=== PATIENT | female | born 1980 | race Caucasian/White ===

== ENCOUNTER → 2016-05-23 | Emergency (ER) | payer BC ==
[~2016-05-23] VITALS: Ht 172.7 cm; Wt 111.1 kg
[2016-05-23 18:20] VITALS: BP 129/65
--- OUTSIDE RECORDS SUMMARY | 2016-06-23 22:56 | XMS REPORT | Continuity of Care Document ---
Author Author [facility] Organization [facility] Address [address] [place] [address] Phone Care Team Providers Care Wind Commissioning Technician Name Role Phone Eric Montes MD PP Nikki Kendrick Unavailable Won Ricci CP Susu Cruz Unavailable Unavailable Eric Montes MD Unavailable Sandy Benitez Unavailable Unavailable Unavailable Problems Name Dates Details Amenorrhea (626.0, N91.2) Status: Active Anxiety (300.00, F41.1) Status: Active Anxiety (300.00, F41.1) Status: Active Bipolar affective (296.80, F31.9) Status: Active Breast lump on right side at 12 o'clock position (611.72, N63) Status: Active Constipation (Renamed from CN (constipation)) (564.00, K59.00) Status: Active Contraception (Renamed from control) (V25.9, Z30.9) Status: Active Deliveries (Parity) Comments: 1 Status: Active Dermatitis (692.9, L30.9) Status: Active Dysesthesia affecting both sides of body (782.0, R20.8) Status: Active Headache (Renamed from Cephalalgia) (784.0, R51) Status: Active Health education/counseling (V65.40, Z71.9) Status: Active Lumbar back pain (724.2) Status: Active Mass of right foot (782.2, R22.41) Status: Active Pre-op evaluation (V72.84) Status: Active Rash (782.1, R21) Status: Active Sore throat (462, J02.9) Status: Active Stillbirth Onset:1999 Status: Active UTI (lower urinary tract infection) (599.0, N39.0) Status: Active Medications Name Dates Details BENZTROPINE MESYLATE, 1MG (Oral Tablet) 1/2 (one half) Tablet Tablet two times daily for 0 days Quantity: 30 {Tablet} Ordered:03-May-2014 Eric Montes MD* Start 03-May-2014 Active METHOCARBAMOL, 750MG (Oral Tablet) 1 (one) Tablet every six hours, as needed for 0 days * Quantity: 100 {Tablet} Refills: 0 Ordered:20-Sep-2014 Sandy Benitez * Start 20-Sep-2014 Active Comments: Medication taken as needed. METHOCARBAMOL, 750MG (Oral Tablet) - Historical Medication 1 every eight hours (750 MG) Active NORCO, 10-325MG (Oral Tablet) - Historical Medication 1 4 to 6 hrs as needed (10-325 MG) Active Comments: Medication taken as needed. SEROQUEL, 100MG (Oral Tablet) 1 (one) Tablet Tablet daily for 30 days * Quantity: 30 {Tablet} Refills: 6 Ordered: Eric Montes MD* Start Active Comments: approved by Dr. Eric Montes TRAMADOL HCL, 50MG (Oral Tablet) - Historical Medication 1or 2 every 4 to 6 hrs. as needed (50 MG) Active Comments: Medication taken as needed. TRAZODONE HCL, 100MG (Oral Tablet) 1 (one) Tablet Tablet at bedtime for 0 days * Quantity: 30 {Tablet} Refills: 6 Ordered: Eric Montes MD* Start 03-May-2014 Active ABILIFY, 10MG (Oral Tablet) 1 (one) Tablet daily for 0 days * Quantity: 90 {Tablet} Refills: 4 Ordered: Susu Cruz * Start 19-Apr-2014 End Inactive Comments: new order 04-19-14 AMBIEN, 10MG (Oral Tablet) - Historical Medication 1 at bedtime (10 MG) Inactive BACTRIM DS, 800-160MG (Oral Tablet) 1 (one) Tablet two times daily for 0 days * Quantity: 20 {Tablet} Refills: 0 Ordered:28-Oct-2013 Sandy Benitez * Start 08-Oct-2013 End 28-Oct-2013 Inactive BENZTROPINE MESYLATE, 1MG (Oral Tablet) - Historical Medication 1/2 tab two times daily (1 MG) Inactive CELEXA, 20MG (Oral Tablet) 1/2 (one half) Tablet 1/2 tab daily x6d, then 1 daily for 0 days * Quantity: 30 {Tablet} Refills: 12 Ordered: Sandy Benitez * Start End Inactive CELEXA, 40MG (Oral Tablet) 1 Tablet daily for 0 days * Quantity: 30 {Tablet} Refills: 3 Ordered: Susu Cruz * Start 08-Dec-2013 End Inactive CLOMID, 50MG (Oral Tablet) - Historical Medication 2 daily (50 MG) * End 01-Apr-2011 Inactive GABAPENTIN, 300MG (Oral Capsule) - Historical Medication 1-2 three times daily (300 MG) Inactive GABAPENTIN, 300MG (Oral Capsule) - Historical Medication 1 q 6hrs (300 MG) Inactive KEFLEX, 500MG (Oral Capsule) 1 (one) Capsule three times daily for 0 days * Quantity: 30 {Capsule} Refills: 0 Ordered:08-Jun-2014 Sandy Benitez * Start 25-Apr-2014 End 08-Jun-2014 Inactive LORAZEPAM, 1MG (Oral Tablet) 1 Tablet every 6 hrs as needed for 0 days * Quantity: 30 {Tablet} Refills: 1 Ordered:12-Apr-2013 Sandy Benitez * Start 31-Jan-2012 End 12-Apr-2013 Inactive Comments: Medication taken as needed. LYRICA, 100MG (Oral Capsule) - Historical Medication 1 two times daily (100 MG) Inactive MEDROL (TREY), 4MG (Oral Tablet) 1 (one) Tablet as directed for 6 days * Quantity: 21 {Tablet} Refills: 0 Ordered:05-Nov-2013 Nikki Devries* Start 05-Nov-2013 End 11-Nov-2013 Inactive Comments: approved by Eric Montes M.D. NORCO, 7.5-325MG (Oral Tablet) - Historical Medication 1 to 2 every 4 to 6 hrs (7.5-325 MG) Inactive NORTREL (28), 1-35MG-MCG (Oral Tablet) 1 Tablet daily for 90 days * Quantity: 3 {Tablet} Refills: 3 Ordered:25-Feb-2011 Sandy Benitez * Start 25-Feb-2011 End 01-Apr-2011 Inactive PERCOCET, 10-325MG (Oral Tablet) - Historical Medication 1 or 2 every six hours, as needed (10-325 MG) Inactive Comments: Medication taken as needed. PHENTERMINE HCL, 30MG (Oral Capsule) 1 Capsule daily for 0 days * Quantity: 30 {Capsule} Refills: 0 Ordered:05-Dec-2010 Sandy Benitez * Start 18-Dec-2009 End 05-Dec-2010 Inactive QUETIAPINE FUMARATE, 100MG (Oral Tablet) - Historical Medication 1 daily (100 MG) Inactive SPIRONOLACTONE, 25MG (Oral Tablet) - Historical Medication 1 daily (25 MG) Inactive TOPAMAX, 25MG (Oral Tablet) 1 Tablet two times daily for 30 days * Quantity: 60 {Tablet} Refills: 12 Ordered:05-Dec-2010 Eric Montes MD* Start 29-Oct-2010 End 05-Dec-2010 Inactive TRAMADOL HCL, 50MG (Oral Tablet) 1 Tablet every six hours, as needed for 10 days * Quantity: 30 {Tablet} Refills: 3 Ordered:03-Jan-2011 Sandy Benitez * Start 03-Jan-2011 End 01-Apr-2011 Inactive Comments: Medication taken as needed. TRAZODONE HCL, 100MG (Oral Tablet) - Historical Medication 1 at bedtime (100 MG) Inactive TOPAMAX, 25MG (Oral Tablet) - Historical Medication two times daily (25 MG) * End 18-Dec-2009 Discontinued Allergies and Adverse Reactions Name Dates Details Morphine Derivatives (Allergy) Status: Active Penicillins (Allergy) Status: Active Toradol *ANALGESICS - ANTI-INFLAMMATORY* (Allergy) Status: Active Past Medical History No Significant Medical History. Procedures Procedure Dates Details X-ray Exam of Lower Spine, 2 Views ([id number]) Completed:17-May-2014 Comments : outside order from Dr. Ricci How to access health information online Completed:07-Feb-2014 X-ray Exam of Lower Spine, 2 Views ([id number]) Completed:11-Jan-2014 Comments : outside order from Dr. Ricci Referral to Dermatology Ordered:16-Nov-2013 DISCONTINUED - URINALYSIS, AUTOMATED W/ MICRO ([facility] [place] ([id number]) Completed:Jun-2011 X-RAY EXAM LUMBAR SPINE, MIN 4 VIEWS ([id number]) Ordered:05-Dec-2010 MRI OF LUMBAR SPINE W/ W/O CONTRAST ([id number]) Ordered:05-Dec-2010 US EXAM, BREAST(S) ([id number]) Ordered:05-Mar-2010 Follow up in 3 months Ordered:18-Dec-2009 Appendectomy Completed:1975 Bone cyst Completed:1998 Comments: Right. knee Carpal Tunnel Surgery - Right Completed: Coccygeal fistula Completed:2003 Family History Name Dates Details Mother Comments: history of hypertension Status: Active Social History Name Dates Details Marital status: . Status: Active Non Drinker/No Alcohol Use Status: Active Tobacco use: Former smoker. Comments: quit 6 years ago Status: Active Vital Signs Date Test Result Details 14:43 Temperature 98 f Comments: Method: Temporal Pulse 92 /min Comments: Pattern: Regular BP Systolic 124 mm[Hg] Comments: Patient Position: Sitting; Cuff Location: Left Arm; Cuff Size: Standard BP Diastolic 76 mm[Hg] Comments: Patient Position: Sitting; Cuff Location: Left Arm; Cuff Size: Standard Weight 237 lb Height 68 in Body Mass Index Calculated 36.04 kg/m2 Body Surface Area Calculated 2.2 m2 07-Feb-2014 14:23 Temperature 98 f Pulse 76 /min Comments: Pattern: Regular BP Systolic 128 mm[Hg] Comments: Patient Position: Sitting; Cuff Location: Left Arm; Cuff Size: Standard BP Diastolic 70 mm[Hg] Comments: Patient Position: Sitting; Cuff Location: Left Arm; Cuff Size: Standard Weight 235 lb Height 68 in Body Mass Index Calculated 35.73 kg/m2 Body Surface Area Calculated 2.19 m2 15-Nov-2013 16:43 Temperature 97.3 f Comments: Method: Temporal Pulse 80 /min Comments: Pattern: Regular BP Systolic 124 mm[Hg] Comments: Patient Position: Sitting; Cuff Location: Left Arm; Cuff Size: Standard BP Diastolic 78 mm[Hg] Comments: Patient Position: Sitting; Cuff Location: Left Arm; Cuff Size: Standard Weight 226 lb Height 68 in Body Mass Index Calculated 34.36 kg/m2 Body Surface Area Calculated 2.15 m2 05-Nov-2013 15:56 Temperature 98.5 f Comments: Method: Temporal Pulse 84 /min Comments: Pattern: Regular BP Systolic 110 mm[Hg] Comments: Patient Position: Sitting; Cuff Location: Left Arm; Cuff Size: Standard BP Diastolic 72 mm[Hg] Comments: Patient Position: Sitting; Cuff Location: Left Arm; Cuff Size: Standard Weight 226 lb Height 69 in Body Mass Index Calculated 33.37 kg/m2 Body Surface Area Calculated 2.18 m2 28-Oct-2013 14:33 Temperature 97.5 f Comments: Method: Temporal Pulse 72 /min Comments: Pattern: Regular BP Systolic 110 mm[Hg] Comments: Patient Position: Sitting; Cuff Location: Left Arm; Cuff Size: Standard BP Diastolic 64 mm[Hg] Comments: Patient Position: Sitting; Cuff Location: Left Arm; Cuff Size: Standard Weight 228 lb Height 68 in Body Mass Index Calculated 34.67 kg/m2 Body Surface Area Calculated 2.16 m2 12-Apr-2013 14:00 Temperature 99.1 f Comments: Method: Temporal Pulse 80 /min Comments: Pattern: Regular BP Systolic 128 mm[Hg] Comments: Patient Position: Sitting; Cuff Location: Left Arm; Cuff Size: Standard BP Diastolic 88 mm[Hg] Comments: Patient Position: Sitting; Cuff Location: Left Arm; Cuff Size: Standard Weight 235 lb Height 67.75 in Body Mass Index Calculated 36 kg/m2 Body Surface Area Calculated 2.18 m2 15:23 Temperature 99.1 f Pulse 74 /min Comments: Pattern: Regular BP Systolic 118 mm[Hg] Comments: Patient Position: Sitting; Cuff Location: Left Arm; Cuff Size: Standard BP Diastolic 70 mm[Hg] Comments: Patient Position: Sitting; Cuff Location: Left Arm; Cuff Size: Standard Weight 207.5 lb Height 67 in Body Mass Index Calculated 32.5 kg/m2 Body Surface Area Calculated 2.05 m2 17:25 Temperature 98.9 f Comments: Method: Temporal Pulse 80 /min Comments: Pattern: Regular BP Systolic 138 mm[Hg] Comments: Patient Position: Sitting; Cuff Location: Left Arm; Cuff Size: Standard BP Diastolic 70 mm[Hg] Comments: Patient Position: Sitting; Cuff Location: Left Arm; Cuff Size: Standard Weight 206 lb Height 67.5 in Body Mass Index Calculated 31.79 kg/m2 Body Surface Area Calculated 2.06 m2 01-Apr-2011 14:46 Temperature 98.3 f Comments: Method: Temporal Pulse 88 /min Comments: Pattern: Regular BP Systolic 122 mm[Hg] Comments: Patient Position: Sitting; Cuff Location: Left Arm; Cuff Size: Standard BP Diastolic 78 mm[Hg] Comments: Patient Position: Sitting; Cuff Location: Left Arm; Cuff Size: Standard Weight 213 lb Height 67 in Body Mass Index Calculated 33.36 kg/m2 Body Surface Area Calculated 2.08 m2 05-Dec-2010 14:53 Temperature 98.6 f Comments: Method: Temporal Pulse 80 /min Comments: Pattern: Regular BP Systolic 138 mm[Hg] Comments: Patient Position: Sitting; Cuff Location: Left Arm; Cuff Size: Standard BP Diastolic 94 mm[Hg] Comments: Patient Position: Sitting; Cuff Location: Left Arm; Cuff Size: Standard Weight 214 lb Height 67.5 in Body Mass Index Calculated 33.02 kg/m2 Body Surface Area Calculated 2.09 m2 05-Mar-2010 13:57 Temperature 98.7 f Comments: Method: Temporal Pulse 72 /min Comments: Pattern: Regular BP Systolic 138 mm[Hg] Comments: Patient Position: Sitting; Cuff Location: Left Arm; Cuff Size: Standard BP Diastolic 84 mm[Hg] Comments: Patient Position: Sitting; Cuff Location: Left Arm; Cuff Size: Standard Weight 206 lb 18-Dec-2009 10:37 Temperature 97.9 f Comments: Method: Temporal Pulse 88 /min Comments: Pattern: Regular BP Systolic 130 mm[Hg] Comments: Patient Position: Sitting; Cuff Location: Left Arm; Cuff Size: Standard BP Diastolic 80 mm[Hg] Comments: Patient Position: Sitting; Cuff Location: Left Arm; Cuff Size: Standard Weight 210 lb Height 67.5 in Body Mass Index Calculated 32.4 kg/m2 Body Surface Area Calculated 2.08 m2 Results Date Description Value Details 07-Feb-2014 15:07 PROLACTIN ([id number]) Comments: Items in this order include: Draw Charge[i], CBC, Comprehensive Metabolic Panel, TSH, FSH, LH, PROLACTINTesting performed at: [facility], [address] [place] [address], [id number], Curam Developer: Lonny Middleton D.O., MPH.brQuest PROLACTIN 11.5 ng/mL (Normal) Comments: Reference Range.br Females.br Non- 3.0-30.0.br 10.0-209.0.br Postmenopausal 2.0-20.0.br .br .br 15:07 LH ([id number]) Comments: Items in this order include: Draw Charge[i] , CBC, Comprehensive Metabolic Panel, TSH, FSH, LH, PROLACTINTesting performed at: [facility], [address] [place] [address], [id number], Curam Developer: Lonny Middleton D.O., MPH.[facility] LH 9.3 m[iU]/mL (Normal) Comments: Reference Range.brFollicular Phase 1.9-12.5.brMid-Cycle Peak 8.7-76.3.brLuteal Phase 0.5- 16.9.brPostmenopausal 10.0-54.7 15:07 FSH ([id number]) Comments: Items in this order include: Draw Charge[i] , CBC, Comprehensive Metabolic Panel, TSH, FSH, LH, PROLACTINTesting performed at: [facility], [address] [place] [address], [id number], Curam Developer: Lonny Middleton D.O., MPH.[facility]Quest FSH 4.4 m[iU]/mL (Normal) Comments: Reference Range.br .br Follicular Phase 2.5-10.2.br Mid-cycle Peak 3.1- 17.7.br Luteal Phase 1.5- 9.1.br Postmenopausal 23.0-116.3 .br 15:07 TSH (THYROID STIMULATING HORMONE) ([id number]) TSH 1.33 uIU/ml (Normal) Range: 0.34-5.60 15:07 CMP ([id number]) ALTI 96 U/L (Abnormal) Range: 12-78 AST 39 [iU]/L (Normal) Range: 10-42 ALP 111 U/L (Normal) Range: 50-136 a/g ratio 1.55 (Normal) Range: 1.00-2.10 globulin 3.1 g/dL (Normal) Range: 2.2-3.9 ALB 4.8 g/dL (Normal) Range: 3.4-5.0 TP 7.9 g/dL (Normal) Range: 6.0-8.3 T.DWAYNE 0.20 mg/dL (Normal) Range: 0.20-1.00 CA 9.6 mg/dL (Normal) Range: 8.4-10.2 GLU 74 mg/dL (Normal) Range: 70-110 eGFR 67.8 mL/min/1.73m2 (Normal) Range: >60.0 CREAT 1.0 mg/dL (Normal) Range: 0.6-1.3 OSMO 280 (Normal) Range: 275-295 BUN 11 mg/dL (Normal) Range: 7-18 AGAP 13.20 mmol/L (Normal) Range: 10.00-20.00 CL 101 mmol/L (Normal) Range: 98-107 CO2 31.2 mmol/L (Normal) Range: 21.0-32.0 K 4.4 mmol/L (Normal) Range: 3.5-5.0 NA 141 mmol/L (Normal) Range: 135-145 15:07 CBC-FEMALE- ORDER THIS ONE! ([id number]) manual diff Not Indicated (Normal) mpv 11.30 fL (Normal) Range: 0.00-99.90 PLT 248.0 10*3/uL (Normal) Range: 150.0-450.0 RDW 13.6 % (Normal) Range: 11.5-14.5 MCHC 32.3 g/dL (Normal) Range: 32.0-36.0 MCH 28.8 pg (Normal) Range: 27.0-31.0 MCV 89.2 fL (Normal) Range: 80.0-97.0 HCT 43.7 % (Normal) Range: 36.0-47.0 HGB 14.10 g/dL (Normal) Range: 11.00-17.00 RBC 4.90 M/uL (Normal) Range: 4.20-5.40 Baso% 0.300 % (Normal) Range: 0.000-1.000 eos% 3.40 % (Abnormal) Range: 0.00-3.00 mono% 6.90 % (Normal) Range: 0.00-7.00 LYM% 41.70 % (Abnormal) Range: 20.00-40.00 andrey% 47.70 % (Abnormal) Range: 55.00-75.00 Baso 0.030 10*3/uL (Normal) Range: 0.000-0.100 eos 0.360 10*3/uL (Normal) Range: 0.000-4.000 mono 0.73 10*3/uL (Abnormal) Range: 0.00-0.70 LYMPHS 4.42 10*3/uL (Abnormal) Range: 0.90-4.20 andrey 5.06 10*3/uL (Normal) Range: 2.50-7.80 wbc 10.60 10*3/uL (Abnormal) Range: 4.50-10.50 15:07 Routine Venipuncture ([id number]) Draw Drawn (Normal) 15-Nov-2013 17:32 SED RATE ERYTHROCYTE ([id number]) Comments: Items in this order include: Draw Charge[i], Basic Metabolic Panel, C-Reactive Protein, CBC, Sed Rate ESR 4 mm/h (Normal) Range: 0-20 17:32 CBC-FEMALE- ORDER THIS ONE! ([id number]) manual diff Not Indicated (Normal) mpv 10.60 fL (Normal) Range: 0.00-99.90 PLT 237.0 10*3/uL (Normal) Range: 150.0-450.0 RDW 14.2 % (Normal) Range: 11.5-14.5 MCHC 32.1 g/dL (Normal) Range: 32.0-36.0 MCH 28.8 pg (Normal) Range: 27.0-31.0 MCV 89.6 fL (Normal) Range: 80.0-97.0 HCT 43.0 % (Normal) Range: 36.0-47.0 HGB 13.80 g/dL (Normal) Range: 11.00-17.00 RBC 4.80 M/uL (Normal) Range: 4.20-5.40 Baso% 0.400 % (Normal) Range: 0.000-1.000 eos% 6.50 % (Abnormal) Range: 0.00-3.00 mono% 6.60 % (Normal) Range: 0.00-7.00 LYM% 32.60 % (Normal) Range: 20.00-40.00 andrey% 53.90 % (Abnormal) Range: 55.00-75.00 Baso 0.040 10*3/uL (Normal) Range: 0.000-0.100 eos 0.720 10*3/uL (Normal) Range: 0.000-4.000 mono 0.73 10*3/uL (Abnormal) Range: 0.00-0.70 LYMPHS 3.60 10*3/uL (Normal) Range: 0.90-4.20 andrey 5.95 10*3/uL (Normal) Range: 2.50-7.80 wbc 11.04 10*3/uL (Abnormal) Range: 4.50-10.50 17:32 C-REACTIVE PROTEIN ([id number]) CRP 1.82 mg/dL (Abnormal) Range: 0.00-0.30 17:32 BMP GLU 97 mg/dL (Normal) Range: 70-110 CA 9.3 mg/dL (Normal) Range: 8.4-10.2 eGFR 67.9 mL/min/1.73m2 (Normal) Range: >60.0 CREAT 1.0 mg/dL (Normal) Range: 0.6-1.3 OSMO 284 (Normal) Range: 275-295 BUN 12 mg/dL (Normal) Range: 7-18 AGAP 10.80 mmol/L (Normal) Range: 10.00-20.00 CO2 33.2 mmol/L (Abnormal) Range: 21.0-32.0 CL 102 mmol/L (Normal) Range: 98-107 K 4.0 mmol/L (Normal) Range: 3.5-5.0 NA 142 mmol/L (Normal) Range: 135-145 17:32 Routine Venipuncture ([id number]) Draw Drawn (Normal) 30-Sep-2013 14:25 URINALYSIS, AUTOMATED W/ MICRO ([facility] [place] ([id number]) Comments : Items in this order include: CBC, Basic Metabolic Panel, UrinalysisAntibiotics? NoSource? Clean Catch U BACT Trace(1-2/hpf) (Abnormal) Range: Negative U squamous 1+(2-5/hpf) (Abnormal) Range: Negative U RBC 0-2/hpf (Abnormal) Range: Negative U WBC 0-4/hpf (Abnormal) Range: Negative Sent for Culture No (Normal) U LEUKO Negative (Normal) Range: Negative U Nitrites Negative (Normal) Range: Negative U URO 0.2 E.U./dL (Normal) Range: 0.0 - 1.0 Urine Protein Negative (Normal) Range: Negative U PH 5.5 (Normal) Range: 5.0-8.0 U BLD Negative (Normal) Range: Negative U SG 1.025 (Normal) Range: 1.010 - 1.030 U BILI Negative (Normal) Range: Negative U KETONES Trace (Abnormal) Range: Negative U GLU Negative (Normal) Range: Negative U CLARITY Clear (Normal) Range: Clear U COLOR Yellow (Normal) Range: Yellow 14:25 BMP Comments: Items in this order include: CBC, Basic Metabolic Panel, Urinalysis GLU 115 mg/dL (Abnormal) Range: 70-110 CA 9.7 mg/dL (Normal) Range: 8.4-10.2 eGFR 68.0 mL/min/1.73m2 (Normal) Range: >60.0 CREAT 1.0 mg/dL (Normal) Range: 0.6-1.3 BUN 12 mg/dL (Normal) Range: 7-18 OSMO 279 (Normal) Range: 275-295 AGAP 13.90 mmol/L (Normal) Range: 10.00-20.00 CO2 29.7 mmol/L (Normal) Range: 21.0-32.0 CL 100 mmol/L (Normal) Range: 98-107 K 4.6 mmol/L (Normal) Range: 3.5-5.0 NA 139 mmol/L (Normal) Range: 135-145 14:25 CBC-FEMALE- ORDER THIS ONE! ([id number]) Comments: Results to [facility] Dr. Ricci .; Items in this order include : CBC, Basic Metabolic Panel, [id number].Results to [facility] Dr. Ricci Fax manual diff Not Indicated (Normal) mpv 11.10 fL (Normal) Range: 0.00-99.90 PLT 222.0 10*3/uL (Normal) Range: 150.0-450.0 RDW 13.9 % (Normal) Range: 11.5-14.5 MCHC 32.3 g/dL (Normal) Range: 32.0-36.0 MCH 28.2 pg (Normal) Range: 27.0-31.0 MCV 87.3 fL (Normal) Range: 80.0-97.0 HCT 44.6 % (Normal) Range: 36.0-47.0 HGB 14.40 g/dL (Normal) Range: 11.00-17.00 RBC 5.11 M/uL (Normal) Range: 4.20-5.40 Baso% 0.200 % (Normal) Range: 0.000-1.000 eos% 3.50 % (Abnormal) Range: 0.00-3.00 mono% 3.60 % (Normal) Range: 0.00-7.00 LYM% 37.40 % (Normal) Range: 20.00-40.00 andrey% 55.30 % (Normal) Range: 55.00-75.00 Baso 0.020 10*3/uL (Normal) Range: 0.000-0.100 eos 0.330 10*3/uL (Normal) Range: 0.000-4.000 mono 0.34 10*3/uL (Normal) Range: 0.00-0.70 LYMPHS 3.56 10*3/uL (Normal) Range: 0.90-4.20 andrey 5.26 10*3/uL (Normal) Range: 2.50-7.80 wbc 9.51 10*3/uL (Normal) Range: 4.50-10.50 15:04 URINALYSIS, AUTOMATED W/ MICRO ([facility] [place] ([id number]) Comments : All lab needs to be faxed to [facility] at [phone]. Pre-op Dr. Won Ricci.; Items in this order include: Draw Charge[i], CBC, Basic Metabolic Panel, [id number]. Pre-op Dr. Won Ricci.[facility] yeast Present - Rare (Abnormal) Range: Negative U BACT 1+(3-10/hpf) (Abnormal) Range: Negative U squamous 1+(2-5/hpf) (Abnormal) Range: Negative U RBC 0-2/hpf (Abnormal) Range: Negative U WBC 0-4/hpf (Abnormal) Range: Negative Sent for Culture No (Normal) U LEUKO Negative (Normal) Range: Negative U Nitrites Negative (Normal) Range: Negative U URO 0.2 E.U./dL (Normal) Range: 0.0 - 1.0 Urine Protein Negative (Normal) Range: Negative U PH 6.0 (Normal) Range: 5.0-8.0 U BLD Negative (Normal) Range: Negative U SG 1.020 (Normal) Range: 1.010 - 1.030 U KETONES Negative (Normal) Range: Negative U BILI Negative (Normal) Range: Negative U GLU Negative (Normal) Range: Negative U CLARITY Clear (Normal) Range: Clear U COLOR Yellow (Normal) Range: Yellow 15:04 BMP Comments: Items in this order include: Draw Charge[i], CBC, Basic Metabolic Panel, Urinalysis GLU 97 mg/dL (Normal) Range: 70-110 CA 9.5 mg/dL (Normal) Range: 8.4-10.2 eGFR 61.7 mL/min/1.73m2 (Normal) Range: >60.0 CREAT 1.1 mg/dL (Normal) Range: 0.6-1.3 OSMO 277 (Normal) Range: 275-295 BUN 15 mg/dL (Normal) Range: 7-18 AGAP 10.90 mmol/L (Normal) Range: 10.00-20.00 CO2 30.7 mmol/L (Normal) Range: 21.0-32.0 CL 101 mmol/L (Normal) Range: 98-107 K 4.6 mmol/L (Normal) Range: 3.5-5.0 NA 138 mmol/L (Normal) Range: 135-145 15:04 CBC-FEMALE- ORDER THIS ONE! ([id number]) Comments: Items in this order include: Draw Charge[i], CBC, Basic Metabolic Panel, Urinalysis manual diff Not Indicated (Normal) mpv 8.99 fL (Normal) Range: 0.00-99.90 PLT 254.0 10*3/uL (Normal) Range: 150.0-450.0 RDW 12.0 % (Normal) Range: 11.5-14.5 MCHC 32.1 g/dL (Normal) Range: 32.0-36.0 MCH 27.9 pg (Normal) Range: 27.0-31.0 MCV 87.0 fL (Normal) Range: 80.0-97.0 HCT 42.4 % (Normal) Range: 36.0-47.0 HGB 13.60 g/dL (Normal) Range: 11.00-17.00 RBC 4.88 M/uL (Normal) Range: 4.20-5.40 Baso% 1.020 % (Abnormal) Range: 0.000-1.000 eos% 2.55 % (Normal) Range: 0.00-3.00 mono% 5.67 % (Normal) Range: 0.00-7.00 LYM% 28.70 % (Normal) Range: 20.00-40.00 andrey% 62.00 % (Normal) Range: 55.00-75.00 Baso 0.096 10*3/uL (Normal) Range: 0.000-0.100 eos 0.240 10*3/uL (Normal) Range: 0.000-4.000 mono 0.53 10*3/uL (Normal) Range: 0.00-0.70 LYMPHS 2.70 10*3/uL (Normal) Range: 0.90-4.20 andrey 5.84 10*3/uL (Normal) Range: 2.50-7.80 wbc 9.41 10*3/uL (Normal) Range: 4.50-10.50 15:04 Routine Venipuncture ([id number]) Comments: Items in this order include : Draw Charge[i], CBC, Basic Metabolic Panel, Urinalysis Draw Drawn (Normal) 06-Mar-2011 11:27 [facility] Comments: Please fax all lab to Dr. Ricci at [phone] and [facility] at [phone]; Items in this order include: Draw Charge[i], CBC, Urinalysis, [facility] at [phone] fax all lab to Dr. Ricci at [phone] and Via GLU 83 mg/dL (Normal) Range: 70-110 CA 10.0 mg/dL (Normal) Range: 8.4-10.2 eGFR 69.1 mL/min/1.73m2 (Normal) Range: >60.0 CREAT 1.0 mg/dL (Normal) Range: 0.6-1.3 OSMO 279 (Normal) Range: 275-295 BUN 11 mg/dL (Normal) Range: 7-18 AGAP 11.50 mmol/L (Normal) Range: 10.00-20.00 CO2 31.3 mmol/L (Normal) Range: 21.0-32.0 CL 102 mmol/L (Normal) Range: 98-107 K 4.8 mmol/L (Normal) Range: 3.5-5.0 NA 140 mmol/L (Normal) Range: 135-145 11:27 URINALYSIS, AUTOMATED W/ MICRO ([facility] [place] [facility] [place] ([id number]) Comments: Items in this order include: Draw Charge[i], CBC, Urinalysis, Basic Metabolic Panel U BACT 1+(3-10/hpf) (Abnormal) Range: Negative U squamous 3+(25-50/hpf) (Abnormal) Range: Negative U RBC 0-2/hpf (Abnormal) Range: Negative U WBC 0-4/hpf (Abnormal) Range: Negative Sent for Culture No (Normal) U LEUKO Negative (Normal) Range: Negative U Nitrites Negative (Normal) Range: Negative U URO 0.2 E.U./dL (Normal) Range: 0.0 - 1.0 Urine Protein Negative (Normal) Range: Negative U PH 5.5 (Normal) Range: 5.0-8.0 U BLD Negative (Normal) Range: Negative U SG 1.025 (Normal) Range: 1.010 - 1.030 U KETONES Negative (Normal) Range: 0-5 U BILI Negative (Normal) Range: Negative U GLU Negative (Normal) Range: Negative U CLARITY Clear (Normal) Range: Clear U COLOR Yellow (Normal) Range: Yellow 11:27 CBC-FEMALE- ORDER THIS ONE! (23743) Comments: Items in this order include: Draw Charge[i], CBC, Urinalysis, Basic Metabolic Panel manual diff Not Indicated (Normal) mpv 10.50 fL (Normal) Range: 0.00-99.90 PLT 263.0 10*3/uL (Normal) Range: 150.0-450.0 RDW 11.5 % (Normal) Range: 11.5-14.5 MCHC 34.5 g/dL (Normal) Range: 32.0-36.0 MCH 29.3 pg (Normal) Range: 27.0-31.0 MCV 84.9 fL (Normal) Range: 80.0-97.0 HCT 40.2 % (Normal) Range: 36.0-47.0 HGB 13.90 g/dL (Normal) Range: 11.00-17.00 RBC 4.73 M/uL (Normal) Range: 4.20-5.40 Baso% 1.240 % (Abnormal) Range: 0.000-1.000 eos% 3.40 % (Abnormal) Range: 0.00-3.00 mono% 6.06 % (Normal) Range: 0.00-7.00 LYM% 30.10 % (Normal) Range: 20.00-40.00 andrey% 59.20 % (Normal) Range: 55.00-75.00 Baso 0.094 10*3/uL (Normal) Range: 0.000-0.100 eos 0.259 10*3/uL (Normal) Range: 0.000-4.000 mono 0.46 10*3/uL (Normal) Range: 0.00-0.70 LYMPHS 2.29 10*3/uL (Normal) Range: 0.90-4.20 andrey 4.50 10*3/uL (Normal) Range: 2.50-7.80 wbc 7.61 10*3/uL (Normal) Range: 4.50-10.50 11:27 Routine Venipuncture (84025) Comments: Items in this order include : Draw Charge[i], CBC, Urinalysis, Basic Metabolic Panel Draw Drawn (Normal) Advance Directives Encounters Medication Entry - Lumbar back pain (724.2) [facility] On 20-Sep-2014 12:31 to 12:34 Office Visit - Mass of right foot (782.2 | R22.41) Encounter Reason: Foot Problem - Symptoms include foot swelling and mass foot lesion (medial right foot). Symptoms are located in the right foot. Onset was sudden 1 week(s) ago. The symptoms occur constantly. The patient describes symptoms as mild and unchanged. Associated symptoms include pain with shoes ( "uncomforable"). The patient is not currently being treated for this problem. Note for "Foot problem": Relates that she noticed the area about a week ago. States that the more that she is up on her feet she feels the size in increased. Denies any pain at this time to area.[facility] On 14:43 to 17:01 Historical Summary [facility] On 11:48 to 11:52 Radiology Visit - Lumbar back pain (724.2) [facility] On 17-May-2014 16:35 to 16:37 Medication Entry [facility] On 03-May-2014 09:14 to 09:22 Medication Entry - Sore throat (462 | J02.9) [facility] On 25-Apr-2014 15:13 to 15:15 Office Visit - Health education/counseling (V65.40 | Z71.9), Bipolar affective (296.80 | F31.9), Amenorrhea (626.0 | N91.2) Encounter Reason: Anxiety - Symptoms include anxiety, excessive worry, fatigue, insomnia, nervousness, panic attacks, shaky hands and sleep disruption. Onset was month(s) ago. The patient describes this as worsening. Associated symptoms include shortness of breath, while associated symptoms do not include chest pain , dizziness, headaches or heart palpitations. Note for "Anxiety": Taking Seroquel for sx., sees Shama at [facility] also, [ADDITIONAL REASON] Amenorrhea, Primary - She is sexually active. For contraception she uses nothing. Symptoms include amenorrhea, while symptoms do not include pelvic pain , headache or visual disturbance. The patient describes this as unchanged. Associated symptoms include fatigue and hot flashes. Note for "Primry amenorrhea ": said she wants her hormones checked [facility] On 07-Feb-2014 14:16 to 15:30 Radiology Visit - Lumbar back pain (724.2) [facility] On 11-Jan-2014 16:20 to 16:23 Office Visit - Rash (782.1 | R21) Encounter Reason: Rash - The last clinic visit was 10 day(s) ago. Management changes made at the last visit include adding prednisone and kenalog/lubriderm. Symptoms include skin bumps, pruritus and skin redness, while symptoms do not include pain. The skin rash is located on the left truncal area and right truncal area. Onset was sudden 10 day(s) ago. Onset followed none (back surgery 3 weeks ago ). The symptoms occur constantly. The patient describes this as moderate in severity and unchanged. Associated symptoms do not include fever. Current treatment includes moisturizers. Note for "Rash": Relates that she finished the prednisone and was then started on kenalog/lubriderm cream and feels that she has not gotten any better. Relates that the rash is tingly at times but is not painful or itchy.[facility] 15-Nov-2013 to 16-Nov-2013 Office Visit - Dermatitis (692.9 | L30.9) Encounter Reason: Rash - Symptoms include skin bumps, pruritus and skin redness , while symptoms do not include pain. The skin rash is located on the left truncal area and right truncal area. Onset was sudden 4 day(s) ago. Onset followed none (back surgery 3 weeks ago ). The symptoms occur constantly. The patient describes this as moderate in severity and worsening. Associated symptoms do not include fever. Note for "Rash": Relates that she had back surgery 3 weeks ago and is wearing a brace and at first she states she just thought it was a heat rash but it has gotten worse since starting.[facility] On 05-Nov-2013 15:56 to 16:53 Office Visit - Lumbar back pain (724.2) Encounter Reason: Post-Operative - Patient is 2 weeks (diskectomy) postop procedure. Patient's symptoms are improved compared to preoperative. Post operative pain has been moderate. Pain medications include: Hydrocodone and Ultram. Patient has been compliant with post operative instructions. Patient has shown improvement in their activity level (has gradually improved since surgery.).[facility] On 28-Oct-2013 14:32 to 15:50 Historical Summary [facility] On 27-Oct-2013 10:06 to 10:10 Medication Entry - UTI (lower urinary tract infection) (599.0 | N39.0) [facility] On 08-Oct-2013 15:55 to 15:57 Lab entry only - Lumbar back pain (724.2) [facility] On 08:47 to 08:49 Medication Entry - Dysesthesia affecting both sides of body (782.0 | R20.8) [facility] On 21-May-2013 13:35 to 13:38 Office Visit - Dysesthesia affecting both sides of body (782.0 | R20.8), Anxiety (300.00 | F41.1) Encounter Reason: Foot Problem - Symptoms include foot pain (both heels), foot swelling and foot numbness, while symptoms do not include foot skin lesions. Onset was 2 month(s) ago. The patient describes symptoms as worsening. Symptoms are exacerbated by walking and standing. Current treatment includes opioid analgesics. Pertinent medical history does not include congenital foot deformity., [ADDITIONAL REASON] Numbness - The onset of the numbness has been gradual and has been occurring for 6 months. The course has been increasing. The numbness is described as moderate (both hands get numb and has swelling. Nighttime is the worst.). , [ADDITIONAL REASON] Anxiety - Symptoms include anxiety, insomnia and nervousness. The patient describes this as worsening. Associated symptoms include choking sensation and shortness of breath, while associated symptoms do not include chest pain, headaches or heart palpitations. Note for "Anxiety": Taking Seroquel for sx. [facility] On 12-Apr-2013 14:00 to 14:49 Office Visit - Lumbar back pain (724.2), Pre-op evaluation (V72.84) Encounter Reason: Pre-Op Visit - The procedure scheduled is a repeat micro- diskectomy on 09-03-11. The surgeon for the procedure will be Dr. Lawson. The chief complaint is lumbar back pain.. Recent symptoms do not include fever, chills, chest pain, cough, dyspnea, nausea, vomiting or diarrhea. Pertinent medical history does not include previous anesthesia reaction. Pertinent social history does not include tobacco use. After surgery the patient plans to recover at home with family.[facility] On 15:23 to 22:32 Medication Entry - Anxiety (300.00) [facility] On 14:52 to 14:55 Office Visit - Anxiety (300.00) Encounter Reason: Anxiety - Symptoms include anxiety, excessive worry, irritability, muscle tension and nervousness, while symptoms do not include insomnia. Onset was 1 week(s) ago. The patient describes this as worsening. Symptoms are exacerbated by stress (Needing to have back surgery again, family problems. 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 old.). Associated symptoms include muscle spasms. The patient is not currently being treated for this problem.[facility] On 17:25 to 21:06 Lab entry only - Lumbar back pain (724.2) [facility] On 09-Jul-2011 09:57 to 10:02 Office Visit - Lumbar back pain (724.2), Constipation (564.00) Encounter Reason: Post-Operative - Patient is 2 weeks postop procedure. Post operative complications include numbness, urinary retention (in AM.) and constipation. Patient's symptoms are improved compared to preoperative. Post operative pain has been mild. Pain medications include: Hydrocodone. Post operative treatment includes walking program (some.). Patient has been compliant with post operative instructions., [ADDITIONAL REASON] Numbness - The numbness has been occurring in a persistent pattern for 2 weeks (Since having surgery lt. leg and buttock have been numb. Sx previously were on the rt. Also having trouble urinating.). Note for "Numbness": this is gradually improving over the past 1 week , [ADDITIONAL REASON] Constipation - The onset of the constipation has been acute (Since surgery and some before.). The amount of stool per bowel movement is normal. The frequency of bowel movements has been 1 per day. The symptoms are relieved by laxatives (MOM and [employer]). The symptoms have been associated with abdominal distention, abdominal pain and hemorrhoids. [facility] On 01-Apr-2011 14:46 to 19:35 Medication Entry - Contraception (V25.9) [facility] On 25-Feb-2011 16:26 to 16:28 Lab entry only - Lumbar back pain (724.2) [facility] On 21-Feb-2011 15:35 to 15:44 Medication Entry - Lumbar back pain (724.2) [facility] On 03-Jan-2011 16:18 to 16:22 Medication Entry - Lumbar back pain (724.2) [facility] On 02-Jan-2011 17:57 to 18:06 Office Visit - Lumbar back pain (724.2) Encounter Reason: Back Pain Lumbar, Chronic - Symptoms include pain and decreased range of motion. Symptoms are located in the right low back and in the right sacroiliac region. Onset was 2 month(s) ago. Symptoms are exacerbated by standing and bending. Associated symptoms do not include leg numbness. Current treatment includes ice packs, heating pad (doesn't help.) and nonsteroidal anti-inflammatory drugs. 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 Had bone removed from hip and put in knee. ).[facility] On 05-Dec-2010 14:52 to 16:15 Office Visit - Breast lump on right side at 12 o'clock position (611.72) Encounter Reason: Breast Mass - Symptoms include breast mass(es) and breast tenderness, while symptoms do not include bloody nipple discharge, nonbloody nipple discharge, breast skin ulceration or breast erythema. The patient complains of mass(es) in the right upper inner quadrant. Onset was 2 month(s) ago. There is no known event that preceded symptom onset. Pertinent medical history includes fibrocystic disease of the breast. The last menstrual period began 01-17-2010.[facility] On 05-Mar-2010 13:56 to 23:43 Office Visit Encounter Reason: Obesity - The patient's appetite is normal. The patient's dietary intake is normal. The patient has gained 30 pounds (has bought treadmill and walks qod-30 min). The symptoms have been associated with fatigue , while the symptoms have not been associated with amenorrhea or cold intolerance.[facility] On 18-Dec-2009 10:37 to 11:12 Office Visit [facility] On 04-Dec-2009 13:30 to 13:44 Insurance * Christy Elder ; a guarantor * [facility] Medical Assistance [employer]g * [facility]
--- OUTSIDE RECORDS SUMMARY | 2016-06-23 22:57 | XMS REPORT | Continuity of Care Document ---
Author Author [facility] [place] Organization [facility] [place] Address [address] [place] [address] Phone Care Team Providers Care Veterans Service Officer Name Role Phone Eric Montes MD PP Eric Montes MD Unavailable Sandy Benitez Unavailable Unavailable Unavailable Problems Name Dates Details Amenorrhea (626.0, N91.2) Status: Active Anxiety (300.00, F41.9) Status: Active Anxiety (300.00, F41.9) Status: Active Bipolar affective (296.80, F31.9) Status: [...] Active Lumbar back pain (724.2) Status: Active Pre-op evaluation (V72.84) Status: Active Rash (782.1, R21) Status: Active Sore throat (462, J02.9) Status: Active Stillbirth Onset:1999 Status: Active UTI (lower urinary tract infection) (599.0, N39.0) Status: Active Medications Name Dates Details ABILIFY, 10MG (Oral Tablet) 1 (one) Tablet daily for 0 days Quantity: 90 {Tablet} Ordered:19-Apr-2014 Eric Montes MD* Start 19-Apr-2014 Active Comments: new order 04-19-14 BENZTROPINE MESYLATE, 1MG (Oral Tablet) 1/2 (one half) Tablet Tablet two times daily for 0 days * Quantity: 30 {Tablet} Refills: 6 Ordered:03-May-2014 Eric Montes MD* Start 03-May-2014 Active CELEXA, 40MG (Oral Tablet) 1 Tablet daily for 0 days * Quantity: 30 {Tablet} Refills: 3 Ordered:08-Dec-2013 Eric Montes MD* Start 08-Dec-2013 Active KEFLEX, 500MG (Oral Capsule) 1 (one) Capsule three times daily for 0 days * Quantity: 30 {Capsule} Refills: 0 Ordered:25-Apr-2014 Sandy Benitez * Start 25-Apr-2014 Active LYRICA, 100MG (Oral Capsule) - Historical Medication 1 two times daily (100 MG) Active METHOCARBAMOL, 750MG (Oral Tablet) - Historical Medication 1 every eight hours (750 MG) Active NORCO, 10-325MG (Oral Tablet) - Historical Medication 1 4 to 6 hrs as needed (10-325 MG) Active Comments: Medication taken as needed. SEROQUEL, 100MG (Oral Tablet) 1 (one) Tablet Tablet daily for 0 days * Quantity: 30 {Tablet} Refills: 6 Ordered:22-Dec-2013 Eric Montes MD* Start 22-Dec-2013 Active TRAMADOL HCL, 50MG (Oral Tablet) - Historical Medication 1or 2 every 4 to 6 hrs. as needed (50 MG) Active Comments: Medication taken as needed. TRAZODONE HCL, 100MG (Oral Tablet) 1 (one) Tablet at bedtime for 0 days * Quantity: 30 {Tablet} Refills: 6 Ordered:03-May-2014 Eric Montes MD* Start 03-May-2014 Active TRAZODONE HCL, 100MG (Oral Tablet) - Historical Medication 1 at bedtime (100 MG) Active AMBIEN, 10MG (Oral Tablet) - Historical Medication [...] Ordered: Sandy Benitez * Start End Inactive CLOMID, 50MG (Oral Tablet) - Historical Medication 2 daily (50 MG) * End 01-Apr-2011 Inactive GABAPENTIN, 300MG (Oral Capsule) - Historical Medication 1 q 6hrs (300 MG) Inactive GABAPENTIN, 300MG (Oral Capsule) - Historical Medication 1-2 three times daily (300 MG) Inactive LORAZEPAM, 1MG (Oral Tablet) 1 Tablet every 6 hrs as needed for 0 days * Quantity: 30 {Tablet} Refills: 1 Ordered:12-Apr-2013 Sandy Benitez * Start 31-Jan-2012 End 12-Apr-2013 Inactive Comments: Medication taken as needed. MEDROL (TREY), 4MG (Oral Tablet) 1 (one) Tablet as directed for 6 days * Quantity: 21 {Tablet} Refills: 0 Ordered:05-Nov-2013 Nikki Devries* Start 05-Nov-2013 End 11-Nov-2013 Inactive Comments: approved by Eric Montes M.D. NORCO, 7.5-325MG (Oral Tablet) - Historical Medication 1 to 2 every 4 to 6 hrs (7.5-325 MG) Inactive NORTREL 1/35 (28), 1-35MG-MCG (Oral Tablet) 1 Tablet daily [...] 01-Apr-2011 Inactive Comments: Medication taken as needed. TOPAMAX, 25MG (Oral Tablet) - Historical Medication two times daily (25 MG) * End 18-Dec-2009 Discontinued Allergies and Adverse Reactions Name Dates Details Morphine Derivatives (Allergy) Status: Active Penicillins (Allergy) Status: Active Toradol *ANALGESICS - ANTI-INFLAMMATORY* (Allergy) Status: Active Past Medical History No Significant Medical History. Procedures Procedure Dates Details How to access health information online Completed:07-Feb-2014 X-ray Exam of Lower Spine, 2 Views ([id number]) Completed:11-Jan-2014 Comments : outside order from Dr. Ricci Referral to Dermatology Ordered:16-Nov-2013 DISCONTINUED - URINALYSIS, AUTOMATED W/ MICRO ([facility]) ([id number]) Completed:Jun-2011 X-RAY EXAM LUMBAR SPINE, MIN 4 VIEWS ([id number]) Ordered:05-Dec-2010 MRI OF LUMBAR SPINE W/ W/O CONTRAST ([id number]) Ordered:05-Dec-2010 US EXAM, BREAST(S) ([id number]) Ordered:05-Mar-2010 Follow up in 3 months Ordered:18-Dec-2009 Appendectomy Completed:1975 Bone cyst Completed:1998 Comments: Right. knee Carpal Tunnel Surgery - Right Completed: Coccygeal fistula Completed:2003 Social History Name Dates Details Non Drinker/No Alcohol Use Status: Active Tobacco use: Former smoker. Comments: quit 6 years ago Status: Active Vital Signs Date Test Result Details 07-Feb-2014 14:23 Temperature 98 f Pulse 76 [...] Date Description Value Details 07-Feb-2014 15:07 PROLACTIN ([id number]) Comments: Items in this order include: Draw Charge[i], CBC, Comprehensive Metabolic Panel, TSH, FSH, LH, PROLACTINTesting performed at: [facility], [address] [place] [address], [id number], Marine Designer: Lonny Middleton D.O., MPH.[employer]Quest PROLACTIN 11.5 ng/mL (Normal) Comments: Reference Range.br Females.br Non- 3.0-30.0.br 10.0-209.0.br Postmenopausal 2.0-20.0.br .br .br 15:07 LH ([id number]) Comments: Items in this order include: Draw Charge[i] , CBC, Comprehensive Metabolic Panel, TSH, FSH, LH, PROLACTINTesting performed at: [facility], [address] [place], [address], Marine Designer: Lonny Middleton D.O., MPH.[facility] LH 9.3 m[iU]/mL (Normal) Comments: Reference Range.brFollicular Phase 1.9-12.5.brMid-Cycle Peak 8.7-76.3.brLuteal Phase 0.5- 16.9.brPostmenopausal 10.0-54.7 15:07 FSH ([id number]) Comments: Items in this order include: Draw Charge[i] , CBC, Comprehensive Metabolic Panel, TSH, FSH, LH, PROLACTINTesting performed at: [facility], [address] [place], [address], Marine Designer: Lonny Middleton D.O., MPH.[facility] FSH 4.4 m[iU]/mL (Normal) Comments: Reference Range.br .br Follicular Phase 2.5-10.2.br Mid-cycle Peak 3.1- 17.7.br Luteal Phase 1.5- 9.1.br Postmenopausal 23.0-116.3 .br 15:07 TSH (THYROID STIMULATING HORMONE) ([id number]) TSH 1.33 uIU/ml (Normal) Range: 0.34-5.60 15:07 CMP (68140) ALTI 96 U/L (Abnormal) Range: 12-78 AST [...] Range: 135-145 15:07 CBC-FEMALE- ORDER THIS ONE! ([id number]) manual diff Not Indicated (Normal) mpv 11.30 [...] 10*3/uL (Abnormal) Range: 4.50-10.50 15:07 Routine Venipuncture ([id number]) Draw Drawn (Normal) 15-Nov-2013 17:32 SED RATE ERYTHROCYTE ([id number]) Comments: Items in this order include: Draw Charge[i], Basic Metabolic Panel, C-Reactive Protein, CBC, Sed Rate ESR 4 mm/h (Normal) Range: 0-20 17:32 CBC-FEMALE- ORDER THIS ONE! ([id number]) manual diff Not Indicated (Normal) mpv 10.60 [...] 10*3/uL (Abnormal) Range: 4.50-10.50 17:32 C-REACTIVE PROTEIN ([id number]) CRP 1.82 mg/dL (Abnormal) Range: 0.00-0.30 17:32 [...] mmol/L (Normal) Range: 135-145 17:32 Routine Venipuncture (59310) Draw Drawn (Normal) 30-Sep-2013 14:25 URINALYSIS, AUTOMATED W/ MICRO ([facility]) ([id number]) Comments : Items in this order include: [...] Range: 135-145 14:25 CBC-FEMALE- ORDER THIS ONE! ([id number]) Comments: Results to [facility] Dr. Ricci .; Items in this order include : CBC, Basic Metabolic Panel, [id number].Results to [facility] Dr. Ricci Fax manual diff Not Indicated [...] Range: 4.50-10.50 15:04 URINALYSIS, AUTOMATED W/ MICRO ([facility]) ([id number]) Comments : All lab needs to be faxed to [facility] at [phone]. Pre-op Dr. Won Ricci.; Items in this order include: Draw Charge[i], CBC, Basic Metabolic Panel, [id number]. Pre-op Dr. Won Ricci.[facility] - Rare (Abnormal) Range: Negative [...] Range: 135-145 15:04 CBC-FEMALE- ORDER THIS ONE! ([id number]) Comments: Items in this order include: Draw [...] 10*3/uL (Normal) Range: 4.50-10.50 15:04 Routine Venipuncture ([id number]) Comments: Items in this order include : Draw Charge[i], CBC, Basic Metabolic Panel, Urinalysis Draw Drawn (Normal) 06-Mar-2011 11:27 BMP Comments: Please fax all lab to Dr. Ricci at and [facility] at [phone]; Items in this order include: Draw Charge[i], CBC, Urinalysis, Basic Metabolic PanelChristi [facility] at [phone] fax all lab to Dr. Ricci at [phone] and [facility] 83 mg/dL (Normal) Range: [...] Range: 135-145 11:27 URINALYSIS, AUTOMATED W/ MICRO ([facility]) ([id number]) Comments: Items in this order include: Draw [...] Range: Yellow 11:27 CBC-FEMALE- ORDER THIS ONE! ([id number]) Comments: Items in this order include: Draw [...] 10*3/uL (Normal) Range: 4.50-10.50 11:27 Routine Venipuncture (66245) Comments: Items in this order include : Draw Charge[i], CBC, Urinalysis, Basic Metabolic Panel Draw Drawn (Normal) Advance Directives Encounters Medication Entry [facility] [place] On 03-May-2014 09:14 to 09:22 Medication Entry - Sore throat (462 | J02.9) [facility] [place] On 25-Apr-2014 15:13 to 15:15 Office Visit [...] Taking Seroquel for sx., sees Shama at [facility] also, [ADDITIONAL REASON] Amenorrhea, Primary - She is sexually active. For contraception she uses nothing. Symptoms include amenorrhea, while symptoms do not include pelvic pain , headache or visual disturbance. The patient describes this as unchanged. Associated symptoms include fatigue and hot flashes. Note for "Primry amenorrhea ": said she wants her hormones checked [facility] On 07-Feb-2014 14:16 to 15:30 Radiology Visit - Lumbar back pain (724.2) [facility] [place] On 11-Jan-2014 16:20 to 16:23 Office Visit [...] at times but is not painful or itchy.[facility] [place] 15-Nov-2013 to 16-Nov-2013 Office Visit - Dermatitis [...] rash but it has gotten worse since starting.[facility] [place] On 05-Nov-2013 15:56 to 16:53 Office Visit - Lumbar back pain (724.2) Encounter Reason: Post-Operative - Patient is 2 weeks (diskectomy) postop procedure. Patient's symptoms are improved compared to preoperative. Post operative pain has been moderate. Pain medications include: Hydrocodone and Ultram. Patient has been compliant with post operative instructions. Patient has shown improvement in their activity level (has gradually improved since surgery.).[facility] [place] On 28-Oct-2013 14:32 to 15:50 Historical Summary [facility] [place] On 27-Oct-2013 10:06 to 10:10 Medication Entry - UTI (lower urinary tract infection) (599.0 | N39.0) [facility] [place] On 08-Oct-2013 15:55 to 15:57 Lab entry only - Lumbar back pain (724.2) [facility] [place] On 08:47 to 08:49 Medication Entry - Dysesthesia affecting both sides of body (782.0 | R20.8) [facility] [place] On 21-May-2013 13:35 to 13:38 Office Visit - Dysesthesia affecting both sides of body (782.0 | R20.8), Anxiety (300.00 | F41.9) Encounter Reason: Foot Problem - Symptoms include [...] Note for "Anxiety": Taking Seroquel for sx. [facility] On 12-Apr-2013 14:00 to 14:49 Office Visit [...] patient plans to recover at home with family.[facility] [place] On 15:23 to 22:32 Medication Entry - Anxiety (300.00) [facility] [place] On 14:52 to 14:55 Office Visit - [...] is not currently being treated for this problem.[facility] [place] On 17:25 to 21:06 Lab entry only - Lumbar back pain (724.2) [facility] [place] On 09-Jul-2011 09:57 to 10:02 Office Visit [...] symptoms are relieved by laxatives (MOM and [place] Oil). The symptoms have been associated with abdominal distention, abdominal pain and hemorrhoids. [facility] [place] On 01-Apr-2011 14:46 to 19:35 Medication Entry - Contraception (V25.9) [facility] [place] On 25-Feb-2011 16:26 to 16:28 Lab entry only - Lumbar back pain (724.2) [facility] [place] On 21-Feb-2011 15:35 to 15:44 Medication Entry - Lumbar back pain (724.2) [facility] [place] On 03-Jan-2011 16:18 to 16:22 Medication Entry - Lumbar back pain (724.2) [facility] [place] On 02-Jan-2011 17:57 to 18:06 Office Visit [...] removed from hip and put in knee. ).[facility] [place] On 05-Dec-2010 14:52 to 16:15 Office Visit [...] the breast. The last menstrual period began 01-17-2010.[facility] [place] On 05-Mar-2010 13:56 to 23:43 Office Visit Encounter Reason: Obesity - The patient's appetite is normal. The patient's dietary intake is normal. The patient has gained 30 pounds (has bought treadmill and walks qod-30 min). The symptoms have been associated with fatigue , while the symptoms have not been associated with amenorrhea or cold intolerance.[facility] [place] On 18-Dec-2009 10:37 to 11:12 Office Visit [facility] [place] On 04-Dec-2009 13:30 to 13:44 Insurance * Christy Elder ; a guarantor * [facility] Medical Assistance Prog * [facility]
--- OUTSIDE RECORDS SUMMARY | 2016-06-23 22:58 | XMS REPORT | Continuity of Care Document ---
Author Author [facility] Organization [facility] Address [address] [place] [address] Phone Care Team Providers Care Coding Compliance Auditor Name Role Phone Eric Montes MD PP Eric Montes MD Unavailable Won Ricci CP Unavailable Problems Name Dates Details Amenorrhea (626.0, N91.2) Status: Active Anxiety (300.00, F41.9) Status: Active Bipolar affective (296.80, F31.9) Status: Active Breast lump on right side at 12 o'clock position (611.72, N63) Status: Active Chronic lumbar pain (724.2, M54.5) Status: Active Constipation (Renamed from CN (constipation)) (564.00, K59.00) Status: Active Contraception (Renamed from control) (V25.9, Z30.9) Status: Active Deliveries (Parity) Comments: 1 Status: Active Depression (311, F32.9) Status: Active Dermatitis (692.9, L30.9) Status: Active Dysesthesia affecting both sides of body (782.0, R20.8) Status: Active Headache (Renamed from Cephalalgia) (784.0, R51) Status: Active Health education/counseling (V65.40, Z71.9) Status: Active Mass of right foot (782.2, R22.41) Status: Active Pre-op evaluation (V72.84, Z01.818) Status: Active Rash (782.1, R21) Status: Active Sore throat (462, J02.9) Status: Active Stillbirth Onset:1999 Status: Active UTI (lower urinary tract infection) (599.0, N39.0) Status: Active Medications Name Dates Details BENZTROPINE MESYLATE, 1MG (Oral Tablet) 1 Tablet at bedtime for 0 days Quantity: 30 {Tablet} Ordered:02-Dec-2014 Eric Montes MD* Start 02-Dec-2014 Active EFFEXOR XR, 37.5MG (Oral Capsule Extended Release 24 Hour) 1 (one) Capsule ER 24HR Capsule ER 24HR daily x7d, then 75 daily for 0 days * Quantity: 30 {Capsule} Refills: 12 Ordered:16-Nov-2014 Laura Huerta * Start 16-Nov-2014 Active LYRICA, 75MG (Oral Capsule) - Historical Medication one daily (75 MG) Active METHOCARBAMOL, 750MG (Oral Tablet) 1 (one) Tablet Tablet at bedtime for 0 days * Quantity: 100 {Tablet} Refills: 0 Ordered:20-Sep-2014 Sandy Benitez * Start 20-Sep-2014 Active NORCO, 10-325MG (Oral Tablet) - Historical [...] days * Quantity: 30 {Tablet} Refills: 6 Ordered:02-Dec-2014 Eric Montes MD* Start 02-Dec-2014 Active ABILIFY, 10MG (Oral Tablet) 1 (one) [...] Inactive Comments: approved by Eric Montes M.D. METHOCARBAMOL, 750MG (Oral Tablet) - Historical Medication 1 every eight hours (750 MG) Inactive NORCO, 7.5-325MG (Oral Tablet) - Historical Medication [...] ANTI-INFLAMMATORY* (Allergy) Status: Active Past Medical History Name Dates Details Anxiety (300.00, F41.9) Status: Inactive Procedures Procedure Dates Details Back Pain Completed:16-Nov-2014 X-ray Exam of Lower Spine, 2 Views ([id number]) Completed:17-May-2014 Comments : outside order from Dr. Ricci How to access health information online Completed:07-Feb-2014 X-ray Exam of Lower Spine, 2 Views ([id number]) Completed:11-Jan-2014 Comments : outside order from Dr. Ricci Referral to Dermatology Ordered:16-Nov-2013 DISCONTINUED - URINALYSIS, AUTOMATED W/ MICRO ([facility]) ([id number]) Completed:Jun-2011 X-RAY EXAM LUMBAR SPINE, MIN 4 VIEWS ([id number]) Ordered:05-Dec-2010 MRI OF LUMBAR SPINE W/ W/O CONTRAST ([id number]) Ordered:05-Dec-2010 US EXAM, BREAST(S) ([id number]) Ordered:05-Mar-2010 Follow up in 3 months Ordered:18-Dec-2009 [...] Active Vital Signs Date Test Result Details 19-Dec-2014 16:16 Temperature 98.7 f Pulse 76 /min Comments: Pattern: Regular BP Systolic 126 mm[Hg] Comments: Patient Position: Sitting; Cuff Location: Left Arm; Cuff Size: Standard BP Diastolic 78 mm[Hg] Comments: Patient Position: Sitting; Cuff Location: Left Arm; Cuff Size: Standard Weight 241 lb Height 68 in Body Mass Index Calculated 36.64 kg/m2 Body Surface Area Calculated 2.21 m2 16-Nov-2014 14:05 Temperature 98.3 f Comments: Method: Temporal Pulse 100 /min Comments: Pattern: Regular BP Systolic 122 mm[Hg] Comments: Patient Position: Sitting; Cuff Location: Left Arm; Cuff Size: Standard BP Diastolic 84 mm[Hg] Comments: Patient Position: Sitting; Cuff Location: Left Arm; Cuff Size: Standard Weight 243 lb Height 68 in Body Mass Index Calculated 36.95 kg/m2 Body Surface Area Calculated 2.22 m2 14:43 Temperature 98 f Comments: Method: Temporal [...] Date Description Value Details 07-Feb-2014 15:07 PROLACTIN ([id number]) Comments: Items in this order include: Draw Charge[i], CBC, Comprehensive Metabolic Panel, TSH, FSH, LH, PROLACTINTesting performed at: [facility], [address] [place] [address], [id number], Lead Performance Support Analyst: Lonny Middleton D.O., MPH.brQuest PROLACTIN 11.5 ng/mL (Normal) Comments: Reference Range.br Females.br Non- 3.0-30.0.br 10.0-209.0.br Postmenopausal 2.0-20.0.br .br .br 15:07 LH ([id number]) Comments: Items in this order include: Draw Charge[i] , CBC, Comprehensive Metabolic Panel, TSH, FSH, LH, PROLACTINTesting performed at: [facility], [address] [place] [address], [id number], Lead Performance Support Analyst: Lonny Middleton D.O., MPH.[facility] LH 9.3 m[iU]/mL (Normal) Comments: Reference Range.brFollicular Phase 1.9-12.5.brMid-Cycle Peak 8.7-76.3.brLuteal Phase 0.5- 16.9.brPostmenopausal 10.0-54.7 15:07 FSH ([id number]) Comments: Items in this order include: Draw Charge[i] , CBC, Comprehensive Metabolic Panel, TSH, FSH, LH, PROLACTINTesting performed at: [facility], [address] [place] [address], [id number], Lead Performance Support Analyst: Lonny Middleton D.O., MPH.[facility] FSH 4.4 m[iU]/mL (Normal) Comments: Reference Range.br .br Follicular Phase 2.5-10.2.br Mid-cycle Peak 3.1- 17.7.br Luteal Phase 1.5- 9.1.br Postmenopausal 23.0-116.3 .br 15:07 TSH (THYROID STIMULATING HORMONE) ([id number]) TSH 1.33 uIU/ml (Normal) Range: 0.34-5.60 15:07 CMP ([id number]) ALTI 96 U/L (Abnormal) Range: 12-78 AST [...] Range: 135-145 15:07 CBC-FEMALE- ORDER THIS ONE! ([id number]) manual diff Not Indicated (Normal) mpv 11.30 [...] 10*3/uL (Abnormal) Range: 4.50-10.50 15:07 Routine Venipuncture ([id number]) Draw Drawn (Normal) 15-Nov-2013 17:32 SED RATE ERYTHROCYTE ([id number]) Comments: Items in this order include: Draw Charge[i], Basic Metabolic Panel, C-Reactive Protein, CBC, Sed Rate ESR 4 mm/h (Normal) Range: 0-20 17:32 CBC-FEMALE- ORDER THIS ONE! ([id number]) manual diff Not Indicated (Normal) mpv 10.60 [...] 10*3/uL (Abnormal) Range: 4.50-10.50 17:32 C-REACTIVE PROTEIN ([id number]) CRP 1.82 mg/dL (Abnormal) Range: 0.00-0.30 17:32 [...] mmol/L (Normal) Range: 135-145 17:32 Routine Venipuncture ([id number]) Draw Drawn (Normal) 30-Sep-2013 14:25 URINALYSIS, AUTOMATED W/ MICRO ([facility]) ([id number]) Comments : Items in this order include: [...] Range: 135-145 14:25 CBC-FEMALE- ORDER THIS ONE! ([id number]) Comments: Results to [facility] Dr. Ricci .; Items in this order include : CBC, Basic Metabolic Panel, [id number].Results to [facility] Dr. Ricci Fax manual diff Not [...] Range: 4.50-10.50 15:04 URINALYSIS, AUTOMATED W/ MICRO ([facility]) ([id number]) Comments : [facility] [phone]. Pre-op Dr. Won Ricci.; Items in this order include: Draw Charge[i], CBC, Basic Metabolic Panel, [id number]. Pre-op Dr. Won Ricci.[facility] yeast Present - Rare (Abnormal) [...] Range: 135-145 15:04 CBC-FEMALE- ORDER THIS ONE! ([id number]) Comments: Items in this order include: Draw [...] 10*3/uL (Normal) Range: 4.50-10.50 15:04 Routine Venipuncture ([id number]) Comments: Items in this order include : Draw Charge[i], CBC, Basic Metabolic Panel, Urinalysis Draw Drawn (Normal) 06-Mar-2011 11:27 BMP Comments: Please fax all lab to Dr. Ricci at and [facility] at [phone]; Items in this order include: Draw Charge[i], CBC, Urinalysis, Basic Metabolic PanelChlouise St. [facility] at [phone] fax all lab to Dr. Ricci at [phone] and [facility] GLU 83 mg/dL (Normal) Range: [...] Range: 135-145 11:27 URINALYSIS, AUTOMATED W/ MICRO ([facility]) ([id number]) Comments: Items in this order include: Draw [...] Range: Yellow 11:27 CBC-FEMALE- ORDER THIS ONE! ([id number]) Comments: Items in this order include: Draw [...] 10*3/uL (Normal) Range: 4.50-10.50 11:27 Routine Venipuncture ([id number]) Comments: Items in this order include : Draw Charge[i], CBC, Urinalysis, Basic Metabolic Panel Draw Drawn (Normal) Advance Directives Encounters Office Visit - Depression (311 | F32.9), Chronic lumbar pain (724.2 | M54.5) Encounter Reason: Depressive Disorders - The last clinic visit was 1 month(s) ago. Management changes made at the last visit include adding lyrica and effexor. Symptoms include depressed mood, fatigue, appetite change, weight gain , poor sleep and irritability. Onset was month(s) ago. The patient describes this as moderate in severity and improving (slowly). Symptoms are exacerbated by emotional stress and fatigue. Symptoms are relieved by meditation (some). Associated symptoms include anxiety symptoms and panic symptoms. Note for "Depressive disorders": she feels her Lyrica needs increased still having pain in her legs danilo at night, [ADDITIONAL REASON] Obesity - The last clinic visit was 1 month(s) ago. Symptoms include excess weight, inability to lose weight, fatigue and back pain, while symptoms do not include edema. Symptoms are exacerbated by exercise intolerance (Unable to exercise due to back pain.). Associated symptoms include depressed mood. Current diet includes unhealthy food choices. The patient is sedentary. [facility] On 19-Dec-2014 16:15 to 20:43 Medication Entry [facility] On 28-Nov-2014 16:29 to 16:32 Office Visit - Chronic lumbar pain (724.2 | M54.5), Depression (311 | F32.9) Encounter Reason: Obesity - Symptoms include excess weight, inability to lose weight, fatigue and back pain, while symptoms do not include edema. Symptoms are exacerbated by exercise intolerance (Unable to exercise due to back pain.). Associated symptoms include depressed mood. The patient is not currently being treated for this problem. Current diet includes unhealthy food choices. The patient is sedentary., [ADDITIONAL REASON] Depressive Disorders - Symptoms include depressed mood, fatigue, appetite change, weight gain and poor sleep. Onset was month(s) ago. The patient describes this as worsening. Associated symptoms include panic symptoms. Current treatment includes none (Stopped Celexa. Didn't think it was helping.). [facility] On 16-Nov-2014 14:05 to 14:59 Medication Entry - Lumbar back pain (724.2) [facility] On 20-Sep-2014 12:31 to 12:34 [...] Denies any pain at this time to area.[facility] On 14:43 to 17:01 Historical Summary [facility] On 11:48 to 11:52 Radiology Visit - Lumbar back pain (724.2) [facility] On 17-May-2014 16:35 to 16:37 Medication Entry [facility] On 03-May-2014 09:14 to 09:22 Medication Entry - Sore throat (462 | J02.9) [facility] On 25-Apr-2014 15:13 to 15:15 [...] Taking Seroquel for sx., sees Shama at [facility] also, [ADDITIONAL REASON] Amenorrhea, Primary - She is sexually active. For contraception she uses nothing. Symptoms include amenorrhea, while symptoms do not include pelvic pain , headache or visual disturbance. The patient describes this as unchanged. Associated symptoms include fatigue and hot flashes. Note for "Primry amenorrhea ": said she wants her hormones checked [facility] On 07-Feb-2014 14:16 to 15:30 Radiology Visit - Lumbar back pain (724.2) [facility] On 11-Jan-2014 16:20 to 16:23 [...] at times but is not painful or itchy.[facility] 15-Nov-2013 to 16-Nov-2013 Office Visit [...] rash but it has gotten worse since starting.[facility] On 05-Nov-2013 15:56 to 16:53 [...] their activity level (has gradually improved since surgery.).[facility] On 28-Oct-2013 14:32 to 15:50 Historical Summary [facility] On 27-Oct-2013 10:06 to 10:10 Medication Entry - UTI (lower urinary tract infection) (599.0 | N39.0) [facility] On 08-Oct-2013 15:55 to 15:57 Lab entry only - Lumbar back pain (724.2) [facility] On 08:47 to 08:49 Medication Entry - Dysesthesia affecting both sides of body (782.0 | R20.8) [facility] On 21-May-2013 13:35 to 13:38 [...] Note for "Anxiety": Taking Seroquel for sx. [facility] On 12-Apr-2013 14:00 to 14:49 Office Visit [...] patient plans to recover at home with family.[facility] On 15:23 to 22:32 Medication Entry - Anxiety (300.00) [facility] On 14:52 to 14:55 Office [...] is not currently being treated for this problem.[facility] On 17:25 to 21:06 Lab entry only - Lumbar back pain (724.2) [facility] On 09-Jul-2011 09:57 to 10:02 [...] symptoms are relieved by laxatives (M[employer] and [employer]). The symptoms have been associated with abdominal distention, abdominal pain and hemorrhoids. [facility] On 01-Apr-2011 14:46 to 19:35 Medication Entry - Contraception (V25.9) [facility] On 25-Feb-2011 16:26 to 16:28 Lab entry only - Lumbar back pain (724.2) [facility] On 21-Feb-2011 15:35 to 15:44 Medication Entry - Lumbar back pain (724.2) [facility] On 03-Jan-2011 16:18 to 16:22 Medication Entry - Lumbar back pain (724.2) [facility] On 02-Jan-2011 17:57 to 18:06 [...] removed from hip and put in knee. ).[facility] On 05-Dec-2010 14:52 to 16:15 [...] the breast. The last menstrual period began 01-17-2010.[facility] On 05-Mar-2010 13:56 to 23:43 Office Visit Encounter Reason: Obesity - The patient's appetite is normal. The patient's dietary intake is normal. The patient has gained 30 pounds (has bought treadmill and walks qod-30 min). The symptoms have been associated with fatigue , while the symptoms have not been associated with amenorrhea or cold intolerance.[facility] On 18-Dec-2009 10:37 to 11:12 Office Visit [facility] On 04-Dec-2009 13:30 to 13:44 Insurance * Christy Elder ; a guarantor * [facility] [employer] * [facility]
--- OUTSIDE RECORDS SUMMARY | 2016-06-23 22:59 | XMS REPORT | Continuity of Care Document ---
Author Author [facility] Organization [facility] Address [address] [place] [address] Phone Care Team Providers Care Critical Care Rn Name Role Phone Eric Montes MD PP Nikki Ahmadi Unavailable Susu Cruz Unavailable Unavailable Unavailable History of Present Illness No History Of Present Illness Information Available Problems Name Dates Details Anxiety (300.00, F41.9) Status: Active Anxiety (300.00, F41.9) Status: Active Contraception (Renamed from control) (V25.9, Z30.9) Status: Active Breast lump on right side at 12 o'clock position (611.72, N63) Status: Active Constipation (Renamed from CN (constipation)) (564.00, K59.00) Status: Active Dermatitis (692.9, L30.9) Status: Active Dysesthesia affecting both sides of body (782.0, R20.8) Status: Active Lumbar back pain (724.2) Status: Active Pre-op evaluation (V72.84) Status: Active Rash (782.1, R21) Status: Active UTI (lower urinary tract infection) (599.0, N39.0) Status: Active Medications Name Dates Details BENZTROPINE MESYLATE, 1MG (Oral Tablet) 1/2 (one half) Tablet Tablet two times daily for 0 days Quantity: 30 Ordered : Eric Montes MD* Started ActiveCELEXA, 40MG (Oral Tablet) 1 Tablet daily for 0 days * Quantity: 30 Refills: 3 Ordered :08-Dec-2013 Eric Montes MD* Started 08-Dec-2013 ActiveMETHOCARBAMOL, 750MG (Oral Tablet) - Historical Medication 1 every eight hours ActiveNORCO, 10-325MG (Oral Tablet) - Historical Medication 1 4 to 6 hrs as needed Active Comments: Medication taken as needed. SEROQUEL, 100MG (Oral Tablet) 1 (one) Tablet Tablet daily for 0 days * Quantity: 30 Refills: 6 Ordered :21-May-2013 Sandy Benitez * Started 21-May-2013 ActiveTRAMADOL HCL, 50MG (Oral Tablet) - Historical Medication 1or 2 every 4 to 6 hrs. as needed Active Comments: Medication taken as needed. TRAZODONE HCL, 100MG (Oral Tablet) - Historical Medication 1 at bedtime ActiveAMBIEN, 10MG (Oral Tablet) - Historical Medication 1 at bedtime InactiveBACTRIM DS, 800-160MG (Oral Tablet) 1 (one) Tablet two times daily for 0 days * Quantity: 20 Refills: 0 Ordered :28-Oct-2013 Sandy Benitez * Started 08-Oct-2013 Ended 28-Oct-2013 InactiveBENZTROPINE MESYLATE, 1MG (Oral Tablet) - Historical Medication 1/2 tab two times daily InactiveCELEXA, 20MG (Oral Tablet) 1/2 (one half) Tablet 1/2 tab daily x6d, then 1 daily for 0 days * Quantity: 30 Refills: 12 Ordered : Sandy Benitez * Started Ended InactiveCLOMID, 50MG (Oral Tablet) - Historical Medication 2 daily * Ended 01-Apr-2011 InactiveGABAPENTIN, 300MG (Oral Capsule) - Historical Medication 1-2 three times daily InactiveLORAZEPAM, 1MG (Oral Tablet) 1 Tablet every 6 hrs as needed for 0 days * Quantity: 30 Refills: 1 Ordered :12-Apr-2013 Sandy Benitez * Started 31-Jan-2012 Ended 12-Apr-2013 Inactive Comments: Medication taken as needed. MEDROL (TREY), 4MG (Oral Tablet) 1 (one) Tablet as directed for 6 days * Quantity: 21 Refills: 0 Ordered :05-Nov-2013 Nikki Devries* Started 05-Nov-2013 Ended 11-Nov-2013 Inactive Comments: approved by Eric CROW 7.5-325MG (Oral Tablet) - Historical Medication 1 to 2 every 4 to 6 hrs InactiveNORTREL 1/35 (28), 1-35MG-MCG (Oral Tablet) 1 Tablet daily for 90 days * Quantity: 3 Refills: 3 Ordered :25-Feb-2011 Sandy Benitez * Started 25-Feb-2011 Ended 01-Apr-2011 InactivePERCOCET, 10-325MG (Oral Tablet) - Historical Medication 1 or 2 every six hours, as needed Inactive Comments: Medication taken as needed. PHENTERMINE HCL, 30MG (Oral Capsule) 1 Capsule daily for 0 days * Quantity: 30 Refills: 0 Ordered :05-Dec-2010 Sandy Benitez * Started 18-Dec-2009 Ended 05-Dec-2010 InactiveQUETIAPINE FUMARATE, 100MG (Oral Tablet) - Historical Medication 1 daily InactiveSPIRONOLACTONE, 25MG (Oral Tablet) - Historical Medication 1 daily InactiveTOPAMAX, 25MG (Oral Tablet) 1 Tablet two times daily for 30 days * Quantity: 60 Refills: 12 Ordered :05-Dec-2010 Eric Montes MD* Started 29-Oct-2010 Ended 05-Dec-2010 InactiveTRAMADOL HCL, 50MG (Oral Tablet) 1 Tablet every six hours, as needed for 10 days * Quantity: 30 Refills: 3 Ordered :03-Jan-2011 Sandy Benitez * Started 03-Jan-2011 Ended 01-Apr-2011 Inactive Comments: Medication taken as needed. TOPAMAX, 25MG (Oral Tablet) - Historical Medication two times daily * Ended 18-Dec-2009 Discontinued Allergies and Adverse Reactions Name Dates Details Morphine Derivatives Status: Active Penicillins Status: Active Toradol *ANALGESICS - ANTI-INFLAMMATORY* Status: Active Past Medical History Name Dates Details Deliveries (Parity) Comments: 1 Status: Active Headache (Renamed from Cephalalgia) (784.0, R51) Status: Active Stillbirth Onset:1999 Status: Active Procedures Procedure Dates Details Referral to Dermatology Ordered:16-Nov-2013 DISCONTINUED - URINALYS[place], [place]OM[place] W/ [place] [place] ([id number]) Completed:Jun-2011 X-RAY EXAM LUMBAR SPINE, MIN 4 VIEWS ([id number]) Ordered:05-Dec-2010 MRI OF LUMBAR SPINE W/ W/O CONTRAST ([id number]) Ordered:05-Dec-2010 US EXAM, BREAST(S) ([id number]) Ordered:05-Mar-2010 Follow up in 3 months Ordered:18-Dec-2009 Appendectomy Completed:1975 Bone cyst Completed:1998 Comments: Right. knee Carpal Tunnel Surgery - Right Completed: Coccygeal fistula Completed:2003 Social History Name Dates Details Non Drinker/No Alcohol Use Tobacco use: Former smoker. Comments: quit 6 years ago Vital Signs Date Test Result Details 15-Nov-2013 16:43 Temperature 97.3 f Comments: Method: [...] 2.08 m2 Results Date Description Value Details 15-Nov-2013 17:32 SED RATE ERYTHROCYTE ([id number]) Comments: Items in this order include: Draw Charge[i], Basic Metabolic Panel, C-Reactive Protein, CBC, Sed Rate ESR 4 mm/h (Normal) Range: 0-20 17:32 CBC-FEMALE- ORDER THIS ONE! ([id number]) manual diff Not Indicated (Normal) mpv 10.60 [...] 10*3/uL (Abnormal) Range: 4.50-10.50 17:32 C-REACTIVE PROTEIN ([id number]) CRP 1.82 mg/dL (Abnormal) Range: 0.00-0.30 17:32 [...] mmol/L (Normal) Range: 135-145 17:32 Routine Venipuncture (07531) Draw Drawn (Normal) 30-Sep-2013 14:25 URINALYSIS, AUTOMATED W/ MICRO ([facility] [place] ([id number]) Comments : Items in this order include: [...] Range: 135-145 14:25 CBC-FEMALE- ORDER THIS ONE! ([id number]) Comments: Results to [facility] Dr. Ricci .; Items in this order include : CBC, Basic Metabolic Panel, [phone].Results to [facility] Dr. Ricci Fax manual diff Not [...] Range: 4.50-10.50 15:04 URINALYSIS, AUTOMATED W/ MICRO ([facility] ([id number]) Comments : All lab needs to be faxed to Via [facility] at [phone]. Pre-op Dr. Won Ricci.; Items in this order include: Draw Charge[i], CBC, Basic Metabolic Panel, [phone]. Pre-op Dr. Won Ricci.All lab needs to be faxed to [facility] at U yeast Present - Rare (Abnormal) [...] Range: 135-145 15:04 CBC-FEMALE- ORDER THIS ONE! ([id number]) Comments: Items in this order include: Draw [...] 10*3/uL (Normal) Range: 4.50-10.50 15:04 Routine Venipuncture (56365) Comments: Items in this order include : Draw Charge[i], CBC, Basic Metabolic Panel, Urinalysis Draw Drawn (Normal) 06-Mar-2011 11:27 [facility] Comments: Please fax all lab to Dr. Ricci at and [facility] [phone]; Items in this order include: Draw Charge[i], CBC, Urinalysis, [facility] at [phone] fax all lab to Dr. Ricci at [phone] and Via GLU 83 mg/dL (Normal) Range: [...] Range: 135-145 11:27 URINALYSIS, AUTOMATED W/ MICRO ([facility] ([id number]) Comments: Items in this order include: Draw [...] Range: Yellow 11:27 CBC-FEMALE- ORDER THIS ONE! ([id number]) Comments: Items in this order include: Draw [...] 10*3/uL (Normal) Range: 4.50-10.50 11:27 Routine Venipuncture (87898) Comments: Items in this order include : Draw Charge[i], CBC, Urinalysis, Basic Metabolic Panel Draw Drawn (Normal) Advance Directives No Advance Directives available. Encounters Office Visit - Rash (782.1 | R21) [...] at times but is not painful or itchy.[facility] On 15-Nov-2013 16:43 Office Visit - Dermatitis (692.9 | L30.9) [...] rash but it has gotten worse since starting.[facility] On 05-Nov-2013 15:56 Office Visit - Lumbar back pain (724.2) Encounter Reason: Post-Operative - Patient is 2 weeks (diskectomy) postop procedure. Patient's symptoms are improved compared to preoperative. Post operative pain has been moderate. Pain medications include: Hydrocodone and Ultram. Patient has been compliant with post operative instructions. Patient has shown improvement in their activity level (has gradually improved since surgery.).[facility] On 28-Oct-2013 14:32 Historical Summary [facility] On 27-Oct-2013 10:06 Medication Entry - UTI (lower urinary tract infection) (599.0 | N39.0) [facility] On 08-Oct-2013 15:55 Lab entry only - Lumbar back pain (724.2) [facility] On 08:47 Medication Entry - Dysesthesia affecting both sides of body (782.0 | R20.8) [facility] On 21-May-2013 13:35 Office Visit - Dysesthesia affecting both sides [...] Note for "Anxiety": Taking Seroquel for sx. [facility] On 12-Apr-2013 14:00 Office Visit - Lumbar back pain (724.2), [...] patient plans to recover at home with family.[facility] On 15:23 Medication Entry - Anxiety (300.00) [facility] On 14:52 Office Visit - Anxiety (300.00) Encounter Reason: [...] is not currently being treated for this problem.[facility] On 17:25 Lab entry only - Lumbar back pain (724.2) [facility] On 09-Jul-2011 09:57 Office Visit - Lumbar back pain (724.2), [...] symptoms are relieved by laxatives (MOM and [employer]). The symptoms have been associated with abdominal distention, abdominal pain and hemorrhoids. [facility] On 01-Apr-2011 14:46 Medication Entry - Contraception (V25.9) [facility] On 25-Feb-2011 16:26 Lab entry only - Lumbar back pain (724.2) [facility] On 21-Feb-2011 15:35 Medication Entry - Lumbar back pain (724.2) [facility] On 03-Jan-2011 16:18 Medication Entry - Lumbar back pain (724.2) [facility] On 02-Jan-2011 17:57 Office Visit - Lumbar back pain (724.2) [...] removed from hip and put in knee. ).[facility] On 05-Dec-2010 14:52 Office Visit - Breast lump on right [...] the breast. The last menstrual period began 01-17-2010.[facility] On 05-Mar-2010 13:56 Office Visit Encounter Reason: Obesity - The patient's appetite is normal. The patient's dietary intake is normal. The patient has gained 30 pounds (has bought treadmill and walks qod-30 min). The symptoms have been associated with fatigue , while the symptoms have not been associated with amenorrhea or cold intolerance.[facility] On 18-Dec-2009 10:37 Office Visit [facility] On 04-Dec-2009 13:30 Insurance * Christy Elder ; usha guarantor * [facility] Medical Assistance [employer]g * [facility]
--- OUTSIDE RECORDS SUMMARY | 2016-06-23 23:00 | XMS REPORT | Continuity of Care Document ---
Author Author [facility] Organization [facility] Address [address] [place] [address] Phone Care Team Providers Care Radiosonde Operator Name Role Phone Eric Montes MD PP [...] days * Quantity: 30 Refills: 3 Ordered : Eric Montes MD* Started ActiveMETHOCARBAMOL, 750MG (Oral Tablet) - Historical Medication [...] Ordered:16-Nov-2013 DISCONTINUED [place] [place] ([id number]) Completed:Jun-2011 X-RAY EXAM LUMBAR SPINE, MIN 4 VIEWS ([id number]) Ordered:05-Dec-2010 MRI OF LUMBAR SPINE W/ W/O CONTRAST ([id number]) Ordered:05-Dec-2010 US EXAM, BREAST(S) ([id number]) Ordered:05-Mar-2010 Follow up in 3 months Ordered:18-Dec-2009 [...] Value Details 15-Nov-2013 17:32 SED RATE ERYTHROCYTE ([id number]) Comments: Items in this order include: Draw Charge[i], Basic Metabolic Panel, C-Reactive Protein, CBC, Sed Rate ESR 4 mm/h (Normal) Range: 0-20 17:32 CBC-FEMALE- ORDER THIS ONE! ([id number]) manual diff Not Indicated (Normal) mpv 10.60 [...] 10*3/uL (Abnormal) Range: 4.50-10.50 17:32 C-REACTIVE PROTEIN ([id number]) CRP 1.82 mg/dL (Abnormal) Range: 0.00-0.30 17:32 [...] mmol/L (Normal) Range: 135-145 17:32 Routine Venipuncture (53304) Draw Drawn (Normal) 30-Sep-2013 14:25 [place]ALYSIS, [place] [place] ([id number]) Comments : Items in this order include: [...] Range: 135-145 14:25 CBC-FEMALE- ORDER THIS ONE! ([id number]) Comments: Results to [facility] Dr. Ricci .; Items in this order include : CBC, Basic Metabolic Panel, [phone].Results to [facility] Dr. Ricci Fax manual diff Not Indicated [...] Range: 4.50-10.50 15:04 UR[place]ALYSIS, [place] W/ MICRO [place] ([id number]) Comments : All lab needs to be faxed to [facility] at [phone]. Pre-op Dr. Won Ricci.; Items in this order include: Draw Charge[i], CBC, Basic Metabolic Panel, [phone]. Pre-op Dr. Won Ricci.All lab needs to be faxed to [facility] at U yeast Present - Rare (Abnormal) [...] Range: 135-145 15:04 CBC-FEMALE- ORDER THIS ONE! ([id number]) Comments: Items in this order include: Draw [...] 10*3/uL (Normal) Range: 4.50-10.50 15:04 Routine Venipuncture (80491) Comments: Items in this order include : Draw Charge[i], CBC, Basic Metabolic Panel, Urinalysis Draw Drawn (Normal) 06-Mar-2011 11:27 [facility] Comments: Please fax all lab to Dr. Ricci at [phone] and [facility] [phone]; Items in this order include: Draw Charge[i], CBC, Urinalysis, Basic Met[facility]Chbay[facility] at [phone] fax all lab to Dr. Ricci at [phone] and Via GLU 83 mg/dL (Normal) Range: [...] Range: 135-145 11:27 [place]AL[place]IS, [place]/ [place]CRO [place] ([id number]) Comments: Items in this order include: Draw [...] Range: Yellow 11:27 CBC-FEMALE- ORDER THIS ONE! ([id number]) Comments: Items in this order include: Draw [...] 10*3/uL (Normal) Range: 4.50-10.50 11:27 Routine Venipuncture (24863) Comments: Items in this order include : [...] at times but is not painful or itchy.[facility] On 15-Nov-2013 16:43 Office Visit - Dermatitis [...] rash but it has gotten worse since starting.[facility] On 05-Nov-2013 15:56 Office Visit - Lumbar back pain (724.2) Encounter Reason: Post-Operative - Patient is 2 weeks (diskectomy) postop procedure. Patient's symptoms are improved compared to preoperative. Post operative pain has been moderate. Pain medications include: Hydrocodone and Ultram. Patient has been compliant with post operative instructions. Patient has shown improvement in their activity level (has gradually improved since surgery.).[facility] On 28-Oct-2013 14:32 Historical Summary [facility] On 27-Oct-2013 10:06 Medication Entry - UTI (lower urinary tract infection) (599.0 | N39.0) [facility] On 08-Oct-2013 15:55 Lab entry only - Lumbar back pain (724.2) [facility] On 08:47 Medication Entry - Dysesthesia affecting both sides of body (782.0 | R20.8) [facility] On 21-May-2013 13:35 Office Visit - Dysesthesia [...] Note for "Anxiety": Taking Seroquel for sx. [facility] On 12-Apr-2013 14:00 Office Visit - Lumbar [...] patient plans to recover at home with family.[facility] On 15:23 Medication Entry - Anxiety (300.00) [facility] On 14:52 Office Visit - Anxiety (300.00) [...] is not currently being treated for this problem.[facility] On 17:25 Lab entry only - Lumbar back pain (724.2) [facility] On 09-Jul-2011 09:57 Office Visit - Lumbar [...] symptoms are relieved by laxatives (MOM and [employer]). The symptoms have been associated with abdominal distention, abdominal pain and hemorrhoids. [facility] On 01-Apr-2011 14:46 Medication Entry - Contraception (V25.9) [facility] On 25-Feb-2011 16:26 Lab entry only - Lumbar back pain (724.2) [facility] On 21-Feb-2011 15:35 Medication Entry - Lumbar back pain (724.2) [facility] On 03-Jan-2011 16:18 Medication Entry - Lumbar back pain (724.2) [facility] On 02-Jan-2011 17:57 Office Visit - Lumbar [...] removed from hip and put in knee. ).[facility] On 05-Dec-2010 14:52 Office Visit - Breast [...] the breast. The last menstrual period began 01-17-2010.[facility] On 05-Mar-2010 13:56 Office Visit Encounter Reason: Obesity - The patient's appetite is normal. The patient's dietary intake is normal. The patient has gained 30 pounds (has bought treadmill and walks qod-30 min). The symptoms have been associated with fatigue , while the symptoms have not been associated with amenorrhea or cold intolerance.[facility] On 18-Dec-2009 10:37 Office Visit [facility] On 04-Dec-2009 13:30 Insurance * Christy Elder ; usha guarantor * [facility] Medical Assistance Prog * [facility]
--- OUTSIDE RECORDS SUMMARY | 2016-06-23 23:01 | XMS REPORT | Continuity of Care Document ---
Author Author [facility] Organization [facility] Address [address] [place] [address] Phone Care Team Providers Care Navigation Officer Name Role Phone Eric Montes MD [...] Quantity: 60 Refills: 12 Ordered :05-Dec-2010 Eric Montse MD* Started 29-Oct-2010 Ended 05-Dec-2010 InactiveTRAMADOL HCL, [...] Ordered:16-Nov-2013 DISCONTINUED - URINALYSIS, AUTOMATED W/ MICRO ([facility]) ([id number]) Completed:Jun-2011 X-RAY EXAM LUMBAR SPINE, MIN 4 VIEWS ([id number]) Ordered:05-Dec-2010 MRI OF LUMBAR SPINE W/ W/O CONTRAST ([id number]) Ordered:05-Dec-2010 US EXAM, BREAST(S) ([id number]) Ordered:05-Mar-2010 Follow up in 3 months Ordered:18-Dec-2009 [...] Value Details 15-Nov-2013 17:32 SED RATE ERYTHROCYTE ([id number]) Comments: Items in this order include: Draw Charge[i], Basic Metabolic Panel, C-Reactive Protein, CBC, Sed Rate ESR 4 mm/h (Normal) Range: 0-20 17:32 CBC-FEMALE- ORDER THIS ONE! ([id number]) manual diff Not Indicated (Normal) mpv 10.60 [...] 10*3/uL (Abnormal) Range: 4.50-10.50 17:32 C-REACTIVE PROTEIN ([id number]) CRP 1.82 mg/dL (Abnormal) Range: 0.00-0.30 17:32 [...] mmol/L (Normal) Range: 135-145 17:32 Routine Venipuncture ([id number]) Draw Drawn (Normal) 30-Sep-2013 14:25 URINALYSIS, AUTOMATED W/ MICRO ([facility]) ([id number]) Comments : Items in this order include: [...] Range: 135-145 14:25 CBC-FEMALE- ORDER THIS ONE! ([id number]) Comments: Results to [facility] Dr. Ricci .; Items in this order include : CBC, Basic Metabolic Panel, [phone].Results to [facility] Dr. Ricci Fax manual diff Not [...] Range: 4.50-10.50 15:04 URINALYSIS, AUTOMATED W/ MICRO ([facility]) ([id number]) Comments : All lab needs to be faxed to [facility] at [phone]. Pre-op Dr. oWn Ricci.; Items in this order include: Draw Charge[i], CBC, Basic Metabolic Panel, [phone]. Pre-op Dr. Won Ricci.All lab needs to be faxed to [facility] at U yeast Present - Rare (Abnormal) [...] Range: 135-145 15:04 CBC-FEMALE- ORDER THIS ONE! ([id number]) Comments: Items in this order include: Draw [...] 10*3/uL (Normal) Range: 4.50-10.50 15:04 Routine Venipuncture (07203) Comments: Items in this order include : Draw Charge[i], CBC, Basic Metabolic Panel, Urinalysis Draw Drawn (Normal) 06-Mar-2011 11:27 [facility] Comments: Please fax all lab to Dr. Ricci at [phone] and [facility] [phone]; Items in this order include: Draw Charge[i], CBC, Urinalysis, Basic Metabolic PanelChbayhealth [facility] at [phone] fax all lab to Dr. Ricci at [phone] and Via GLU 83 mg/dL (Normal) Range: [...] Range: 135-145 11:27 URINALYSIS, AUTOMATED W/ MICRO ([facility]) ([id number]) Comments: Items in this order include: Draw [...] Range: Yellow 11:27 CBC-FEMALE- ORDER THIS ONE! ([id number]) Comments: Items in this order include: Draw [...] 10*3/uL (Normal) Range: 4.50-10.50 11:27 Routine Venipuncture (55293) Comments: Items in this order include : [...] at times but is not painful or itchy.[facility] On 15-Nov-2013 16:43 Office Visit - [...] rash but it has gotten worse since starting.[facility] On 05-Nov-2013 15:56 Office Visit - Lumbar back pain (724.2) Encounter Reason: Post-Operative - Patient is 2 weeks (diskectomy) postop procedure. Patient's symptoms are improved compared to preoperative. Post operative pain has been moderate. Pain medications include: Hydrocodone and Ultram. Patient has been compliant with post operative instructions. Patient has shown improvement in their activity level (has gradually improved since surgery.).[facility] On 28-Oct-2013 14:32 Historical Summary [facility] On 27-Oct-2013 10:06 Medication Entry - UTI (lower urinary tract infection) (599.0 | N39.0) [facility] On 08-Oct-2013 15:55 Lab entry only - Lumbar back pain (724.2) [facility] On 08:47 Medication Entry - Dysesthesia affecting both sides of body (782.0 | R20.8) [facility] On 21-May-2013 13:35 Office Visit - [...] Note for "Anxiety": Taking Seroquel for sx. [facility] On 12-Apr-2013 14:00 Office Visit [...] patient plans to recover at home with family.[facility] On 15:23 Medication Entry - Anxiety (300.00) [facility] On 14:52 Office Visit - Anxiety [...] is not currently being treated for this problem.[facility] On 17:25 Lab entry only - Lumbar back pain (724.2) [facility] On 09-Jul-2011 09:57 Office Visit - [...] symptoms are relieved by laxatives (MOM and [employer]). The symptoms have been associated with abdominal distention, abdominal pain and hemorrhoids. [facility] On 01-Apr-2011 14:46 Medication Entry - Contraception (V25.9) [facility] On 25-Feb-2011 16:26 Lab entry only - Lumbar back pain (724.2) [facility] On 21-Feb-2011 15:35 Medication Entry - Lumbar back pain (724.2) [facility] On 03-Jan-2011 16:18 Medication Entry - Lumbar back pain (724.2) [facility] On 02-Jan-2011 17:57 Office Visit - [...] removed from hip and put in knee. ).[facility] On 05-Dec-2010 14:52 Office Visit - [...] the breast. The last menstrual period began 01-17-2010.[facility] On 05-Mar-2010 13:56 Office Visit Encounter Reason: Obesity - The patient's appetite is normal. The patient's dietary intake is normal. The patient has gained 30 pounds (has bought treadmill and walks qod-30 min). The symptoms have been associated with fatigue , while the symptoms have not been associated with amenorrhea or cold intolerance.[facility] On 18-Dec-2009 10:37 Office Visit [facility] On 04-Dec-2009 13:30 Insurance * Christy Elder ; usha guarantor * [facility] Medical Assistance Prog * [facility]
--- OUTSIDE RECORDS SUMMARY | 2016-06-23 23:02 | XMS REPORT | Continuity of Care Document ---
Author Author [facility] Organization [facility] Address [address] [place] [address] Phone Care Team Providers Care Roller Skate Repairer Name Role Phone Eric Montes MD PP [...] W/ MICRO ([facility]) ([id number]) Completed:Jun-2011 X-RAY EXAM LUMBAR SPINE, MIN 4 VIEWS ([id number]) Ordered:05-Dec-2010 MRI OF LUMBAR SPINE W/ W/O CONTRAST ([id number]) Ordered:05-Dec-2010 US EXAM, BREAST(S) ([id number]) Ordered:05-Mar-2010 Follow up in 3 months Ordered:18-Dec-2009 [...] Value Details 15-Nov-2013 17:32 SED RATE ERYTHROCYTE ([id number]) Comments: Items in this order include: Draw Charge[i], Basic Metabolic Panel, C-Reactive Protein, CBC, Sed Rate ESR 4 mm/h (Normal) Range: 0-20 17:32 CBC-FEMALE- ORDER THIS ONE! ([id number]) manual diff Not Indicated (Normal) mpv 10.60 [...] 10*3/uL (Abnormal) Range: 4.50-10.50 17:32 C-REACTIVE PROTEIN ([id number]) CRP 1.82 mg/dL (Abnormal) Range: 0.00-0.30 17:32 [...] mmol/L (Normal) Range: 135-145 17:32 Routine Venipuncture (39702) Draw Drawn (Normal) 30-Sep-2013 14:25 URINALYSIS, AUTOMATED W/ MICRO ([facility]) ([id number]) Comments : Items in this order include: [...] Range: 135-145 14:25 CBC-FEMALE- ORDER THIS ONE! ([id number]) Comments: Results to [facility] Dr. Ricci .; Items in this order include : CBC, Basic Metabolic Panel, [id number].Results to [facility] Dr. Ricci Fax manual diff Not [...] W/ MICRO ([facility]) ([id number]) Comments : All lab needs to be faxed to [facility] at [phone]. Pre-op Dr. Won Ricci.; Items in this order include: Draw Charge[i], CBC, Basic Metabolic Panel, [phone]. Pre-op Dr. Won Ricci.All lab needs to be faxed to [facility] at U yeast Present - [...] Range: 135-145 15:04 CBC-FEMALE- ORDER THIS ONE! (08396) Comments: Items in this order include: Draw [...] 10*3/uL (Normal) Range: 4.50-10.50 15:04 Routine Venipuncture (87177) Comments: Items in this order include : Draw Charge[i], CBC, Basic Metabolic Panel, Urinalysis Draw Drawn (Normal) 06-Mar-2011 11:27 [facility] Comments: Please fax all lab [facility] Dr. Ricci at [facility] [phone]; Items in this order include: Draw Charge[i], CBC, Urinalysis, Basic [facility] at [phone] fax all lab to Dr. Ricci at [phone] and Via GLU 83 mg/dL (Normal) Range: [...] W/ MICRO ([facility]) ([id number]) Comments: Items in this order include: Draw [...] Range: Yellow 11:27 CBC-FEMALE- ORDER THIS ONE! (12611) Comments: Items in this order include: Draw [...] 10*3/uL (Normal) Range: 4.50-10.50 11:27 Routine Venipuncture (95877) Comments: Items in this order include : [...] at times but is not painful or itchy.[facility] On 15-Nov-2013 16:43 Office Visit [...] rash but it has gotten worse since starting.[facility] On 05-Nov-2013 15:56 Office Visit - Lumbar back pain (724.2) Encounter Reason: Post-Operative - Patient is 2 weeks (diskectomy) postop procedure. Patient's symptoms are improved compared to preoperative. Post operative pain has been moderate. Pain medications include: Hydrocodone and Ultram. Patient has been compliant with post operative instructions. Patient has shown improvement in their activity level (has gradually improved since surgery.).[facility] On 28-Oct-2013 14:32 Historical Summary [facility] On 27-Oct-2013 10:06 Medication Entry - UTI (lower urinary tract infection) (599.0 | N39.0) [facility] On 08-Oct-2013 15:55 Lab entry only - Lumbar back pain (724.2) [facility] On 08:47 Medication Entry - Dysesthesia affecting both sides of body (782.0 | R20.8) [facility] On 21-May-2013 13:35 Office Visit [...] Note for "Anxiety": Taking Seroquel for sx. [facility] On 12-Apr-2013 14:00 Office Visit - [...] patient plans to recover at home with family.[facility] On 15:23 Medication Entry - Anxiety (300.00) [facility] On 14:52 Office Visit - [...] is not currently being treated for this problem.[facility] On 17:25 Lab entry only - Lumbar back pain (724.2) [facility] On 09-Jul-2011 09:57 Office Visit [...] symptoms are relieved by laxatives (M[employer] and [employer]). The symptoms have been associated with abdominal distention, abdominal pain and hemorrhoids. [facility] On 01-Apr-2011 14:46 Medication Entry - Contraception (V25.9) [facility] On 25-Feb-2011 16:26 Lab entry only - Lumbar back pain (724.2) [facility] On 21-Feb-2011 15:35 Medication Entry - Lumbar back pain (724.2) [facility] On 03-Jan-2011 16:18 Medication Entry - Lumbar back pain (724.2) [facility] On 02-Jan-2011 17:57 Office Visit [...] removed from hip and put in knee. ).[facility] On 05-Dec-2010 14:52 Office Visit [...] the breast. The last menstrual period began 01-17-2010.[facility] On 05-Mar-2010 13:56 Office Visit Encounter Reason: Obesity - The patient's appetite is normal. The patient's dietary intake is normal. The patient has gained 30 pounds (has bought treadmill and walks qod-30 min). The symptoms have been associated with fatigue , while the symptoms have not been associated with amenorrhea or cold intolerance.[facility] On 18-Dec-2009 10:37 Office Visit [facility] On 04-Dec-2009 13:30 Insurance * Christy Elder ; usha guarantor * [facility] Medical Assistance [facility]g * [facility]
--- OUTSIDE RECORDS SUMMARY | 2016-06-23 23:03 | XMS REPORT | Continuity of Care Document ---
Author Author [facility] Organization [facility] Address [address] [place] [address] Phone Care Team Providers Care Customer Sales Specialist Name Role Phone Eric Montes MD PP [...] (Renamed from control) (V25.9, Z30.9) Status: Active Costovertebral angle pain (724.5, M54.9) Status: Active Deliveries (Parity) Comments: 1 Status: Active Depression (311, F32.9) Status: Active Dermatitis (692.9, L30.9) Status: Active Dysesthesia affecting both sides of body (782.0, R20.8) Status: Active Dysuria (788.1, R30.0) Status: Active Headache (Renamed from Cephalalgia) (784.0, R51) Status: Active Health education/counseling (V65.40, Z71.9) Status: Active Mass of right foot (782.2, R22.41) Status: Active Pre-op evaluation (V72.84, Z01.818) Status: Active Rash (782.1, R21) Status: Active Sore throat (462, J02.9) Status: Active Stillbirth Onset:2000 Status: Active UTI (lower urinary tract infection) (599.0, N39.0) Status: Active Medications Name Dates Details BENZTROPINE MESYLATE, 1MG (Oral Tablet) 1 Tablet at bedtime for 0 days Quantity: 30 {Tablet} Ordered:02-Dec-2014 Eric Montes MD* Start 02-Dec-2014 Active CYMBALTA, 30MG (Oral Capsule Delayed Release Particles) 1 (one) Capsule DR Part daily x6d, then 60mg daily for 0 days * Quantity: 30 {Capsule} Refills: 12 Ordered:13-Mar-2015 Eric Montes MD* Start 13-Mar-2015 Active EFFEXOR XR, 37.5MG (Oral Capsule Extended Release 24 Hour) 1 (one) Capsule ER 24HR Capsule ER 24HR daily x7d, then 75 daily for 0 days * Quantity: 30 {Capsule} Refills: 12 Ordered:16-Nov-2014 Laura Huerta * Start 16-Nov-2014 Active LEVAQUIN, 750MG (Oral Tablet) 1 daily (750 MG) Active METHOCARBAMOL, 750MG (Oral Tablet) 1 (one) Tablet Tablet at bedtime for 0 days * Quantity: 100 {Tablet} Refills: 0 Ordered:20-Sep-2014 Sandy Benitez * Start 20-Sep-2014 Active NORCO, 10-325MG (Oral Tablet) 1 4 to 6 hrs as needed (10-325 MG) Active Comments: Medication taken as needed. PHENTERMINE HCL, 37.5MG (Oral Capsule) 1 daily (37.5 MG) Active SEROQUEL, 100MG (Oral Tablet) 1 (one) Tablet Tablet daily for 30 days * Quantity: 30 {Tablet} Refills: 6 Ordered: Eric Montes MD* Start Active Comments: approved by Dr. Eric Montes TRAMADOL HCL, 50MG (Oral Tablet) 1or 2 every 4 to 6 hrs. [...] new order 04-19-14 AMBIEN, 10MG (Oral Tablet) 1 at bedtime (10 MG) Inactive BACTRIM DS, 800-160MG (Oral Tablet) 1 (one) Tablet two times daily for 0 days * Quantity: 20 {Tablet} Refills: 0 Ordered:13-Mar-2015 Laura Huerta * Start 22-Feb-2015 End 13-Mar-2015 Inactive BENZTROPINE MESYLATE, 1MG (Oral Tablet) 1/2 tab two times daily (1 MG) [...] 08-Dec-2013 End Inactive CLOMID, 50MG (Oral Tablet) 2 daily (50 MG) * End 01-Apr-2011 Inactive GABAPENTIN, 300MG (Oral Capsule) 1-2 three times daily (300 MG) Inactive GABAPENTIN, 300MG (Oral Capsule) 1 q 6hrs (300 MG) Inactive KEFLEX, 500MG (Oral Capsule) 1 (one) Capsule three times daily for 0 days * Quantity: 30 {Capsule} Refills: 0 Ordered:08-Jun-2014 Sandy Benitez * Start 25-Apr-2014 End 08-Jun-2014 Inactive LORAZEPAM, 1MG (Oral Tablet) 1 Tablet every 6 hrs as needed for 0 days * Quantity: 30 {Tablet} Refills: 1 Ordered:12-Apr-2013 Sandy Beintez * Start 31-Jan-2012 End 12-Apr-2013 Inactive Comments: Medication taken as needed. LYRICA, 100MG (Oral Capsule) 1 two times daily (100 MG) Inactive LYRICA, 75MG (Oral Capsule) two two times daily (75 MG) Inactive Comments: new dose 12-23-14 MEDROL (TREY), 4MG (Oral Tablet) 1 (one) Tablet as directed for 6 days * Quantity: 21 {Tablet} Refills: 0 Ordered:05-Nov-2013 Nikki Devries* Start 05-Nov-2013 End 11-Nov-2013 Inactive Comments: approved by Eric Montes M.D. METHOCARBAMOL, 750MG (Oral Tablet) 1 every eight hours (750 MG) Inactive NORCO, 7.5-325MG (Oral Tablet) 1 to 2 every 4 to 6 hrs (7.5-325 MG) Inactive NORTREL 1/35 (28), 1-35MG-MCG (Oral Tablet) 1 Tablet daily for 90 days * Quantity: 3 {Tablet} Refills: 3 Ordered:25-Feb-2011 Sandy Benitez * Start 25-Feb-2011 End 01-Apr-2011 Inactive PERCOCET, 10-325MG (Oral Tablet) 1 or 2 every six hours, as needed (10-325 MG) Inactive Comments: Medication taken as needed. PHENTERMINE HCL, 30MG (Oral Capsule) 1 Capsule daily for 0 days * Quantity: 30 {Capsule} Refills: 0 Ordered:05-Dec-2010 Sandy Benitez * Start 18-Dec-2009 End 05-Dec-2010 Inactive QUETIAPINE FUMARATE, 100MG (Oral Tablet) 1 daily (100 MG) Inactive SPIRONOLACTONE, 25MG (Oral Tablet) 1 daily (25 MG) Inactive TOPAMAX, 25MG [...] needed. TRAZODONE HCL, 100MG (Oral Tablet) 1 at bedtime (100 MG) Inactive TOPAMAX, 25MG (Oral Tablet) two times daily (25 MG) * End 18-Dec-2009 Discontinued Allergies and Adverse Reactions Name Dates Details Morphine Derivatives (Allergy) Status: Active Penicillins (Allergy) Status: Active Toradol *ANALGESICS - ANTI-INFLAMMATORY* (Allergy) Status: Active Past Medical History Name Dates Details Anxiety (300.00, F41.9) Status: Inactive Procedures Procedure Dates Details Back Pain Completed:16-Nov-2014 X-ray Exam of Lower Spine, 2 Views ([id number]) Completed:17-May-2014 Comments : outside order from Dr. Ricci How to access health information online Completed:07-Feb-2014 X-ray Exam of Lower Spine, 2 Views ([id number]) Completed:11-Jan-2014 Comments : outside order from Dr. Ricci Referral to Dermatology Ordered:16-Nov-2013 DISCONTINUED - URINALYSIS, AUTOMATED W/ MICRO ([facility]) ([id number]) Completed:Jun-2011 X-RAY EXAM LUMBAR SPINE, MIN 4 VIEWS ([id number]) Ordered:05-Dec-2010 MRI OF LUMBAR SPINE W/ W/O CONTRAST ([id number]) Ordered:05-Dec-2010 US EXAM, BREAST(S) ([id number]) Ordered:05-Mar-2010 Follow up in 3 months Ordered:18-Dec-2009 [...] Active Vital Signs Date Test Result Details 13-Mar-2015 14:30 Temperature 98.4 f Pulse 74 /min Comments: Pattern: Regular BP Systolic 128 mm[Hg] Comments: Patient Position: Sitting; Cuff Location: Left Arm; Cuff Size: Standard BP Diastolic 86 mm[Hg] Comments: Patient Position: Sitting; Cuff Location: Left Arm; Cuff Size: Standard Weight 232 lb Height 68 in Body Mass Index Calculated 35.28 kg/m2 Body Surface Area Calculated 2.18 m2 20-Feb-2015 16:12 Pulse 84 /min Comments: Pattern: Regular BP Systolic 120 mm[Hg] Comments: Patient Position: Sitting; Cuff Location: Left Arm; Cuff Size: Standard BP Diastolic 86 mm[Hg] Comments: Patient Position: Sitting; Cuff Location: Left Arm; Cuff Size: Standard Weight 231.5 lb 17-Jan-2015 11:30 Pulse 84 /min Comments: Pattern: Regular BP Systolic 114 mm[Hg] Comments: Patient Position: Sitting; Cuff Location: Left Arm; Cuff Size: Standard BP Diastolic 76 mm[Hg] Comments: Patient Position: Sitting; Cuff Location: Left Arm; Cuff Size: Standard Weight 237 lb 19-Dec-2014 16:16 Temperature 98.7 f Pulse 76 [...] 2.08 m2 Results Date Description Value Details 20-Feb-2015 16:12 URINALYSIS, AUTOMATED W/ MICRO ([facility]) ([id number]) Comments: Items in this order include: UrinalysisAntibiotics? Specimen only unable to ask patientSource? Clean Catch U BACT 3+(>100/hpf) (Abnormal) Range: Negative U squamous 1+(2-5/hpf) (Abnormal) Range: Negative U RBC Negative (Normal) Range: Negative U WBC 0-4/hpf (Abnormal) Range: Negative Sent for Culture No (Normal) U LEUKO Negative (Normal) Range: Negative U Nitrites Positive (Abnormal) Range: Negative U URO 0.2 E.U./dL (Normal) Range: 0.0 - 1.0 U PH 6.5 (Normal) Range: 5.0-8.0 Urine Protein Negative (Normal) Range: Negative U BLD Negative (Normal) Range: Negative U SG 1.010 (Normal) Range: 1.010 - 1.030 U BILI Negative (Normal) Range: Negative U KETONES Negative (Normal) Range: Negative U GLU Negative (Normal) Range: Negative U CLARITY Clear (Normal) Range: Clear U COLOR Yellow (Normal) Range: Yellow 07-Feb-2014 15:07 PROLACTIN ([id number]) Comments: Items in this order include: Draw Charge[i], CBC, Comprehensive Metabolic Panel, TSH, FSH, LH, PROLACTINTesting performed at: [facility], [address] [place], [address], Shovel Engineer: Lonny Middleton D.O., MPH.[employer] PROLACTIN 11.5 ng/mL (Normal) Comments: Reference Range.br Females.br Non- 3.0-30.0.br 10.0-209.0.br Postmenopausal 2.0-20.0.br .br .br 15:07 LH ([id number]) Comments: Items in this order include: Draw Charge[i] , CBC, Comprehensive Metabolic Panel, TSH, FSH, LH, PROLACTINTesting performed at: [facility], [address] [place], [address], Shovel Engineer: Lonny Middleton D.O., MPH.[employer] LH 9.3 m[iU]/mL (Normal) Comments: Reference Range.brFollicular Phase 1.9-12.5.brMid-Cycle Peak 8.7-76.3.brLuteal Phase 0.5- 16.9.brPostmenopausal 10.0-54.7 15:07 FSH ([id number]) Comments: Items in this order include: Draw Charge[i] , CBC, Comprehensive Metabolic Panel, TSH, FSH, LH, PROLACTINTesting performed at: [facility], [address], [place], [address], Shovel Engineer: Lonny Middleton D.O., MPH.[employer] FSH 4.4 m[iU]/mL (Normal) Comments: Reference Range.br .br Follicular Phase 2.5-10.2.br Mid-cycle Peak 3.1- 17.7.br Luteal Phase 1.5- 9.1.br Postmenopausal 23.0-116.3 .br 15:07 TSH (THYROID STIMULATING HORMONE) ([id number]) TSH 1.33 uIU/ml (Normal) Range: 0.34-5.60 15:07 CMP ([id number]) ALTI 96 U/L (Abnormal) Range: 12-78 AST [...] Range: 135-145 15:07 CBC-FEMALE- ORDER THIS ONE! ([id number]) manual diff Not Indicated (Normal) mpv 11.30 [...] 10*3/uL (Abnormal) Range: 4.50-10.50 15:07 Routine Venipuncture (16111) Draw Drawn (Normal) 15-Nov-2013 17:32 SED RATE ERYTHROCYTE ([id number]) Comments: Items in this order include: Draw Charge[i], Basic Metabolic Panel, C-Reactive Protein, CBC, Sed Rate ESR 4 mm/h (Normal) Range: 0-20 17:32 CBC-FEMALE- ORDER THIS ONE! ([id number]) manual diff Not Indicated (Normal) mpv 10.60 [...] 10*3/uL (Abnormal) Range: 4.50-10.50 17:32 C-REACTIVE PROTEIN ([id number]) CRP 1.82 mg/dL (Abnormal) Range: 0.00-0.30 17:32 [...] mmol/L (Normal) Range: 135-145 17:32 Routine Venipuncture ([id number]) Draw Drawn (Normal) 30-Sep-2013 14:25 URINALYSIS, AUTOMATED W/ MICRO ([facility]) ([id number]) Comments : Items in this order include: [...] Range: 135-145 14:25 CBC-FEMALE- ORDER THIS ONE! ([id number]) Comments: Results to [facility] Dr. Ricci .; Items in this order include : CBC, Basic Metabolic Panel, [phone].Results to [facility] Dr. Ricci Fax manual diff Not [...] Range: 4.50-10.50 15:04 URINALYSIS, AUTOMATED W/ MICRO ([facility]) ([id number]) Comments : All lab needs to be faxed to [facility] at [phone]. Pre-op Dr. Won Ricci.; Items in this order include: Draw Charge[i], CBC, Basic Metabolic Panel, [phone]. Pre-op Dr. Won Ricci.All lab needs to be faxed to [facility] at U yeast Present - Rare [...] Range: 135-145 15:04 CBC-FEMALE- ORDER THIS ONE! ([id number]) Comments: Items in this order include: Draw [...] 10*3/uL (Normal) Range: 4.50-10.50 15:04 Routine Venipuncture ([id number]) Comments: Items in this order include : Draw Charge[i], CBC, Basic Metabolic Panel, Urinalysis Draw Drawn (Normal) 06-Mar-2011 11:27 [facility] Comments: Please fax all lab to Dr. Ricci at [phone] and [facility] at [phone]; Items in this order include: Draw Charge[i], CBC, Urinalysis, [facility] at [phone] fax all lab to Dr. Ricci at [phone] and [facility] GLU 83 mg/dL (Normal) Range: [...] Range: 135-145 11:27 URINALYSIS, AUTOMATED W/ MICRO ([facility]) ([id number]) Comments: Items in this order include: Draw [...] Range: Yellow 11:27 CBC-FEMALE- ORDER THIS ONE! ([id number]) Comments: Items in this order include: Draw [...] 10*3/uL (Normal) Range: 4.50-10.50 11:27 Routine Venipuncture (05318) Comments: Items in this order include : Draw Charge[i], CBC, Urinalysis, Basic Metabolic Panel Draw Drawn (Normal) Advance Directives Encounters Office Visit - Costovertebral angle pain (724.5 | M54.9), Chronic lumbar pain ( 724.2 | M54.5), Constipation (Renamed from CN (constipation)) (564.00 | K59.00) Encounter Reason: Back Pain, Thoracic, Acute - The last clinic visit was 1 week( s) ago (was in ER due to severe back pain). Management changes made at the last visit include ordering test(s) (CT scan). Symptoms include thoracic pain, while symptoms do not include difficulty breathing. Symptoms are located in the left mid thoracic area. The patient describes the pain as dull. The symptoms occur occasionally. The patient describes this as mild and improving. Associated symptoms do not include fever or abdominal pain. Note for "Acute thoracic back pain": she said she is better but wonders what the CT scan showed, [ADDITIONAL REASON] Back Pain Lumbar, Chronic - Symptoms include pain and decreased range of motion. Symptoms are located in the right low back and in the right sacroiliac region. Symptoms are exacerbated by standing and bending. Associated symptoms do not include leg numbness. Current treatment includes ice packs, heating pad (doesn't help.) and nonsteroidal anti-inflammatory drugs. 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 , [ADDITIONAL REASON] Constipation - The onset of the constipation has been acute (Since surgery and some before.). The amount of stool per bowel movement is normal. The frequency of bowel movements has been 1 per day. The symptoms are relieved by laxatives. The symptoms have been associated with abdominal distention, abdominal pain and hemorrhoids. [facility] On 13-Mar-2015 14:30 to 15:13 Medication Entry - UTI (lower urinary tract infection) (599.0 | N39.0) [facility] On 22-Feb-2015 10:04 to 10:06 Nurse Visit (Non-billable) - Dysuria (788.1 | R30.0) [facility] On 20-Feb-2015 16:01 to 16:38 Nurse Visit (Non-billable) [facility] On 17-Jan-2015 11:29 to 11:31 Office Visit - Depression (311 | F32.9), [...] unhealthy food choices. The patient is sedentary. [facility] On 19-Dec-2014 16:15 to 20:43 Medication Entry [facility] On 28-Nov-2014 16:29 to 16:32 Office Visit [...] (Stopped Celexa. Didn't think it was helping.). [facility] On 16-Nov-2014 14:05 to 14:59 Medication Entry - Lumbar back pain (724.2) [facility] On 20-Sep-2014 12:31 to 12:34 Office Visit [...] Denies any pain at this time to area.[facility] On 14:43 to 17:01 Historical Summary [facility] On 11:48 to 11:52 Radiology Visit - Lumbar back pain (724.2) [facility] On 17-May-2014 16:35 to 16:37 Medication Entry [facility] On 03-May-2014 09:14 to 09:22 Medication Entry - Sore throat (462 | J02.9) [facility] On 25-Apr-2014 15:13 to 15:15 Office Visit [...] Seroquel for sx., sees Shama at [facility] also, [ADDITIONAL REASON] Amenorrhea, Primary - She is sexually active. For contraception she uses nothing. Symptoms include amenorrhea, while symptoms do not include pelvic pain , headache or visual disturbance. The patient describes this as unchanged. Associated symptoms include fatigue and hot flashes. Note for "Primry amenorrhea ": said she wants her hormones checked [facility] On 07-Feb-2014 14:16 to 15:30 Radiology Visit - Lumbar back pain (724.2) [facility] On 11-Jan-2014 16:20 to 16:23 Office Visit [...] times but is not painful or itchy.[facility] 15-Nov-2013 to 16-Nov-2013 Office Visit - Dermatitis [...] but it has gotten worse since starting.[facility] On 05-Nov-2013 15:56 to 16:53 Office Visit - Lumbar back pain (724.2) Encounter Reason: Post-Operative - Patient is 2 weeks (diskectomy) postop procedure. Patient's symptoms are improved compared to preoperative. Post operative pain has been moderate. Pain medications include: Hydrocodone and Ultram. Patient has been compliant with post operative instructions. Patient has shown improvement in their activity level (has gradually improved since surgery.).[facility] On 28-Oct-2013 14:32 to 15:50 Historical Summary [facility] On 27-Oct-2013 10:06 to 10:10 Medication Entry - UTI (lower urinary tract infection) (599.0 | N39.0) [facility] On 08-Oct-2013 15:55 to 15:57 Lab entry only - Lumbar back pain (724.2) [facility] On 08:47 to 08:49 Medication Entry - Dysesthesia affecting both sides of body (782.0 | R20.8) [facility] On 21-May-2013 13:35 to 13:38 Office Visit [...] Note for "Anxiety": Taking Seroquel for sx. [facility] On 12-Apr-2013 14:00 to 14:49 Office Visit [...] plans to recover at home with family.[facility] On 15:23 to 22:32 Medication Entry - Anxiety (300.00) [facility] On 14:52 to 14:55 Office Visit - [...] not currently being treated for this problem.[facility] On 17:25 to 21:06 Lab entry only - Lumbar back pain (724.2) [facility] On 09-Jul-2011 09:57 to 10:02 Office Visit [...] symptoms are relieved by laxatives (MOM and [employer]). The symptoms have been associated with abdominal distention, abdominal pain and hemorrhoids. [facility] On 01-Apr-2011 14:46 to 19:35 Medication Entry - Contraception (V25.9) [facility] On 25-Feb-2011 16:26 to 16:28 Lab entry only - Lumbar back pain (724.2) [facility] On 21-Feb-2011 15:35 to 15:44 Medication Entry - Lumbar back pain (724.2) [facility] On 03-Jan-2011 16:18 to 16:22 Medication Entry - Lumbar back pain (724.2) [facility] On 02-Jan-2011 17:57 to 18:06 Office Visit [...] from hip and put in knee. ).[facility] On 05-Dec-2010 14:52 to 16:15 Office Visit [...] breast. The last menstrual period began 01-17-2010.[facility] On 05-Mar-2010 13:56 to 23:43 Office Visit Encounter Reason: Obesity - The patient's appetite is normal. The patient's dietary intake is normal. The patient has gained 30 pounds (has bought treadmill and walks qod-30 min). The symptoms have been associated with fatigue , while the symptoms have not been associated with amenorrhea or cold intolerance.[facility] On 18-Dec-2009 10:37 to 11:12 Office Visit [facility] On 04-Dec-2009 13:30 to 13:44 Insurance * Christy Elder ; a guarantor * [facility] Medical Assistance Prog * [facility]
--- OUTSIDE RECORDS SUMMARY | 2016-06-23 23:04 | XMS REPORT | Continuity of Care Document ---
Author Author [facility] Organization [facility] Address [address] [place] [address] Phone Care Team Providers Care Professor In Family Studies Name Role Phone Eric Montes MD PP Eric Montes MD Unavailable Won Ricci CP Bruno Siddiqui Unavailable Unavailable Sandy Benitez Unavailable Unavailable Unavailable Problems [...] * Quantity: 21 {Tablet} Refills: 0 Ordered:05-Nov-2013 DevriesLeticiadavid HEART* Start 05-Nov-2013 End 11-Nov-2013 Inactive Comments: approved [...] X-ray Exam of Lower Spine, 2 Views ([id number]) Completed:17-May-2014 Comments : outside order from Dr. Ricci How to access health information online Completed:07-Feb-2014 X-ray Exam of Lower Spine, 2 Views ([id number]) Completed:11-Jan-2014 Comments : outside order from Dr. Ricci Referral to Dermatology Ordered:16-Nov-2013 DISCONTINUED - URINALYSIS, AUTOMATED W/ MICRO ([facility]) ([id number]) Completed:Jun-2011 X-RAY EXAM LUMBAR SPINE, MIN 4 VIEWS ([id number]) Ordered:05-Dec-2010 MRI OF LUMBAR SPINE W/ W/O CONTRAST ([id number]) Ordered:05-Dec-2010 US EXAM, BREAST(S) ([id number]) Ordered:05-Mar-2010 Follow up in 3 months Ordered:18-Dec-2009 [...] Date Description Value Details 07-Feb-2014 15:07 PROLACTIN ([id number]) Comments: Items in this order include: Draw Charge[i], CBC, Comprehensive Metabolic Panel, TSH, FSH, LH, PROLACTINTesting performed at: [facility], [address] [place] [address], [phone], Director Of Primary Care: Lonny Middleton D.O., MPH.brQuest PROLACTIN 11.5 ng/mL (Normal) Comments: Reference Range.br Females.br Non- 3.0-30.0.br 10.0-209.0.br Postmenopausal 2.0-20.0.br .br .br 15:07 LH ([id number]) Comments: Items in this order include: Draw Charge[i] , CBC, Comprehensive Metabolic Panel, TSH, FSH, LH, PROLACTINTesting performed at: [facility], [address] [place] [address], [phone], Director Of Primary Care: Lonny Middleton D.O., MPH.[facility] LH 9.3 m[iU]/mL (Normal) Comments: Reference Range.brFollicular Phase 1.9-12.5.brMid-Cycle Peak 8.7-76.3.brLuteal Phase 0.5- 16.9.brPostmenopausal 10.0-54.7 15:07 FSH ([id number]) Comments: Items in this order include: Draw Charge[i] , CBC, Comprehensive Metabolic Panel, TSH, FSH, LH, PROLACTINTesting performed at: [facility], [address] [place] [address], [phone], Director Of Primary Care: Lonny Middleton D.O., MPH.[facility] FSH 4.4 m[iU]/mL (Normal) Comments: Reference Range.br .br Follicular Phase 2.5-10.2.br Mid-cycle Peak 3.1- 17.7.br Luteal Phase 1.5- 9.1.br Postmenopausal 23.0-116.3 .br 15:07 TSH (THYROID STIMULATING HORMONE) ([id number]) TSH 1.33 uIU/ml (Normal) Range: 0.34-5.60 15:07 CMP ([id number]) ALTI 96 U/L (Abnormal) Range: 12-78 AST [...] Range: 135-145 15:07 CBC-FEMALE- ORDER THIS ONE! ([id number]) manual diff Not Indicated (Normal) mpv 11.30 [...] 10*3/uL (Abnormal) Range: 4.50-10.50 15:07 Routine Venipuncture (78430) Draw Drawn (Normal) 15-Nov-2013 17:32 SED RATE ERYTHROCYTE ([id number]) Comments: Items in this order include: Draw Charge[i], Basic Metabolic Panel, C-Reactive Protein, CBC, Sed Rate ESR 4 mm/h (Normal) Range: 0-20 17:32 CBC-FEMALE- ORDER THIS ONE! ([id number]) manual diff Not Indicated (Normal) mpv 10.60 [...] 10*3/uL (Abnormal) Range: 4.50-10.50 17:32 C-REACTIVE PROTEIN (04504) CRP 1.82 mg/dL (Abnormal) Range: 0.00-0.30 17:32 [...] mmol/L (Normal) Range: 135-145 17:32 Routine Venipuncture (90629) Draw Drawn (Normal) 30-Sep-2013 14:25 URINALYSIS, AUTOMATED W/ MICRO ([facility]) ([id number]) Comments : Items in this order include: [...] Range: 135-145 14:25 CBC-FEMALE- ORDER THIS ONE! ([id number]) Comments: Results to [facility] Dr. Ricci .; Items in this order include : CBC, Basic Metabolic Panel, [phone].Results to [facility] Dr. Ricci Fax [...] Range: 4.50-10.50 15:04 URINALYSIS, AUTOMATED W/ MICRO ([facility]) ([id number]) Comments : All lab needs to be faxed to [facility] at [phone]. Pre-op Dr. Won Ricci.; Items in this order include: Draw Charge[i], CBC, Basic Metabolic Panel, [phone]. Pre-op Dr. Won Ricci.All lab needs to be faxed to [facility] at U yeast Present [...] Range: 135-145 15:04 CBC-FEMALE- ORDER THIS ONE! ([id number]) Comments: Items in this order include: Draw [...] 10*3/uL (Normal) Range: 4.50-10.50 15:04 Routine Venipuncture (06101) Comments: Items in this order include : Draw Charge[i], CBC, Basic Metabolic Panel, Urinalysis Draw Drawn (Normal) 06-Mar-2011 11:27 BMP Comments: Please fax all lab to Dr. Ricci at [phone] and [facility] at [phone]; Items in this order include: Draw Charge[i], CBC, Urinalysis, Basic Metabolic PanelChlouise [place] at [phone] fax all lab to Dr. Ricci at [phone] and [facility] 83 mg/dL (Normal) Range: [...] Range: 135-145 11:27 URINALYSIS, AUTOMATED W/ MICRO ([facility]) ([id number]) Comments: Items in this order include: Draw [...] Range: Yellow 11:27 CBC-FEMALE- ORDER THIS ONE! ([id number]) Comments: Items in this order include: Draw [...] 10*3/uL (Normal) Range: 4.50-10.50 11:27 Routine Venipuncture (82493) Comments: Items in this order include : Draw Charge[i], CBC, Urinalysis, Basic Metabolic Panel Draw Drawn (Normal) Advance Directives Encounters Radiology Visit - Lumbar back pain (724.2) [facility] On 17-May-2014 16:35 to 16:37 Medication Entry [facility] On 03-May-2014 09:14 to 09:22 Medication Entry - Sore throat (462 | J02.9) [facility] On 25-Apr-2014 15:13 to 15:15 [...] Taking Seroquel for sx., sees Shama at [facility] also, [ADDITIONAL REASON] Amenorrhea, Primary - She is sexually active. For contraception she uses nothing. Symptoms include amenorrhea, while symptoms do not include pelvic pain , headache or visual disturbance. The patient describes this as unchanged. Associated symptoms include fatigue and hot flashes. Note for "Primry amenorrhea ": said she wants her hormones checked [facility] On 07-Feb-2014 14:16 to 15:30 Radiology Visit - Lumbar back pain (724.2) [facility] On 11-Jan-2014 16:20 to 16:23 [...] is not painful or itchy.[facility] 15-Nov-2013 to 16-Nov-2013 Office Visit [...] since starting.[facility] On 05-Nov-2013 15:56 to 16:53 [...] since surgery.).[facility] On 28-Oct-2013 14:32 to 15:50 Historical Summary [facility] On 27-Oct-2013 10:06 to 10:10 Medication Entry - UTI (lower urinary tract infection) (599.0 | N39.0) [facility] On 08-Oct-2013 15:55 to 15:57 Lab entry only - Lumbar back pain (724.2) [facility] On 08:47 to 08:49 Medication Entry - Dysesthesia affecting both sides of body (782.0 | R20.8) [facility] On 21-May-2013 13:35 to 13:38 [...] Note for "Anxiety": Taking Seroquel for sx. [facility] On 12-Apr-2013 14:00 to 14:49 Office Visit [...] home with family.[facility] On 15:23 to 22:32 Medication Entry - Anxiety (300.00) [facility] On 14:52 to 14:55 Office [...] for this problem.[facility] On 17:25 to 21:06 Lab entry only - Lumbar back pain (724.2) [facility] On 09-Jul-2011 09:57 to 10:02 [...] symptoms are relieved by laxatives (MOM and [employer]). The symptoms have been associated with abdominal distention, abdominal pain and hemorrhoids. [facility] On 01-Apr-2011 14:46 to 19:35 Medication Entry - Contraception (V25.9) [facility] On 25-Feb-2011 16:26 to 16:28 Lab entry only - Lumbar back pain (724.2) [facility] On 21-Feb-2011 15:35 to 15:44 Medication Entry - Lumbar back pain (724.2) [facility] On 03-Jan-2011 16:18 to 16:22 Medication Entry - Lumbar back pain (724.2) [facility] On 02-Jan-2011 17:57 to 18:06 [...] knee. ).[facility] On 05-Dec-2010 14:52 to 16:15 [...] began 01-17-2010.[facility] On 05-Mar-2010 13:56 to 23:43 Office Visit Encounter Reason: Obesity - The patient's appetite is normal. The patient's dietary intake is normal. The patient has gained 30 pounds (has bought treadmill and walks qod-30 min). The symptoms have been associated with fatigue , while the symptoms have not been associated with amenorrhea or cold intolerance.[facility] On 18-Dec-2009 10:37 to 11:12 Office Visit [facility] On 04-Dec-2009 13:30 to 13:44 Insurance * Christy Elder ; a guarantor * [facility] Medical Assistance Prog * [facility]
--- OUTSIDE RECORDS SUMMARY | 2016-06-23 23:06 | XMS REPORT | Continuity of Care Document ---
Author Author [facility] Organization [facility] Address [address] [place] [address] Phone Care Team Providers Care Manager Flight Operations Name Role Phone Eric Montes MD PP Eric Montes MD Unavailable Unavailable History of Present Illness No History Of Present Illness Information Available Problems Name Dates Details Amenorrhea (626.0, N91.2) Status: Active Anxiety (300.00, F41.9) Status: Active Anxiety (300.00, F41.9) Status: Active Bipolar affective (296.80, F31.9) Status: Active Contraception (Renamed from control) (V25.9, Z30.9) Status: Active Breast lump on right side at 12 o'clock position (611.72, N63) Status: Active Constipation (Renamed from CN (constipation)) (564.00, K59.00) Status: Active Dermatitis (692.9, L30.9) Status: Active Dysesthesia affecting both sides of body (782.0, R20.8) Status: Active Health education/counseling (V65.40, Z71.9) Status: Active Lumbar back pain (724.2) Status: Active Pre-op evaluation (V72.84) Status: Active Rash (782.1, R21) Status: Active UTI (lower urinary tract infection) (599.0, N39.0) Status: Active Medications Name Dates Details ABILIFY, 5MG (Oral Tablet) 1 (one) Tablet daily for 0 days Quantity: 90 Ordered :07-Feb-2014 Eric Montes MD* Started 07-Feb-2014 ActiveBENZTROPINE MESYLATE, 1MG (Oral Tablet) 1/2 (one half) Tablet Tablet two times daily for 0 days * Quantity: 30 Refills: 6 Ordered : Eric Montes MD* Started ActiveCELEXA, 40MG (Oral Tablet) 1 Tablet daily for 0 days * Quantity: 30 Refills: 3 Ordered :08-Dec-2013 Eric Montes MD* Started 08-Dec-2013 ActiveGABAPENTIN, 300MG (Oral Capsule) - Historical Medication 1 q 6hrs ActiveMETHOCARBAMOL, 750MG (Oral Tablet) - Historical Medication 1 every eight hours ActiveNORCO, 10-325MG (Oral Tablet) - Historical Medication 1 4 to 6 hrs as needed Active Comments: Medication taken as needed. SEROQUEL, 100MG (Oral Tablet) 1 (one) Tablet Tablet daily for 0 days * Quantity: 30 Refills: 6 Ordered :22-Dec-2013 Eric Montes MD* Started 22-Dec-2013 ActiveTRAMADOL HCL, 50MG (Oral Tablet) - Historical [...] Quantity: 21 Refills: 0 Ordered :05-Nov-2013 Nikki Devries APRNEmani* Started 05-Nov-2013 Ended 11-Nov-2013 Inactive Comments: approved by Eric Montes [...] Onset:1999 Status: Active Procedures Procedure Dates Details How to access health information online Completed:07-Feb-2014 X-ray Exam of Lower Spine, 2 Views ([id number]) Completed:11-Jan-2014 Comments: outside order from Dr. Ricci Referral to Dermatology Ordered:16-Nov-2013 DISCONTINUED - URINALYSIS, AUTOMATED W/ MICRO ([facility]) ([id number]) Completed:Jun-2011 X-RAY EXAM LUMBAR SPINE, MIN 4 VIEWS ([id number]) Ordered:05-Dec-2010 MRI OF LUMBAR SPINE W/ W/O CONTRAST ([id number]) Ordered:05-Dec-2010 US EXAM, BREAST(S) ([id number]) Ordered:05-Mar-2010 Follow up in 3 months Ordered:18-Dec-2009 Appendectomy Completed:1975 Bone cyst Completed:1998 Comments: Right. knee Carpal Tunnel Surgery - Right Completed: Coccygeal fistula Completed:2003 Social History Name Dates Details Non Drinker/No Alcohol Use Tobacco use: Former smoker. Comments: quit 6 years ago Vital Signs Date Test Result Details 07-Feb-2014 [...] Value Details 15-Nov-2013 17:32 SED RATE ERYTHROCYTE ([id number]) Comments: Items in this order include: Draw Charge[i], Basic Metabolic Panel, C-Reactive Protein, CBC, Sed Rate ESR 4 mm/h (Normal) Range: 0-20 17:32 CBC-FEMALE- ORDER THIS ONE! ([id number]) manual diff Not Indicated (Normal) mpv 10.60 [...] 10*3/uL (Abnormal) Range: 4.50-10.50 17:32 C-REACTIVE PROTEIN ([id number]) CRP 1.82 mg/dL (Abnormal) Range: 0.00-0.30 17:32 [...] mmol/L (Normal) Range: 135-145 17:32 Routine Venipuncture (76174) Draw Drawn (Normal) 30-Sep-2013 14:25 URINALYSIS, AUTOMATED W/ MICRO ([facility]) ([id number]) Comments : Items in this order include: [...] Range: 135-145 14:25 CBC-FEMALE- ORDER THIS ONE! ([id number]) Comments: Results to [facility] Dr. Ricci .; Items in this order include : CBC, Basic Metabolic Panel, [phone].Results to [facility] Dr. Ricci Fax manual diff Not Indicated [...] Range: 4.50-10.50 15:04 URINALYSIS, AUTOMATED W/ MICRO ([facility]) ([id number]) Comments : All lab needs to be faxed to [facility] at [phone]. Pre-op Dr. Won Ricci.; Items in this order include: Draw Charge[i], CBC, Basic Metabolic Panel, [phone]. Pre-op Dr. Won Ricci.All lab needs to be faxed to [facility] at yeast Present - Rare (Abnormal) Range: [...] Range: 135-145 15:04 CBC-FEMALE- ORDER THIS ONE! ([id number]) Comments: Items in this order include: Draw [...] 10*3/uL (Normal) Range: 4.50-10.50 15:04 Routine Venipuncture (87908) Comments: Items in this order include : Draw Charge[i], CBC, Basic Metabolic Panel, Urinalysis Draw Drawn (Normal) 06-Mar-2011 11:27 BMP Comments: Please fax all lab to Dr. Ricci at [phone] and [facility] at [phone]; Items in this order include: Draw Charge[i], CBC, Urinalysis, Basic Metabolic PanelChristi St[facility] at [phone] fax all lab to Dr. Ricci at [phone] and [facility] 83 mg/dL (Normal) Range: [...] Range: 135-145 11:27 URINALYSIS, AUTOMATED W/ MICRO ([facility]) ([id number]) Comments: Items in this order include: Draw [...] Range: Yellow 11:27 CBC-FEMALE- ORDER THIS ONE! ([id number]) Comments: Items in this order include: Draw [...] 10*3/uL (Normal) Range: 4.50-10.50 11:27 Routine Venipuncture (46818) Comments: Items in this order include : Draw Charge[i], CBC, Urinalysis, Basic Metabolic Panel Draw Drawn (Normal) Treatment Plan * PROLACTIN ([id number]); Ordered: 02/07/2014 * LH ([id number]); Ordered: 02/07/2014 * FSH ([id number]); Ordered: 02/07/2014 * TSH (THYROID STIMULATING HORMONE) (56409); Ordered: 02/07/2014 * CMP ([id number]); Ordered: 02/07/2014 * CBC-FEMALE- ORDER THIS ONE! ([id number]); Ordered: 02/07/2014 * Routine Venipuncture (63278); Ordered: 02/07/2014 Advance Directives No Advance Directives available. Encounters Office Visit - Health education/counseling (V65.40 | [...] Taking Seroquel for sx., sees Shama at [facility] also, [ADDITIONAL REASON] Amenorrhea, Primary - She is sexually active. For contraception she uses nothing. Symptoms include amenorrhea, while symptoms do not include pelvic pain , headache or visual disturbance. The patient describes this as unchanged. Associated symptoms include fatigue and hot flashes. Note for "Primry amenorrhea ": said she wants her hormones checked [facility] On 07-Feb-2014 14:16 Radiology Visit - Lumbar back pain (724.2) [facility] On 11-Jan-2014 16:20 Office Visit - Rash (782.1 | R21) [...] at times but is not painful or itchy.[facility] On 15-Nov-2013 16:43 Office Visit [...] rash but it has gotten worse since starting.[facility] On 05-Nov-2013 15:56 Office Visit - Lumbar back pain (724.2) Encounter Reason: Post-Operative - Patient is 2 weeks (diskectomy) postop procedure. Patient's symptoms are improved compared to preoperative. Post operative pain has been moderate. Pain medications include: Hydrocodone and Ultram. Patient has been compliant with post operative instructions. Patient has shown improvement in their activity level (has gradually improved since surgery.).[facility] On 28-Oct-2013 14:32 Historical Summary [facility] On 27-Oct-2013 10:06 Medication Entry - UTI (lower urinary tract infection) (599.0 | N39.0) [facility] On 08-Oct-2013 15:55 Lab entry only - Lumbar back pain (724.2) [facility] On 08:47 Medication Entry - Dysesthesia affecting both sides of body (782.0 | R20.8) [facility] On 21-May-2013 13:35 Office Visit [...] Note for "Anxiety": Taking Seroquel for sx. [facility] On 12-Apr-2013 14:00 Office Visit [...] patient plans to recover at home with family.[facility] On 15:23 Medication Entry - Anxiety (300.00) [facility] On 14:52 Office Visit - [...] is not currently being treated for this problem.[facility] On 17:25 Lab entry only - Lumbar back pain (724.2) [facility] On 09-Jul-2011 09:57 Office Visit [...] symptoms are relieved by laxatives (MOM and [employer]). The symptoms have been associated with abdominal distention, abdominal pain and hemorrhoids. [facility] On 01-Apr-2011 14:46 Medication Entry - Contraception (V25.9) [facility] On 25-Feb-2011 16:26 Lab entry only - Lumbar back pain (724.2) [facility] On 21-Feb-2011 15:35 Medication Entry - Lumbar back pain (724.2) [facility] On 03-Jan-2011 16:18 Medication Entry - Lumbar back pain (724.2) [facility] On 02-Jan-2011 17:57 Office Visit [...] removed from hip and put in knee. ).[facility] On 05-Dec-2010 14:52 Office Visit [...] the breast. The last menstrual period began 01-17-2010.[facility] On 05-Mar-2010 13:56 Office Visit Encounter Reason: Obesity - The patient's appetite is normal. The patient's dietary intake is normal. The patient has gained 30 pounds (has bought treadmill and walks qod-30 min). The symptoms have been associated with fatigue , while the symptoms have not been associated with amenorrhea or cold intolerance.[facility] On 18-Dec-2009 10:37 Office Visit [facility] On 04-Dec-2009 13:30 Insurance * Christy Elder ; a guarantor * [facility] Medical Assistance Prog * [facility]
--- OUTSIDE RECORDS SUMMARY | 2016-06-23 23:06 | XMS REPORT | Continuity of Care Document ---
Author Author [facility] Organization [facility] Address [address] [place] [address] Phone Care Team Providers Care Open Die Inspector Name Role Phone Eric Montes MD PP Eric Montes MD Unavailable Won Ricci CP Susu Cruz Unavailable Unavailable Sandy Benitez Unavailable Unavailable Caitlin Galvan Unavailable Unavailable Nikki Kendrick Unavailable Unavailable Problems Name Dates Details Amenorrhea [...] (V65.40, Z71.9) Status: Active Lumbar back pain (724.2, M54.5) Status: Active Mass of right foot (782.2, [...] 20-Sep-2014 Active Comments: Medication taken as needed. NORCO, 10-325MG (Oral Tablet) - Historical Medication [...] X-ray Exam of Lower Spine, 2 Views ([id number]) Completed:17-May-2014 Comments : outside order from Dr. Ricci How to access health information online Completed:07-Feb-2014 X-ray Exam of Lower Spine, 2 Views ([id number]) Completed:11-Jan-2014 Comments : outside order from Dr. Ricci Referral to Dermatology Ordered:16-Nov-2013 DISCONTINUED - URINALYSIS, AUTOMATED W/ MICRO ([facility]) ([id number]) Completed:Jun-2011 X-RAY EXAM LUMBAR SPINE, MIN 4 VIEWS ([id number]) Ordered:05-Dec-2010 MRI OF LUMBAR SPINE W/ W/O CONTRAST ([id number]) Ordered:05-Dec-2010 US EXAM, BREAST(S) ([id number]) Ordered:05-Mar-2010 Follow up in 3 months Ordered:18-Dec-2009 [...] Active Vital Signs Date Test Result Details 16-Nov-2014 14:05 Temperature 98.3 f Comments: Method: [...] Date Description Value Details 07-Feb-2014 15:07 PROLACTIN ([id number]) Comments: Items in this order include: Draw Charge[i], CBC, Comprehensive Metabolic Panel, TSH, FSH, LH, PROLACTINTesting performed at: [facility], [address] [place] [address], [phone], [employer] Press Set Up Operator: Lonny Middleton D.O., MPH.brQuest PROLACTIN 11.5 ng/mL (Normal) Comments: Reference Range.br Females.br Non- 3.0-30.0.br 10.0-209.0.br Postmenopausal 2.0-20.0.br .br .br 15:07 LH ([id number]) Comments: Items in this order include: Draw Charge[i] , CBC, Comprehensive Metabolic Panel, TSH, FSH, LH, PROLACTINTesting performed at: [facility], [address] [place] [address], [phone], [employer] Set Up Operator: Lonny Middleton D.O., MPH.[facility] LH 9.3 m[iU]/mL (Normal) Comments: Reference Range.brFollicular Phase 1.9-12.5.brMid-Cycle Peak 8.7-76.3.brLuteal Phase 0.5- 16.9.brPostmenopausal 10.0-54.7 15:07 FSH ([id number]) Comments: Items in this order include: Draw Charge[i] , CBC, Comprehensive Metabolic Panel, TSH, FSH, LH, PROLACTINTesting performed at: [facility], [address] [place] [address], [phone], [employer] Set Up Operator: Lonny Middleton D.O., MPH.[facility] FSH 4.4 m[iU]/mL (Normal) Comments: Reference Range.br .br Follicular Phase 2.5-10.2.br Mid-cycle Peak 3.1- 17.7.br Luteal Phase 1.5- 9.1.br Postmenopausal 23.0-116.3 .br 15:07 TSH (THYROID STIMULATING HORMONE) ([id number]) TSH 1.33 uIU/ml (Normal) Range: 0.34-5.60 15:07 CMP ([id number]) ALTI 96 U/L (Abnormal) Range: 12-78 AST [...] Range: 135-145 15:07 CBC-FEMALE- ORDER THIS ONE! ([id number]) manual diff Not Indicated (Normal) mpv 11.30 [...] 10*3/uL (Abnormal) Range: 4.50-10.50 15:07 Routine Venipuncture (73458) Draw Drawn (Normal) 15-Nov-2013 17:32 SED RATE ERYTHROCYTE ([id number]) Comments: Items in this order include: Draw Charge[i], Basic Metabolic Panel, C-Reactive Protein, CBC, Sed Rate ESR 4 mm/h (Normal) Range: 0-20 17:32 CBC-FEMALE- ORDER THIS ONE! ([id number]) manual diff Not Indicated (Normal) mpv 10.60 [...] 10*3/uL (Abnormal) Range: 4.50-10.50 17:32 C-REACTIVE PROTEIN ([id number]) CRP 1.82 mg/dL (Abnormal) Range: 0.00-0.30 17:32 [...] mmol/L (Normal) Range: 135-145 17:32 Routine Venipuncture (77049) Draw Drawn (Normal) 30-Sep-2013 14:25 URINALYSIS, AUTOMATED W/ MICRO ([facility]) ([id number]) Comments : Items in this order include: [...] Range: 135-145 14:25 CBC-FEMALE- ORDER THIS ONE! ([id number]) Comments: Results to [facility] Dr. Ricci .; Items in this order include : CBC, Basic Metabolic Panel, [phone].Results to [facility] Dr. Ricci Fax manual diff Not Indicated [...] Range: 4.50-10.50 15:04 URINALYSIS, AUTOMATED W/ MICRO ([facility]) ([id number]) Comments : All lab needs to be faxed to [facility] at [phone]. Pre-op Dr. Won Ricci.; Items in this order include: Draw Charge[i], CBC, Basic Metabolic Panel, [phone]. Pre-op Dr. Won Ricci.All lab needs to be faxed to [facility] at U yeast Present [...] Range: 135-145 15:04 CBC-FEMALE- ORDER THIS ONE! ([id number]) Comments: Items in this order include: Draw [...] 10*3/uL (Normal) Range: 4.50-10.50 15:04 Routine Venipuncture (13770) Comments: Items in this order include : Draw Charge[i], CBC, Basic Metabolic Panel, Urinalysis Draw Drawn (Normal) 06-Mar-2011 11:27 [facility] Comments: Please fax all lab to Dr. Ricci at [phone] and [facility] at [phone]; Items in this order include: Draw Charge[i], CBC, Urinalysis, [facility] at [phone] fax all lab to Dr. Ricci at [phone] and [facility] 83 mg/dL (Normal) Range: [...] Range: 135-145 11:27 URINALYSIS, AUTOMATED W/ MICRO ([facility]) ([id number]) Comments: Items in this order include: Draw [...] Range: Yellow 11:27 CBC-FEMALE- ORDER THIS ONE! ([id number]) Comments: Items in this order include: Draw [...] 10*3/uL (Normal) Range: 4.50-10.50 11:27 Routine Venipuncture (49477) Comments: Items in this order include : Draw Charge[i], CBC, Urinalysis, Basic Metabolic Panel Draw Drawn (Normal) Advance Directives Encounters Review Encounter Reason: Obesity - Symptoms include excess weight, inability to lose weight, fatigue and back pain. Symptoms are exacerbated by exercise intolerance (Unable to exercise due to back pain.). Associated symptoms include depressed mood. The patient is not currently being treated for this problem. The patient is sedentary., [ADDITIONAL REASON] Depressive Disorders - Symptoms include depressed mood, fatigue, weight gain and poor sleep. Onset was month(s) ago. The patient describes this as worsening. Associated symptoms include panic symptoms. Current treatment includes none (Stopeped Celexa. Didn't think it was helping.). [facility] On 16-Nov-2014 14:05 Medication Entry - Lumbar back pain (724.2) [facility] On 20-Sep-2014 12:31 to 12:34 Office Visit [...] Denies any pain at this time to area.[facility] On 14:43 to 17:[address] [facility] On 11:48 to 11:52 Radiology Visit - Lumbar back pain (724.2) [facility] On 17-May-2014 16:35 to 16:[address] [facility] On 03-May-2014 09:14 to 09:22 Medication Entry - Sore throat (462 | J02.9) [facility] On 25-Apr-2014 15:13 to 15:15 Office Visit [...] Taking Seroquel for sx., sees Shama at [facility] also, [ADDITIONAL REASON] Amenorrhea, Primary - She is sexually active. For contraception she uses nothing. Symptoms include amenorrhea, while symptoms do not include pelvic pain , headache or visual disturbance. The patient describes this as unchanged. Associated symptoms include fatigue and hot flashes. Note for "Primry amenorrhea ": said she wants her hormones checked [facility] On 07-Feb-2014 14:16 to 15:30 Radiology Visit - Lumbar back pain (724.2) [facility] On 11-Jan-2014 16:20 to 16:23 Office Visit [...] at times but is not painful or itchy.[facility] 15-Nov-2013 to 16-Nov-2013 Office Visit - Dermatitis [...] rash but it has gotten worse since starting.[facility] On 05-Nov-2013 15:56 to 16:53 Office Visit - Lumbar back pain (724.2) Encounter Reason: Post-Operative - Patient is 2 weeks (diskectomy) postop procedure. Patient's symptoms are improved compared to preoperative. Post operative pain has been moderate. Pain medications include: Hydrocodone and Ultram. Patient has been compliant with post operative instructions. Patient has shown improvement in their activity level (has gradually improved since surgery.).[facility] On 28-Oct-2013 14:32 to 15:[address] [facility] On 27-Oct-2013 10:06 to 10:10 Medication Entry - UTI (lower urinary tract infection) (599.0 | N39.0) [facility] On 08-Oct-2013 15:55 to 15:57 Lab entry only - Lumbar back pain (724.2) [facility] On 08:47 to 08:49 Medication Entry - Dysesthesia affecting both sides of body (782.0 | R20.8) [facility] On 21-May-2013 13:35 to 13:38 Office Visit [...] Note for "Anxiety": Taking Seroquel for sx. [facility] On 12-Apr-2013 14:00 to 14:49 Office [...] patient plans to recover at home with family.[facility] On 15:23 to 22:32 Medication Entry - Anxiety (300.00) [facility] On 14:52 to 14:55 Office Visit - [...] is not currently being treated for this problem.[facility] On 17:25 to 21:06 Lab entry only - Lumbar back pain (724.2) [facility] On 09-Jul-2011 09:57 to 10:02 Office Visit [...] symptoms are relieved by laxatives (MOM and [employer]). The symptoms have been associated with abdominal distention, abdominal pain and hemorrhoids. [facility] On 01-Apr-2011 14:46 to 19:35 Medication Entry - Contraception (V25.9) [facility] On 25-Feb-2011 16:26 to 16:28 Lab entry only - Lumbar back pain (724.2) [facility] On 21-Feb-2011 15:35 to 15:44 Medication Entry - Lumbar back pain (724.2) [facility] On 03-Jan-2011 16:18 to 16:22 Medication Entry - Lumbar back pain (724.2) [facility] On 02-Jan-2011 17:57 to 18:06 Office Visit [...] removed from hip and put in knee. ).[facility] On 05-Dec-2010 14:52 to 16:15 Office Visit [...] the breast. The last menstrual period began 01-17-2010.[facility] On 05-Mar-2010 13:56 to 23:43 Office Visit Encounter Reason: Obesity - The patient's appetite is normal. The patient's dietary intake is normal. The patient has gained 30 pounds (has bought treadmill and walks qod-30 min). The symptoms have been associated with fatigue , while the symptoms have not been associated with amenorrhea or cold intolerance.[facility] On 18-Dec-2009 10:37 to 11:[address] [facility] On 04-Dec-2009 13:30 to 13:44 Insurance * Christy Elder ; a guarantor * [facility] Medical Assistance Prog * [facility]
--- OUTSIDE RECORDS SUMMARY | 2016-06-23 23:07 | XMS REPORT | Continuity of Care Document ---
Author Author [facility] Organization [facility] Address [address] [place] [address] Phone Care Team Providers Care Non Licensed Operator Name Role Phone Eric Montes MD [...] Ordered:16-Nov-2013 DISCONTINUED - URINALYSIS, AUTOMATED W/ MICRO ([facility] [place]) ([id number]) Completed:Jun-2011 X-RAY EXAM LUMBAR SPINE, MIN 4 VIEWS ([id number]) Ordered:05-Dec-2010 MRI OF LUMBAR SPINE W/ W/O CONTRAST ([id number]) Ordered:05-Dec-2010 US EXAM, BREAST(S) ([id number]) Ordered:05-Mar-2010 Follow up in 3 months Ordered:18-Dec-2009 [...] Value Details 15-Nov-2013 17:32 SED RATE ERYTHROCYTE ([id number]) Comments: Items in this order include: Draw Charge[i], Basic Metabolic Panel, C-Reactive Protein, CBC, Sed Rate ESR 4 mm/h (Normal) Range: 0-20 17:32 CBC-FEMALE- ORDER THIS ONE! (88243) manual diff Not Indicated (Normal) mpv 10.60 [...] 10*3/uL (Abnormal) Range: 4.50-10.50 17:32 C-REACTIVE PROTEIN ([id number]) CRP 1.82 mg/dL (Abnormal) Range: 0.00-0.30 17:32 [...] mmol/L (Normal) Range: 135-145 17:32 Routine Venipuncture (56684) Draw Drawn (Normal) 30-Sep-2013 14:25 URINALYSIS, AUTOMATED W/ MICRO ([facility]) ([id number]) Comments : Items in this order include: [...] Range: 135-145 14:25 CBC-FEMALE- ORDER THIS ONE! ([id number]) Comments: Results to [facility] Dr. Ricci .; Items in this order include : CBC, Basic Metabolic Panel, [phone].Results to [facility] Dr. Ricci Fax manual diff Not Indicated [...] Range: 4.50-10.50 15:04 URINALYSIS, AUTOMATED W/ MICRO ([facility]) ([id number]) Comments : All lab needs to be faxed to [facility] at [phone]. Pre-op Dr. Won Ricci.; Items in this order include: Draw Charge[i], CBC, Basic Metabolic Panel, [phone]. Pre-op Dr. Won Ricci.All lab needs to be faxed to [facility] at U yeast Present - [...] Range: 135-145 15:04 CBC-FEMALE- ORDER THIS ONE! ([id number]) Comments: Items in this order include: Draw [...] 10*3/uL (Normal) Range: 4.50-10.50 15:04 Routine Venipuncture (72461) Comments: Items in this order include : Draw Charge[i], CBC, Basic Metabolic Panel, Urinalysis Draw Drawn (Normal) 06-Mar-2011 11:27 [facility] Comments: Please fax all lab to Dr. Ricci at [facility] [phone]; Items in this order include: Draw Charge[i], CBC, Urinalysis, Basic Metabolic PanelChbeebe healthcare St[facility] at [phone] fax all lab to Dr. Ricci at [phone] and [facility] 83 mg/dL (Normal) Range: [...] Range: 135-145 11:27 URINALYSIS, AUTOMATED W/ MICRO ([facility]) ([id number]) Comments: Items in this order include: Draw [...] Range: Yellow 11:27 CBC-FEMALE- ORDER THIS ONE! ([id number]) Comments: Items in this order include: Draw [...] 10*3/uL (Normal) Range: 4.50-10.50 11:27 Routine Venipuncture (75520) Comments: Items in this order include : [...] at times but is not painful or itchy.[facility] On 15-Nov-2013 16:43 Office Visit - Dermatitis [...] rash but it has gotten worse since starting.[facility] On 05-Nov-2013 15:56 Office Visit - Lumbar back pain (724.2) Encounter Reason: Post-Operative - Patient is 2 weeks (diskectomy) postop procedure. Patient's symptoms are improved compared to preoperative. Post operative pain has been moderate. Pain medications include: Hydrocodone and Ultram. Patient has been compliant with post operative instructions. Patient has shown improvement in their activity level (has gradually improved since surgery.).[facility] On 28-Oct-2013 14:32 Historical Summary [facility] On 27-Oct-2013 10:06 Medication Entry - UTI (lower urinary tract infection) (599.0 | N39.0) [facility] On 08-Oct-2013 15:55 Lab entry only - Lumbar back pain (724.2) [facility] On 08:47 Medication Entry - Dysesthesia affecting both sides of body (782.0 | R20.8) [facility] On 21-May-2013 13:35 Office Visit - Dysesthesia [...] Note for "Anxiety": Taking Seroquel for sx. [facility] On 12-Apr-2013 14:00 Office Visit - Lumbar [...] patient plans to recover at home with family.[facility] On 15:23 Medication Entry - Anxiety (300.00) [facility] On 14:52 Office Visit - Anxiety (300.00) [...] is not currently being treated for this problem.[facility] On 17:25 Lab entry only - Lumbar back pain (724.2) [facility] On 09-Jul-2011 09:57 Office Visit - Lumbar [...] symptoms are relieved by laxatives (MOM and [employer]). The symptoms have been associated with abdominal distention, abdominal pain and hemorrhoids. [facility] On 01-Apr-2011 14:46 Medication Entry - Contraception (V25.9) [facility] On 25-Feb-2011 16:26 Lab entry only - Lumbar back pain (724.2) [facility] On 21-Feb-2011 15:35 Medication Entry - Lumbar back pain (724.2) [facility] On 03-Jan-2011 16:18 Medication Entry - Lumbar back pain (724.2) [facility] On 02-Jan-2011 17:57 Office Visit - Lumbar [...] removed from hip and put in knee. ).[facility] On 05-Dec-2010 14:52 Office Visit - Breast [...] the breast. The last menstrual period began 01-17-2010.[facility] On 05-Mar-2010 13:56 Office Visit Encounter Reason: Obesity - The patient's appetite is normal. The patient's dietary intake is normal. The patient has gained 30 pounds (has bought treadmill and walks qod-30 min). The symptoms have been associated with fatigue , while the symptoms have not been associated with amenorrhea or cold intolerance.[facility] On 18-Dec-2009 10:37 Office Visit [facility] On 04-Dec-2009 13:30 Insurance * Christy Elder ; usha guarantor * [facility] Medical Assistance Prog * [facility]
--- OUTSIDE RECORDS SUMMARY | 2016-06-23 23:09 | XMS REPORT | Continuity of Care Document ---
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 Name Role Phone Eric Montes MD PP Eric Montes MD Unavailable Won Ricci CP Sandy Benitez Unavailable Unavailable Britney Medeiros Unavailable Unavailable Unavailable Problems Name Dates Details [...] Active Health education/counseling (V65.40, Z71.9) Status: Active Hypertrophic and atrophic condition of skin (701.9, L91.9) Status: Active Mass of right foot (782.2, R22.41) Status: Active Pre-op evaluation (V72.84, Z01.818) Status: Active Rash (782.1, R21) Status: Active Sore throat (462, J02.9) Status: Active Stillbirth Onset:1999 Status: Active UTI (lower urinary tract infection) (599.0, N39.0) Status: Active Vaginal infection (616.10, N76.0) Status: Active Medications Name Dates Details CYCLOBENZAPRINE HCL, 10MG (Oral Tablet) 1 (one) Tablet three times daily, as needed for 0 days Quantity: 30 {Tablet} Ordered: Sandy Benitez * Start Active Comments: Medication taken as needed. CYMBALTA, 60MG (Oral Capsule Delayed Release Particles) [address] Part daily for 0 days * Quantity: 30 {Capsule} Refills: 12 Ordered:13-Mar-2015 Sandy Benitez * Start 13-Mar-2015 Active KlonoPIN 1 MG Oral Tablet 1 four times daily (1 MG) Active LATUDA, 40MG (Oral Tablet) 1 daily (40 MG) Active Lyrica 75 MG Oral Capsule 1 (one) Capsule two times daily for 30 days * Quantity: 60 {Capsule} Refills: 5 Ordered:18-Oct-2015 Britney Medeiros * Start 18-Oct-2015 Active METHOCARBAMOL, 750MG (Oral Tablet) 1 (one) Tablet at bedtime for 0 days * Quantity: 100 {Tablet} Refills: 3 Ordered:27-Apr-2015 Eric Montes MD* Start 27-Apr-2015 End 21-Apr-2015 Active NORCO, 10-325MG (Oral Tablet) 1 4 to 6 hrs as needed (10-325 MG) Active Comments: Medication taken as needed. PHENTERMINE HCL, 37.5MG (Oral Capsule) 1 daily (37.5 MG) Active PREDNISONE, 20MG (Oral Tablet) 1 (one) Tablet Take 3 tabs for 3 days then 2 tabs for 3 days then 1 tab for 3 days. for 0 days * Quantity: 18 {Tablet} Refills: 0 Ordered: Sandy Benitez * Start Active ROPINIROLE HCL, 0.5MG (Oral Tablet) 1 at bedtime (0.5 MG) Active SEROQUEL, 100MG (Oral Tablet) 1 [...] Ordered:02-Dec-2014 Eric Montes MD* Start 02-Dec-2014 Active Venlafaxine HCl ER 37.5 MG Oral Tablet Extended Release 24 Hour one daily (37.5 MG) Active VENLAFAXINE HCL ER, 75MG (Oral Tablet Extended Release 24 Hour) 1 daily (75 MG) Active ABILIFY, 10MG (Oral Tablet) 1 (one) [...] tab two times daily (1 MG) Inactive BENZTROPINE MESYLATE, 1MG (Oral Tablet) 1 Tablet at bedtime for 0 days * Quantity: 30 {Tablet} Refills: 6 Ordered:21-Apr-2015 Sandy Benitez * Start 02-Dec-2014 End 21-Apr-2015 Inactive CELEXA, 20MG (Oral Tablet) 1/2 (one half) Tablet 1/2 tab daily x6d, then 1 daily for 0 days * Quantity: 30 {Tablet} Refills: 12 Ordered: Sandy Benitez * Start End Inactive CELEXA, 40MG (Oral Tablet) 1 Tablet daily for 0 days * Quantity: 30 {Tablet} Refills: 3 Ordered: Susu Cruz * Start 08-Dec-2013 End Inactive CLINDAMYCIN HCL, 300MG (Oral Capsule) 1 (one) Capsule three times daily for 0 days * Quantity: 21 {Capsule} Refills: 0 Ordered:31-May-2015 Sandy Benitez * Start 25-Apr-2015 End 31-May-2015 Inactive CLOMID, 50MG (Oral Tablet) 2 daily (50 MG) * End 01-Apr-2011 Inactive CLONIDINE HCL (ANALGESIA), 100MCG/ML (Epidural Solution) (100 MCG/ML) Inactive EFFEXOR XR, 37.5MG (Oral Capsule Extended Release 24 Hour) 1 (one) Capsule ER 24HR Capsule ER 24HR daily x7d, then 75 daily for 0 days * Quantity: 30 {Capsule} Refills: 12 Ordered:21-Apr-2015 Sandy Benitez * Start 16-Nov-2014 End 21-Apr-2015 Inactive GABAPENTIN, 300MG (Oral Capsule) 1-2 three times daily (300 MG) Inactive GABAPENTIN, 300MG (Oral Capsule) 1 q 6hrs (300 MG) Inactive KEFLEX, 500MG (Oral Capsule) 1 (one) Capsule three times daily for 0 days * Quantity: 30 {Capsule} Refills: 0 Ordered:08-Jun-2014 Sandy Benitez * Start 25-Apr-2014 End 08-Jun-2014 Inactive LEVAQUIN, 750MG (Oral Tablet) 1 daily (750 MG) Inactive LORAZEPAM, 1MG (Oral Tablet) 1 Tablet every 6 hrs as needed for 0 days * Quantity: 30 {Tablet} Refills: 1 Ordered:12-Apr-2013 Sandy Benitez * Start 31-Jan-2012 End 12-Apr-2013 Inactive Comments: Medication taken as needed. Lyrica 75 MG Oral Capsule two two times daily (75 MG) Inactive LYRICA, 100MG (Oral Capsule) 1 two times [...] F41.9) Status: Inactive Procedures Procedure Dates Details Skin Conditions Completed:21-Apr-2015 Back Pain Completed:16-Nov-2014 X-ray Exam of Lower Spine, 2 Views ([id number]) Completed:17-May-2014 Comments : outside order from Dr. Ricci How to access health information online Completed:07-Feb-2014 X-ray Exam of Lower Spine, 2 Views ([id number]) Completed:11-Jan-2014 Comments : outside order from Dr. Ricci Referral to Dermatology Ordered:16-Nov-2013 DISCONTINUED - URINALYSIS, AUTOMATED W/ MICRO ([facility] ([id number]) Completed:Jun-2011 X-RAY EXAM LUMBAR SPINE, MIN 4 VIEWS ([id number]) Ordered:05-Dec-2010 MRI OF LUMBAR SPINE W/ W/O CONTRAST ([id number]) Ordered:05-Dec-2010 US EXAM, BREAST(S) ([id number]) Ordered:05-Mar-2010 Follow up in 3 months Ordered:18-Dec-2009 [...] Active Vital Signs Date Test Result Details 16-Jun-2015 15:09 Pulse 86 /min Comments: Pattern: Regular BP Systolic 126 mm[Hg] Comments: Patient Position: Sitting; Cuff Location: Left Arm; Cuff Size: Standard BP Diastolic 76 mm[Hg] Comments: Patient Position: Sitting; Cuff Location: Left Arm; Cuff Size: Standard Weight 230 lb 15-May-2015 12:39 Pulse 96 /min Comments: Pattern: Regular BP Systolic 120 mm[Hg] Comments: Patient Position: Sitting; Cuff Location: Left Arm; Cuff Size: Large BP Diastolic 80 mm[Hg] Comments: Patient Position: Sitting; Cuff Location: Left Arm; Cuff Size: Large Weight 210 lb 21-Apr-2015 08:56 Temperature 98.3 f Comments: Method: Temporal Pulse 92 /min Comments: Pattern: Regular BP Systolic 124 mm[Hg] Comments: Patient Position: Sitting; Cuff Location: Left Arm; Cuff Size: Standard BP Diastolic 82 mm[Hg] Comments: Patient Position: Sitting; Cuff Location: Left Arm; Cuff Size: Standard Weight 211 lb Height 68 in Body Mass Index Calculated 32.08 kg/m2 Body Surface Area Calculated 2.09 m2 18-Apr-2015 12:42 Pulse 84 /min Comments: Pattern: Regular BP Systolic 140 mm[Hg] Comments: Patient Position: Sitting; Cuff Location: Left Arm; Cuff Size: Standard BP Diastolic 76 mm[Hg] Comments: Patient Position: Sitting; Cuff Location: Left Arm; Cuff Size: Standard 20-Mar-2015 10:43 Pulse 74 /min Comments: Pattern: Regular BP Systolic 120 mm[Hg] Comments: Patient Position: Sitting; Cuff Location: Left Arm; Cuff Size: Standard BP Diastolic 60 mm[Hg] Comments: Patient Position: Sitting; Cuff Location: Left Arm; Cuff Size: Standard Weight 227 lb 13-Mar-2015 14:30 Temperature 98.4 f Pulse 74 [...] 2.08 m2 Results Date Description Value Details 21-Apr-2015 21:47 SHAVE SKIN LESION SINGLE ([id number]) Comments: Informed consent obtained. Lesion prepped with Hibiclens. Anesthesia with xylocaine + epi+ NaHCO3. Lesion shaved off w/o complications. Hemostasis obtained with cautery. Wound dressed and care instructions given. Specimen sent for pathology. Diameter 1.1cm Final 20-Feb-2015 16:12 URINALYSIS, AUTOMATED W/ MICRO ([facility]) ([id number]) Comments: Items in this order include: UrinalysisAntibiotics? [...] Yellow (Normal) Range: Yellow 07-Feb-2014 15:07 PROLACTIN ([id number]) Comments: Items in this order include: Draw Charge[i], CBC, Comprehensive Metabolic Panel, TSH, FSH, LH, PROLACTINTesting performed at: [facility], [address] [place] [address], [phone], Retail Marketing Specialist: Lonny Middleton D.O., MPH.brQuest PROLACTIN 11.5 ng/mL (Normal) Comments: Reference Range.br Females.br Non- 3.0-30.0.br 10.0-209.0.br Postmenopausal 2.0-20.0.br .br .br 15:07 LH ([id number]) Comments: Items in this order include: Draw Charge[i] , CBC, Comprehensive Metabolic Panel, TSH, FSH, LH, PROLACTINTesting performed at: [facility], [address] [place] [address], [id number], Retail Marketing Specialist: Lonny Middleton D.O., MPH.[facility] LH 9.3 m[iU]/mL (Normal) Comments: Reference Range.brFollicular Phase 1.9-12.5.brMid-Cycle Peak 8.7-76.3.brLuteal Phase 0.5- 16.9.brPostmenopausal 10.0-54.7 15:07 FSH ([id number]) Comments: Items in this order include: Draw Charge[i] , CBC, Comprehensive Metabolic Panel, TSH, FSH, LH, PROLACTINTesting performed at: [facility], [address] [place] [address], [id number], Retail Marketing Specialist: Lonny Middleton D.O., MPH.[facility]Quest FSH 4.4 m[iU]/mL (Normal) Comments: Reference Range.br .br Follicular Phase 2.5-10.2.br Mid-cycle Peak 3.1- 17.7.br Luteal Phase 1.5- 9.1.br Postmenopausal 23.0-116.3 .br 15:07 TSH (THYROID STIMULATING HORMONE) ([id number]) TSH 1.33 uIU/ml (Normal) Range: 0.34-5.60 15:07 CMP ([id number]) ALTI 96 U/L (Abnormal) Range: 12-78 AST [...] Range: 135-145 15:07 CBC-FEMALE- ORDER THIS ONE! ([id number]) manual diff Not Indicated (Normal) mpv 11.30 [...] 10*3/uL (Abnormal) Range: 4.50-10.50 15:07 Routine Venipuncture (90862) Draw Drawn (Normal) 15-Nov-2013 17:32 SED RATE ERYTHROCYTE ([id number]) Comments: Items in this order include: Draw Charge[i], Basic Metabolic Panel, C-Reactive Protein, CBC, Sed Rate ESR 4 mm/h (Normal) Range: 0-20 17:32 CBC-FEMALE- ORDER THIS ONE! ([id number]) manual diff Not Indicated (Normal) mpv 10.60 [...] 10*3/uL (Abnormal) Range: 4.50-10.50 17:32 C-REACTIVE PROTEIN ([id number]) CRP 1.82 mg/dL (Abnormal) Range: 0.00-0.30 17:32 [...] mmol/L (Normal) Range: 135-145 17:32 Routine Venipuncture (86611) Draw Drawn (Normal) 30-Sep-2013 14:25 URINALYSIS, AUTOMATED W/ MICRO ([facility]) ([id number]) Comments : Items in this order include: [...] Range: 135-145 14:25 CBC-FEMALE- ORDER THIS ONE! ([id number]) Comments: Results to [facility] Dr. Ricci .; Items in this order include : CBC, Basic Metabolic Panel, [id number].Results to [facility] Dr. Ricci Fax manual diff Not [...] Range: 4.50-10.50 15:04 URINALYSIS, AUTOMATED W/ MICRO ([facility]) ([id number]) Comments : All lab needs to be faxed to [facility] at [phone]. Pre-op Dr. Won Ricci.; Items in this order include: Draw Charge[i], CBC, Basic Metabolic Panel, [id number]. Pre-op Dr. Won Ricci.All lab needs to be faxed to [facility] at U yeast Present - [...] Range: 135-145 15:04 CBC-FEMALE- ORDER THIS ONE! ([id number]) Comments: Items in this order include: Draw [...] 10*3/uL (Normal) Range: 4.50-10.50 15:04 Routine Venipuncture ([id number]) Comments: Items in this order include : Draw Charge[i], CBC, Basic Metabolic Panel, Urinalysis Draw Drawn (Normal) 06-Mar-2011 11:27 BMP Comments: Please fax all lab to Dr. Ricci at and [facility] at [phone]; Items in this order include: Draw Charge[i], CBC, Urinalysis, Basic Metabolic PanelChlouise Snell at [phone] fax all lab to Dr. Ricci at [phone] and [facility] GLU 83 mg/dL (Normal) Range: [...] Range: 135-145 11:27 URINALYSIS, AUTOMATED W/ MICRO ([facility]) ([id number]) Comments: Items in this order include: Draw [...] Range: Yellow 11:27 CBC-FEMALE- ORDER THIS ONE! ([id number]) Comments: Items in this order include: Draw [...] 10*3/uL (Normal) Range: 4.50-10.50 11:27 Routine Venipuncture ([id number]) Comments: Items in this order include : Draw Charge[i], CBC, Urinalysis, Basic Metabolic Panel Draw Drawn (Normal) Advance Directives Encounters Medication Entry [facility] [place] On 18-Oct-2015 14:40 to 14:43 Medication Entry - Chronic lumbar pain (724.2 | M54.5) [facility] [place] On 18-Oct-2015 13:03 to 13:10 Medication Entry - Chronic lumbar pain (724.2 | M54.5) [facility] [place] On 12:33 to 12:36 Nurse Visit (Non-billable) [facility] [place] On 16-Jun-2015 15:04 to 16:32 Medication Entry [facility] [place] On 15-May-2015 12:29 to 12:41 Medication Entry - Vaginal infection (616.10 | N76.0) [facility] [place] On 25-Apr-2015 11:21 to 11:23 Office Visit - Hypertrophic and atrophic condition of skin (701.9 | L91.9, L90.9) Encounter Reason: Skin Lesion, Facial - Symptoms include growing lesion, bleeding lesion and non-healing lesion. The condition involves a single lesion. Lesion(s) are located on the left cheek (chin area.). The patient describes the lesion(s) as nodular. Onset was year(s) ago (Has had since .). The patient describes this as worsening (now bleeding routinely).[facility] [place] On 21-Apr-2015 08:54 to 21:47 Medication Entry [facility] [place] On 18-Apr-2015 12:22 to 12:43 Nurse Visit (Non-billable) [facility] [place] On 20-Mar-2015 09:59 to 10:46 Office Visit - Costovertebral angle pain (724.5 [...] with abdominal distention, abdominal pain and hemorrhoids. [facility] On 13-Mar-2015 14:30 to 15:13 Medication Entry - UTI (lower urinary tract infection) (599.0 | N39.0) [facility] [place] On 22-Feb-2015 10:04 to 10:06 Nurse Visit (Non-billable) - Dysuria (788.1 | R30.0) [facility] On 20-Feb-2015 16:01 to 16:38 Nurse Visit (Non-billable) [facility] [place] On 17-Jan-2015 11:29 to 11:31 Office Visit [...] unhealthy food choices. The patient is sedentary. [facility] On 19-Dec-2014 16:15 to 20:43 Medication Entry [facility] [place] On 28-Nov-2014 16:29 to 16:32 Office Visit [...] (Stopped Celexa. Didn't think it was helping.). [facility] [place] On 16-Nov-2014 14:05 to 14:59 Medication Entry - Lumbar back pain (724.2) [facility] [place] On 20-Sep-2014 12:31 to 12:34 Office Visit [...] Denies any pain at this time to area.[facility] [place] On 14:43 to 17:01 Historical Summary [facility] [place] On 11:48 to 11:52 Radiology Visit - Lumbar back pain (724.2) [facility] [place] On 17-May-2014 16:35 to 16:37 Medication Entry [facility] [place] On 03-May-2014 09:14 to 09:22 Medication Entry - Sore throat (462 | J02.9) [facility] [place] On 25-Apr-2014 15:13 to 15:15 Office Visit [...] Taking Seroquel for sx., sees Shama at [facility] also, [ADDITIONAL REASON] Amenorrhea, Primary - She is sexually active. For contraception she uses nothing. Symptoms include amenorrhea, while symptoms do not include pelvic pain , headache or visual disturbance. The patient describes this as unchanged. Associated symptoms include fatigue and hot flashes. Note for "Primry amenorrhea ": said she wants her hormones checked [facility] On 07-Feb-2014 14:16 to 15:30 Radiology Visit - Lumbar back pain (724.2) [facility] [place] On 11-Jan-2014 16:20 to 16:23 Office Visit [...] at times but is not painful or itchy.[facility] [place] 15-Nov-2013 to 16-Nov-2013 Office Visit - Dermatitis [...] rash but it has gotten worse since starting.[facility] [place] On 05-Nov-2013 15:56 to 16:53 Office Visit - Lumbar back pain (724.2) Encounter Reason: Post-Operative - Patient is 2 weeks (diskectomy) postop procedure. Patient's symptoms are improved compared to preoperative. Post operative pain has been moderate. Pain medications include: Hydrocodone and Ultram. Patient has been compliant with post operative instructions. Patient has shown improvement in their activity level (has gradually improved since surgery.).[facility] [place] On 28-Oct-2013 14:32 to 15:50 Historical Summary [facility] [place] On 27-Oct-2013 10:06 to 10:10 Medication Entry - UTI (lower urinary tract infection) (599.0 | N39.0) [facility] [place] On 08-Oct-2013 15:55 to 15:57 Lab entry only - Lumbar back pain (724.2) [facility] [place] On 08:47 to 08:49 Medication Entry - Dysesthesia affecting both sides of body (782.0 | R20.8) [facility] [place] On 21-May-2013 13:35 to 13:38 Office Visit [...] Note for "Anxiety": Taking Seroquel for sx. [facility] On 12-Apr-2013 14:00 to 14:49 [...] patient plans to recover at home with family.[facility] [place] On 15:23 to 22:32 Medication Entry - Anxiety (300.00) [facility] [place] On 14:52 to 14:55 Office Visit - [...] is not currently being treated for this problem.[facility] [place] On 17:25 to 21:06 Lab entry only - Lumbar back pain (724.2) [facility] [place] On 09-Jul-2011 09:57 to 10:02 Office Visit [...] symptoms are relieved by laxatives (M[employer]). The symptoms have been associated with abdominal distention, abdominal pain and hemorrhoids. [facility] [place] On 01-Apr-2011 14:46 to 19:35 Medication Entry - Contraception (V25.9) [facility] [place] On 25-Feb-2011 16:26 to 16:28 Lab entry only - Lumbar back pain (724.2) [facility] [place] On 21-Feb-2011 15:35 to 15:44 Medication Entry - Lumbar back pain (724.2) [facility] [place] On 03-Jan-2011 16:18 to 16:22 Medication Entry - Lumbar back pain (724.2) [facility] [place] On 02-Jan-2011 17:57 to 18:06 Office Visit [...] removed from hip and put in knee. ).[facility] [place] On 05-Dec-2010 14:52 to 16:15 Office Visit [...] the breast. The last menstrual period began 01-17-2010.[facility] [place] On 05-Mar-2010 13:56 to 23:43 Office Visit Encounter Reason: Obesity - The patient's appetite is normal. The patient's dietary intake is normal. The patient has gained 30 pounds (has bought treadmill and walks qod-30 min). The symptoms have been associated with fatigue , while the symptoms have not been associated with amenorrhea or cold intolerance.[facility] [place] On 18-Dec-2009 10:37 to 11:12 Office Visit [facility] [place] On 04-Dec-2009 13:30 to 13:44 Insurance * Christy Elder ; a guarantor * Medicare WPS * [facility] Medical Assistance Prog * [facility]
--- OUTSIDE RECORDS SUMMARY | 2016-06-23 23:10 | XMS REPORT | Continuity of Care Document ---
Author Author [facility] Organization [facility] Address [address] [place] [address] Phone Care Team Providers Care Quarter Section Ironer Name Role Phone Eric Montes MD PP Eric Montes MD Unavailable Won Ricci CP Sandy Benitez Unavailable Unavailable Unavailable Problems Name [...] * Quantity: 20 {Tablet} Refills: 0 Ordered:13-Mar-2015 Yvrose Huertay * Start 22-Feb-2015 End 13-Mar-2015 Inactive BENZTROPINE [...] X-ray Exam of Lower Spine, 2 Views ([id number]) Completed:17-May-2014 Comments : outside order from Dr. Ricci How to access health information online Completed:07-Feb-2014 X-ray Exam of Lower Spine, 2 Views ([id number]) Completed:11-Jan-2014 Comments : outside order from Dr. Ricci Referral to Dermatology Ordered:16-Nov-2013 DISCONTINUED - URINALYSIS, AUTOMATED W/ MICRO ([facility]) ([id number]) Completed:Jun-2011 X-RAY EXAM LUMBAR SPINE, MIN 4 VIEWS ([id number]) Ordered:05-Dec-2010 MRI OF LUMBAR SPINE W/ W/O CONTRAST ([id number]) Ordered:05-Dec-2010 US EXAM, BREAST(S) ([id number]) Ordered:05-Mar-2010 Follow up in 3 months Ordered:18-Dec-2009 [...] Details 20-Feb-2015 16:12 URINALYSIS, AUTOMATED W/ MICRO ([facility]) ([id number]) Comments: Items in this order include: UrinalysisAntibiotics? [...] Yellow (Normal) Range: Yellow 07-Feb-2014 15:07 PROLACTIN ([id number]) Comments: Items in this order include: Draw Charge[i], CBC, Comprehensive Metabolic Panel, TSH, FSH, LH, PROLACTINTesting performed at: [facility], [address] [place] [address], [phone], [employer]cy[employer] Final Inspector: Lonny Middleton D.O., MPH.[facility] PROLACTIN 11.5 ng/mL (Normal) Comments: Reference Range.br Females.br Non- 3.0-30.0.br 10.0-209.0.br Postmenopausal 2.0-20.0.br .br .br 15:07 LH ([id number]) Comments: Items in this order include: Draw Charge[i] , CBC, Comprehensive Metabolic Panel, TSH, FSH, LH, PROLACTINTesting performed at: [facility], [address] [place] [address], [phone], [employer]cy[employer] Final Inspector: Lonny Middleton D.O., MPH.[facility] LH 9.3 m[iU]/mL (Normal) Comments: Reference Range.brFollicular Phase 1.9-12.5.brMid-Cycle Peak 8.7-76.3.brLuteal Phase 0.5- 16.9.brPostmenopausal 10.0-54.7 15:07 FSH ([id number]) Comments: Items in this order include: Draw Charge[i] , CBC, Comprehensive Metabolic Panel, TSH, FSH, LH, PROLACTINTesting performed at: [facility], [address] [place] [address], [phone], [employer]cy[employer] Final Inspector: Lonny Middleton D.O., MPH.[facility] FSH 4.4 m[iU]/mL (Normal) Comments: Reference Range.br .br Follicular Phase 2.5-10.2.br Mid-cycle Peak 3.1- 17.7.br Luteal Phase 1.5- 9.1.br Postmenopausal 23.0-116.3 .br 15:07 TSH (THYROID STIMULATING HORMONE) ([id number]) TSH 1.33 uIU/ml (Normal) Range: 0.34-5.60 15:07 CMP ([id number]) ALTI 96 U/L (Abnormal) Range: 12-78 AST [...] Range: 135-145 15:07 CBC-FEMALE- ORDER THIS ONE! ([id number]) manual diff Not Indicated (Normal) mpv 11.30 [...] 10*3/uL (Abnormal) Range: 4.50-10.50 15:07 Routine Venipuncture (50276) Draw Drawn (Normal) 15-Nov-2013 17:32 SED RATE ERYTHROCYTE ([id number]) Comments: Items in this order include: Draw Charge[i], Basic Metabolic Panel, C-Reactive Protein, CBC, Sed Rate ESR 4 mm/h (Normal) Range: 0-20 17:32 CBC-FEMALE- ORDER THIS ONE! ([id number]) manual diff Not Indicated (Normal) mpv 10.60 [...] 10*3/uL (Abnormal) Range: 4.50-10.50 17:32 C-REACTIVE PROTEIN ([id number]) CRP 1.82 mg/dL (Abnormal) Range: 0.00-0.30 17:32 [...] mmol/L (Normal) Range: 135-145 17:32 Routine Venipuncture (75440) Draw Drawn (Normal) 30-Sep-2013 14:25 URINALYSIS, AUTOMATED W/ MICRO ([facility]) ([id number]) Comments : Items in this order include: [...] Range: 135-145 14:25 CBC-FEMALE- ORDER THIS ONE! ([id number]) Comments: Results to [facility] Dr. Ricci .; Items in this order include : CBC, Basic Metabolic Panel, [id number].Results to [facility] Dr. Ricci Fax manual diff Not [...] W/ MICRO ([facility]) ([id number]) Comments : All lab needs to be faxed to [facility] at [phone]. Pre-op Dr. Won Ricci.; Items in this order include: Draw Charge[i], CBC, Basic Metabolic Panel, [id number]. Pre-op Dr. Won Ricci.All lab needs to be faxed to [facility] at U yeast Present - Rare [...] Range: 135-145 15:04 CBC-FEMALE- ORDER THIS ONE! ([id number]) Comments: Items in this order include: Draw [...] 10*3/uL (Normal) Range: 4.50-10.50 15:04 Routine Venipuncture (24605) Comments: Items in this order include : Draw Charge[i], CBC, Basic Metabolic Panel, Urinalysis Draw Drawn (Normal) 06-Mar-2011 11:27 BMP Comments: Please fax all lab to Dr. Ricci at and [facility] at [phone]; Items in this order include: Draw Charge[i], CBC, Urinalysis, Basic Metabolic PanelChnorthern navajo medical centerdayana [facility] at [phone] fax all lab to Dr. Ricci at [phone] and [facility] GLU 83 mg/dL (Normal) Range: [...] W/ MICRO ([facility]) ([id number]) Comments: Items in this order include: Draw [...] Range: Yellow 11:27 CBC-FEMALE- ORDER THIS ONE! ([id number]) Comments: Items in this order include: Draw [...] 10*3/uL (Normal) Range: 4.50-10.50 11:27 Routine Venipuncture (70938) Comments: Items in this order include : Draw Charge[i], CBC, Urinalysis, Basic Metabolic Panel Draw Drawn (Normal) Advance Directives Encounters Review Encounter Reason: Back Pain, Thoracic, Acute - The last clinic visit was 1 week( s) ago (was in ER due to severe back pain). Management changes made at the last visit include ordering test(s) (CT scan). Symptoms include thoracic pain. Symptoms are located in the left mid thoracic area. The patient describes the pain as dull. The symptoms occur occasionally. The patient describes this as mild and improving. Associated symptoms do not include fever or abdominal pain. Note for "Acute thoracic back pain": she said she is better but wonders what the CT [facility] On 13-Mar-2015 14:30 Medication Entry - UTI (lower urinary tract infection) (599.0 | N39.0) [facility] On 22-Feb-2015 10:04 to 10:06 Nurse Visit (Non-billable) - Dysuria (788.1 | R30.0) [facility] On 20-Feb-2015 16:01 to 16:38 Nurse Visit (Non-billable) [facility] On 17-Jan-2015 11:29 to 11:31 Office Visit [...] unhealthy food choices. The patient is sedentary. [facility] On 19-Dec-2014 16:15 to 20:43 Medication Entry [facility] On 28-Nov-2014 16:29 to 16:32 Office Visit [...] (Stopped Celexa. Didn't think it was helping.). [facility] On 16-Nov-2014 14:05 to 14:59 Medication Entry - Lumbar back pain (724.2) [facility] On 20-Sep-2014 12:31 to 12:34 Office [...] Denies any pain at this time to area.[facility] On 14:43 to 17:01 Historical Summary [facility] On 11:48 to 11:52 Radiology Visit - Lumbar back pain (724.2) [facility] On 17-May-2014 16:35 to 16:37 Medication Entry [facility] On 03-May-2014 09:14 to 09:22 Medication Entry - Sore throat (462 | J02.9) [facility] On 25-Apr-2014 15:13 to 15:15 Office [...] Taking Seroquel for sx., sees Shama at [facility] also, [ADDITIONAL REASON] Amenorrhea, Primary - She is sexually active. For contraception she uses nothing. Symptoms include amenorrhea, while symptoms do not include pelvic pain , headache or visual disturbance. The patient describes this as unchanged. Associated symptoms include fatigue and hot flashes. Note for "Primry amenorrhea ": said she wants her hormones checked [facility] On 07-Feb-2014 14:16 to 15:30 Radiology Visit - Lumbar back pain (724.2) [facility] On 11-Jan-2014 16:20 to 16:23 Office [...] at times but is not painful or itchy.[facility] 15-Nov-2013 to 16-Nov-2013 Office Visit - [...] rash but it has gotten worse since starting.[facility] On 05-Nov-2013 15:56 to 16:53 Office Visit - Lumbar back pain (724.2) Encounter Reason: Post-Operative - Patient is 2 weeks (diskectomy) postop procedure. Patient's symptoms are improved compared to preoperative. Post operative pain has been moderate. Pain medications include: Hydrocodone and Ultram. Patient has been compliant with post operative instructions. Patient has shown improvement in their activity level (has gradually improved since surgery.).[facility] On 28-Oct-2013 14:32 to 15:50 Historical Summary [facility] On 27-Oct-2013 10:06 to 10:10 Medication Entry - UTI (lower urinary tract infection) (599.0 | N39.0) [facility] On 08-Oct-2013 15:55 to 15:57 Lab entry only - Lumbar back pain (724.2) [facility] On 08:47 to 08:49 Medication Entry - Dysesthesia affecting both sides of body (782.0 | R20.8) [facility] On 21-May-2013 13:35 to 13:38 Office [...] Note for "Anxiety": Taking Seroquel for sx. [facility] On 12-Apr-2013 14:00 to 14:49 Office Visit [...] patient plans to recover at home with family.[facility] On 15:23 to 22:32 Medication Entry - Anxiety (300.00) [facility] On 14:52 to 14:55 Office Visit [...] is not currently being treated for this problem.[facility] On 17:25 to 21:06 Lab entry only - Lumbar back pain (724.2) [facility] On 09-Jul-2011 09:57 to 10:02 Office [...] symptoms are relieved by laxatives (MOM and [employer]). The symptoms have been associated with abdominal distention, abdominal pain and hemorrhoids. [facility] On 01-Apr-2011 14:46 to 19:35 Medication Entry - Contraception (V25.9) [facility] On 25-Feb-2011 16:26 to 16:28 Lab entry only - Lumbar back pain (724.2) [facility] On 21-Feb-2011 15:35 to 15:44 Medication Entry - Lumbar back pain (724.2) [facility] On 03-Jan-2011 16:18 to 16:22 Medication Entry - Lumbar back pain (724.2) [facility] On 02-Jan-2011 17:57 to 18:06 Office [...] removed from hip and put in knee. ).[facility] On 05-Dec-2010 14:52 to 16:15 Office [...] the breast. The last menstrual period began 01-17-2010.[facility] On 05-Mar-2010 13:56 to 23:43 Office Visit Encounter Reason: Obesity - The patient's appetite is normal. The patient's dietary intake is normal. The patient has gained 30 pounds (has bought treadmill and walks qod-30 min). The symptoms have been associated with fatigue , while the symptoms have not been associated with amenorrhea or cold intolerance.[facility] On 18-Dec-2009 10:37 to 11:12 Office Visit [facility] On 04-Dec-2009 13:30 to 13:44 Insurance * Christy Elder ; a guarantor * [facility] Medical Assistance Prog * [facility]
--- OUTSIDE RECORDS SUMMARY | 2016-06-23 23:11 | XMS REPORT | Continuity of Care Document ---
Author Author [facility] Organization [facility] Address [address] [place] [address] Phone Care Team Providers Care Commercial Production Editor Name Role Phone Eric Montes MD PP [...] N76.0) Status: Active Medications Name Dates Details CLINDAMYCIN HCL, 300MG (Oral Capsule) 1 (one) Capsule three times daily for 0 days Quantity: 21 {Capsule} Ordered:25-Apr-2015 Sandy Benitez * Start 25-Apr-2015 Active CLONIDINE HCL (ANALGESIA), 100MCG/ML (Epidural Solution) (100 MCG/ML) Active CYMBALTA, 60MG (Oral Capsule Delayed Release Particles) [address] Part daily for 0 days * Quantity: 30 {Capsule} Refills: 12 Ordered:13-Mar-2015 Sandy Benitez * Start 13-Mar-2015 Active KLONOPIN, 1MG (Oral Tablet) 1 two times daily (1 MG) Active LATUDA, 40MG (Oral Tablet) 1 daily (40 MG) Active METHOCARBAMOL, 750MG (Oral Tablet) 1 (one) Tablet at bedtime for 0 days * Quantity: 100 {Tablet} Refills: 3 Ordered:27-Apr-2015 Eric Montes MD* Start 27-Apr-2015 End 21-Apr-2015 Active NORCO, 10-325MG (Oral Tablet) 1 4 to 6 hrs as needed (10-325 MG) Active Comments: Medication taken as needed. PHENTERMINE HCL, 37.5MG (Oral Capsule) 1 daily (37.5 MG) Active ROPINIROLE HCL, 0.5MG (Oral Tablet) 1 [...] Ordered:02-Dec-2014 Eric Montes MD* Start 02-Dec-2014 Active VENLAFAXINE HCL ER, 75MG (Oral Tablet [...] 13-Mar-2015 Inactive BENZTROPINE MESYLATE, 1MG (Oral Tablet) 1 Tablet at bedtime for 0 days * Quantity: 30 {Tablet} Refills: 6 Ordered:21-Apr-2015 Sandy Benitez * Start 02-Dec-2014 End 21-Apr-2015 Inactive BENZTROPINE MESYLATE, 1MG (Oral Tablet) 1/2 [...] daily (50 MG) * End 01-Apr-2011 Inactive EFFEXOR XR, 37.5MG (Oral Capsule Extended [...] X-ray Exam of Lower Spine, 2 Views ([id number]) Completed:17-May-2014 Comments : outside order from Dr. Ricci How to access health information online Completed:07-Feb-2014 X-ray Exam of Lower Spine, 2 Views ([id number]) Completed:11-Jan-2014 Comments : outside order from Dr. Ricci Referral to Dermatology Ordered:16-Nov-2013 DISCONTINUED - URINALYSIS, AUTOMATED W/ MICRO ([facility]) ([id number]) Completed:Jun-2011 X-RAY EXAM LUMBAR SPINE, MIN 4 VIEWS ([id number]) Ordered:05-Dec-2010 MRI OF LUMBAR SPINE W/ W/O CONTRAST ([id number]) Ordered:05-Dec-2010 US EXAM, BREAST(S) ([id number]) Ordered:05-Mar-2010 Follow up in 3 months Ordered:18-Dec-2009 [...] Active Vital Signs Date Test Result Details 21-Apr-2015 08:56 Temperature 98.3 f Comments: Method: [...] Details 21-Apr-2015 21:47 SHAVE SKIN LESION SINGLE ([id number]) Comments: Informed consent obtained. Lesion prepped with Hibiclens. Anesthesia with xylocaine + epi+ NaHCO3. Lesion shaved off w/o complications. Hemostasis obtained with cautery. Wound dressed and care instructions given. Specimen sent for pathology. Diameter 1.1cm Final 20-Feb-2015 16:12 URINALYSIS, AUTOMATED W/ MICRO ([facility]) ([id number]) Comments: Items in this order include: UrinalysisAntibiotics? [...] Clear U COLOR Yellow (Normal) Range: Yellow -Jan-2014 15:07 PROLACTIN ([id number]) Comments: Items in this order include: Draw Charge[i], CBC, Comprehensive Metabolic Panel, TSH, FSH, LH, PROLACTINTesting performed at: [facility], [address] [place] [address], [phone], Marketing Finance Specialist: Lonny Middleton D.O., MPH.[facility] PROLACTIN 11.5 ng/mL (Normal) Comments: Reference Range.br Females.br Non- 3.0-30.0.br 10.0-209.0.br Postmenopausal 2.0-20.0.br .br .br 15:07 LH ([id number]) Comments: Items in this order include: Draw Charge[i] , CBC, Comprehensive Metabolic Panel, TSH, FSH, LH, PROLACTINTesting performed at: [facility], [address] [place] [address], [phone], Marketing Finance Specialist: Lonny Middleton D.O., MPH.[facility] LH 9.3 m[iU]/mL (Normal) Comments: Reference Range.brFollicular Phase 1.9-12.5.brMid-Cycle Peak 8.7-76.3.brLuteal Phase 0.5- 16.9.brPostmenopausal 10.0-54.7 15:07 FSH ([id number]) Comments: Items in this order include: Draw Charge[i] , CBC, Comprehensive Metabolic Panel, TSH, FSH, LH, PROLACTINTesting performed at: [facility], [address] [place], [address], Marketing Finance Specialist: Lonny Middleton D.O., MPH.[facility] FSH 4.4 m[iU]/mL (Normal) Comments: Reference Range.br .br Follicular Phase 2.5-10.2.br Mid-cycle Peak 3.1- 17.7.br Luteal Phase 1.5- 9.1.br Postmenopausal 23.0-116.3 .br 15:07 TSH (THYROID STIMULATING HORMONE) ([id number]) TSH 1.33 uIU/ml (Normal) Range: 0.34-5.60 15:07 CMP ([id number]) ALTI 96 U/L (Abnormal) Range: 12-78 AST [...] Range: 135-145 15:07 CBC-FEMALE- ORDER THIS ONE! ([id number]) manual diff Not Indicated (Normal) mpv 11.30 [...] 10*3/uL (Abnormal) Range: 4.50-10.50 15:07 Routine Venipuncture (22835) Draw Drawn (Normal) 15-Nov-2013 17:32 SED RATE ERYTHROCYTE ([id number]) Comments: Items in this order include: Draw Charge[i], Basic Metabolic Panel, C-Reactive Protein, CBC, Sed Rate ESR 4 mm/h (Normal) Range: 0-20 17:32 CBC-FEMALE- ORDER THIS ONE! ([id number]) manual diff Not Indicated (Normal) mpv 10.60 [...] 10*3/uL (Abnormal) Range: 4.50-10.50 17:32 C-REACTIVE PROTEIN ([id number]) CRP 1.82 mg/dL (Abnormal) Range: 0.00-0.30 17:32 [...] mmol/L (Normal) Range: 135-145 17:32 Routine Venipuncture (73814) Draw Drawn (Normal) 30-Sep-2013 14:25 URINALYSIS, AUTOMATED W/ MICRO ([facility] [place]) ([id number]) Comments : Items in this order include: [...] Range: 135-145 14:25 CBC-FEMALE- ORDER THIS ONE! ([id number]) Comments: Results to [facility] Dr. Ricci .; Items in this order include : CBC, Basic Metabolic Panel, [phone].Results to [facility] Dr. Ricci Fax manual diff [...] Range: 4.50-10.50 15:04 URINALYSIS, AUTOMATED W/ MICRO ([facility] [place] [place]) ([id number]) Comments : All lab needs to be faxed to [facility] at [phone]. Pre-op Dr. Won Ricci.; Items in this order include: Draw Charge[i], CBC, Basic Metabolic Panel, [id number]. Pre-op Dr. Won Ricci.All lab needs to be faxed to [facility] at U yeast Present - Rare (Abnormal) [...] Range: 135-145 15:04 CBC-FEMALE- ORDER THIS ONE! ([id number]) Comments: Items in this order include: Draw [...] 10*3/uL (Normal) Range: 4.50-10.50 15:04 Routine Venipuncture (26882) Comments: Items in this order include : Draw Charge[i], CBC, Basic Metabolic Panel, Urinalysis Draw Drawn (Normal) 06-Mar-2011 11:27 [facility] Comments: Please fax all lab to Dr. Ricci at and [facility] at [phone]; Items in this order include: Draw Charge[i], CBC, Urinalysis, Basic Metabolic PanelChcarlsbad medical centerdayana [facility] at [phone] fax all lab to Dr. Ricci at [phone] and [facility] 83 mg/dL (Normal) Range: [...] Range: 135-145 11:27 URINALYSIS, AUTOMATED W/ MICRO ([facility] [place] [place]) ([id number]) Comments: Items in this order include: Draw [...] Range: Yellow 11:27 CBC-FEMALE- ORDER THIS ONE! ([id number]) Comments: Items in this order include: Draw [...] 10*3/uL (Normal) Range: 4.50-10.50 11:27 Routine Venipuncture (19393) Comments: Items in this order include : Draw Charge[i], CBC, Urinalysis, Basic Metabolic Panel Draw Drawn (Normal) Advance Directives Encounters Medication Entry - Vaginal infection (616.10 | N76.0) [facility] On 25-Apr-2015 11:21 to 11:23 Office Visit [...] patient describes this as worsening (now bleeding routinely).[facility] On 21-Apr-2015 08:54 to 21:47 Medication Entry [facility] On 18-Apr-2015 12:22 to 12:43 Nurse Visit (Non-billable) [facility] On 20-Mar-2015 09:59 to 10:46 Office Visit [...] with abdominal distention, abdominal pain and hemorrhoids. [facility] On 13-Mar-2015 14:30 to 15:13 Medication Entry - UTI (lower urinary tract infection) (599.0 | N39.0) [facility] On 22-Feb-2015 10:04 to 10:06 Nurse Visit (Non-billable) - Dysuria (788.1 | R30.0) [facility] On 20-Feb-2015 16:01 to 16:38 Nurse Visit (Non-billable) [facility] On 17-Jan-2015 11:29 to 11:31 Office [...] unhealthy food choices. The patient is sedentary. [facility] On 19-Dec-2014 16:15 to 20:43 Medication Entry [facility] On 28-Nov-2014 16:29 to 16:32 Office [...] (Stopped Celexa. Didn't think it was helping.). [facility] On 16-Nov-2014 14:05 to 14:59 Medication Entry - Lumbar back pain (724.2) [facility] On 20-Sep-2014 12:31 to 12:34 Office [...] Denies any pain at this time to area.[facility] On 14:43 to 17:01 Historical Summary [facility] On 11:48 to 11:52 Radiology Visit - Lumbar back pain (724.2) [facility] On 17-May-2014 16:35 to 16:37 Medication Entry [facility] On 03-May-2014 09:14 to 09:22 Medication Entry - Sore throat (462 | J02.9) [facility] On 25-Apr-2014 15:13 to 15:15 Office [...] Taking Seroquel for sx., sees Shama at [facility] also, [ADDITIONAL REASON] Amenorrhea, Primary - She is sexually active. For contraception she uses nothing. Symptoms include amenorrhea, while symptoms do not include pelvic pain , headache or visual disturbance. The patient describes this as unchanged. Associated symptoms include fatigue and hot flashes. Note for "Primry amenorrhea ": said she wants her hormones checked [facility] On 07-Feb-2014 14:16 to 15:30 Radiology Visit - Lumbar back pain (724.2) [facility] On 11-Jan-2014 16:20 to 16:23 Office [...] at times but is not painful or itchy.[facility] 15-Nov-2013 to 16-Nov-2013 Office Visit - [...] rash but it has gotten worse since starting.[facility] On 05-Nov-2013 15:56 to 16:53 Office Visit - Lumbar back pain (724.2) Encounter Reason: Post-Operative - Patient is 2 weeks (diskectomy) postop procedure. Patient's symptoms are improved compared to preoperative. Post operative pain has been moderate. Pain medications include: Hydrocodone and Ultram. Patient has been compliant with post operative instructions. Patient has shown improvement in their activity level (has gradually improved since surgery.).[facility] On 28-Oct-2013 14:32 to 15:50 Historical Summary [facility] On 27-Oct-2013 10:06 to 10:10 Medication Entry - UTI (lower urinary tract infection) (599.0 | N39.0) [facility] On 08-Oct-2013 15:55 to 15:57 Lab entry only - Lumbar back pain (724.2) [facility] On 08:47 to 08:49 Medication Entry - Dysesthesia affecting both sides of body (782.0 | R20.8) [facility] On 21-May-2013 13:35 to 13:38 Office [...] Note for "Anxiety": Taking Seroquel for sx. [facility] On 12-Apr-2013 14:00 to 14:49 Office [...] patient plans to recover at home with family.[facility] On 15:23 to 22:32 Medication Entry - Anxiety (300.00) [facility] On 14:52 to 14:55 Office Visit [...] is not currently being treated for this problem.[facility] On 17:25 to 21:06 Lab entry only - Lumbar back pain (724.2) [facility] On 09-Jul-2011 09:57 to 10:02 Office [...] symptoms are relieved by laxatives (MOM and [employer]). The symptoms have been associated with abdominal distention, abdominal pain and hemorrhoids. [facility] On 01-Apr-2011 14:46 to 19:35 Medication Entry - Contraception (V25.9) [facility] On 25-Feb-2011 16:26 to 16:28 Lab entry only - Lumbar back pain (724.2) [facility] On 21-Feb-2011 15:35 to 15:44 Medication Entry - Lumbar back pain (724.2) [facility] On 03-Jan-2011 16:18 to 16:22 Medication Entry - Lumbar back pain (724.2) [facility] On 02-Jan-2011 17:57 to 18:06 Office [...] removed from hip and put in knee. ).[facility] On 05-Dec-2010 14:52 to 16:15 Office [...] the breast. The last menstrual period began 01-17-2010.[facility] On 05-Mar-2010 13:56 to 23:43 Office Visit Encounter Reason: Obesity - The patient's appetite is normal. The patient's dietary intake is normal. The patient has gained 30 pounds (has bought treadmill and walks qod-30 min). The symptoms have been associated with fatigue , while the symptoms have not been associated with amenorrhea or cold intolerance.[facility] On 18-Dec-2009 10:37 to 11:12 Office Visit [facility] On 04-Dec-2009 13:30 to 13:44 Insurance * Christy Elder ; a guarantor * [facility] Medical Assistance Prog * [facility] * [facility]
--- OUTSIDE RECORDS SUMMARY | 2016-06-23 23:12 | XMS REPORT | Continuity of Care Document ---
Author Author [facility] Organization [facility] Address [address] [place] [address] Phone Care Team Providers Care Red Leader Name Role Phone Eric Montes MD PP Eric Montes MD Unavailable Sandy Benitez Unavailable Unavailable Unavailable History of Present Illness No History Of Present Illness Information Available Problems Name Dates Details Anxiety (300.00, F41.9) Status: Active Contraception (Renamed from control) (V25.9, Z30.9) Status: Active Breast lump on right side at 12 o'clock position (611.72, N63) Status: Active Constipation (Renamed from CN) (564.00, K59.00) Status: Active Lumbar back pain (724.2) Status: Active Pre-op evaluation (V72.84) Status: Active Medications Name Dates Details AMBIEN, 10MG (Oral Tablet) - Historical Medication 1 at bedtime Active CELEXA, 40MG (Oral Tablet) 1 Tablet daily for 0 days Quantity: 30 Ordered :01-Apr-2013 Eric Montes MD* Started 01-Apr-2013 ActiveLORAZEPAM, 1MG (Oral Tablet) 1 Tablet every 6 hrs as needed for 0 days * Quantity: 30 Refills: 1 Ordered :31-Jan-2012 Eric Montes MD* Started 31-Jan-2012 Active Comments: Medication taken as needed. METHOCARBAMOL, 750MG (Oral Tablet) - Historical Medication 1 every eight hours ActivePERCOCET, 10-325MG (Oral Tablet) - Historical Medication 1 or 2 every six hours, as needed Active Comments: Medication taken as needed. SPIRONOLACTONE, 25MG (Oral Tablet) - Historical Medication 1 daily ActiveCELEXA, 20MG (Oral Tablet) 1/2 (one half) Tablet 1/2 tab daily x6d, then 1 daily for 0 days * Quantity: 30 Refills: 12 Ordered : Sandy Benitez * Started Ended InactiveCLOMID, 50MG (Oral Tablet) - Historical Medication 2 daily * Ended 01-Apr-2011 InactiveNORCO, 7.5-325MG (Oral Tablet) - Historical Medication 1 to 2 every 4 to 6 hrs InactiveNORTREL 1/35 (28), 1-35MG-MCG (Oral Tablet) 1 Tablet daily for 90 days * Quantity: 3 Refills: 3 Ordered :25-Feb-2011 Sandy Benitez * Started 25-Feb-2011 Ended 01-Apr-2011 InactivePHENTERMINE HCL, 30MG (Oral Capsule) 1 Capsule daily for 0 days * Quantity: 30 Refills: 0 Ordered :05-Dec-2010 Sandy Benitez * Started 18-Dec-2009 Ended 05-Dec-2010 InactiveTOPAMAX, 25MG (Oral Tablet) 1 Tablet two [...] Past Medical History Name Dates Details Deliveries Comments: 1 Status: Active Headache (Renamed from Cephalalgia) (784.0, R51) Status: Active Stillbirth Onset:1999 Status: Active Procedures Procedure Dates Details DISCONTINUED - URINALYSIS, AUTOMATED W/ MICRO ([facility] [place] ([id number]) Completed:Jun-2011 X-RAY EXAM LUMBAR SPINE, MIN 4 VIEWS ([id number]) Ordered:05-Dec-2010 MRI OF LUMBAR SPINE W/ W/O CONTRAST ([id number]) Ordered:05-Dec-2010 US EXAM, BREAST(S) ([id number]) Ordered:05-Mar-2010 Follow up in 3 months Ordered:18-Dec-2009 Appendectomy Completed:1975 Bone cyst Completed:1998 Comments: Right. 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 Non Drinker/No Alcohol Use Non Smoker/No Tobacco Use Vital Signs Date Test Result Details 15:23 Temperature 99.1 f Pulse 74 /min Comments: Pattern: Regular BP Systolic 118 mm[Hg] Comments: Patient Position: Sitting; Cuff Location: Left Arm; Cuff Size: Standard BP Diastolic 70 mm[Hg] Comments: Patient Position: Sitting; Cuff Location: Left Arm; Cuff Size: Standard Weight 207.5 lb Height 67 in Body Mass Index Calculated 32.5 kg/m2 Body Surface Area Calculated 2.05 17:25 Temperature 98.9 f Comments: Method: Temporal Pulse 80 /min Comments: Pattern: Regular BP Systolic 138 mm[Hg] Comments: Patient Position: Sitting; Cuff Location: Left Arm; Cuff Size: Standard BP Diastolic 70 mm[Hg] Comments: Patient Position: Sitting; Cuff Location: Left Arm; Cuff Size: Standard Weight 206 lb Height 67.5 in Body Mass Index Calculated 31.79 kg/m2 Body Surface Area Calculated 2.06 01-Apr-2011 14:46 Temperature 98.3 f Comments: Method: Temporal Pulse 88 /min Comments: Pattern: Regular BP Systolic 122 mm[Hg] Comments: Patient Position: Sitting; Cuff Location: Left Arm; Cuff Size: Standard BP Diastolic 78 mm[Hg] Comments: Patient Position: Sitting; Cuff Location: Left Arm; Cuff Size: Standard Weight 213 lb Height 67 in Body Mass Index Calculated 33.36 kg/m2 Body Surface Area Calculated 2.08 05-Dec-2010 14:53 Temperature 98.6 f Comments: Method: Temporal Pulse 80 /min Comments: Pattern: Regular BP Systolic 138 mm[Hg] Comments: Patient Position: Sitting; Cuff Location: Left Arm; Cuff Size: Standard BP Diastolic 94 mm[Hg] Comments: Patient Position: Sitting; Cuff Location: Left Arm; Cuff Size: Standard Weight 214 lb Height 67.5 in Body Mass Index Calculated 33.02 kg/m2 Body Surface Area Calculated 2.09 05-Mar-2010 13:57 Temperature 98.7 f Comments: Method: [...] 32.4 kg/m2 Body Surface Area Calculated 2.08 Results Date Description Value Details 15:04 URINALYSIS, AUTOMATED W/ MICRO ([facility] [place]) ([id number]) Comments : All lab needs to be fax[facility] to [facility] [place] at [phone]. Pre-op Dr. Won Ricci.; Items in this order include: Draw Charge[i], CBC, Basic Metabolic Panel, [id number]. Pre-op Dr. Won Ricci.All lab needs to be faxed to [facility] at U yeast Present - Rare Range: Negative=Abnormal U BACT 1+(3-10/hpf) Range: Negative=Abnormal U BACT 1+(3-10/hpf) Range: Negative=Abnormal U squamous 1+(2-5/hpf) Range: Negative=Abnormal U squamous 1+(2-5/hpf) Range: Negative=Abnormal U RBC 0-2/hpf Range: Negative=Abnormal U RBC 0-2/hpf Range: Negative=Abnormal U WBC 0-4/hpf Range: Negative=Abnormal U WBC 0-4/hpf Range: Negative=Abnormal Sent for Culture No Normal Sent for Culture No Normal Sent for Culture No Normal U LEUKO Negative Range: Negative=Normal U LEUKO Negative Range: Negative=Normal U LEUKO Negative Range: Negative=Normal U LEUKO Negative Range: Negative=Normal U Nitrites Negative Range: Negative=Normal U Nitrites Negative Range: Negative=Normal U Nitrites Negative Range: Negative=Normal U Nitrites Negative Range: Negative=Normal U URO 0.2 E.U./dL Range: 0.0 - 1.0=Normal U URO 0.2 E.U./dL Range: 0.0 - 1.0=Normal U URO 0.2 E.U./dL Range: 0.0 - 1.0=Normal U URO 0.2 E.U./dL Range: 0.0 - 1.0=Normal Urine Protein Negative Range: Negative=Normal Urine Protein Negative Range: Negative=Normal Urine Protein Negative Range: Negative=Normal Urine Protein Negative Range: Negative=Normal U PH 6.0 Range: 5.0-8.0=Normal U PH 6.0 Range: 5.0-8.0=Normal U PH 6.0 Range: 5.0-8.0=Normal U PH 6.0 Range: 5.0-8.0=Normal U BLD Negative Range: Negative=Normal U BLD Negative Range: Negative=Normal U BLD Negative Range: Negative=Normal U BLD Negative Range: Negative=Normal U SG 1.020 Range: 1.010 - 1.030=Normal U SG 1.020 Range: 1.010 - 1.030=Normal U SG 1.020 Range: 1.010 - 1.030=Normal U SG 1.020 Range: 1.010 - 1.030=Normal U KETONES Negative Range: Negative=Normal U KETONES Negative Range: Negative=Normal U KETONES Negative Range: Negative=Normal U KETONES Negative Range: Negative=Normal U BILI Negative Range: Negative=Normal U BILI Negative Range: Negative=Normal U BILI Negative Range: Negative=Normal U BILI Negative Range: Negative=Normal U GLU Negative Range: Negative=Normal U GLU Negative Range: Negative=Normal U GLU Negative Range: Negative=Normal U GLU Negative Range: Negative=Normal U CLARITY Clear Range: Clear=Normal U CLARITY Clear Range: Clear=Normal U CLARITY Clear Range: Clear=Normal U CLARITY Clear Range: Clear=Normal U COLOR Yellow Range: Yellow=Normal U COLOR Yellow Range: Yellow=Normal U COLOR Yellow Range: Yellow=Normal U COLOR Yellow Range: Yellow=Normal 15:04 BMP Comments: Items in this order include: Draw Charge[i], CBC, Basic Metabolic Panel, Urinalysis GLU 97 mg/dL Range: 70-110=Normal GLU 97 mg/dL Range: 70-110=Normal GLU 97 mg/dL Range: 70-110=Normal GLU 97 mg/dL Range: 70-110=Normal CA 9.5 mg/dL Range: 8.4-10.2=Normal CA 9.5 mg/dL Range: 8.4-10.2=Normal CA 9.5 mg/dL Range: 8.4-10.2=Normal CA 9.5 mg/dL Range: 8.4-10.2=Normal eGFR 61.7 mL/min/1.73m2 Range: >60.0=Normal eGFR 61.7 mL/min/1.73m2 Range: >60.0=Normal eGFR 61.7 mL/min/1.73m2 Range: >60.0=Normal eGFR 61.7 mL/min/1.73m2 Range: >60.0=Normal eGFR 61.7 mL/min/1.73m2 Range: >60.0=Normal eGFR 61.7 mL/min/1.73m2 Range: >60.0=Normal CREAT 1.1 mg/dL Range: 0.6-1.3=Normal CREAT 1.1 mg/dL Range: 0.6-1.3=Normal CREAT 1.1 mg/dL Range: 0.6-1.3=Normal CREAT 1.1 mg/dL Range: 0.6-1.3=Normal OSMO 277 Range: 275-295=Normal OSMO 277 Range: 275-295=Normal OSMO 277 Range: 275-295=Normal OSMO 277 Range: 275-295=Normal BUN 15 mg/dL Range: 7-18=Normal BUN 15 mg/dL Range: 7-18=Normal BUN 15 mg/dL Range: 7-18=Normal BUN 15 mg/dL Range: 7-18=Normal AGAP 10.90 mmol/L Range: 10.00-20.00=Normal AGAP 10.90 mmol/L Range: 10.00-20.00=Normal AGAP 10.90 mmol/L Range: 10.00-20.00=Normal AGAP 10.90 mmol/L Range: 10.00-20.00=Normal CO2 30.7 mmol/L Range: 21.0-32.0=Normal CO2 30.7 mmol/L Range: 21.0-32.0=Normal CO2 30.7 mmol/L Range: 21.0-32.0=Normal CO2 30.7 mmol/L Range: 21.0-32.0=Normal CL 101 mmol/L Range: 98-107=Normal CL 101 mmol/L Range: 98-107=Normal CL 101 mmol/L Range: 98-107=Normal CL 101 mmol/L Range: 98-107=Normal K 4.6 mmol/L Range: 3.5-5.0=Normal K 4.6 mmol/L Range: 3.5-5.0=Normal K 4.6 mmol/L Range: 3.5-5.0=Normal K 4.6 mmol/L Range: 3.5-5.0=Normal K 4.6 mmol/L Range: 3.5-5.0=Normal NA 138 mmol/L Range: 135-145=Normal NA 138 mmol/L Range: 135-145=Normal NA 138 mmol/L Range: 135-145=Normal NA 138 mmol/L Range: 135-145=Normal NA 138 mmol/L Range: 135-145=Normal 15:04 CBC-FEMALE- ORDER THIS ONE! ([id number]) Comments: Items in this order include: Draw Charge[i], CBC, Basic Metabolic Panel, Urinalysis manual diff Not Indicated Normal manual diff Not Indicated Normal mpv 8.99 fL Range: 0.00-99.90=Normal mpv 8.99 fL Range: 0.00-99.90=Normal PLT 254.0 K/uL Range: 150.0-450.0=Normal PLT 254.0 K/uL Range: 150.0-450.0=Normal PLT 254.0 K/uL Range: 150.0-450.0=Normal RDW 12.0 % Range: 11.5-14.5=Normal RDW 12.0 % Range: 11.5-14.5=Normal RDW 12.0 % Range: 11.5-14.5=Normal MCHC 32.1 g/dL Range: 32.0-36.0=Normal MCHC 32.1 g/dL Range: 32.0-36.0=Normal MCH 27.9 pg Range: 27.0-31.0=Normal MCH 27.9 pg Range: 27.0-31.0=Normal MCH 27.9 pg Range: 27.0-31.0=Normal MCV 87.0 fl Range: 80.0-97.0=Normal MCV 87.0 fl Range: 80.0-97.0=Normal MCV 87.0 fl Range: 80.0-97.0=Normal HCT 42.4 % Range: 36.0-47.0=Normal HCT 42.4 % Range: 36.0-47.0=Normal HCT 42.4 % Range: 36.0-47.0=Normal HCT 42.4 % Range: 36.0-47.0=Normal HGB 13.60 g/dL Range: 11.00-17.00=Normal HGB 13.60 g/dL Range: 11.00-17.00=Normal HGB 13.60 g/dL Range: 11.00-17.00=Normal HGB 13.60 g/dL Range: 11.00-17.00=Normal RBC 4.88 M/uL Range: 4.20-5.40=Normal RBC 4.88 M/uL Range: 4.20-5.40=Normal RBC 4.88 M/uL Range: 4.20-5.40=Normal RBC 4.88 M/uL Range: 4.20-5.40=Normal Baso% 1.020 % Range: 0.000-1.000=Abnormal Baso% 1.020 % Range: 0.000-1.000=Abnormal eos% 2.55 % Range: 0.00-3.00=Normal eos% 2.55 % Range: 0.00-3.00=Normal mono% 5.67 % Range: 0.00-7.00=Normal mono% 5.67 % Range: 0.00-7.00=Normal LYM% 28.70 % Range: 20.00-40.00=Normal LYM% 28.70 % Range: 20.00-40.00=Normal andrey% 62.00 % Range: 55.00-75.00=Normal andrey% 62.00 % Range: 55.00-75.00=Normal Baso 0.096 K/uL Range: 0.000-0.100=Normal Baso 0.096 K/uL Range: 0.000-0.100=Normal eos 0.240 K/uL Range: 0.000-4.000=Normal eos 0.240 K/uL Range: 0.000-4.000=Normal mono 0.53 K/uL Range: 0.00-0.70=Normal mono 0.53 K/uL Range: 0.00-0.70=Normal mono 0.53 K/uL Range: 0.00-0.70=Normal LYMPHS 2.70 K/uL Range: 0.90-4.20=Normal LYMPHS 2.70 K/uL Range: 0.90-4.20=Normal andrey 5.84 K/uL Range: 2.50-7.80=Normal andrey 5.84 K/uL Range: 2.50-7.80=Normal wbc 9.41 K/uL Range: 4.50-10.50=Normal wbc 9.41 K/uL Range: 4.50-10.50=Normal 15:04 Routine Venipuncture ([id number]) Comments: Items in this order include : Draw Charge[i], CBC, Basic Metabolic Panel, Urinalysis Draw Drawn Normal 06-Mar-2011 11:27 BMP Comments: Please fax all lab to Dr. Ricci at and [facility] [address] [facility] at [phone]; Items in this order include: Draw Charge[i], CBC, Urinalysis, [facility] [address] [place] at [phone] fax all lab to Dr. Ricci at [phone] and Via GLU 83 mg/dL Range: 70-110=Normal GLU 83 mg/dL Range: 70-110=Normal GLU 83 mg/dL Range: 70-110=Normal GLU 83 mg/dL Range: 70-110=Normal CA 10.0 mg/dL Range: 8.4-10.2=Normal CA 10.0 mg/dL Range: 8.4-10.2=Normal CA 10.0 mg/dL Range: 8.4-10.2=Normal CA 10.0 mg/dL Range: 8.4-10.2=Normal eGFR 69.1 mL/min/1.73m2 Range: >60.0=Normal eGFR 69.1 mL/min/1.73m2 Range: >60.0=Normal eGFR 69.1 mL/min/1.73m2 Range: >60.0=Normal eGFR 69.1 mL/min/1.73m2 Range: >60.0=Normal eGFR 69.1 mL/min/1.73m2 Range: >60.0=Normal eGFR 69.1 mL/min/1.73m2 Range: >60.0=Normal CREAT 1.0 mg/dL Range: 0.6-1.3=Normal CREAT 1.0 mg/dL Range: 0.6-1.3=Normal CREAT 1.0 mg/dL Range: 0.6-1.3=Normal CREAT 1.0 mg/dL Range: 0.6-1.3=Normal OSMO 279 Range: 275-295=Normal OSMO 279 Range: 275-295=Normal OSMO 279 Range: 275-295=Normal OSMO 279 Range: 275-295=Normal BUN 11 mg/dL Range: 7-18=Normal BUN 11 mg/dL Range: 7-18=Normal BUN 11 mg/dL Range: 7-18=Normal BUN 11 mg/dL Range: 7-18=Normal AGAP 11.50 mmol/L Range: 10.00-20.00=Normal AGAP 11.50 mmol/L Range: 10.00-20.00=Normal AGAP 11.50 mmol/L Range: 10.00-20.00=Normal AGAP 11.50 mmol/L Range: 10.00-20.00=Normal CO2 31.3 mmol/L Range: 21.0-32.0=Normal CO2 31.3 mmol/L Range: 21.0-32.0=Normal CO2 31.3 mmol/L Range: 21.0-32.0=Normal CO2 31.3 mmol/L Range: 21.0-32.0=Normal CL 102 mmol/L Range: 98-107=Normal CL 102 mmol/L Range: 98-107=Normal CL 102 mmol/L Range: 98-107=Normal CL 102 mmol/L Range: 98-107=Normal K 4.8 mmol/L Range: 3.5-5.0=Normal K 4.8 mmol/L Range: 3.5-5.0=Normal K 4.8 mmol/L Range: 3.5-5.0=Normal K 4.8 mmol/L Range: 3.5-5.0=Normal K 4.8 mmol/L Range: 3.5-5.0=Normal NA 140 mmol/L Range: 135-145=Normal NA 140 mmol/L Range: 135-145=Normal NA 140 mmol/L Range: 135-145=Normal NA 140 mmol/L Range: 135-145=Normal NA 140 mmol/L Range: 135-145=Normal 11:27 URINALYSIS, AUTOMATED W/ MICRO ([facility] [place]) ([id number]) Comments: Items in this order include: Draw Charge[i], CBC, Urinalysis, Basic Metabolic Panel U BACT 1+(3-10/hpf) Range: Negative=Abnormal U BACT 1+(3-10/hpf) Range: Negative=Abnormal U squamous 3+(25-50/hpf) Range: Negative=Abnormal U squamous 3+(25-50/hpf) Range: Negative=Abnormal U RBC 0-2/hpf Range: Negative=Abnormal U RBC 0-2/hpf Range: Negative=Abnormal U WBC 0-4/hpf Range: Negative=Abnormal U WBC 0-4/hpf Range: Negative=Abnormal Sent for Culture No Normal Sent for Culture No Normal Sent for Culture No Normal U LEUKO Negative Range: Negative=Normal U LEUKO Negative Range: Negative=Normal U LEUKO Negative Range: Negative=Normal U LEUKO Negative Range: Negative=Normal U Nitrites Negative Range: Negative=Normal U Nitrites Negative Range: Negative=Normal U Nitrites Negative Range: Negative=Normal U Nitrites Negative Range: Negative=Normal U URO 0.2 E.U./dL Range: 0.0 - 1.0=Normal U URO 0.2 E.U./dL Range: 0.0 - 1.0=Normal U URO 0.2 E.U./dL Range: 0.0 - 1.0=Normal U URO 0.2 E.U./dL Range: 0.0 - 1.0=Normal Urine Protein Negative Range: Negative=Normal Urine Protein Negative Range: Negative=Normal Urine Protein Negative Range: Negative=Normal Urine Protein Negative Range: Negative=Normal U PH 5.5 Range: 5.0-8.0=Normal U PH 5.5 Range: 5.0-8.0=Normal U PH 5.5 Range: 5.0-8.0=Normal U PH 5.5 Range: 5.0-8.0=Normal U BLD Negative Range: Negative=Normal U BLD Negative Range: Negative=Normal U BLD Negative Range: Negative=Normal U BLD Negative Range: Negative=Normal U SG 1.025 Range: 1.010 - 1.030=Normal U SG 1.025 Range: 1.010 - 1.030=Normal U SG 1.025 Range: 1.010 - 1.030=Normal U SG 1.025 Range: 1.010 - 1.030=Normal U KETONES Negative Range: 0-5=Normal U KETONES Negative Range: 0-5=Normal U KETONES Negative Range: 0-5=Normal U KETONES Negative Range: 0-5=Normal U BILI Negative Range: Negative=Normal U BILI Negative Range: Negative=Normal U BILI Negative Range: Negative=Normal U BILI Negative Range: Negative=Normal U GLU Negative Range: Negative=Normal U GLU Negative Range: Negative=Normal U GLU Negative Range: Negative=Normal U GLU Negative Range: Negative=Normal U CLARITY Clear Range: Clear=Normal U CLARITY Clear Range: Clear=Normal U CLARITY Clear Range: Clear=Normal U CLARITY Clear Range: Clear=Normal U COLOR Yellow Range: Yellow=Normal U COLOR Yellow Range: Yellow=Normal U COLOR Yellow Range: Yellow=Normal U COLOR Yellow Range: Yellow=Normal 11:27 CBC-FEMALE- ORDER THIS ONE! ([id number]) Comments: Items in this order include: Draw Charge[i], CBC, Urinalysis, Basic Metabolic Panel manual diff Not Indicated Normal manual diff Not Indicated Normal mpv 10.50 fL Range: 0.00-99.90=Normal mpv 10.50 fL Range: 0.00-99.90=Normal PLT 263.0 K/uL Range: 150.0-450.0=Normal PLT 263.0 K/uL Range: 150.0-450.0=Normal PLT 263.0 K/uL Range: 150.0-450.0=Normal RDW 11.5 % Range: 11.5-14.5=Normal RDW 11.5 % Range: 11.5-14.5=Normal RDW 11.5 % Range: 11.5-14.5=Normal MCHC 34.5 g/dL Range: 32.0-36.0=Normal MCHC 34.5 g/dL Range: 32.0-36.0=Normal MCH 29.3 pg Range: 27.0-31.0=Normal MCH 29.3 pg Range: 27.0-31.0=Normal MCH 29.3 pg Range: 27.0-31.0=Normal MCV 84.9 fl Range: 80.0-97.0=Normal MCV 84.9 fl Range: 80.0-97.0=Normal MCV 84.9 fl Range: 80.0-97.0=Normal HCT 40.2 % Range: 36.0-47.0=Normal HCT 40.2 % Range: 36.0-47.0=Normal HCT 40.2 % Range: 36.0-47.0=Normal HCT 40.2 % Range: 36.0-47.0=Normal HGB 13.90 g/dL Range: 11.00-17.00=Normal HGB 13.90 g/dL Range: 11.00-17.00=Normal HGB 13.90 g/dL Range: 11.00-17.00=Normal HGB 13.90 g/dL Range: 11.00-17.00=Normal RBC 4.73 M/uL Range: 4.20-5.40=Normal RBC 4.73 M/uL Range: 4.20-5.40=Normal RBC 4.73 M/uL Range: 4.20-5.40=Normal RBC 4.73 M/uL Range: 4.20-5.40=Normal Baso% 1.240 % Range: 0.000-1.000=Abnormal Baso% 1.240 % Range: 0.000-1.000=Abnormal eos% 3.40 % Range: 0.00-3.00=Abnormal eos% 3.40 % Range: 0.00-3.00=Abnormal mono% 6.06 % Range: 0.00-7.00=Normal mono% 6.06 % Range: 0.00-7.00=Normal LYM% 30.10 % Range: 20.00-40.00=Normal LYM% 30.10 % Range: 20.00-40.00=Normal andrey% 59.20 % Range: 55.00-75.00=Normal andrey% 59.20 % Range: 55.00-75.00=Normal Baso 0.094 K/uL Range: 0.000-0.100=Normal Baso 0.094 K/uL Range: 0.000-0.100=Normal eos 0.259 K/uL Range: 0.000-4.000=Normal eos 0.259 K/uL Range: 0.000-4.000=Normal mono 0.46 K/uL Range: 0.00-0.70=Normal mono 0.46 K/uL Range: 0.00-0.70=Normal mono 0.46 K/uL Range: 0.00-0.70=Normal LYMPHS 2.29 K/uL Range: 0.90-4.20=Normal LYMPHS 2.29 K/uL Range: 0.90-4.20=Normal andrey 4.50 K/uL Range: 2.50-7.80=Normal andrey 4.50 K/uL Range: 2.50-7.80=Normal wbc 7.61 K/uL Range: 4.50-10.50=Normal wbc 7.61 K/uL Range: 4.50-10.50=Normal 11:27 Routine Venipuncture ([id number]) Comments: Items in this order include : Draw Charge[i], CBC, Urinalysis, Basic Metabolic Panel Draw Drawn Normal Advance Directives No Advance Directives available. Encounters Office Visit - Lumbar back pain, Pre-op evaluation Encounter Reason: Pre-Op Visit - The procedure [...] patient plans to recover at home with family.[facility] On 15:23 Medication Entry - Anxiety [facility] On 14:52 Office Visit - Anxiety Encounter Reason: Anxiety - Symptoms include anxiety, [...] is not currently being treated for this problem.[facility] On 17:25 Lab entry only - Lumbar back pain [facility] On 09-Jul-2011 09:57 Office Visit - Lumbar back pain, Constipation Encounter Reason: Post-Operative - Patient is 2 [...] symptoms are relieved by laxatives (MOM and [employer]). The symptoms have been associated with abdominal distention, abdominal pain and hemorrhoids. [facility] On 01-Apr-2011 14:46 Medication Entry - Contraception [facility] On 25-Feb-2011 16:26 Lab entry only - Lumbar back pain [facility] On 21-Feb-2011 15:35 Medication Entry - Lumbar back pain [facility] On 03-Jan-2011 16:18 Medication Entry - Lumbar back pain [facility] On 02-Jan-2011 17:57 Office Visit - Lumbar back pain Encounter Reason: Back Pain Lumbar, Chronic - [...] removed from hip and put in knee. ).[facility] On 05-Dec-2010 14:52 Office Visit - Breast lump on right side at 12 o'clock position Encounter Reason: Breast Mass - Symptoms include [...] the breast. The last menstrual period began 01-17-2010.[facility] On 05-Mar-2010 13:56 Office Visit Encounter Reason: Obesity - The patient's appetite is normal. The patient's dietary intake is normal. The patient has gained 30 pounds (has bought treadmill and walks qod-30 min). The symptoms have been associated with fatigue , while the symptoms have not been associated with amenorrhea or cold intolerance.[facility] On 18-Dec-2009 10:37 Office Visit [facility] On 04-Dec-2009 13:30
--- OUTSIDE RECORDS SUMMARY | 2016-06-23 23:13 | XMS REPORT | Continuity of Care Document ---
Author Author [facility] [place] Organization [facility] [place] Address [address] [place] [address] Phone Care Team Providers Care Supervisor Webbing Name Role Phone Eric Montes MD PP Nikki Ahmadi Unavailable Susu Cruz Unavailable Unavailable Bruno Siddiqui Unavailable Unavailable Unavailable History of Present Illness [...] Ended 11-Nov-2013 Inactive Comments: approved by Eric Jyoti M.D. NORCO, 7.5-325MG (Oral Tablet) - Historical [...] Onset:1999 Status: Active Procedures Procedure Dates Details X-ray Exam of Lower Spine, 2 Views ([id number]) Completed:11-Jan-2014 Comments: outside order from Dr. Ricci Referral to Dermatology Ordered:16-Nov-2013 DISCONTINUED - URINALYSIS, AUTOMATED W/ MICRO ([facility]) ([id number]) Completed:Jun-2011 X-RAY EXAM LUMBAR SPINE, MIN 4 VIEWS ([id number]) Ordered:05-Dec-2010 MRI OF LUMBAR SPINE W/ W/O CONTRAST ([id number]) Ordered:05-Dec-2010 US EXAM, BREAST(S) ([id number]) Ordered:05-Mar-2010 Follow up in 3 months Ordered:18-Dec-2009 [...] Arm; Cuff Size: Standard Weight 206 lb 1-Nov-2010 10:37 Temperature 97.9 f Comments: Method: Temporal [...] Value Details 15-Nov-2013 17:32 SED RATE ERYTHROCYTE ([id number]) Comments: Items in this order include: Draw Charge[i], Basic Metabolic Panel, C-Reactive Protein, CBC, Sed Rate ESR 4 mm/h (Normal) Range: 0-20 17:32 CBC-FEMALE- ORDER THIS ONE! ([id number]) manual diff Not Indicated (Normal) mpv 10.60 [...] 10*3/uL (Abnormal) Range: 4.50-10.50 17:32 C-REACTIVE PROTEIN ([id number]) CRP 1.82 mg/dL (Abnormal) Range: 0.00-0.30 17:32 [...] mmol/L (Normal) Range: 135-145 17:32 Routine Venipuncture (05313) Draw Drawn (Normal) 30-Sep-2013 14:25 URINALYSIS, AUTOMATED W/ MICRO ([facility]) ([id number]) Comments : Items in this order include: [...] Range: 135-145 14:25 CBC-FEMALE- ORDER THIS ONE! ([id number]) Comments: Results to [facility] Dr. Rcici .; Items in this order include : CBC, Basic Metabolic Panel, [phone].Results to [facility] Dr. Ricci Fax [...] 4.50-10.50 15:04 URINALYSIS, AUTOMATED W/ MICRO ([facility]) ([id number]) Comments : All lab needs to be faxed to [facility] at [phone]. Pre-op Dr. Won Ricci.; Items in this order include: Draw Charge[i], CBC, Basic Metabolic Panel, [id number]. Pre-op Dr. Won Ricci.All lab needs to be faxed to [facility] at U yeast Present - Rare (Abnormal) [...] Range: 135-145 15:04 CBC-FEMALE- ORDER THIS ONE! ([id number]) Comments: Items in this order include: Draw [...] 10*3/uL (Normal) Range: 4.50-10.50 15:04 Routine Venipuncture (25370) Comments: Items in this order include : Draw Charge[i], CBC, Basic Metabolic Panel, Urinalysis Draw Drawn (Normal) 06-Mar-2011 11:27 [facility] Comments: Please fax all lab to Dr. Ricci at and [facility] at [phone]; Items in this order include: Draw Charge[i], CBC, Urinalysis, Basic Metabolic PanelChadvanced care hospital of southern new mexicodayana [facility] at [phone] fax all lab to Dr. Ricci at [phone] and [facility] 83 mg/dL (Normal) Range: [...] 135-145 11:27 URINALYSIS, AUTOMATED W/ MICRO ([facility]) ([id number]) Comments: Items in this order include: Draw [...] Range: Yellow 11:27 CBC-FEMALE- ORDER THIS ONE! ([id number]) Comments: Items in this order include: Draw [...] 10*3/uL (Normal) Range: 4.50-10.50 11:27 Routine Venipuncture (84808) Comments: Items in this order include : Draw Charge[i], CBC, Urinalysis, Basic Metabolic Panel Draw Drawn (Normal) Advance Directives No Advance Directives available. Encounters Radiology Visit - Lumbar back pain (724.2) [facility] [place] On 11-Jan-2014 16:20 Office Visit - Rash [...] at times but is not painful or itchy.[facility] [place] On 15-Nov-2013 16:43 Office Visit - Dermatitis [...] rash but it has gotten worse since starting.[facility] [place] On 05-Nov-2013 15:56 Office Visit - Lumbar back pain (724.2) Encounter Reason: Post-Operative - Patient is 2 weeks (diskectomy) postop procedure. Patient's symptoms are improved compared to preoperative. Post operative pain has been moderate. Pain medications include: Hydrocodone and Ultram. Patient has been compliant with post operative instructions. Patient has shown improvement in their activity level (has gradually improved since surgery.).[facility] [place] On 28-Oct-2013 14:32 Historical Summary [facility] [place] On 27-Oct-2013 10:06 Medication Entry - UTI (lower urinary tract infection) (599.0 | N39.0) [facility] [place] On 08-Oct-2013 15:55 Lab entry only - Lumbar back pain (724.2) [facility] [place] On 08:47 Medication Entry - Dysesthesia affecting both sides of body (782.0 | R20.8) [facility] [place] On 21-May-2013 13:35 Office Visit - Dysesthesia [...] for "Anxiety": Taking Seroquel for sx. [facility] On 12-Apr-2013 14:00 Office Visit - Lumbar [...] patient plans to recover at home with family.[facility] [place] On 15:23 Medication Entry - Anxiety (300.00) [facility] [place] On 14:52 Office Visit - Anxiety (300.00) [...] is not currently being treated for this problem.[facility] [place] On 17:25 Lab entry only - Lumbar back pain (724.2) [facility] [place] On 09-Jul-2011 09:57 Office Visit - Lumbar [...] symptoms are relieved by laxatives (MOM and [employer]). The symptoms have been associated with abdominal distention, abdominal pain and hemorrhoids. [facility] [place] On 01-Apr-2011 14:46 Medication Entry - Contraception (V25.9) [facility] [place] On 25-Feb-2011 16:26 Lab entry only - Lumbar back pain (724.2) [facility] [place] On 21-Feb-2011 15:35 Medication Entry - Lumbar back pain (724.2) [facility] [place] On 03-Jan-2011 16:18 Medication Entry - Lumbar back pain (724.2) [facility] [place] On 02-Jan-2011 17:57 Office Visit - Lumbar [...] removed from hip and put in knee. ).[facility] [place] On 05-Dec-2010 14:52 Office Visit - Breast [...] the breast. The last menstrual period began 01-17-2010.[facility] [place] On 05-Mar-2010 13:56 Office Visit Encounter Reason: Obesity - The patient's appetite is normal. The patient's dietary intake is normal. The patient has gained 30 pounds (has bought treadmill and walks qod-30 min). The symptoms have been associated with fatigue , while the symptoms have not been associated with amenorrhea or cold intolerance.[facility] [place] On 18-Dec-2009 10:37 Office Visit [facility] [place] On 04-Dec-2009 13:30 Insurance * Christy Elder ; usha guarantor * [facility] Medical Assistance Prog * [facility]
--- OUTSIDE RECORDS SUMMARY | 2016-06-23 23:14 | XMS REPORT | Continuity of Care Document ---
Author Author [facility] Organization [facility] Address [address] [place] [address] Phone Care Team Providers Care Batching Operator Name Role Phone Eric Montes MD [...] N76.0) Status: Active Medications Name Dates Details CYMBALTA, 60MG (Oral Capsule Delayed Release Particles) [address] Part daily for 0 days Quantity: 30 {Capsule} Ordered:13-Mar-2015 Sandy Benitez * Start 13-Mar-2015 Active [...] X-ray Exam of Lower Spine, 2 Views ([id number]) Completed:17-May-2014 Comments : outside order from Dr. Ricci How to access health information online Completed:07-Feb-2014 X-ray Exam of Lower Spine, 2 Views ([id number]) Completed:11-Jan-2014 Comments : outside order from Dr. Ricci Referral to Dermatology Ordered:16-Nov-2013 DISCONTINUED - URINALYSIS, AUTOMATED W/ MICRO ([facility]) ([id number]) Completed:Jun-2011 X-RAY EXAM LUMBAR SPINE, MIN 4 VIEWS ([id number]) Ordered:05-Dec-2010 MRI OF LUMBAR SPINE W/ W/O CONTRAST ([id number]) Ordered:05-Dec-2010 US EXAM, BREAST(S) ([id number]) Ordered:05-Mar-2010 Follow up in 3 months Ordered:18-Dec-2009 [...] Details 21-Apr-2015 21:47 SHAVE SKIN LESION SINGLE ([id number]) Comments: Informed consent obtained. Lesion prepped with Hibiclens. Anesthesia with xylocaine + epi+ NaHCO3. Lesion shaved off w/o complications. Hemostasis obtained with cautery. Wound dressed and care instructions given. Specimen sent for pathology. Diameter 1.1cm Final 20-Feb-2015 16:12 URINALYSIS, AUTOMATED W/ MICRO ([facility]) ([id number]) Comments: Items in this order include: UrinalysisAntibiotics? [...] Yellow (Normal) Range: Yellow 07-Feb-2014 15:07 PROLACTIN ([id number]) Comments: Items in this order include: Draw Charge[i], CBC, Comprehensive Metabolic Panel, TSH, FSH, LH, PROLACTINTesting performed at: [facility], [address] [place], [address], Corporate Wellness Coordinator: Lonny Middleton D.O., MPH.[facility] PROLACTIN 11.5 ng/mL (Normal) Comments: Reference Range.br Females.br Non- 3.0-30.0.br 10.0-209.0.br Postmenopausal 2.0-20.0.br .br .br 15:07 LH ([id number]) Comments: Items in this order include: Draw Charge[i] , CBC, Comprehensive Metabolic Panel, TSH, FSH, LH, PROLACTINTesting performed at: [facility], [address] [place], [address], Corporate Wellness Coordinator: Lonny Middleton D.O., MPH.[facility] LH 9.3 m[iU]/mL (Normal) Comments: Reference Range.brFollicular Phase 1.9-12.5.brMid-Cycle Peak 8.7-76.3.brLuteal Phase 0.5- 16.9.brPostmenopausal 10.0-54.7 15:07 FSH ([id number]) Comments: Items in this order include: Draw Charge[i] , CBC, Comprehensive Metabolic Panel, TSH, FSH, LH, PROLACTINTesting performed at: [facility], [address] [place], [address], Corporate Wellness Coordinator: Lonny Middleton D.O., MPH.[facility] FSH 4.4 m[iU]/mL (Normal) Comments: Reference Range.br .br Follicular Phase 2.5-10.2.br Mid-cycle Peak 3.1- 17.7.br Luteal Phase 1.5- 9.1.br Postmenopausal 23.0-116.3 .br 15:07 TSH (THYROID STIMULATING HORMONE) ([id number]) TSH 1.33 uIU/ml (Normal) Range: 0.34-5.60 15:07 CMP ([id number]) ALTI 96 U/L (Abnormal) Range: 12-78 AST [...] Range: 135-145 15:07 CBC-FEMALE- ORDER THIS ONE! ([id number]) manual diff Not Indicated (Normal) mpv 11.30 [...] 10*3/uL (Abnormal) Range: 4.50-10.50 15:07 Routine Venipuncture (27471) Draw Drawn (Normal) 15-Nov-2013 17:32 SED RATE ERYTHROCYTE ([id number]) Comments: Items in this order include: Draw Charge[i], Basic Metabolic Panel, C-Reactive Protein, CBC, Sed Rate ESR 4 mm/h (Normal) Range: 0-20 17:32 CBC-FEMALE- ORDER THIS ONE! ([id number]) manual diff Not Indicated (Normal) mpv 10.60 [...] 10*3/uL (Abnormal) Range: 4.50-10.50 17:32 C-REACTIVE PROTEIN (58543) CRP 1.82 mg/dL (Abnormal) Range: 0.00-0.30 17:32 [...] mmol/L (Normal) Range: 135-145 17:32 Routine Venipuncture (69423) Draw Drawn (Normal) 30-Sep-2013 14:25 URINALYSIS, AUTOMATED W/ MICRO ([facility]) ([id number]) Comments : Items in this order include: [...] Range: 135-145 14:25 CBC-FEMALE- ORDER THIS ONE! ([id number]) Comments: Results to [facility] Dr. Ricci .; Items in this order include : CBC, Basic Metabolic Panel, [id number].Results to [facility] Dr. Ricci Fax manual diff Not [...] Range: 4.50-10.50 15:04 URINALYSIS, AUTOMATED W/ MICRO ([facility]) ([id number]) Comments : All lab needs to be faxed to [facility] at [phone]. Pre-op Dr. Won Ricci.; Items in this order include: Draw Charge[i], CBC, Basic Metabolic Panel, [phone]. Pre-op Dr. Won Ricci.All lab needs to be faxed to [facility] at U yeast Present - [...] Range: 135-145 15:04 CBC-FEMALE- ORDER THIS ONE! ([id number]) Comments: Items in this order include: Draw [...] 10*3/uL (Normal) Range: 4.50-10.50 15:04 Routine Venipuncture (87028) Comments: Items in this order include : Draw Charge[i], CBC, Basic Metabolic Panel, Urinalysis Draw Drawn (Normal) 06-Mar-2011 11:27 [facility] Comments: Please fax all lab to Dr. Ricci at and [facility] at [phone]; Items in this order include: Draw Charge[i], CBC, Urinalysis, Basic Metabolic PanelChdelaware hospital for the chron[facility] ill St. Rm at [phone] fax all lab to Dr. Ricci at [phone] and [facility] 83 mg/dL (Normal) Range: [...] Range: 135-145 11:27 URINALYSIS, AUTOMATED W/ MICRO ([facility]) (76373) Comments: Items in this order include: Draw [...] Range: Yellow 11:27 CBC-FEMALE- ORDER THIS ONE! ([id number]) Comments: Items in this order include: Draw [...] 10*3/uL (Normal) Range: 4.50-10.50 11:27 Routine Venipuncture (34840) Comments: Items in this order include : Draw Charge[i], CBC, Urinalysis, Basic Metabolic Panel Draw Drawn (Normal) Advance Directives Encounters Nurse Visit (Non-billable) [facility] On 16-Jun-2015 15:04 to 16:32 Medication Entry [facility] On 15-May-2015 12:29 to 12:41 Medication Entry - Vaginal infection (616.10 | N76.0) [facility] On 25-Apr-2015 11:21 to 11:23 Office Visit [...] patient describes this as worsening (now bleeding routinely).[facility] On 21-Apr-2015 08:54 to 21:47 Medication Entry [facility] On 18-Apr-2015 12:22 to 12:43 Nurse Visit (Non-billable) [facility] On 20-Mar-2015 09:59 to 10:46 Office Visit [...] with abdominal distention, abdominal pain and hemorrhoids. [facility] On 13-Mar-2015 14:30 to 15:13 Medication Entry - UTI (lower urinary tract infection) (599.0 | N39.0) [facility] On 22-Feb-2015 10:04 to 10:06 Nurse Visit (Non-billable) - Dysuria (788.1 | R30.0) [facility] On 20-Feb-2015 16:01 to 16:38 Nurse Visit (Non-billable) [facility] On 17-Jan-2015 11:29 to 11:31 Office Visit [...] unhealthy food choices. The patient is sedentary. [facility] On 19-Dec-2014 16:15 to 20:43 Medication Entry [facility] On 28-Nov-2014 16:29 to 16:32 Office Visit [...] (Stopped Celexa. Didn't think it was helping.). [facility] On 16-Nov-2014 14:05 to 14:59 Medication Entry - Lumbar back pain (724.2) [facility] On 20-Sep-2014 12:31 to 12:34 Office Visit [...] Denies any pain at this time to area.[facility] On 14:43 to 17:01 Historical Summary [facility] On 11:48 to 11:52 Radiology Visit - Lumbar back pain (724.2) [facility] On 17-May-2014 16:35 to 16:37 Medication Entry [facility] On 03-May-2014 09:14 to 09:22 Medication Entry - Sore throat (462 | J02.9) [facility] On 25-Apr-2014 15:13 to 15:15 Office Visit [...] ": said she wants her hormones checked [facility] On 07-Feb-2014 14:16 to 15:30 Radiology Visit - Lumbar back pain (724.2) [facility] On 11-Jan-2014 16:20 to 16:23 Office Visit [...] at times but is not painful or itchy.[facility] 15-Nov-2013 to 16-Nov-2013 Office Visit - Dermatitis [...] rash but it has gotten worse since starting.[facility] On 05-Nov-2013 15:56 to 16:53 Office Visit - Lumbar back pain (724.2) Encounter Reason: Post-Operative - Patient is 2 weeks (diskectomy) postop procedure. Patient's symptoms are improved compared to preoperative. Post operative pain has been moderate. Pain medications include: Hydrocodone and Ultram. Patient has been compliant with post operative instructions. Patient has shown improvement in their activity level (has gradually improved since surgery.).[facility] On 28-Oct-2013 14:32 to 15:50 Historical Summary [facility] On 27-Oct-2013 10:06 to 10:10 Medication Entry - UTI (lower urinary tract infection) (599.0 | N39.0) [facility] On 08-Oct-2013 15:55 to 15:57 Lab entry only - Lumbar back pain (724.2) [facility] On 08:47 to 08:49 Medication Entry - Dysesthesia affecting both sides of body (782.0 | R20.8) [facility] On 21-May-2013 13:35 to 13:38 Office Visit [...] Note for "Anxiety": Taking Seroquel for sx. [facility] On 12-Apr-2013 14:00 to 14:49 Office Visit [...] patient plans to recover at home with family.[facility] On 15:23 to 22:32 Medication Entry - Anxiety (300.00) [facility] On 14:52 to 14:55 Office Visit - [...] is not currently being treated for this problem.[facility] On 17:25 to 21:06 Lab entry only - Lumbar back pain (724.2) [facility] On 09-Jul-2011 09:57 to 10:02 Office Visit [...] symptoms are relieved by laxatives (MOM and [employer]). The symptoms have been associated with abdominal distention, abdominal pain and hemorrhoids. [facility] On 01-Apr-2011 14:46 to 19:35 Medication Entry - Contraception (V25.9) [facility] On 25-Feb-2011 16:26 to 16:28 Lab entry only - Lumbar back pain (724.2) [facility] On 21-Feb-2011 15:35 to 15:44 Medication Entry - Lumbar back pain (724.2) [facility] On 03-Jan-2011 16:18 to 16:22 Medication Entry - Lumbar back pain (724.2) [facility] On 02-Jan-2011 17:57 to 18:06 Office Visit [...] removed from hip and put in knee. ).[facility] On 05-Dec-2010 14:52 to 16:15 Office Visit [...] the breast. The last menstrual period began 01-17-2010.[facility] On 05-Mar-2010 13:56 to 23:43 Office Visit Encounter Reason: Obesity - The patient's appetite is normal. The patient's dietary intake is normal. The patient has gained 30 pounds (has bought treadmill and walks qod-30 min). The symptoms have been associated with fatigue , while the symptoms have not been associated with amenorrhea or cold intolerance.[facility] On 18-Dec-2009 10:37 to 11:12 Office Visit [facility] On 04-Dec-2009 13:30 to 13:44 Insurance * Christy Elder ; usha guarantor * Medicare WPS * [facility] Medical Assistance [facility] * [facility] * [facility]
--- OUTSIDE RECORDS SUMMARY | 2016-06-23 23:15 | XMS REPORT | Continuity of Care Document ---
Author Author [facility] Organization [facility] Address [address] [place] [address] Phone Care Team Providers Care Rebeamer Name Role Phone Eric Montes MD PP [...] (Renamed from CN) (564.00, K59.00) Status: Active Dysesthesia affecting both sides of body (782.0, R20.8) Status: Active Lumbar back pain (724.2) Status: Active Pre-op evaluation (V72.84) Status: Active Medications Name Dates Details BENZTROPINE MESYLATE, 1MG (Oral Tablet) - Historical Medication 1/2 tab two times daily Active CELEXA, 40MG (Oral Tablet) 1 Tablet daily for 0 days Quantity: 30 Ordered :01-Apr-2013 Eric Montes MD* Started 01-Apr-2013 ActiveGABAPENTIN, 300MG (Oral Capsule) - Historical Medication 1-2 three times daily ActiveMETHOCARBAMOL, 750MG (Oral Tablet) - Historical Medication 1 every eight hours ActiveNORCO, 10-325MG (Oral Tablet) - Historical Medication 1 4 to 6 hrs as needed Active Comments: Medication taken as needed. QUETIAPINE FUMARATE, 100MG (Oral Tablet) - Historical Medication 1 daily ActiveTRAMADOL HCL, 50MG (Oral Tablet) - Historical Medication 1or 2 every 4 to 6 hrs. as needed Active Comments: Medication taken as needed. TRAZODONE HCL, 100MG (Oral Tablet) - Historical Medication 1 at bedtime ActiveAMBIEN, 10MG (Oral Tablet) - Historical Medication 1 at bedtime InactiveCELEXA, 20MG (Oral Tablet) 1/2 (one half) Tablet 1/2 tab daily x6d, then 1 daily for 0 days * Quantity: 30 Refills: 12 Ordered : Sandy Benitez * Started Ended InactiveCLOMID, 50MG (Oral Tablet) - Historical Medication 2 daily * Ended 01-Apr-2011 InactiveLORAZEPAM, 1MG (Oral Tablet) 1 Tablet every 6 hrs as needed for 0 days * Quantity: 30 Refills: 1 Ordered :12-Apr-2013 Sandy Benitez * Started 31-Jan-2012 Ended 12-Apr-2013 Inactive Comments: Medication taken as needed. NORCO, 7.5-325MG (Oral Tablet) - Historical Medication [...] Sandy Benitez * Started 18-Dec-2009 Ended 05-Dec-2010 InactiveSPIRONOLACTONE, 25MG (Oral Tablet) - Historical Medication [...] Details DISCONTINUED - URINALYSIS, AUTOMATED W/ MICRO ([facility]) (55145) Completed:Jun-2011 X-RAY EXAM LUMBAR SPINE, MIN 4 VIEWS ([id number]) Ordered:05-Dec-2010 MRI OF LUMBAR SPINE W/ W/O CONTRAST ([id number]) Ordered:05-Dec-2010 US EXAM, BREAST(S) ([id number]) Ordered:05-Mar-2010 Follow up in 3 months Ordered:18-Dec-2009 Appendectomy Completed:1975 Bone cyst Completed:1998 Comments: Right. 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 Non Drinker/No Alcohol Use Non Smoker/No Tobacco Use Vital Signs Date Test Result Details 12-Apr-2013 14:00 Temperature 99.1 f Comments: Method: Temporal Pulse 80 /min Comments: Pattern: Regular BP Systolic 128 mm[Hg] Comments: Patient Position: Sitting; Cuff Location: Left Arm; Cuff Size: Standard BP Diastolic 88 mm[Hg] Comments: Patient Position: Sitting; Cuff Location: Left Arm; Cuff Size: Standard Weight 235 lb Height 67.75 in Body Mass Index Calculated 36 kg/m2 Body Surface Area Calculated 2.18 15:23 Temperature 99.1 f Pulse 74 /min [...] Value Details 15:04 URINALYSIS, AUTOMATED W/ MICRO ([facility]) ([id number]) Comments : All lab needs to be faxed to [facility] at [phone]. Pre-op Dr. Won Ricci.; Items in this order include: Draw Charge[i], CBC, Basic Metabolic Panel, [phone]. Pre-op Dr. Won Ricci.All lab needs to be faxed to [facility] at U yeast Present - Rare Range: [...] Range: 135-145=Normal 15:04 CBC-FEMALE- ORDER THIS ONE! ([id number]) Comments: Items in this order include: Draw [...] 9.41 K/uL Range: 4.50-10.50=Normal 15:04 Routine Venipuncture ([id number]) Comments: Items in this order include : Draw Charge[i], CBC, Basic Metabolic Panel, Urinalysis Draw Drawn Normal 06-Mar-2011 11:27 BMP Comments: Please fax all lab to Dr. Ricci at and [facility] at [phone]; Items in this order include: Draw Charge[i], CBC, Urinalysis, Basic Metabolic PanelChlouise Snell at [phone] fax all lab to Dr. Ricci at [phone] and Via GLU 83 mg/dL Range: 70-110=Normal [...] Range: 135-145=Normal 11:27 URINALYSIS, AUTOMATED W/ MICRO ([facility]) ([id number]) Comments: Items in this order include: Draw [...] Range: Yellow=Normal 11:27 CBC-FEMALE- ORDER THIS ONE! ([id number]) Comments: Items in this order include: Draw [...] 7.61 K/uL Range: 4.50-10.50=Normal 11:27 Routine Venipuncture ([id number]) Comments: Items in this order include : Draw Charge[i], CBC, Urinalysis, Basic Metabolic Panel Draw Drawn Normal Advance Directives No Advance Directives available. Encounters Office Visit - Dysesthesia affecting both sides [...] Note for "Anxiety": Taking Seroquel for sx. [facility] On 12-Apr-2013 14:00 Office Visit - Lumbar back pain, Pre-op [...] to recover at home with family.[facility] On 15:23 Medication Entry - Anxiety [facility] On 14:52 Office Visit - Anxiety [...] currently being treated for this problem.[facility] On 17:25 Lab entry only - Lumbar back pain [facility] On 09-Jul-2011 09:57 Office Visit - [...] symptoms are relieved by laxatives (MOM and [employer]). The symptoms have been associated with abdominal distention, abdominal pain and hemorrhoids. [facility] On 01-Apr-2011 14:46 Medication Entry - Contraception [facility] On 25-Feb-2011 16:26 Lab entry only - Lumbar back pain [facility] On 21-Feb-2011 15:35 Medication Entry - Lumbar back pain [facility] On 03-Jan-2011 16:18 Medication Entry - Lumbar back pain [facility] On 02-Jan-2011 17:57 Office Visit - [...] hip and put in knee. ).[facility] On 05-Dec-2010 14:52 Office Visit - [...] The last menstrual period began 01-17-2010.[facility] On 05-Mar-2010 13:56 Office Visit Encounter Reason: Obesity - The patient's appetite is normal. The patient's dietary intake is normal. The patient has gained 30 pounds (has bought treadmill and walks qod-30 min). The symptoms have been associated with fatigue , while the symptoms have not been associated with amenorrhea or cold intolerance.[facility] On 18-Dec-2009 10:37 Office Visit [facility] On 04-Dec-2009 13:30
--- OUTSIDE RECORDS SUMMARY | 2016-06-23 23:16 | XMS REPORT | Continuity of Care Document ---
Author Author [facility] Organization [facility] Address [address] [place] [address] Phone Care Team Providers Care Cab Station Attendant Name Role Phone Eric Montes MD PP [...] 1MG (Oral Tablet) 1/2 (one half) Tablet two times daily for 0 days Quantity: 30 Ordered : Eric Montes MD* Started ActiveCELEXA, 40MG (Oral Tablet) 1 Tablet daily for 0 days * Quantity: 30 Refills: 3 Ordered : Eric Montes MD* Started ActiveGABAPENTIN, 300MG (Oral Capsule) - Historical Medication 1-2 three times daily ActiveMETHOCARBAMOL, 750MG (Oral Tablet) - Historical Medication 1 every eight hours ActiveNORCO, 10-325MG (Oral Tablet) - Historical Medication 1 4 to 6 hrs as needed Active Comments: Medication taken as needed. QUETIAPINE FUMARATE, 100MG (Oral Tablet) - Historical Medication 1 daily ActiveSEROQUEL, 100MG (Oral Tablet) 1 (one) Tablet daily for [...] Tablet) - Historical Medication 1 at bedtime InactiveBENZTROPINE MESYLATE, 1MG (Oral Tablet) - Historical [...] Details DISCONTINUED - URINALYSIS, AUTOMATED W/ MICRO ([facility] [place]) ([id number]) Completed:Jun-2011 X-RAY EXAM LUMBAR SPINE, MIN 4 VIEWS ([id number]) Ordered:05-Dec-2010 MRI OF LUMBAR SPINE W/ W/O CONTRAST ([id number]) Ordered:05-Dec-2010 US EXAM, BREAST(S) ([id number]) Ordered:05-Mar-2010 Follow up in 3 months Ordered:18-Dec-2009 [...] Value Details 15:04 URINALYSIS, AUTOMATED W/ MICRO ([facility]) ([id number]) Comments : All lab needs to be faxed to [facility] at [phone]. Pre-op Dr. Won Ricci.; Items in this order include: Draw Charge[i], CBC, Basic Metabolic Panel, [phone]. Pre-op Dr. Won Ricci.All lab needs to be faxed to [facility] at U yeast Present - Rare Range: Negative=Abnormal U BACT 1+(3-10/hpf) Range: Negative=Abnormal U squamous 1+(2-5/hpf) Range: Negative=Abnormal U RBC 0-2/hpf Range: Negative=Abnormal U WBC 0-4/hpf Range: Negative=Abnormal Sent for Culture No Normal U LEUKO Negative Range: Negative=Normal U Nitrites Negative Range: Negative=Normal U URO 0.2 E.U./dL Range: 0.0 - 1.0=Normal Urine Protein Negative Range: Negative=Normal U PH 6.0 Range: 5.0-8.0=Normal U BLD Negative Range: Negative=Normal U SG 1.020 Range: 1.010 - 1.030=Normal U KETONES Negative Range: Negative=Normal U BILI Negative Range: Negative=Normal U GLU Negative Range: Negative=Normal U CLARITY Clear Range: Clear=Normal U COLOR Yellow Range: Yellow=Normal 15:04 BMP Comments: Items in this order include: Draw Charge[i], CBC, Basic Metabolic Panel, Urinalysis GLU 97 mg/dL Range: 70-110=Normal CA 9.5 mg/dL Range: 8.4-10.2=Normal eGFR 61.7 mL/min/1.73m2 Range: >60.0=Normal CREAT 1.1 mg/dL Range: 0.6-1.3=Normal OSMO 277 Range: 275-295=Normal BUN 15 mg/dL Range: 7-18=Normal AGAP 10.90 mmol/L Range: 10.00-20.00=Normal CO2 30.7 mmol/L Range: 21.0-32.0=Normal CL 101 mmol/L Range: 98-107=Normal K 4.6 mmol/L Range: 3.5-5.0=Normal NA 138 mmol/L Range: 135-145=Normal 15:04 CBC-FEMALE- ORDER THIS ONE! ([id number]) Comments: Items in this order include: Draw Charge[i], CBC, Basic Metabolic Panel, Urinalysis manual diff Not Indicated Normal mpv 8.99 fL Range: 0.00-99.90=Normal PLT 254.0 K/uL Range: 150.0-450.0=Normal RDW 12.0 % Range: 11.5-14.5=Normal MCHC 32.1 g/dL Range: 32.0-36.0=Normal MCH 27.9 pg Range: 27.0-31.0=Normal MCV 87.0 fl Range: 80.0-97.0=Normal HCT 42.4 % Range: 36.0-47.0=Normal HGB 13.60 g/dL Range: 11.00-17.00=Normal RBC 4.88 M/uL Range: 4.20-5.40=Normal Baso% 1.020 % Range: 0.000-1.000=Abnormal eos% 2.55 % Range: 0.00-3.00=Normal mono% 5.67 % Range: 0.00-7.00=Normal LYM% 28.70 % Range: 20.00-40.00=Normal andrey% 62.00 % Range: 55.00-75.00=Normal Baso 0.096 K/uL Range: 0.000-0.100=Normal eos 0.240 K/uL Range: 0.000-4.000=Normal mono 0.53 K/uL Range: 0.00-0.70=Normal LYMPHS 2.70 K/uL Range: 0.90-4.20=Normal andrey 5.84 K/uL Range: 2.50-7.80=Normal wbc 9.41 K/uL Range: 4.50-10.50=Normal 15:04 Routine Venipuncture ([id number]) Comments: Items in this order include : Draw Charge[i], CBC, Basic Metabolic Panel, Urinalysis Draw Drawn Normal 06-Mar-2011 11:27 BMP Comments: Please fax all lab to Dr. Ricci at and [facility] at [phone]; Items in this order include: Draw Charge[i], CBC, Urinalysis, Basic Metabolic PanelChlouise Snell at [phone] fax all lab to Dr. Ricci at [phone] and [facility] GLU 83 mg/dL Range: 70-110=Normal CA 10.0 mg/dL Range: 8.4-10.2=Normal eGFR 69.1 mL/min/1.73m2 Range: >60.0=Normal CREAT 1.0 mg/dL Range: 0.6-1.3=Normal OSMO 279 Range: 275-295=Normal BUN 11 mg/dL Range: 7-18=Normal AGAP 11.50 mmol/L Range: 10.00-20.00=Normal CO2 31.3 mmol/L Range: 21.0-32.0=Normal CL 102 mmol/L Range: 98-107=Normal K 4.8 mmol/L Range: 3.5-5.0=Normal NA 140 mmol/L Range: 135-145=Normal 11:27 URINALYSIS, AUTOMATED W/ MICRO ([facility]) ([id number]) Comments: Items in this order include: Draw Charge[i], CBC, Urinalysis, Basic Metabolic Panel U BACT 1+(3-10/hpf) Range: Negative=Abnormal U squamous 3+(25-50/hpf) Range: Negative=Abnormal U RBC 0-2/hpf Range: Negative=Abnormal U WBC 0-4/hpf Range: Negative=Abnormal Sent for Culture No Normal U LEUKO Negative Range: Negative=Normal U Nitrites Negative Range: Negative=Normal U URO 0.2 E.U./dL Range: 0.0 - 1.0=Normal Urine Protein Negative Range: Negative=Normal U PH 5.5 Range: 5.0-8.0=Normal U BLD Negative Range: Negative=Normal U SG 1.025 Range: 1.010 - 1.030=Normal U KETONES Negative Range: 0-5=Normal U BILI Negative Range: Negative=Normal U GLU Negative Range: Negative=Normal U CLARITY Clear Range: Clear=Normal U COLOR Yellow Range: Yellow=Normal 11:27 CBC-FEMALE- ORDER THIS ONE! ([id number]) Comments: Items in this order include: Draw Charge[i], CBC, Urinalysis, Basic Metabolic Panel manual diff Not Indicated Normal mpv 10.50 fL Range: 0.00-99.90=Normal PLT 263.0 K/uL Range: 150.0-450.0=Normal RDW 11.5 % Range: 11.5-14.5=Normal MCHC 34.5 g/dL Range: 32.0-36.0=Normal MCH 29.3 pg Range: 27.0-31.0=Normal MCV 84.9 fl Range: 80.0-97.0=Normal HCT 40.2 % Range: 36.0-47.0=Normal HGB 13.90 g/dL Range: 11.00-17.00=Normal RBC 4.73 M/uL Range: 4.20-5.40=Normal Baso% 1.240 % Range: 0.000-1.000=Abnormal eos% 3.40 % Range: 0.00-3.00=Abnormal mono% 6.06 % Range: 0.00-7.00=Normal LYM% 30.10 % Range: 20.00-40.00=Normal andrey% 59.20 % Range: 55.00-75.00=Normal Baso 0.094 K/uL Range: 0.000-0.100=Normal eos 0.259 K/uL Range: 0.000-4.000=Normal mono 0.46 K/uL Range: 0.00-0.70=Normal LYMPHS 2.29 K/uL Range: 0.90-4.20=Normal andrey 4.50 K/uL Range: 2.50-7.80=Normal wbc 7.61 K/uL Range: 4.50-10.50=Normal 11:27 Routine Venipuncture ([id number]) Comments: Items in this order include : Draw Charge[i], CBC, Urinalysis, Basic Metabolic Panel Draw Drawn Normal Treatment Plan * URINALYSIS, AUTOMATED W/ MICRO ([facility]) ([id number]); Ordered: 09/06/2013 * BMP; Ordered: 09/06/2013 * CBC-FEMALE- ORDER THIS ONE! ([id number]); Ordered: 09/06/2013; Note: Results to [facility] Dr. Ricci . Advance Directives No Advance Directives available. Encounters Lab entry only - Lumbar back pain [facility] On 08:47 Medication Entry - Dysesthesia affecting both sides of body (782.0 | R20.8) [facility] On 21-May-2013 13:35 Office Visit [...] Note for "Anxiety": Taking Seroquel for sx. [facility] On 12-Apr-2013 14:00 Office Visit [...] patient plans to recover at home with family.[facility] On 15:23 Medication Entry - Anxiety [facility] On 14:52 Office Visit - Anxiety Encounter [...] is not currently being treated for this problem.[facility] On 17:25 Lab entry only - Lumbar back pain [facility] On 09-Jul-2011 09:57 Office Visit [...] symptoms are relieved by laxatives (MOM and [employer]). The symptoms have been associated with abdominal distention, abdominal pain and hemorrhoids. [facility] On 01-Apr-2011 14:46 Medication Entry - Contraception [facility] On 25-Feb-2011 16:26 Lab entry only - Lumbar back pain [facility] On 21-Feb-2011 15:35 Medication Entry - Lumbar back pain [facility] On 03-Jan-2011 16:18 Medication Entry - Lumbar back pain [facility] On 02-Jan-2011 17:57 Office Visit [...] removed from hip and put in knee. ).[facility] On 05-Dec-2010 14:52 Office Visit [...] the breast. The last menstrual period began 01-17-2010.[facility] On 05-Mar-2010 13:56 Office Visit Encounter Reason: Obesity - The patient's appetite is normal. The patient's dietary intake is normal. The patient has gained 30 pounds (has bought treadmill and walks qod-30 min). The symptoms have been associated with fatigue , while the symptoms have not been associated with amenorrhea or cold intolerance.[facility] On 18-Dec-2009 10:37 Office Visit [facility] On 04-Dec-2009 13:30
--- OUTSIDE RECORDS SUMMARY | 2016-06-23 23:17 | XMS REPORT | Continuity of Care Document ---
Author Author [facility] Organization [facility] Address [address] [place] [address] Phone Care Team Providers Care Typist Name Role Phone Eric Montes MD PP [...] LYRICA, 75MG (Oral Capsule) - Historical Medication two two times daily (75 MG) Active Comments: new dose 12-23-14 METHOCARBAMOL, 750MG (Oral Tablet) 1 (one) Tablet [...] * Quantity: 30 {Tablet} Refills: 3 Ordered: KalliSusu can * Start 08-Dec-2013 End Inactive CLOMID, 50MG [...] Quantity: 30 {Tablet} Refills: 3 Ordered:03-Jan-2011 Sandy eBnitez * Start 03-Jan-2011 End 01-Apr-2011 Inactive Comments: [...] X-ray Exam of Lower Spine, 2 Views ([id number]) Completed:17-May-2014 Comments : outside order from Dr. Ricci How to access health information online Completed:07-Feb-2014 X-ray Exam of Lower Spine, 2 Views ([id number]) Completed:11-Jan-2014 Comments : outside order from Dr. Ricci Referral to Dermatology Ordered:16-Nov-2013 DISCONTINUED - URINALYSIS, [place]OM[place] W/ MICRO [place] ([id number]) Completed:Jun-2011 X-RAY EXAM LUMBAR SPINE, MIN 4 VIEWS ([id number]) Ordered:05-Dec-2010 MRI OF LUMBAR SPINE W/ W/O CONTRAST ([id number]) Ordered:05-Dec-2010 US EXAM, BREAST(S) ([id number]) Ordered:05-Mar-2010 Follow up in 3 months Ordered:18-Dec-2009 [...] Date Description Value Details 07-Feb-2014 15:07 PROLACTIN ([id number]) Comments: Items in this order include: Draw Charge[i], CBC, Comprehensive Metabolic Panel, TSH, FSH, LH, PROLACTINTesting performed at: [facility], [address] [place] [address], [phone], Electrical And Instrumentation Mechanic: Lonny Middleton D.O., MPH.brQuest PROLACTIN 11.5 ng/mL (Normal) Comments: Reference Range.br Females.br Non- 3.0-30.0.br 10.0-209.0.br Postmenopausal 2.0-20.0.br .br .br 15:07 LH ([id number]) Comments: Items in this order include: Draw Charge[i] , CBC, Comprehensive Metabolic Panel, TSH, FSH, LH, PROLACTINTesting performed at: [facility], [address] [place] [address], [id number], Electrical And Instrumentation Mechanic: Lonyn Middleton D.O., MPH.[facility] LH 9.3 m[iU]/mL (Normal) Comments: Reference Range.brFollicular Phase 1.9-12.5.brMid-Cycle Peak 8.7-76.3.brLuteal Phase 0.5- 16.9.brPostmenopausal 10.0-54.7 15:07 FSH ([id number]) Comments: Items in this order include: Draw Charge[i] , CBC, Comprehensive Metabolic Panel, TSH, FSH, LH, PROLACTINTesting performed at: [facility], [address] [place] [address], [phone], Electrical And Instrumentation Mechanic: Lonny Middleton D.O., MPH.[facility] FSH 4.4 m[iU]/mL (Normal) Comments: Reference Range.br .br Follicular Phase 2.5-10.2.br Mid-cycle Peak 3.1- 17.7.br Luteal Phase 1.5- 9.1.br Postmenopausal 23.0-116.3 .br 15:07 TSH (THYROID STIMULATING HORMONE) ([id number]) TSH 1.33 uIU/ml (Normal) Range: 0.34-5.60 15:07 CMP ([id number]) ALTI 96 U/L (Abnormal) Range: 12-78 AST [...] Range: 135-145 15:07 CBC-FEMALE- ORDER THIS ONE! ([id number]) manual diff Not Indicated (Normal) mpv 11.30 [...] 10*3/uL (Abnormal) Range: 4.50-10.50 15:07 Routine Venipuncture ([id number]) Draw Drawn (Normal) 15-Nov-2013 17:32 SED RATE ERYTHROCYTE ([id number]) Comments: Items in this order include: Draw Charge[i], Basic Metabolic Panel, C-Reactive Protein, CBC, Sed Rate ESR 4 mm/h (Normal) Range: 0-20 17:32 CBC-FEMALE- ORDER THIS ONE! ([id number]) manual diff Not Indicated (Normal) mpv 10.60 [...] 10*3/uL (Abnormal) Range: 4.50-10.50 17:32 C-REACTIVE PROTEIN ([id number]) CRP 1.82 mg/dL (Abnormal) Range: 0.00-0.30 17:32 [...] mmol/L (Normal) Range: 135-145 17:32 Routine Venipuncture (85356) Draw Drawn (Normal) 30-Sep-2013 14:25 URINALYSIS, AUTOMATED W/ MICRO ([facility] ([id number]) Comments : Items in this order include: [...] Range: 135-145 14:25 CBC-FEMALE- ORDER THIS ONE! ([id number]) Comments: Results to [facility] Dr. Ricci .; Items in this order include : CBC, Basic Metabolic Panel, [id number].Results to [facility] Dr. Ricci Fax manual diff Not [...] Range: 4.50-10.50 15:04 URINALYSIS, AUTOMATED W/ MICRO ([facility] ([id number]) Comments : All lab needs to be faxed to Via [facility] at [phone]. Pre-op Dr. Won Ricci.; Items in this order include: Draw Charge[i], CBC, Basic Metabolic Panel, [id number]. Pre-op Dr. Won Ricci.All lab needs to be faxed to [facility] at U yeast Present - Rare [...] Range: 135-145 15:04 CBC-FEMALE- ORDER THIS ONE! ([id number]) Comments: Items in this order include: Draw [...] 10*3/uL (Normal) Range: 4.50-10.50 15:04 Routine Venipuncture (49795) Comments: Items in this order include : Draw Charge[i], CBC, Basic Metabolic Panel, Urinalysis Draw Drawn (Normal) 06-Mar-2011 11:27 BMP Comments: Please fax all lab to Dr. Ricci at [phone] and [facility] at [phone]; Items in this order include: Draw Charge[i], CBC, Urinalysis, Basic Metabolic PanelChunm cancer centerdayana [facility] at [phone] fax all lab to Dr. Ricci at [phone] and Via GLU 83 mg/dL (Normal) Range: [...] Range: 135-145 11:27 URINALYSIS, AUTOMATED W/ MICRO ([facility] ([id number]) Comments: Items in this order include: Draw [...] Range: Yellow 11:27 CBC-FEMALE- ORDER THIS ONE! (23803) Comments: Items in this order include: Draw [...] 10*3/uL (Normal) Range: 4.50-10.50 11:27 Routine Venipuncture (55061) Comments: Items in this order include : [...] unhealthy food choices. The patient is sedentary. [facility] On 19-Dec-2014 16:15 to 20:43 Medication Entry [facility] On 28-Nov-2014 16:29 to 16:32 [...] (Stopped Celexa. Didn't think it was helping.). [facility] On 16-Nov-2014 14:05 to 14:59 Medication Entry - Lumbar back pain (724.2) [facility] On 20-Sep-2014 12:31 to 12:34 [...] Denies any pain at this time to area.[facility] On 14:43 to 17:01 Historical Summary [facility] On 11:48 to 11:52 Radiology Visit - Lumbar back pain (724.2) [facility] On 17-May-2014 16:35 to 16:37 Medication Entry [facility] On 03-May-2014 09:14 to 09:22 Medication Entry - Sore throat (462 | J02.9) [facility] On 25-Apr-2014 15:13 to 15:15 [...] Taking Seroquel for sx., sees Shama at [facility] also, [ADDITIONAL REASON] Amenorrhea, Primary - She is sexually active. For contraception she uses nothing. Symptoms include amenorrhea, while symptoms do not include pelvic pain , headache or visual disturbance. The patient describes this as unchanged. Associated symptoms include fatigue and hot flashes. Note for "Primry amenorrhea ": said she wants her hormones checked [facility] On 07-Feb-2014 14:16 to 15:30 Radiology Visit - Lumbar back pain (724.2) [facility] On 11-Jan-2014 16:20 to 16:23 [...] at times but is not painful or itchy.[facility] 15-Nov-2013 to 16-Nov-2013 Office Visit [...] rash but it has gotten worse since starting.[facility] On 05-Nov-2013 15:56 to 16:53 [...] their activity level (has gradually improved since surgery.).[facility] On 28-Oct-2013 14:32 to 15:50 Historical Summary [facility] On 27-Oct-2013 10:06 to 10:10 Medication Entry - UTI (lower urinary tract infection) (599.0 | N39.0) [facility] On 08-Oct-2013 15:55 to 15:57 Lab entry only - Lumbar back pain (724.2) [facility] On 08:47 to 08:49 Medication Entry - Dysesthesia affecting both sides of body (782.0 | R20.8) [facility] On 21-May-2013 13:35 to 13:38 [...] Note for "Anxiety": Taking Seroquel for sx. [facility] On 12-Apr-2013 14:00 to 14:49 Office Visit [...] patient plans to recover at home with family.[facility] On 15:23 to 22:32 Medication Entry - Anxiety (300.00) [facility] On 14:52 to 14:55 Office [...] is not currently being treated for this problem.[facility] On 17:25 to 21:06 Lab entry only - Lumbar back pain (724.2) [facility] On 09-Jul-2011 09:57 to 10:02 [...] symptoms are relieved by laxatives (MOM and [employer]). The symptoms have been associated with abdominal distention, abdominal pain and hemorrhoids. [facility] On 01-Apr-2011 14:46 to 19:35 Medication Entry - Contraception (V25.9) [facility] On 25-Feb-2011 16:26 to 16:28 Lab entry only - Lumbar back pain (724.2) [facility] On 21-Feb-2011 15:35 to 15:44 Medication Entry - Lumbar back pain (724.2) [facility] On 03-Jan-2011 16:18 to 16:22 Medication Entry - Lumbar back pain (724.2) [facility] On 02-Jan-2011 17:57 to 18:06 [...] removed from hip and put in knee. ).[facility] On 05-Dec-2010 14:52 to 16:15 [...] the breast. The last menstrual period began 01-17-2010.[facility] On 05-Mar-2010 13:56 to 23:43 Office Visit Encounter Reason: Obesity - The patient's appetite is normal. The patient's dietary intake is normal. The patient has gained 30 pounds (has bought treadmill and walks qod-30 min). The symptoms have been associated with fatigue , while the symptoms have not been associated with amenorrhea or cold intolerance.[facility] On 18-Dec-2009 10:37 to 11:12 Office Visit [facility] On 04-Dec-2009 13:30 to 13:44 Insurance * Christy Elder ; a guarantor * [facility] Medical Assistance Prog * [facility]
--- OUTSIDE RECORDS SUMMARY | 2016-06-23 23:18 | XMS REPORT | Continuity of Care Document ---
Author Author [facility] Organization [facility] Address [address] [place] [address] Phone Care Team Providers Care Human Relations Teacher Name Role Phone Eric Montes MD PP [...] Status: Active Pre-op evaluation (V72.84) Status: Active UTI (599.0, N39.0) Status: Active Medications Name Dates [...] ActiveSEROQUEL, 100MG (Oral Tablet) 1 (one) Tablet Tablet [...] Details DISCONTINUED - URINALYSIS, AUTOMATED W/ MICRO ([facility]) ([id number]) Completed:Jun-2011 X-RAY EXAM LUMBAR SPINE, MIN 4 VIEWS ([id number]) Ordered:05-Dec-2010 MRI OF LUMBAR SPINE W/ W/O CONTRAST ([id number]) Ordered:05-Dec-2010 US EXAM, BREAST(S) ([id number]) Ordered:05-Mar-2010 Follow up in 3 months Ordered:18-Dec-2009 Appendectomy Completed:1975 Bone cyst Completed:1998 Comments: Right. knee Carpal Tunnel Surgery - Right Completed: Coccygeal fistula Completed:2003 Social History Name Dates Details Non Drinker/No Alcohol Use Non Smoker/No Tobacco Use Tobacco use: Former smoker. Vital Signs Date Test Result Details 28-Oct-2013 14:33 Temperature 97.5 f Comments: Method: Temporal Pulse 72 /min Comments: Pattern: Regular BP Systolic 110 mm[Hg] Comments: Patient Position: Sitting; Cuff Location: Left Arm; Cuff Size: Standard BP Diastolic 64 mm[Hg] Comments: Patient Position: Sitting; Cuff Location: Left Arm; Cuff Size: Standard Weight 228 lb Height 68 in Body Mass Index Calculated 34.67 kg/m2 Body Surface Area Calculated 2.16 12-Apr-2013 14:00 Temperature 99.1 f Comments: Method: [...] Calculated 2.08 Results Date Description Value Details 30-Sep-2013 14:25 URINALYSIS, AUTOMATED W/ MICRO ([facility]) ([id number]) Comments : Items in this order include: CBC, Basic Metabolic Panel, UrinalysisAntibiotics? NoSource? Clean Catch U BACT Trace(1-2/hpf) Range: Negative=Abnormal U squamous 1+(2-5/hpf) Range: Negative=Abnormal U RBC 0-2/hpf Range: Negative=Abnormal U WBC 0-4/hpf Range: Negative=Abnormal Sent for Culture No Normal U LEUKO Negative Range: Negative=Normal U Nitrites Negative Range: Negative=Normal U URO 0.2 E.U./dL Range: 0.0 - 1.0=Normal Urine Protein Negative Range: Negative=Normal U PH 5.5 Range: 5.0-8.0=Normal U BLD Negative Range: Negative=Normal U SG 1.025 Range: 1.010 - 1.030=Normal U BILI Negative Range: Negative=Normal U KETONES Trace Range: Negative=Abnormal U GLU Negative Range: Negative=Normal U CLARITY Clear Range: Clear=Normal U COLOR Yellow Range: Yellow=Normal 14:25 BMP Comments: Items in this order include: CBC, Basic Metabolic Panel, Urinalysis GLU 115 mg/dL Range: 70-110=Abnormal CA 9.7 mg/dL Range: 8.4-10.2=Normal eGFR 68.0 mL/min/1.73m2 Range: >60.0=Normal CREAT 1.0 mg/dL Range: 0.6-1.3=Normal BUN 12 mg/dL Range: 7-18=Normal OSMO 279 Range: 275-295=Normal AGAP 13.90 mmol/L Range: 10.00-20.00=Normal CO2 29.7 mmol/L Range: 21.0-32.0=Normal CL 100 mmol/L Range: 98-107=Normal K 4.6 mmol/L Range: 3.5-5.0=Normal NA 139 mmol/L Range: 135-145=Normal 14:25 CBC-FEMALE- ORDER THIS ONE! ([id number]) Comments: Results to [facility] Dr. Ricci .; Items in this order include : CBC, Basic Metabolic Panel, [id number].Results to [facility] Dr. Ricci Fax manual diff Not Indicated Normal mpv 11.10 fL Range: 0.00-99.90=Normal PLT 222.0 K/uL Range: 150.0-450.0=Normal RDW 13.9 % Range: 11.5-14.5=Normal MCHC 32.3 g/dL Range: 32.0-36.0=Normal MCH 28.2 pg Range: 27.0-31.0=Normal MCV 87.3 fl Range: 80.0-97.0=Normal HCT 44.6 % Range: 36.0-47.0=Normal HGB 14.40 g/dL Range: 11.00-17.00=Normal RBC 5.11 M/uL Range: 4.20-5.40=Normal Baso% 0.200 % Range: 0.000-1.000=Normal eos% 3.50 % Range: 0.00-3.00=Abnormal mono% 3.60 % Range: 0.00-7.00=Normal LYM% 37.40 % Range: 20.00-40.00=Normal andrey% 55.30 % Range: 55.00-75.00=Normal Baso 0.020 K/uL Range: 0.000-0.100=Normal eos 0.330 K/uL Range: 0.000-4.000=Normal mono 0.34 K/uL Range: 0.00-0.70=Normal LYMPHS 3.56 K/uL Range: 0.90-4.20=Normal andrey 5.26 K/uL Range: 2.50-7.80=Normal wbc 9.51 K/uL Range: 4.50-10.50=Normal 15:04 URINALYSIS, AUTOMATED W/ MICRO ([facility]) ([id number]) Comments : All lab needs to be faxed to [facility] at [phone]. Pre-op Dr. Won Ricci.; Items in this order include: Draw Charge[i], CBC, Basic Metabolic Panel, [id number]. Pre-op Dr. Won Ricci.All lab needs to be faxed to [facility] [employer] at U yeast Present - Rare Range: [...] Range: 135-145=Normal 15:04 CBC-FEMALE- ORDER THIS ONE! ([id number]) Comments: Items in this order include: Draw [...] 9.41 K/uL Range: 4.50-10.50=Normal 15:04 Routine Venipuncture ([id number]) Comments: Items in this order include : Draw Charge[i], CBC, Basic Metabolic Panel, Urinalysis Draw Drawn Normal 06-Mar-2011 11:27 BMP Comments: Please fax all lab to Dr. Ricci at and [facility] at [phone]; Items in this order include: Draw Charge[i], CBC, Urinalysis, Basic Met[facility] PanelChC[facility] at [phone] fax all lab to Dr. Ricci at [phone] and Via GLU 83 mg/dL Range: 70-110=Normal CA 10.0 mg/dL Range: 8.4-10.2=Normal eGFR 69.1 mL/min/1.73m2 Range: >60.0=Normal CREAT 1.0 mg/dL Range: 0.6-1.3=Normal OSMO 279 Range: 275-295=Normal BUN 11 mg/dL Range: 7-18=Normal AGAP 11.50 mmol/L Range: 10.00-20.00=Normal CO2 31.3 mmol/L Range: 21.0-32.0=Normal CL 102 mmol/L Range: 98-107=Normal K 4.8 mmol/L Range: 3.5-5.0=Normal NA 140 mmol/L Range: 135-145=Normal 11:27 URINALYSIS, AUTOMATED W/ MICRO ([facility]) ([id number]) Comments: Items in this order include: Draw [...] Range: Yellow=Normal 11:27 CBC-FEMALE- ORDER THIS ONE! ([id number]) Comments: Items in this order include: Draw [...] 7.61 K/uL Range: 4.50-10.50=Normal 11:27 Routine Venipuncture (78992) Comments: Items in this order include : Draw Charge[i], CBC, Urinalysis, Basic Metabolic Panel Draw Drawn Normal Advance Directives No Advance Directives available. Encounters Office Visit - Lumbar back pain Encounter Reason: Post-Operative - Patient is 2 weeks (diskectomy) postop procedure. Patient's symptoms are improved compared to preoperative. Post operative pain has been moderate. Pain medications include: Hydrocodone and Ultram. Patient has been compliant with post operative instructions. Patient has shown improvement in their activity level (has gradually improved since surgery.).[facility] On 28-Oct-2013 14:32 Historical Summary [facility] On 27-Oct-2013 10:06 Medication Entry - UTI (599.0 | N39.0) [facility] On 08-Oct-2013 15:55 Lab entry only - Lumbar back pain [facility] On 08:47 Medication Entry - Dysesthesia affecting both sides of body (782.0 | R20.8) [facility] On 21-May-2013 13:35 Office Visit [...] Note for "Anxiety": Taking Seroquel for sx. [facility] On 12-Apr-2013 14:00 Office Visit [...] patient plans to recover at home with family.[facility] On 15:23 Medication Entry - Anxiety [facility] On 14:52 Office Visit - [...] is not currently being treated for this problem.[facility] On 17:25 Lab entry only - Lumbar back pain [facility] On 09-Jul-2011 09:57 Office Visit [...] symptoms are relieved by laxatives (MOM and [employer]). The symptoms have been associated with abdominal distention, abdominal pain and hemorrhoids. [facility] On 01-Apr-2011 14:46 Medication Entry - Contraception [facility] On 25-Feb-2011 16:26 Lab entry only - Lumbar back pain [facility] On 21-Feb-2011 15:35 Medication Entry - Lumbar back pain [facility] On 03-Jan-2011 16:18 Medication Entry - Lumbar back pain [facility] On 02-Jan-2011 17:57 Office Visit [...] removed from hip and put in knee. ).[facility] On 05-Dec-2010 14:52 Office Visit [...] the breast. The last menstrual period began 01-17-2010.[facility] On 05-Mar-2010 13:56 Office Visit Encounter Reason: Obesity - The patient's appetite is normal. The patient's dietary intake is normal. The patient has gained 30 pounds (has bought treadmill and walks qod-30 min). The symptoms have been associated with fatigue , while the symptoms have not been associated with amenorrhea or cold intolerance.[facility] On 18-Dec-2009 10:37 Office Visit [facility] On 04-Dec-2009 13:30
--- OUTSIDE RECORDS SUMMARY | 2016-06-23 23:19 | XMS REPORT | Continuity of Care Document ---
Author Author [facility] Organization [facility] Address [address] [place] [address] Phone Care Team Providers Care Gericare Aide Name Role Phone Eric Montes MD PP [...] N39.0) Status: Active Medications Name Dates Details BACTRIM DS, 800-160MG (Oral Tablet) 1 (one) Tablet two times daily for 0 days Quantity: 20 Ordered :08-Oct-2013 Sandy Benitez * Started 08-Oct-2013 ActiveBENZTROPINE MESYLATE, 1MG (Oral Tablet) 1/2 (one [...] Details DISCONTINUED - URINALYSIS, [place]OMATED W/ MICRO ([facility] ([id number]) Completed:Jun-2011 X-RAY EXAM LUMBAR SPINE, MIN 4 VIEWS ([id number]) Ordered:05-Dec-2010 MRI OF LUMBAR SPINE W/ W/O CONTRAST ([id number]) Ordered:05-Dec-2010 US EXAM, BREAST(S) ([id number]) Ordered:05-Mar-2010 Follow up in 3 months Ordered:18-Dec-2009 [...] Details 30-Sep-2013 14:25 URINALYSIS, AUTOMATED W/ MICRO ([facility]) ([id number]) Comments : Items in this order include: [...] Range: 135-145=Normal 14:25 CBC-FEMALE- ORDER THIS ONE! ([id number]) Comments: Results to [facility] Dr. Ricci .; Items in this order include : CBC, Basic Metabolic Panel, [id number].Results to [facility] Dr. Ricci Fax manual diff [...] Range: 4.50-10.50=Normal 15:04 URINALYSIS, AUTOMATED W/ MICRO ([facility]) ([id number]) Comments : All lab needs to be faxed to [facility] at [phone]. Pre-op Dr. Won Ricci.; Items in this order include: Draw Charge[i], CBC, Basic Metabolic Panel, [id number]. Pre-op Dr. Won Ricci.All lab needs to be faxed to [facility] at U yeast Present - Rare Range: [...] Range: 135-145=Normal 15:04 CBC-FEMALE- ORDER THIS ONE! ([id number]) Comments: Items in this order include: Draw [...] 9.41 K/uL Range: 4.50-10.50=Normal 15:04 Routine Venipuncture ([id number]) Comments: Items in this order include : Draw Charge[i], CBC, Basic Metabolic Panel, Urinalysis Draw Drawn Normal 06-Mar-2011 11:27 BMP Comments: Please fax all lab to Dr. Ricci at and [facility] at [phone]; Items in this order include: Draw Charge[i], CBC, Urinalysis, Basic Metabolic PanelChristi St. [facility] at [phone] fax all lab to Dr. Ricci at [phone] and Via GLU 83 mg/dL Range: 70-110=Normal CA 10.0 mg/dL Range: 8.4-10.2=Normal eGFR 69.1 mL/min/1.73m2 Range: >60.0=Normal CREAT 1.0 mg/dL Range: 0.6-1.3=Normal OSMO 279 Range: 275-295=Normal BUN 11 mg/dL Range: 7-18=Normal AGAP 11.50 mmol/L Range: 10.00-20.00=Normal CO2 31.3 mmol/L Range: 21.0-32.0=Normal CL 102 mmol/L Range: 98-107=Normal K 4.8 mmol/L Range: 3.5-5.0=Normal NA 140 mmol/L Range: 135-145=Normal 11:27 URINALYSIS, AUTOMATED W/ MICRO ([facility]) ([id number]) Comments: Items in this order include: Draw [...] Range: Yellow=Normal 11:27 CBC-FEMALE- ORDER THIS ONE! ([id number]) Comments: Items in this order include: Draw [...] 7.61 K/uL Range: 4.50-10.50=Normal 11:27 Routine Venipuncture (16120) Comments: Items in this order include : Draw Charge[i], CBC, Urinalysis, Basic Metabolic Panel Draw Drawn Normal Advance Directives No Advance Directives available. Encounters Historical Summary [facility] On 27-Oct-2013 10:06 Medication Entry - UTI (599.0 | N39.0) [facility] On 08-Oct-2013 15:55 Lab entry only - Lumbar back pain [facility] On 08:47 Medication Entry - Dysesthesia affecting both sides of body (782.0 | R20.8) [facility] On 21-May-2013 13:35 Office Visit - Dysesthesia [...] [facility] On 12-Apr-2013 14:00 Office Visit [...] [facility] On 15:23 Medication Entry - Anxiety [facility] On 14:52 Office Visit - Anxiety Encounter [...] [facility] On 17:25 Lab entry only - Lumbar back pain [facility] On 09-Jul-2011 09:57 Office Visit - Lumbar [...] symptoms are relieved by laxatives (MOM and [employer]). The symptoms have been associated with abdominal distention, abdominal pain and hemorrhoids. [facility] On 01-Apr-2011 14:46 Medication Entry - Contraception [facility] On 25-Feb-2011 16:26 Lab entry only - Lumbar back pain [facility] On 21-Feb-2011 15:35 Medication Entry - Lumbar back pain [facility] On 03-Jan-2011 16:18 Medication Entry - Lumbar back pain [facility] On 02-Jan-2011 17:57 Office Visit - Lumbar [...] [facility] On 05-Dec-2010 14:52 Office Visit - Breast [...] [facility] On 05-Mar-2010 13:56 Office Visit Encounter Reason: Obesity - The patient's appetite is normal. The patient's dietary intake is normal. The patient has gained 30 pounds (has bought treadmill and walks qod-30 min). The symptoms have been associated with fatigue , while the symptoms have not been associated with amenorrhea or cold intolerance.[facility] On 18-Dec-2009 10:37 Office Visit [facility] On 04-Dec-2009 13:30
--- OUTSIDE RECORDS SUMMARY | 2016-06-23 23:19 | XMS REPORT | Continuity of Care Document ---
Author Author [facility] Organization [facility] Address [address] [place] [address] Phone Care Team Providers Care Door Furring Installer Name Role Phone Eric Montes MD PP [...] Active Pre-op evaluation (V72.84) Status: Active UTI (lower urinary tract infection) (599.0, N39.0) Status: Active Medications Name Dates Details BENZTROPINE MESYLATE, 1MG (Oral Tablet) 1/2 (one half) Tablet Tablet two times daily for 0 days Quantity: 30 Ordered : Eric Montes MD* Started ActiveCELEXA, 40MG (Oral Tablet) 1 Tablet daily for 0 days * Quantity: 30 Refills: 3 Ordered : Eric Montes MD* Started ActiveMEDROL (TREY), 4MG (Oral Tablet) 1 (one) Tablet as directed for 6 days * Quantity: 21 Refills: 0 Ordered :05-Nov-2013 Nikki Devries HEIDI-Marybeth* Started 05-Nov-2013 Active Comments: approved by Eric Montes M.D. METHOCARBAMOL, [...] Details DISCONTINUED - URINALYSIS, AUTOMATED W/ MICRO ([facility]) (75680) Completed:Jun-2011 X-RAY EXAM LUMBAR SPINE, MIN 4 VIEWS (28595) Ordered:05-Dec-2010 MRI OF LUMBAR SPINE W/ W/O CONTRAST ([id number]) Ordered:05-Dec-2010 US EXAM, BREAST(S) ([id number]) Ordered:05-Mar-2010 Follow up in 3 months Ordered:18-Dec-2009 Appendectomy Completed:1975 Bone cyst Completed:1998 Comments: Right. knee Carpal Tunnel Surgery - Right Completed: Coccygeal fistula Completed:2003 Social History Name Dates Details Non Drinker/No Alcohol Use Tobacco use: Former smoker. Comments: quit 6 years ago Vital Signs Date Test Result Details 05-Nov-2013 15:56 Temperature 98.5 f Comments: Method: [...] 2.08 m2 Results Date Description Value Details 30-Sep-2013 14:25 URINALYSIS, AUTOMATED W/ MICRO ([facility]) ([id number]) Comments : Items in this order include: [...] Range: 135-145 14:25 CBC-FEMALE- ORDER THIS ONE! ([id number]) Comments: Results to [facility] Dr. Ricci .; Items in this order include : CBC, Basic Metabolic Panel, [id number].Results to [facility] Dr. Ricci Fax manual diff Not [...] 4.50-10.50 15:04 URINALYSIS, AUTOMATED W/ MICRO ([facility]) (32072) Comments : All lab needs to be faxed to [facility] at [phone]. Pre-op Dr. Won Ricci.; Items in this order include: Draw Charge[i], CBC, Basic Metabolic Panel, [phone]. Pre-op Dr. Won Ricci.All lab needs to be faxed to [facility] at U yeast Present - Rare (Abnormal) [...] Range: 135-145 15:04 CBC-FEMALE- ORDER THIS ONE! ([id number]) Comments: Items in this order include: Draw [...] 10*3/uL (Normal) Range: 4.50-10.50 15:04 Routine Venipuncture (52151) Comments: Items in this order include : Draw Charge[i], CBC, Basic Metabolic Panel, Urinalysis Draw Drawn (Normal) 06-Mar-2011 11:27 [facility] Comments: Please fax all lab to Dr. Ricci at [phone] and [address] [facility] at [phone]; Items in this order include: Draw Charge[i], CBC, Urinalysis, Basic Metabolic PanelChlouise Snell at [phone] fax all lab to Dr. Ricci at [phone] and [facility] 83 mg/dL (Normal) Range: [...] 135-145 11:27 URINALYSIS, AUTOMATED W/ MICRO ([facility]) ([id number]) Comments: Items in this order include: Draw [...] Range: Yellow 11:27 CBC-FEMALE- ORDER THIS ONE! (25993) Comments: Items in this order include: Draw [...] 10*3/uL (Normal) Range: 4.50-10.50 11:27 Routine Venipuncture (84991) Comments: Items in this order include : Draw Charge[i], CBC, Urinalysis, Basic Metabolic Panel Draw Drawn (Normal) Advance Directives No Advance Directives available. Encounters Office Visit - Dermatitis (692.9 | L30.9) [...] it has gotten worse since starting.[facility] On 05-Nov-2013 15:56 Office Visit - Lumbar back pain (724.2) Encounter Reason: Post-Operative - Patient is 2 weeks (diskectomy) postop procedure. Patient's symptoms are improved compared to preoperative. Post operative pain has been moderate. Pain medications include: Hydrocodone and Ultram. Patient has been compliant with post operative instructions. Patient has shown improvement in their activity level (has gradually improved since surgery.).[facility] On 28-Oct-2013 14:32 Historical Summary [facility] On 27-Oct-2013 10:06 Medication Entry - UTI (lower urinary tract infection) (599.0 | N39.0) [facility] On 08-Oct-2013 15:55 Lab entry only - Lumbar back pain (724.2) [facility] On 08:47 Medication Entry - Dysesthesia affecting both sides of body (782.0 | R20.8) [facility] On 21-May-2013 13:35 Office Visit - [...] Note for "Anxiety": Taking Seroquel for sx. [facility] On 12-Apr-2013 14:00 Office Visit - [...] On 15:23 Medication Entry - Anxiety (300.00) [facility] On 14:52 Office [...] - Lumbar back pain (724.2) [facility] On 09-Jul-2011 09:57 [...] symptoms are relieved by laxatives (MOM and [place] [employer]). The symptoms have been associated with abdominal distention, abdominal pain and hemorrhoids. [facility] On 01-Apr-2011 14:46 Medication Entry - Contraception (V25.9) [facility] On 25-Feb-2011 16:26 Lab entry only - Lumbar back pain (724.2) [facility] On 21-Feb-2011 15:35 Medication Entry - Lumbar back pain (724.2) [facility] On 03-Jan-2011 16:18 Medication Entry - Lumbar back pain (724.2) [facility] On 02-Jan-2011 17:57 [...] [facility] On 04-Dec-2009 13:30 Insurance * Christy Elder ; a guarantor * [facility] Medical Assistance Prog * [facility]
--- OUTSIDE RECORDS SUMMARY | 2016-06-23 23:20 | XMS REPORT | Continuity of Care Document ---
Author Author [facility] Organization [facility] Address [address] [place] [address] Phone Care Team Providers Care Faculty Administrator Name Role Phone Eric Montes MD PP [...] Details DISCONTINUED - URINALYSIS, AUTOMATED W/ MICRO ([facility]) (84157) Completed:Jun-2011 X-RAY EXAM LUMBAR SPINE, MIN 4 VIEWS ([id number]) Ordered:05-Dec-2010 MRI OF LUMBAR SPINE W/ W/O CONTRAST ([id number]) Ordered:05-Dec-2010 US EXAM, BREAST(S) (34205) Ordered:05-Mar-2010 Follow up in 3 months Ordered:18-Dec-2009 [...] Details 30-Sep-2013 14:25 URINALYSIS, AUTOMATED W/ MICRO ([facility]) (78176) Comments : Items in this order include: [...] Range: 135-145=Normal 14:25 CBC-FEMALE- ORDER THIS ONE! ([id number]) Comments: Results to [facility] Dr. Ricci .; Items in this order include : CBC, Basic Metabolic Panel, [phone].Results to [facility] Dr. Ricci Fax manual diff Not [...] Range: 4.50-10.50=Normal 15:04 URINALYSIS, AUTOMATED W/ MICRO ([facility]) ([id number]) Comments : All lab needs to be faxed to [facility] at [phone]. Pre-op Dr. Won Ricci.; Items in this order include: Draw Charge[i], CBC, Basic Metabolic Panel, [phone]. Pre-op Dr. Won Ricci.All lab needs to be faxed to [facility] at U yeast Present - Rare Range: [...] Range: 135-145=Normal 15:04 CBC-FEMALE- ORDER THIS ONE! (22309) Comments: Items in this order include: Draw [...] 9.41 K/uL Range: 4.50-10.50=Normal 15:04 Routine Venipuncture (81456) Comments: Items in this order include : Draw Charge[i], CBC, Basic Metabolic Panel, Urinalysis Draw Drawn Normal 06-Mar-2011 11:27 BMP Comments: Please fax all lab to Dr. Ricci at and [facility] at [phone]; Items in this order include: Draw Charge[i], CBC, Urinalysis, Basic Met[facility] PanelC[facility]idal[facility] at [phone] fax all lab to Dr. Ricci at [phone] and [facility] 83 mg/dL Range: 70-110=Normal CA 10.0 mg/dL Range: 8.4-10.2=Normal eGFR 69.1 mL/min/1.73m2 Range: >60.0=Normal CREAT 1.0 mg/dL Range: 0.6-1.3=Normal OSMO 279 Range: 275-295=Normal BUN 11 mg/dL Range: 7-18=Normal AGAP 11.50 mmol/L Range: 10.00-20.00=Normal CO2 31.3 mmol/L Range: 21.0-32.0=Normal CL 102 mmol/L Range: 98-107=Normal K 4.8 mmol/L Range: 3.5-5.0=Normal NA 140 mmol/L Range: 135-145=Normal 11:27 URINALYSIS, AUTOMATED W/ MICRO ([facility]) ([id number]) Comments: Items in this order include: Draw [...] Range: Yellow=Normal 11:27 CBC-FEMALE- ORDER THIS ONE! ([id number]) Comments: Items in this order include: Draw [...] 7.61 K/uL Range: 4.50-10.50=Normal 11:27 Routine Venipuncture (03601) Comments: Items in this order include : Draw Charge[i], CBC, Urinalysis, Basic Metabolic Panel Draw Drawn Normal Advance Directives No Advance Directives available. Encounters Review Encounter Reason: Post-Operative - Patient is 2 weeks postop procedure. Patient' s symptoms are improved compared to preoperative. Post operative pain has been moderate. Pain medications include: Hydrocodone and Ultram. Patient has been compliant with post operative instructions.[facility] On 28-Oct-2013 14:32 Historical Summary [facility] On 27-Oct-2013 10:06 Medication Entry - UTI (599.0 | N39.0) [facility] On 08-Oct-2013 15:55 Lab entry only - Lumbar back pain [facility] On 08:47 Medication Entry - Dysesthesia affecting both sides of body (782.0 | R20.8) [facility] On 21-May-2013 13:35 Office Visit - [...] Note for "Anxiety": Taking Seroquel for sx. [facility] On 12-Apr-2013 14:00 Office Visit - Lumbar back pain, Pre-op evaluation Encounter Reason: Pre-Op Visit - The procedure scheduled is a repeat micro- diskectomy on 09-03-11. The surgeon for the procedure will be Dr. aLwson. The chief complaint is lumbar back pain.. Recent symptoms do not include fever, chills, chest pain, cough, dyspnea, nausea, vomiting or diarrhea. Pertinent medical history does not include previous anesthesia reaction. Pertinent social history does not include tobacco use. After surgery the patient plans to recover at home with family.[facility] On 15:23 Medication Entry - Anxiety [facility] On 14:52 Office Visit - Anxiety [...] is not currently being treated for this problem.[facility] On 17:25 Lab entry only - Lumbar back pain [facility] On 09-Jul-2011 09:57 Office Visit - [...] symptoms are relieved by laxatives (MOM and [place] Oil). The symptoms have been associated with abdominal distention, abdominal pain and hemorrhoids. [facility] On 01-Apr-2011 14:46 Medication Entry - Contraception [facility] On 25-Feb-2011 16:26 Lab entry only - Lumbar back pain [facility] On 21-Feb-2011 15:35 Medication Entry - Lumbar back pain [facility] On 03-Jan-2011 16:18 Medication Entry - Lumbar back pain [facility] On 02-Jan-2011 17:57 Office Visit - [...] removed from hip and put in knee. ).[facility] On 05-Dec-2010 14:52 Office Visit - [...] the breast. The last menstrual period began 01-17-2010.[facility] On 05-Mar-2010 13:56 Office Visit Encounter Reason: Obesity - The patient's appetite is normal. The patient's dietary intake is normal. The patient has gained 30 pounds (has bought treadmill and walks qod-30 min). The symptoms have been associated with fatigue , while the symptoms have not been associated with amenorrhea or cold intolerance.[facility] On 18-Dec-2009 10:37 Office Visit [facility] On 04-Dec-2009 13:30
--- OUTSIDE RECORDS SUMMARY | 2016-06-23 23:21 | XMS REPORT | Continuity of Care Document ---
Author Author [facility] Organization [facility] Address [address] [place] [address] Phone Care Team Providers Care Associate Dentist Name Role Phone Eric Montes MD PP Eric Montes MD Unavailable Won Ricci CP Bruno Siddiqui Unavailable Unavailable Sandy Benietz Unavailable Unavailable Unavailable Problems Name Dates Details [...] Ordered:08-Dec-2013 Eric Montes MD* Start 08-Dec-2013 Active LYRICA, 100MG (Oral Capsule) - Historical [...] * Quantity: 30 {Tablet} Refills: 6 Ordered:22-Dec-2013 rEic Montes MD* Start 22-Dec-2013 Active TRAMADOL HCL, 50MG (Oral Tablet) - Historical Medication 1or 2 every 4 to 6 hrs. as needed (50 MG) Active Comments: Medication taken as needed. TRAZODONE HCL, 100MG (Oral Tablet) 1 (one) Tablet at bedtime for 0 days * Quantity: 30 {Tablet} Refills: 6 Ordered:03-May-2014 Eric Montes MD* Start 03-May-2014 Active AMBIEN, 10MG (Oral Tablet) - Historical [...] 1-2 three times daily (300 MG) Inactive KEFLEX, 500MG (Oral Capsule) [...] X-ray Exam of Lower Spine, 2 Views ([id number]) Completed:17-May-2014 Comments : outside order from Dr. Ricci How to access health information online Completed:07-Feb-2014 X-ray Exam of Lower Spine, 2 Views ([id number]) Completed:11-Jan-2014 Comments : outside order from Dr. Ricci Referral to Dermatology Ordered:16-Nov-2013 DISCONTINUED - URINALYSIS, AUTOMATED W/ MICRO ([facility]) (75602) Completed:Jun-2011 X-RAY EXAM LUMBAR SPINE, MIN 4 VIEWS ([id number]) Ordered:05-Dec-2010 MRI OF LUMBAR SPINE W/ W/O CONTRAST ([id number]) Ordered:05-Dec-2010 US EXAM, BREAST(S) ([id number]) Ordered:05-Mar-2010 Follow up in 3 months Ordered:18-Dec-2009 [...] Date Description Value Details 07-Feb-2014 15:07 PROLACTIN ([id number]) Comments: Items in this order include: Draw Charge[i], CBC, Comprehensive Metabolic Panel, TSH, FSH, LH, PROLACTINTesting performed at: [facility], [address] [place] [address], [id number], Director Of Athletics: Lonny Middleton D.O., MPH.brQuest PROLACTIN 11.5 ng/mL (Normal) Comments: Reference Range.br Females.br Non- 3.0-30.0.br 10.0-209.0.br Postmenopausal 2.0-20.0.br .br .br 15:07 LH ([id number]) Comments: Items in this order include: Draw Charge[i] , CBC, Comprehensive Metabolic Panel, TSH, FSH, LH, PROLACTINTesting performed at: [facility], [address] [place] [address], [id number], Director Of Athletics: Lonny Middleton D.O., MPH.[facility] LH 9.3 m[iU]/mL (Normal) Comments: Reference Range.brFollicular Phase 1.9-12.5.brMid-Cycle Peak 8.7-76.3.brLuteal Phase 0.5- 16.9.brPostmenopausal 10.0-54.7 15:07 FSH ([id number]) Comments: Items in this order include: Draw Charge[i] , CBC, Comprehensive Metabolic Panel, TSH, FSH, LH, PROLACTINTesting performed at: [facility], [address] [place] [address], [id number], Director Of Athletics: Lonny Middleton D.O., MPH.[facility] FSH 4.4 m[iU]/mL (Normal) Comments: Reference Range.br .br Follicular Phase 2.5-10.2.br Mid-cycle Peak 3.1- 17.7.br Luteal Phase 1.5- 9.1.br Postmenopausal 23.0-116.3 .br 15:07 TSH (THYROID STIMULATING HORMONE) (72888) TSH 1.33 uIU/ml (Normal) Range: 0.34-5.60 15:07 CMP (54087) ALTI 96 U/L (Abnormal) Range: 12-78 AST [...] Range: 135-145 15:07 CBC-FEMALE- ORDER THIS ONE! ([id number]) manual diff Not Indicated (Normal) mpv 11.30 [...] 10*3/uL (Abnormal) Range: 4.50-10.50 15:07 Routine Venipuncture (22808) Draw Drawn (Normal) 15-Nov-2013 17:32 SED RATE ERYTHROCYTE ([id number]) Comments: Items in this order include: Draw Charge[i], Basic Metabolic Panel, C-Reactive Protein, CBC, Sed Rate ESR 4 mm/h (Normal) Range: 0-20 17:32 CBC-FEMALE- ORDER THIS ONE! ([id number]) manual diff Not Indicated (Normal) mpv 10.60 [...] 10*3/uL (Abnormal) Range: 4.50-10.50 17:32 C-REACTIVE PROTEIN (03298) CRP 1.82 mg/dL (Abnormal) Range: 0.00-0.30 17:32 [...] mmol/L (Normal) Range: 135-145 17:32 Routine Venipuncture (27139) Draw Drawn (Normal) 30-Sep-2013 14:25 URINALYSIS, AUTOMATED W/ MICRO ([facility] (87727) Comments : Items in this order include: [...] Range: 135-145 14:25 CBC-FEMALE- ORDER THIS ONE! ([id number]) Comments: Results to [facility] Dr. Ricci .; Items in this order include : CBC, Basic Metabolic Panel, [id number].Results to [facility] Dr. Ricci Fax manual diff Not [...] Range: 4.50-10.50 15:04 URINALYSIS, AUTOMATED W/ MICRO ([facility] (68338) Comments : All lab needs to be faxed to [facility] at [phone]. Pre-op Dr. Won Ricci.; Items in this order include: Draw Charge[i], CBC, Basic Metabolic Panel, [id number]. Pre-op Dr. Won Ricci.All lab needs to be faxed to [facility] at U yeast Present - Rare (Abnormal) [...] Range: 135-145 15:04 CBC-FEMALE- ORDER THIS ONE! ([id number]) Comments: Items in this order include: Draw [...] 10*3/uL (Normal) Range: 4.50-10.50 15:04 Routine Venipuncture (16088) Comments: Items in this order include : Draw Charge[i], CBC, Basic Metabolic Panel, Urinalysis Draw Drawn (Normal) 06-Mar-2011 11:27 BMP Comments: Please fax all lab to Dr. Ricci at and [facility] [place] at [phone]; Items in this order include: Draw Charge[i], CBC, Urinalysis, Basic Metabolic PanelChlouise [place] at [phone] fax all lab to Dr. Ricci at [phone] and [facility]U 83 mg/dL (Normal) Range: [...] Range: 135-145 11:27 URINALYSIS, AUTOMATED W/ MICRO ([facility] ([id number]) Comments: Items in this order include: Draw [...] Range: Yellow 11:27 CBC-FEMALE- ORDER THIS ONE! (68123) Comments: Items in this order include: Draw [...] 10*3/uL (Normal) Range: 4.50-10.50 11:27 Routine Venipuncture (50989) Comments: Items in this order include : Draw Charge[i], CBC, Urinalysis, Basic Metabolic Panel Draw Drawn (Normal) Advance Directives Encounters Radiology Visit - Lumbar back pain (724.2) [facility] On 17-May-2014 16:35 to 16:37 Medication Entry [facility] On 03-May-2014 09:14 to 09:22 Medication Entry - Sore throat (462 | J02.9) [facility] On 25-Apr-2014 15:13 to 15:15 Office [...] ": said she wants her hormones checked [facility] On 07-Feb-2014 14:16 to 15:30 Radiology Visit - Lumbar back pain (724.2) [facility] On 11-Jan-2014 16:20 to 16:23 Office [...] at times but is not painful or itchy.[facility] 15-Nov-2013 to 16-Nov-2013 Office Visit - [...] rash but it has gotten worse since starting.[facility] On 05-Nov-2013 15:56 to 16:53 Office Visit - Lumbar back pain (724.2) Encounter Reason: Post-Operative - Patient is 2 weeks (diskectomy) postop procedure. Patient's symptoms are improved compared to preoperative. Post operative pain has been moderate. Pain medications include: Hydrocodone and Ultram. Patient has been compliant with post operative instructions. Patient has shown improvement in their activity level (has gradually improved since surgery.).[facility] On 28-Oct-2013 14:32 to 15:50 Historical Summary [facility] On 27-Oct-2013 10:06 to 10:10 Medication Entry - UTI (lower urinary tract infection) (599.0 | N39.0) [facility] On 08-Oct-2013 15:55 to 15:57 Lab entry only - Lumbar back pain (724.2) [facility] On 08:47 to 08:49 Medication Entry - Dysesthesia affecting both sides of body (782.0 | R20.8) [facility] On 21-May-2013 13:35 to 13:38 Office [...] Taking Seroquel for sx. [facility] On 12-Apr-2013 14:00 to 14:49 [...] patient plans to recover at home with family.[facility] On 15:23 to 22:32 Medication Entry - Anxiety (300.00) [facility] On 14:52 to 14:55 Office Visit [...] is not currently being treated for this problem.[facility] On 17:25 to 21:06 Lab entry only - Lumbar back pain (724.2) [facility] On 09-Jul-2011 09:57 to 10:02 Office [...] symptoms are relieved by laxatives (MOM and [employer]). The symptoms have been associated with abdominal distention, abdominal pain and hemorrhoids. [facility] On 01-Apr-2011 14:46 to 19:35 Medication Entry - Contraception (V25.9) [facility] On 25-Feb-2011 16:26 to 16:28 Lab entry only - Lumbar back pain (724.2) [facility] On 21-Feb-2011 15:35 to 15:44 Medication Entry - Lumbar back pain (724.2) [facility] On 03-Jan-2011 16:18 to 16:22 Medication Entry - Lumbar back pain (724.2) [facility] On 02-Jan-2011 17:57 to 18:06 Office [...] removed from hip and put in knee. ).[facility] On 05-Dec-2010 14:52 to 16:15 Office [...] the breast. The last menstrual period began 01-17-2010.[facility] On 05-Mar-2010 13:56 to 23:43 Office Visit Encounter Reason: Obesity - The patient's appetite is normal. The patient's dietary intake is normal. The patient has gained 30 pounds (has bought treadmill and walks qod-30 min). The symptoms have been associated with fatigue , while the symptoms have not been associated with amenorrhea or cold intolerance.[facility] On 18-Dec-2009 10:37 to 11:12 Office Visit [facility] On 04-Dec-2009 13:30 to 13:44 Insurance * Christy Elder ; a guarantor * [facility] Medical Assistance Prog * [facility]
--- OUTSIDE RECORDS SUMMARY | 2016-06-23 23:22 | XMS REPORT | Continuity of Care Document ---
Author Author [facility] Organization [facility] Address [address] [place] [address] Phone Care Team Providers Care Rim Buster Name Role Phone Eric Montes MD PP Nikki Kendrick Unavailable Won Ricci CP Eric Montes MD Unavailable Susu Cruz Unavailable Unavailable Bruno Siddiqui Unavailable Unavailable Sandy Benitez Unavailable [...] Start 03-May-2014 Active METHOCARBAMOL, 750MG (Oral Tablet) - Historical [...] Ordered:03-May-2014 Eric Montes MD* Start 03-May-2014 Active ABILIFY, [...] X-ray Exam of Lower Spine, 2 Views ([id number]) Completed:17-May-2014 Comments : outside order from Dr. Ricci How to access health information online Completed:07-Feb-2014 X-ray Exam of Lower Spine, 2 Views ([id number]) Completed:11-Jan-2014 Comments : outside order from Dr. Ricci Referral to Dermatology Ordered:16-Nov-2013 DISCONTINUED - URINALYSIS, AUTOMATED W/ MICRO [place] ([id number]) Completed:Jun-2011 X-RAY EXAM LUMBAR SPINE, MIN 4 VIEWS ([id number]) Ordered:05-Dec-2010 MRI OF LUMBAR SPINE W/ W/O CONTRAST ([id number]) Ordered:05-Dec-2010 US EXAM, BREAST(S) ([id number]) Ordered:05-Mar-2010 Follow up in 3 months Ordered:18-Dec-2009 [...] Date Description Value Details 07-Feb-2014 15:07 PROLACTIN ([id number]) Comments: Items in this order include: Draw Charge[i], CBC, Comprehensive Metabolic Panel, TSH, FSH, LH, PROLACTINTesting performed at: [facility], [address] [place] [address], [phone], Radiographic Technologist: Lonny Middleton D.O., MPH.[facility] PROLACTIN 11.5 ng/mL (Normal) Comments: Reference Range.br Females.br Non- 3.0-30.0.br 10.0-209.0.br Postmenopausal 2.0-20.0.br .br .br 15:07 LH ([id number]) Comments: Items in this order include: Draw Charge[i] , CBC, Comprehensive Metabolic Panel, TSH, FSH, LH, PROLACTINTesting performed at: [facility], [address] [place], [address], Radiographic Technologist: Lonny Middleton D.O., MPH.[facility] LH 9.3 m[iU]/mL (Normal) Comments: Reference Range.brFollicular Phase 1.9-12.5.brMid-Cycle Peak 8.7-76.3.brLuteal Phase 0.5- 16.9.brPostmenopausal 10.0-54.7 15:07 FSH ([id number]) Comments: Items in this order include: Draw Charge[i] , CBC, Comprehensive Metabolic Panel, TSH, FSH, LH, PROLACTINTesting performed at: [facility], [address] [place], [address], Radiographic Technologist: Lonny Middleton D.O., MPH.[facility] FSH 4.4 m[iU]/mL (Normal) Comments: Reference Range.br .br Follicular Phase 2.5-10.2.br Mid-cycle Peak 3.1- 17.7.br Luteal Phase 1.5- 9.1.br Postmenopausal 23.0-116.3 .br 15:07 TSH (THYROID STIMULATING HORMONE) ([id number]) TSH 1.33 uIU/ml (Normal) Range: 0.34-5.60 15:07 CMP ([id number]) ALTI 96 U/L (Abnormal) Range: 12-78 AST [...] Range: 135-145 15:07 CBC-FEMALE- ORDER THIS ONE! ([id number]) manual diff Not Indicated (Normal) mpv 11.30 [...] 10*3/uL (Abnormal) Range: 4.50-10.50 15:07 Routine Venipuncture (67509) Draw Drawn (Normal) 15-Nov-2013 17:32 SED RATE ERYTHROCYTE ([id number]) Comments: Items in this order include: Draw Charge[i], Basic Metabolic Panel, C-Reactive Protein, CBC, Sed Rate ESR 4 mm/h (Normal) Range: 0-20 17:32 CBC-FEMALE- ORDER THIS ONE! ([id number]) manual diff Not Indicated (Normal) mpv 10.60 [...] 10*3/uL (Abnormal) Range: 4.50-10.50 17:32 C-REACTIVE PROTEIN ([id number]) CRP 1.82 mg/dL (Abnormal) Range: 0.00-0.30 17:32 [...] mmol/L (Normal) Range: 135-145 17:32 Routine Venipuncture (71800) Draw Drawn (Normal) 30-Sep-2013 14:25 URINALYSIS, AUTOMATED W/ MICRO ([facility] ([id number]) Comments : Items in this order include: [...] Range: 135-145 14:25 CBC-FEMALE- ORDER THIS ONE! ([id number]) Comments: Results to [facility] Dr. Ricci .; Items in this order include : CBC, Basic Metabolic Panel, [id number].Results to [facility] Dr. Ricci Fax manual diff Not [...] AUTOMATED W/ MICRO ([facility] ([id number]) Comments : [facility] [phone]. Pre-op Dr. Won Ricci.; Items in this order include: Draw Charge[i], CBC, Basic Metabolic Panel, [id number]. Pre-op Dr. Won Ricci.All lab needs to be faxed to [facility] at U yeast Present - Rare (Abnormal) [...] Range: 135-145 15:04 CBC-FEMALE- ORDER THIS ONE! ([id number]) Comments: Items in this order include: Draw [...] 10*3/uL (Normal) Range: 4.50-10.50 15:04 Routine Venipuncture (50501) Comments: Items in this order include : Draw Charge[i], CBC, Basic Metabolic Panel, Urinalysis Draw Drawn (Normal) 06-Mar-2011 11:27 BMP Comments: Please fax all lab to Dr. Ricci at [phone] and [facility] at [phone]; Items in this order include: Draw Charge[i], CBC, Urinalysis, Basic Met[facility]Ch[facility] at [phone] fax all lab to Dr. Ricci at [phone] and [facility] GLU 83 mg/dL (Normal) Range: [...] AUTOMATED W/ MICRO ([facility] ([id number]) Comments: Items in this order include: Draw [...] Range: Yellow 11:27 CBC-FEMALE- ORDER THIS ONE! ([id number]) Comments: Items in this order include: Draw [...] 10*3/uL (Normal) Range: 4.50-10.50 11:27 Routine Venipuncture (55816) Comments: Items in this order include : Draw Charge[i], CBC, Urinalysis, Basic Metabolic Panel Draw Drawn (Normal) Advance Directives Encounters Review Encounter Reason: Foot Problem - Symptoms include [...] Denies any pain at this time to area.[facility] On 14:43 Historical Summary [facility] On 11:48 to 11:52 Radiology Visit - Lumbar back pain (724.2) [facility] On 17-May-2014 16:35 to 16:37 Medication Entry [facility] On 03-May-2014 09:14 to 09:22 Medication Entry - Sore throat (462 | J02.9) [facility] On 25-Apr-2014 15:13 to 15:15 Office [...] Seroquel for sx., sees Shama at [facility] also, [ADDITIONAL REASON] Amenorrhea, Primary - She is sexually active. For contraception she uses nothing. Symptoms include amenorrhea, while symptoms do not include pelvic pain , headache or visual disturbance. The patient describes this as unchanged. Associated symptoms include fatigue and hot flashes. Note for "Primry amenorrhea ": said she wants her hormones checked [facility] On 07-Feb-2014 14:16 to 15:30 Radiology Visit - Lumbar back pain (724.2) [facility] On 11-Jan-2014 16:20 to 16:23 Office [...] not painful or itchy.[facility] 15-Nov-2013 to 16-Nov-2013 Office Visit - [...] starting.[facility] On 05-Nov-2013 15:56 to 16:53 Office [...] surgery.).[facility] On 28-Oct-2013 14:32 to 15:50 Historical Summary [facility] On 27-Oct-2013 10:06 to 10:10 Medication Entry - UTI (lower urinary tract infection) (599.0 | N39.0) [facility] On 08-Oct-2013 15:55 to 15:57 Lab entry only - Lumbar back pain (724.2) [facility] On 08:47 to 08:49 Medication Entry - Dysesthesia affecting both sides of body (782.0 | R20.8) [facility] On 21-May-2013 13:35 to 13:38 Office [...] Note for "Anxiety": Taking Seroquel for sx. [facility] On 12-Apr-2013 14:00 to 14:49 Office Visit [...] with family.[facility] On 15:23 to 22:32 Medication Entry - Anxiety (300.00) [facility] On 14:52 to 14:55 Office Visit [...] this problem.[facility] On 17:25 to 21:06 Lab entry only - Lumbar back pain (724.2) [facility] On 09-Jul-2011 09:57 to 10:02 Office [...] symptoms are relieved by laxatives (MOM and [employer]). The symptoms have been associated with abdominal distention, abdominal pain and hemorrhoids. [facility] On 01-Apr-2011 14:46 to 19:35 Medication Entry - Contraception (V25.9) [facility] On 25-Feb-2011 16:26 to 16:28 Lab entry only - Lumbar back pain (724.2) [facility] On 21-Feb-2011 15:35 to 15:44 Medication Entry - Lumbar back pain (724.2) [facility] On 03-Jan-2011 16:18 to 16:22 Medication Entry - Lumbar back pain (724.2) [facility] On 02-Jan-2011 17:57 to 18:06 Office [...] ).[facility] On 05-Dec-2010 14:52 to 16:15 Office [...] 01-17-2010.[facility] On 05-Mar-2010 13:56 to 23:43 Office Visit Encounter Reason: Obesity - The patient's appetite is normal. The patient's dietary intake is normal. The patient has gained 30 pounds (has bought treadmill and walks qod-30 min). The symptoms have been associated with fatigue , while the symptoms have not been associated with amenorrhea or cold intolerance.[facility] On 18-Dec-2009 10:37 to 11:12 Office Visit [facility] On 04-Dec-2009 13:30 to 13:44 Insurance * Christy Elder ; a guarantor * [facility] Medical Assistance Prog * [facility]
--- OUTSIDE RECORDS SUMMARY | 2016-06-23 23:24 | XMS REPORT | Continuity of Care Document ---
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 Name Role Phone Eric Montes MD [...] N39.0) Status: Active Medications Name Dates Details CLONIDINE HCL (ANALGESIA), 100MCG/ML (Epidural Solution) (100 MCG/ML) Active CYMBALTA, 60MG (Oral Capsule Delayed Release Particles) [address] Part daily for 0 days Quantity: 30 {Capsule} Ordered:13-Mar-2015 Sandy Benitez * Start 13-Mar-2015 Active KLONOPIN, 1MG (Oral Tablet) 1 two times daily (1 MG) Active LATUDA, 40MG (Oral Tablet) 1 daily (40 MG) Active NORCO, 10-325MG (Oral Tablet) 1 4 [...] 1 every eight hours (750 MG) Inactive METHOCARBAMOL, 750MG (Oral Tablet) 1 (one) Tablet Tablet at bedtime for 0 days * Quantity: 100 {Tablet} Refills: 0 Ordered:21-Apr-2015 Sandy Benitez * Start 20-Sep-2014 End 21-Apr-2015 Inactive NORCO, 7.5-325MG (Oral Tablet) 1 to [...] X-ray Exam of Lower Spine, 2 Views ([id number]) Completed:17-May-2014 Comments : outside order from Dr. Ricci How to access health information online Completed:07-Feb-2014 X-ray Exam of Lower Spine, 2 Views ([id number]) Completed:11-Jan-2014 Comments : outside order from Dr. Ricci Referral to Dermatology Ordered:16-Nov-2013 DISCONTINUED - URINALYSIS, AUTOMATED W/ MICRO ([facility]) ([id number]) Completed:Jun-2011 X-RAY EXAM LUMBAR SPINE, MIN 4 VIEWS ([id number]) Ordered:05-Dec-2010 MRI OF LUMBAR SPINE W/ W/O CONTRAST ([id number]) Ordered:05-Dec-2010 US EXAM, BREAST(S) ([id number]) Ordered:05-Mar-2010 Follow up in 3 months Ordered:18-Dec-2009 [...] Details 21-Apr-2015 21:47 SHAVE SKIN LESION SINGLE ([id number]) Comments: Informed consent obtained. Lesion prepped with Hibiclens. Anesthesia with xylocaine + epi+ NaHCO3. Lesion shaved off w/o complications. Hemostasis obtained with cautery. Wound dressed and care instructions given. Specimen sent for pathology. Diameter 1.1cm Final 20-Feb-2015 16:12 URINALYSIS, AUTOMATED W/ MICRO ([facility]) ([id number]) Comments: Items in this order include: UrinalysisAntibiotics? [...] Yellow (Normal) Range: Yellow 07-Feb-2014 15:07 PROLACTIN ([id number]) Comments: Items in this order include: Draw Charge[i], CBC, Comprehensive Metabolic Panel, TSH, FSH, LH, PROLACTINTesting performed at: [facility], [address] [place] [address], [address], Wool Brusher: Lonny Middleton D.O., MPH.[facility] PROLACTIN 11.5 ng/mL (Normal) Comments: Reference Range.br Females.br Non- 3.0-30.0.br 10.0-209.0.br Postmenopausal 2.0-20.0.br .br .br 15:07 LH ([id number]) Comments: Items in this order include: Draw Charge[i] , CBC, Comprehensive Metabolic Panel, TSH, FSH, LH, PROLACTINTesting performed at: [facility], [address] [place], [address], Wool Brusher: Lonny Middleton D.O., MPH.[facility] LH 9.3 m[iU]/mL (Normal) Comments: Reference Range.brFollicular Phase 1.9-12.5.brMid-Cycle Peak 8.7-76.3.brLuteal Phase 0.5- 16.9.brPostmenopausal 10.0-54.7 15:07 FSH ([id number]) Comments: Items in this order include: Draw Charge[i] , CBC, Comprehensive Metabolic Panel, TSH, FSH, LH, PROLACTINTesting performed at: [facility], [address] [facility], [place], [address], Wool Brusher: Lonny Middleton D.O., MPH.[facility] FSH 4.4 m[iU]/mL (Normal) Comments: Reference Range.br .br Follicular Phase 2.5-10.2.br Mid-cycle Peak 3.1- 17.7.br Luteal Phase 1.5- 9.1.br Postmenopausal 23.0-116.3 .br 15:07 TSH (THYROID STIMULATING HORMONE) ([id number]) TSH 1.33 uIU/ml (Normal) Range: 0.34-5.60 15:07 CMP ([id number]) ALTI 96 U/L (Abnormal) Range: 12-78 AST [...] Range: 135-145 15:07 CBC-FEMALE- ORDER THIS ONE! ([id number]) manual diff Not Indicated (Normal) mpv 11.30 [...] 10*3/uL (Abnormal) Range: 4.50-10.50 15:07 Routine Venipuncture (37731) Draw Drawn (Normal) 15-Nov-2013 17:32 SED RATE ERYTHROCYTE ([id number]) Comments: Items in this order include: Draw Charge[i], Basic Metabolic Panel, C-Reactive Protein, CBC, Sed Rate ESR 4 mm/h (Normal) Range: 0-20 17:32 CBC-FEMALE- ORDER THIS ONE! ([id number]) manual diff Not Indicated (Normal) mpv 10.60 [...] 10*3/uL (Abnormal) Range: 4.50-10.50 17:32 C-REACTIVE PROTEIN (36803) CRP 1.82 mg/dL (Abnormal) Range: 0.00-0.30 17:32 [...] mmol/L (Normal) Range: 135-145 17:32 Routine Venipuncture ([id number]) Draw Drawn (Normal) 30-Sep-2013 14:25 URINALYSIS, [place]OM[place] W/ [place]CRO [place] ([id number]) Comments : Items in this order include: [...] Range: 135-145 14:25 CBC-FEMALE- ORDER THIS ONE! ([id number]) Comments: Results to [facility] Dr. Ricci .; Items in this order include : CBC, Basic Metabolic Panel, [id number].Results to [facility] Dr. Ricci Fax manual diff Not [...] Range: 4.50-10.50 15:04 URINALYSIS, AUTOMATED W/ MICRO ([facility] ([id number]) Comments : All lab needs to be faxed to [facility] at [phone]. Pre-op Dr. Won Ricci.; Items in this order include: Draw Charge[i], CBC, Basic Metabolic Panel, [id number]. Pre-op Dr. Won Ricci.All lab needs to be faxed to [facility] at U yeast Present - Rare [...] Range: 135-145 15:04 CBC-FEMALE- ORDER THIS ONE! ([id number]) Comments: Items in this order include: Draw [...] 10*3/uL (Normal) Range: 4.50-10.50 15:04 Routine Venipuncture ([id number]) Comments: Items in this order include : Draw Charge[i], CBC, Basic Metabolic Panel, Urinalysis Draw Drawn (Normal) 06-Mar-2011 11:27 [facility] Comments: Please fax all lab to Dr. Ricci at [phone] and [facility] at [phone]; Items in this order include: Draw Charge[i], CBC, Urinalysis, Basic Met[facility] PanelChVeterans Health Administration at [phone] fax all lab to Dr. Ricci at [phone] and Via GLU 83 mg/dL (Normal) Range: [...] Range: 135-145 11:27 URINALYSIS, AUTOMATED W/ MICRO ([facility] ([id number]) Comments: Items in this order include: Draw [...] Range: Yellow 11:27 CBC-FEMALE- ORDER THIS ONE! ([id number]) Comments: Items in this order include: Draw [...] 10*3/uL (Normal) Range: 4.50-10.50 11:27 Routine Venipuncture (41489) Comments: Items in this order include : Draw Charge[i], CBC, Urinalysis, Basic Metabolic Panel Draw Drawn (Normal) Advance Directives Encounters Office Visit - Hypertrophic and atrophic condition [...] patient describes this as worsening (now bleeding routinely).[facility] On 21-Apr-2015 08:54 to 21:47 Medication Entry [facility] On 18-Apr-2015 12:22 to 12:43 Nurse Visit (Non-billable) [facility] On 20-Mar-2015 09:59 to 10:46 Office Visit [...] with abdominal distention, abdominal pain and hemorrhoids. [facility] On 13-Mar-2015 14:30 to 15:13 Medication Entry - UTI (lower urinary tract infection) (599.0 | N39.0) [facility] On 22-Feb-2015 10:04 to 10:06 Nurse Visit (Non-billable) - Dysuria (788.1 | R30.0) [facility] On 20-Feb-2015 16:01 to 16:38 Nurse Visit (Non-billable) [facility] On 17-Jan-2015 11:29 to 11:31 Office Visit [...] unhealthy food choices. The patient is sedentary. [facility] On 19-Dec-2014 16:15 to 20:43 Medication Entry [facility] On 28-Nov-2014 16:29 to 16:32 [...] (Stopped Celexa. Didn't think it was helping.). [facility] On 16-Nov-2014 14:05 to 14:59 Medication Entry - Lumbar back pain (724.2) [facility] On 20-Sep-2014 12:31 to 12:34 [...] Denies any pain at this time to area.[facility] On 14:43 to 17:01 Historical Summary [facility] On 11:48 to 11:52 Radiology Visit - Lumbar back pain (724.2) [facility] On 17-May-2014 16:35 to 16:37 Medication Entry [facility] On 03-May-2014 09:14 to 09:22 Medication Entry - Sore throat (462 | J02.9) [facility] On 25-Apr-2014 15:13 to 15:15 [...] Taking Seroquel for sx., sees Shama at [facility] also, [ADDITIONAL REASON] Amenorrhea, Primary - She [...] Radiology Visit - Lumbar back pain (724.2) [facility] On 11-Jan-2014 16:20 to 16:23 [...] at times but is not painful or itchy.[facility] 15-Nov-2013 to 16-Nov-2013 Office Visit [...] rash but it has gotten worse since starting.[facility] On 05-Nov-2013 15:56 to 16:53 [...] their activity level (has gradually improved since surgery.).[facility] On 28-Oct-2013 14:32 to 15:50 Historical Summary [facility] On 27-Oct-2013 10:06 to 10:10 Medication Entry - UTI (lower urinary tract infection) (599.0 | N39.0) [facility] On 08-Oct-2013 15:55 to 15:57 Lab entry only - Lumbar back pain (724.2) [facility] On 08:47 to 08:49 Medication Entry - Dysesthesia affecting both sides of body (782.0 | R20.8) [facility] On 21-May-2013 13:35 to 13:38 [...] patient plans to recover at home with family.[facility] On 15:23 to 22:32 Medication Entry - Anxiety (300.00) [facility] On 14:52 to 14:55 Office [...] is not currently being treated for this problem.[facility] On 17:25 to 21:06 Lab entry only - Lumbar back pain (724.2) [facility] On 09-Jul-2011 09:57 to 10:02 [...] symptoms are relieved by laxatives (MOM and [employer]). The symptoms have been associated with abdominal distention, abdominal pain and hemorrhoids. [facility] On 01-Apr-2011 14:46 to 19:35 Medication Entry - Contraception (V25.9) [facility] On 25-Feb-2011 16:26 to 16:28 Lab entry only - Lumbar back pain (724.2) [facility] On 21-Feb-2011 15:35 to 15:44 Medication Entry - Lumbar back pain (724.2) [facility] On 03-Jan-2011 16:18 to 16:22 Medication Entry - Lumbar back pain (724.2) [facility] On 02-Jan-2011 17:57 to 18:06 [...] removed from hip and put in knee. ).[facility] On 05-Dec-2010 14:52 to 16:15 [...] the breast. The last menstrual period began 01-17-2010.[facility] On 05-Mar-2010 13:56 to 23:43 Office Visit Encounter Reason: Obesity - The patient's appetite is normal. The patient's dietary intake is normal. The patient has gained 30 pounds (has bought treadmill and walks qod-30 min). The symptoms have been associated with fatigue , while the symptoms have not been associated with amenorrhea or cold intolerance.[facility] On 18-Dec-2009 10:37 to 11:12 Office Visit [facility] On 04-Dec-2009 13:30 to 13:44 Insurance * Christy Elder ; a guarantor * [facility] Medical Assistance Prog * [facility] * [facility]
--- OUTSIDE RECORDS SUMMARY | 2016-06-23 23:25 | XMS REPORT | Continuity of Care Document ---
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 Ricci How to access health information online Completed:07-Feb-2014 X-ray Exam of Lower Spine, 2 Views ([id number]) Completed:11-Jan-2014 Comments : outside order from Dr. Ricci Referral to Dermatology Ordered:16-Nov-2013 DISCONTINUED - URINALYSIS, AUTOMATED W/ MICRO ([facility]) ([id number]) Completed:Jun-2011 X-RAY EXAM LUMBAR SPINE, MIN 4 VIEWS ([id number]) Ordered:05-Dec-2010 MRI OF LUMBAR SPINE W/ W/O CONTRAST ([id number]) Ordered:05-Dec-2010 US EXAM, BREAST(S) ([id number]) Ordered:05-Mar-2010 Follow up in 3 months Ordered:18-Dec-2009 [...] Date Description Value Details 07-Feb-2014 15:07 PROLACTIN ([id number]) Comments: Items in this order include: Draw Charge[i], CBC, Comprehensive Metabolic Panel, TSH, FSH, LH, PROLACTINTesting performed at: [facility], [address] [place] [address], [id number], Finish Repairer: Lonny Middleton D.O., MPH.brQuest PROLACTIN 11.5 ng/mL (Normal) Comments: Reference Range.br Females.br Non- 3.0-30.0.br 10.0-209.0.br Postmenopausal 2.0-20.0.br .br .br 15:07 LH ([id number]) Comments: Items in this order include: Draw Charge[i] , CBC, Comprehensive Metabolic Panel, TSH, FSH, LH, PROLACTINTesting performed at: [facility], [address] [place] [address], [id number], Finish Repairer: Lonny Middleton D.O., MPH.br[facility] LH 9.3 m[iU]/mL (Normal) Comments: Reference Range.brFollicular Phase 1.9-12.5.brMid-Cycle Peak 8.7-76.3.brLuteal Phase 0.5- 16.9.brPostmenopausal 10.0-54.7 15:07 FSH ([id number]) Comments: Items in this order include: Draw Charge[i] , CBC, Comprehensive Metabolic Panel, TSH, FSH, LH, PROLACTINTesting performed at: [facility], [address] [place] [address], [id number], Finish Repairer: Lonny Middleton D.O., MPH.brQuest FSH 4.4 m[iU]/mL (Normal) Comments: Reference Range.br .br Follicular Phase 2.5-10.2.br Mid-cycle Peak 3.1- 17.7.br Luteal Phase 1.5- 9.1.br Postmenopausal 23.0-116.3 .br 15:07 TSH (THYROID STIMULATING HORMONE) ([id number]) TSH 1.33 uIU/ml (Normal) Range: 0.34-5.60 15:07 CMP ([id number]) ALTI 96 U/L (Abnormal) Range: 12-78 AST [...] Range: 135-145 15:07 CBC-FEMALE- ORDER THIS ONE! ([id number]) manual diff Not Indicated (Normal) mpv 11.30 [...] 10*3/uL (Abnormal) Range: 4.50-10.50 15:07 Routine Venipuncture (49022) Draw Drawn (Normal) 15-Nov-2013 17:32 SED RATE ERYTHROCYTE ([id number]) Comments: Items in this order include: Draw Charge[i], Basic Metabolic Panel, C-Reactive Protein, CBC, Sed Rate ESR 4 mm/h (Normal) Range: 0-20 17:32 CBC-FEMALE- ORDER THIS ONE! ([id number]) manual diff Not Indicated (Normal) mpv 10.60 [...] 10*3/uL (Abnormal) Range: 4.50-10.50 17:32 C-REACTIVE PROTEIN (26339) CRP 1.82 mg/dL (Abnormal) Range: 0.00-0.30 17:32 [...] mmol/L (Normal) Range: 135-145 17:32 Routine Venipuncture (60817) Draw Drawn (Normal) 30-Sep-2013 14:25 URINALYSIS, AUTOMATED W/ MICRO ([facility]) ([id number]) Comments : Items in this order include: [...] Range: 135-145 14:25 CBC-FEMALE- ORDER THIS ONE! ([id number]) Comments: Results to [facility] Dr. Ricci .; Items in this order include : CBC, Basic Metabolic Panel, [phone].Results to [facility] Dr. Ricci Fax manual diff Not Indicated [...] 4.50-10.50 15:04 URINALYSIS, AUTOMATED W/ MICRO ([facility]) ([id number]) Comments : All lab needs to be faxed to [facility] at [phone]. Pre-op Dr. Won Ricci.; Items in this order include: Draw Charge[i], CBC, Basic Metabolic Panel, [phone]. Pre-op Dr. Won Ricci.[facility] yeast Present - Rare (Abnormal) [...] Range: 135-145 15:04 CBC-FEMALE- ORDER THIS ONE! ([id number]) Comments: Items in this order include: Draw [...] 10*3/uL (Normal) Range: 4.50-10.50 15:04 Routine Venipuncture (75119) Comments: Items in this order include : Draw Charge[i], CBC, Basic Metabolic Panel, Urinalysis Draw Drawn (Normal) 06-Mar-2011 11:27 [facility] Comments: Please fax all lab to Dr. Ricci at and [facility] at [phone]; Items in this order include: Draw Charge[i], CBC, Urinalysis, Basic Metabolic PanelChcrownpoint healthcare facilitydayana [facility] at [phone] fax all lab to Dr. Ricci at [phone] and [facility] 83 mg/dL (Normal) Range: [...] 135-145 11:27 URINALYSIS, AUTOMATED W/ MICRO ([facility]) ([id number]) Comments: Items in this order include: Draw [...] Range: Yellow 11:27 CBC-FEMALE- ORDER THIS ONE! ([id number]) Comments: Items in this order include: Draw [...] 10*3/uL (Normal) Range: 4.50-10.50 11:27 Routine Venipuncture (46100) Comments: Items in this order include : Draw Charge[i], CBC, Urinalysis, Basic Metabolic Panel Draw Drawn (Normal) Advance Directives Encounters Medication Entry - Lumbar back pain (724.2) [facility] On 20-Sep-2014 12:31 to 12:34 Office [...] Denies any pain at this time to area.[facility] On 14:43 to 17:01 Historical Summary [facility] On 11:48 to 11:52 Radiology Visit - Lumbar back pain (724.2) [facility] On 17-May-2014 16:35 to 16:37 Medication Entry [facility] On 03-May-2014 09:14 to 09:22 Medication Entry - Sore throat (462 | J02.9) [facility] On 25-Apr-2014 15:13 to 15:15 Office [...] sees Shama at [facility] also, [ADDITIONAL REASON] Amenorrhea, Primary - She is sexually active. For contraception she uses nothing. Symptoms include amenorrhea, while symptoms do not include pelvic pain , headache or visual disturbance. The patient describes this as unchanged. Associated symptoms include fatigue and hot flashes. Note for "Primry amenorrhea ": said she wants her hormones checked [facility] On 07-Feb-2014 14:16 to 15:30 Radiology Visit - Lumbar back pain (724.2) [facility] On 11-Jan-2014 16:20 to 16:23 Office [...] at times but is not painful or itchy.[facility] 15-Nov-2013 to 16-Nov-2013 Office Visit - [...] rash but it has gotten worse since starting.[facility] On 05-Nov-2013 15:56 to 16:53 Office Visit - Lumbar back pain (724.2) Encounter Reason: Post-Operative - Patient is 2 weeks (diskectomy) postop procedure. Patient's symptoms are improved compared to preoperative. Post operative pain has been moderate. Pain medications include: Hydrocodone and Ultram. Patient has been compliant with post operative instructions. Patient has shown improvement in their activity level (has gradually improved since surgery.).[facility] On 28-Oct-2013 14:32 to 15:50 Historical Summary [facility] On 27-Oct-2013 10:06 to 10:10 Medication Entry - UTI (lower urinary tract infection) (599.0 | N39.0) [facility] On 08-Oct-2013 15:55 to 15:57 Lab entry only - Lumbar back pain (724.2) [facility] On 08:47 to 08:49 Medication Entry - Dysesthesia affecting both sides of body (782.0 | R20.8) [facility] On 21-May-2013 13:35 to 13:38 Office [...] for "Anxiety": Taking Seroquel for sx. [facility] On 12-Apr-2013 14:00 to 14:49 Office [...] plans to recover at home with family.[facility] On 15:23 to 22:32 Medication Entry - Anxiety (300.00) [facility] On 14:52 to 14:55 Office Visit [...] not currently being treated for this problem.[facility] On 17:25 to 21:06 Lab entry only - Lumbar back pain (724.2) [facility] On 09-Jul-2011 09:57 to 10:02 Office [...] symptoms are relieved by laxatives (MOM and [employer]). The symptoms have been associated with abdominal distention, abdominal pain and hemorrhoids. [facility] On 01-Apr-2011 14:46 to 19:35 Medication Entry - Contraception (V25.9) [facility] On 25-Feb-2011 16:26 to 16:28 Lab entry only - Lumbar back pain (724.2) [facility] On 21-Feb-2011 15:35 to 15:44 Medication Entry - Lumbar back pain (724.2) [facility] On 03-Jan-2011 16:18 to 16:22 Medication Entry - Lumbar back pain (724.2) [facility] On 02-Jan-2011 17:57 to 18:06 Office [...] from hip and put in knee. ).[facility] On 05-Dec-2010 14:52 to 16:15 Office [...] breast. The last menstrual period began 01-17-2010.[facility] On 05-Mar-2010 13:56 to 23:43 Office Visit Encounter Reason: Obesity - The patient's appetite is normal. The patient's dietary intake is normal. The patient has gained 30 pounds (has bought treadmill and walks qod-30 min). The symptoms have been associated with fatigue , while the symptoms have not been associated with amenorrhea or cold intolerance.[facility] On 18-Dec-2009 10:37 to 11:12 Office Visit [facility] On 04-Dec-2009 13:30 to 13:44 Insurance * Christy Elder ; a guarantor * [facility] Medical Assistance Prog * [facility]
--- OUTSIDE RECORDS SUMMARY | 2016-06-23 23:26 | XMS REPORT | Continuity of Care Document ---
Author Author [facility] Organization [facility] Address [address] [place] [address] Phone Care Team Providers Care Cardiac/Vascular Sonographer Name Role Phone Eric Montes MD PP Nikki Kendrick Unavailable Won Ricci CP Susu Cruz Unavailable Unavailable Eric Montes MD Unavailable Unavailable Problems Name Dates Details Amenorrhea [...] X-ray Exam of Lower Spine, 2 Views ([id number]) Completed:17-May-2014 Comments : outside order from Dr. Ricci How to access health information online Completed:07-Feb-2014 X-ray Exam of Lower Spine, 2 Views ([id number]) Completed:11-Jan-2014 Comments : outside order from Dr. Ricci Referral to Dermatology Ordered:16-Nov-2013 DISCONTINUED - URINALYSIS, AUTOMATED W/ MICRO ([facility]) ([id number]) Completed:Jun-2011 X-RAY EXAM LUMBAR SPINE, MIN 4 VIEWS ([id number]) Ordered:05-Dec-2010 MRI OF LUMBAR SPINE W/ W/O CONTRAST ([id number]) Ordered:05-Dec-2010 US EXAM, BREAST(S) ([id number]) Ordered:05-Mar-2010 Follow up in 3 months Ordered:18-Dec-2009 [...] Date Description Value Details 07-Feb-2014 15:07 PROLACTIN ([id number]) Comments: Items in this order include: Draw Charge[i], CBC, Comprehensive Metabolic Panel, TSH, FSH, LH, PROLACTINTesting performed at: [facility], [address] [place] [address], [phone], Dye Colorist Dyer: Lonny Middleton D.O., MPH.[facility]Quest PROLACTIN 11.5 ng/mL (Normal) Comments: Reference Range.br Females.br Non- 3.0-30.0.br 10.0-209.0.br Postmenopausal 2.0-20.0.br .br .br 15:07 LH ([id number]) Comments: Items in this order include: Draw Charge[i] , CBC, Comprehensive Metabolic Panel, TSH, FSH, LH, PROLACTINTesting performed at: [facility], [address] [place], [address], Dye Colorist Dyer: Lonny Middleton D.O., MPH.[facility] LH 9.3 m[iU]/mL (Normal) Comments: Reference Range.brFollicular Phase 1.9-12.5.brMid-Cycle Peak 8.7-76.3.brLuteal Phase 0.5- 16.9.brPostmenopausal 10.0-54.7 15:07 FSH ([id number]) Comments: Items in this order include: Draw Charge[i] , CBC, Comprehensive Metabolic Panel, TSH, FSH, LH, PROLACTINTesting performed at: [facility], [address] [place], [address], Dye Colorist Dyer: Lonny Middleton D.O., MPH.[facility] FSH 4.4 m[iU]/mL (Normal) Comments: Reference Range.br .br Follicular Phase 2.5-10.2.br Mid-cycle Peak 3.1- 17.7.br Luteal Phase 1.5- 9.1.br Postmenopausal 23.0-116.3 .br 15:07 TSH (THYROID STIMULATING HORMONE) ([id number]) TSH 1.33 uIU/ml (Normal) Range: 0.34-5.60 15:07 CMP (07672) ALTI 96 U/L (Abnormal) Range: 12-78 AST [...] Range: 135-145 15:07 CBC-FEMALE- ORDER THIS ONE! (15205) manual diff Not Indicated (Normal) mpv 11.30 [...] 10*3/uL (Abnormal) Range: 4.50-10.50 15:07 Routine Venipuncture (59317) Draw Drawn (Normal) 15-Nov-2013 17:32 SED RATE ERYTHROCYTE ([id number]) Comments: Items in this order include: Draw Charge[i], Basic Metabolic Panel, C-Reactive Protein, CBC, Sed Rate ESR 4 mm/h (Normal) Range: 0-20 17:32 CBC-FEMALE- ORDER THIS ONE! ([id number]) manual diff Not Indicated (Normal) mpv 10.60 [...] 10*3/uL (Abnormal) Range: 4.50-10.50 17:32 C-REACTIVE PROTEIN (77345) CRP 1.82 mg/dL (Abnormal) Range: 0.00-0.30 17:32 [...] mmol/L (Normal) Range: 135-145 17:32 Routine Venipuncture (12382) Draw Drawn (Normal) 30-Sep-2013 14:25 URINALYSIS, AUTOMATED W/ MICRO ([facility]) ([id number]) Comments : Items in this order include: [...] Range: 135-145 14:25 CBC-FEMALE- ORDER THIS ONE! ([id number]) Comments: Results to [facility] Dr. Ricci .; Items in this order include : CBC, Basic Metabolic Panel, [id number].Results to [facility] Dr. Ricci Fax manual diff Not [...] 4.50-10.50 15:04 URINALYSIS, AUTOMATED W/ MICRO ([facility]) ([id number]) Comments : [facility] [phone]. Pre-op Dr. Won Ricci.; Items in this order include: Draw Charge[i], CBC, Basic Metabolic Panel, [phone]. Pre-op Dr. Won Ricci.All lab needs to be faxed to [facility] at U yeast Present - Rare (Abnormal) [...] Range: 135-145 15:04 CBC-FEMALE- ORDER THIS ONE! ([id number]) Comments: Items in this order include: Draw [...] 10*3/uL (Normal) Range: 4.50-10.50 15:04 Routine Venipuncture (20740) Comments: Items in this order include : Draw Charge[i], CBC, Basic Metabolic Panel, Urinalysis Draw Drawn (Normal) 06-Mar-2011 11:27 [facility] Comments: Please fax all lab to Dr. Ricci at [phone] [facility] [facility] at [phone]; Items in this order include: Draw Charge[i], CBC, Urinalysis, Basic Met[facility] PanelC[facility]idal[facility] at [phone] fax all lab to Dr. Ricci at [phone] and [facility] 83 mg/dL (Normal) Range: [...] 135-145 11:27 URINALYSIS, AUTOMATED W/ MICRO ([facility]) ([id number]) Comments: Items in this order include: Draw [...] Range: Yellow 11:27 CBC-FEMALE- ORDER THIS ONE! (23024) Comments: Items in this order include: Draw [...] 10*3/uL (Normal) Range: 4.50-10.50 11:27 Routine Venipuncture (06593) Comments: Items in this order include : Draw Charge[i], CBC, Urinalysis, Basic Metabolic Panel Draw Drawn (Normal) Advance Directives Encounters Office Visit - Mass of right foot [...] Denies any pain at this time to area.[facility] On 14:43 to 17:01 Historical Summary [facility] On 11:48 to 11:52 Radiology Visit - Lumbar back pain (724.2) [facility] On 17-May-2014 16:35 to 16:37 Medication Entry [facility] On [...] Seroquel for sx., sees Shama at [facility] also, [ADDITIONAL REASON] Amenorrhea, Primary - She is sexually active. For contraception she uses nothing. Symptoms include amenorrhea, while symptoms do not include pelvic pain , headache or visual disturbance. The patient describes this as unchanged. Associated symptoms include fatigue and hot flashes. Note for "Primry amenorrhea ": said she wants her hormones checked [facility] On 07-Feb-2014 14:16 to 15:30 Radiology Visit [...] [facility] On 12-Apr-2013 14:00 to 14:49 Office Visit [...] symptoms are relieved by laxatives (MOM and [employer]). The symptoms have been associated with [...] Christy Elder ; a guarantor * [facility] Medical Assistance Prog * [facility]
--- OUTSIDE RECORDS SUMMARY | 2016-06-23 23:27 | XMS REPORT | Continuity of Care Document ---
Author Author [facility] Organization [facility] Address [address] [place] [address] Phone Care Team Providers Care Health Club Manager Name Role Phone Eric Montes MD PP [...] Ordered :01-Apr-2013 Eric Montes MD* Started 01-Apr-2013 ActiveMETHOCARBAMOL, 750MG (Oral Tablet) - Historical Medication [...] Details DISCONTINUED - URINALYSIS, AUTOMATED W/ MICRO ([facility]) ([id number]) Completed:Jun-2011 X-RAY EXAM LUMBAR SPINE, MIN 4 VIEWS ([id number]) Ordered:05-Dec-2010 MRI OF LUMBAR SPINE W/ W/O CONTRAST ([id number]) Ordered:05-Dec-2010 US EXAM, BREAST(S) ([id number]) Ordered:05-Mar-2010 Follow up in 3 months Ordered:18-Dec-2009 [...] 31.79 kg/m2 Body Surface Area Calculated 2.06 -Mar-2011 14:46 Temperature 98.3 f Comments: Method: Temporal [...] Details 15:04 URINALYSIS, AUTOMATED W/ MICRO ([facility]) ([id number]) Comments : All lab needs to be faxed to [facility] at [phone]. Pre-op Dr. Won Ricci.; Items in this order include: Draw Charge[i], CBC, Basic Metabolic Panel, [phone]. Pre-op Dr. Won Ricci.All lab needs to [...] Range: 135-145=Normal 15:04 CBC-FEMALE- ORDER THIS ONE! ([id number]) Comments: Items in this order include: Draw [...] 9.41 K/uL Range: 4.50-10.50=Normal 15:04 Routine Venipuncture ([id number]) Comments: Items in this order include : Draw Charge[i], CBC, Basic Metabolic Panel, Urinalysis Draw Drawn Normal 06-Mar-2011 11:27 [facility] Comments: Please fax all lab to Dr. Ricci at [phone] [facility] [address] [facility] at [phone]; Items in this order include: Draw Charge[i], CBC, Urinalysis, Basic Metabolic PanelChbayhealth [facility] at [phone] fax all lab to Dr. Ricci at [phone] and [facility] 83 mg/dL Range: 70-110=Normal [...] Range: 135-145=Normal 11:27 URINALYSIS, AUTOMATED W/ MICRO ([facility]) ([id number]) Comments: Items in this order include: Draw [...] Range: Yellow=Normal 11:27 CBC-FEMALE- ORDER THIS ONE! ([id number]) Comments: Items in this order include: Draw [...] 7.61 K/uL Range: 4.50-10.50=Normal 11:27 Routine Venipuncture (51756) Comments: Items in this order include : Draw Charge[i], CBC, Urinalysis, Basic Metabolic Panel Draw Drawn Normal Advance Directives No Advance Directives available. Encounters Review Encounter Reason: Foot Problem - Symptoms include foot pain (both heels), foot swelling and foot numbness, while symptoms do not include foot skin lesions. Onset was 2 month(s) ago. The patient describes symptoms as worsening. Symptoms are exacerbated by walking and standing. Current treatment includes opioid analgesics., [ADDITIONAL REASON] Numbness - The onset of the numbness has been gradual and has been occurring for 6 months. The course has been increasing. The numbness is described as moderate (both hands get numb and has swelling. Nighttime is the worst.). [facility] On 12-Apr-2013 14:00 Office Visit - Lumbar [...] patient plans to recover at home with family.[facility] On 15:23 Medication Entry - Anxiety [facility] On 14:52 Office Visit - Anxiety [...] is not currently being treated for this problem.[facility] On 17:25 Lab entry only - Lumbar back pain [facility] On 09-Jul-2011 09:57 Office Visit - [...] symptoms are relieved by laxatives (MOM and [employer]). The symptoms have been associated with abdominal distention, abdominal pain and hemorrhoids. [facility] On 01-Apr-2011 14:46 Medication Entry - Contraception [facility] On 25-Feb-2011 16:26 Lab entry only - Lumbar back pain [facility] On 21-Feb-2011 15:35 Medication Entry - Lumbar back pain [facility] On 03-Jan-2011 16:18 Medication Entry - Lumbar back pain [facility] On 02-Jan-2011 17:57 Office Visit - [...] removed from hip and put in knee. ).[facility] On 05-Dec-2010 14:52 Office Visit - [...] the breast. The last menstrual period began 01-17-2010.[facility] On 05-Mar-2010 13:56 Office Visit Encounter Reason: Obesity - The patient's appetite is normal. The patient's dietary intake is normal. The patient has gained 30 pounds (has bought treadmill and walks qod-30 min). The symptoms have been associated with fatigue , while the symptoms have not been associated with amenorrhea or cold intolerance.[facility] On 18-Dec-2009 10:37 Office Visit [facility] On 04-Dec-2009 13:30
--- OUTSIDE RECORDS SUMMARY | 2016-06-23 23:27 | XMS REPORT | Continuity of Care Document ---
Author Author [facility] Organization [facility] Address Unknown Phone Unavailable Allergies Active Description Code Type Severity Reaction Onset Reported/Identified Relationship to Patient Clinical Status Yes morphine Drug Allergy N/A QUIT BREATHING 03/19/2011 Yes No Known Food Allergies Food Allergy N/A N/A 03/19/2011 Yes Penicillins Drug Allergy N/A VEIN GOT BRIGHT RED 03/19/2011 Yes Toradol Drug Allergy N/A IRRITABLE 03/19/2011 Medications Problems Procedures Results Encounters ACCT No. Visit Date/Time Discharge Status Pt. Type Provider Facility Loc./Unit Complaint [id number] 01/19/2013 13:43:00 2012 23:59:59 [facility]LS Emergency Other Doctor, [facility] on [address] [place]ERTSON
--- OUTSIDE RECORDS SUMMARY | 2016-06-23 23:28 | XMS REPORT | Continuity of Care Document ---
Author Author [facility] Organization [facility] Address [address] [place] [address] Phone Care Team Providers Care Front Desk Supervisor Name Role Phone Eric Montes MD [...] X-ray Exam of Lower Spine, 2 Views ([id number]) Completed:17-May-2014 Comments : outside order from Dr. Ricci How to access health information online Completed:07-Feb-2014 X-ray Exam of Lower Spine, 2 Views ([id number]) Completed:11-Jan-2014 Comments : outside order from Dr. Ricci Referral to Dermatology Ordered:16-Nov-2013 DISCONTINUED - URINALYSIS, AUTOMATED W/ MICRO ([facility]) ([id number]) Completed:Jun-2011 X-RAY EXAM LUMBAR SPINE, MIN 4 VIEWS ([id number]) Ordered:05-Dec-2010 MRI OF LUMBAR SPINE W/ W/O CONTRAST ([id number]) Ordered:05-Dec-2010 US EXAM, BREAST(S) ([id number]) Ordered:05-Mar-2010 Follow up in 3 months Ordered:18-Dec-2009 [...] Date Description Value Details 07-Feb-2014 15:07 PROLACTIN ([id number]) Comments: Items in this order include: Draw Charge[i], CBC, Comprehensive Metabolic Panel, TSH, FSH, LH, PROLACTINTesting performed at: [email or web address], [address] [place] [address], [phone], Director Of Business Services: Lonny Middleton D.O., MPH.[facility] PROLACTIN 11.5 ng/mL (Normal) Comments: Reference Range.br Females.br Non- 3.0-30.0.br 10.0-209.0.br Postmenopausal 2.0-20.0.br .br .br 15:07 LH ([id number]) Comments: Items in this order include: Draw Charge[i] , CBC, Comprehensive Metabolic Panel, TSH, FSH, LH, PROLACTINTesting performed at: [email or web address], [address] [place] [address], [phone], Director Of Business Services: Lonny Middleton D.O., MPH.[facility] LH 9.3 m[iU]/mL (Normal) Comments: Reference Range.brFollicular Phase 1.9-12.5.brMid-Cycle Peak 8.7-76.3.brLuteal Phase 0.5- 16.9.brPostmenopausal 10.0-54.7 15:07 FSH ([id number]) Comments: Items in this order include: Draw Charge[i] , CBC, Comprehensive Metabolic Panel, TSH, FSH, LH, PROLACTINTesting performed at: [facility], [address] [place] [address], [phone], Director Of Business Services: Lonny Middleton D.O., MPH.[facility] FSH 4.4 m[iU]/mL (Normal) Comments: Reference Range.br .br Follicular Phase 2.5-10.2.br Mid-cycle Peak 3.1- 17.7.br Luteal Phase 1.5- 9.1.br Postmenopausal 23.0-116.3 .br 15:07 TSH (THYROID STIMULATING HORMONE) ([id number]) TSH 1.33 uIU/ml (Normal) Range: 0.34-5.60 15:07 CMP ([id number]) ALTI 96 U/L (Abnormal) Range: 12-78 AST [...] Range: 135-145 15:07 CBC-FEMALE- ORDER THIS ONE! ([id number]) manual diff Not Indicated (Normal) mpv 11.30 [...] 10*3/uL (Abnormal) Range: 4.50-10.50 15:07 Routine Venipuncture (30660) Draw Drawn (Normal) 15-Nov-2013 17:32 SED RATE ERYTHROCYTE ([id number]) Comments: Items in this order include: Draw Charge[i], Basic Metabolic Panel, C-Reactive Protein, CBC, Sed Rate ESR 4 mm/h (Normal) Range: 0-20 17:32 CBC-FEMALE- ORDER THIS ONE! ([id number]) manual diff Not Indicated (Normal) mpv 10.60 [...] 10*3/uL (Abnormal) Range: 4.50-10.50 17:32 C-REACTIVE PROTEIN (10375) CRP 1.82 mg/dL (Abnormal) Range: 0.00-0.30 17:32 [...] mmol/L (Normal) Range: 135-145 17:32 Routine Venipuncture (40051) Draw Drawn (Normal) 30-Sep-2013 14:25 URINALYSIS, AUTOMATED W/ MICRO ([facility]) ([id number]) Comments : Items in this order include: [...] Range: 135-145 14:25 CBC-FEMALE- ORDER THIS ONE! ([id number]) Comments: Results to [facility] Dr. Ricci .; Items in this order include : CBC, Basic Metabolic Panel, [id number].Results to [facility] Dr. Ricci Fax manual diff Not [...] 4.50-10.50 15:04 URINALYSIS, AUTOMATED W/ MICRO ([facility]) ([id number]) Comments : All lab needs to be faxed to [facility] at [phone]. Pre-op Dr. Won Ricci.; Items in this order include: Draw Charge[i], CBC, Basic Metabolic Panel, [id number]. Pre-op Dr. Won Ricci.All lab needs to be faxed to [facility] at U yeast Present - Rare (Abnormal) [...] Range: 135-145 15:04 CBC-FEMALE- ORDER THIS ONE! ([id number]) Comments: Items in this order include: Draw [...] 10*3/uL (Normal) Range: 4.50-10.50 15:04 Routine Venipuncture (94118) Comments: Items in this order include : Draw Charge[i], CBC, Basic Metabolic Panel, Urinalysis Draw Drawn (Normal) 06-Mar-2011 11:27 BMP Comments: Please fax all lab to Dr. Ricci at and [facility] at [phone]; Items in this order include: Draw Charge[i], CBC, Urinalysis, Basic Metabolic PanelChlea regional [facility] center[facility] at [phone] fax all lab to Dr. Ricci at [phone] and Via GLU 83 mg/dL (Normal) Range: [...] 135-145 11:27 URINALYSIS, AUTOMATED W/ MICRO ([facility]) ([id number]) Comments: Items in this order include: Draw [...] Range: Yellow 11:27 CBC-FEMALE- ORDER THIS ONE! ([id number]) Comments: Items in this order include: Draw [...] 10*3/uL (Normal) Range: 4.50-10.50 11:27 Routine Venipuncture (16383) Comments: Items in this order include : Draw Charge[i], CBC, Urinalysis, Basic Metabolic Panel Draw Drawn (Normal) Advance Directives Encounters Radiology Visit - Lumbar back pain (724.2) [facility] On 17-May-2014 16:35 to 16:37 Medication Entry [facility] On 03-May-2014 09:14 to 09:22 Medication Entry - Sore throat (462 | J02.9) [facility] On 25-Apr-2014 15:13 to 15:15 Office [...] Taking Seroquel for sx., sees Shama at [facility] also, [ADDITIONAL REASON] Amenorrhea, Primary - She is sexually active. For contraception she uses nothing. Symptoms include amenorrhea, while symptoms do not include pelvic pain , headache or visual disturbance. The patient describes this as unchanged. Associated symptoms include fatigue and hot flashes. Note for "Primry amenorrhea ": said she wants her hormones checked [facility] On 07-Feb-2014 14:16 to 15:30 Radiology Visit - Lumbar back pain (724.2) [facility] On 11-Jan-2014 16:20 to 16:23 Office [...] times but is not painful or itchy.[facility] 15-Nov-2013 to 16-Nov-2013 Office Visit - [...] but it has gotten worse since starting.[facility] On 05-Nov-2013 15:56 to 16:53 Office [...] activity level (has gradually improved since surgery.).[facility] On 28-Oct-2013 14:32 to 15:50 Historical Summary [facility] On 27-Oct-2013 10:06 to 10:10 Medication Entry - UTI (lower urinary tract infection) (599.0 | N39.0) [facility] On 08-Oct-2013 15:55 to 15:57 Lab entry only - Lumbar back pain (724.2) [facility] On 08:47 to 08:49 Medication Entry - Dysesthesia affecting both sides of body (782.0 | R20.8) [facility] On 21-May-2013 13:35 to 13:38 Office [...] for "Anxiety": Taking Seroquel for sx. [facility] On 12-Apr-2013 14:00 to 14:49 Office Visit [...] plans to recover at home with family.[facility] On 15:23 to 22:32 Medication Entry - Anxiety (300.00) [facility] On 14:52 to 14:55 Office Visit [...] not currently being treated for this problem.[facility] On 17:25 to 21:06 Lab entry only - Lumbar back pain (724.2) [facility] On 09-Jul-2011 09:57 to 10:02 Office [...] abdominal distention, abdominal pain and hemorrhoids. [facility] On 01-Apr-2011 14:46 to 19:35 Medication Entry - Contraception (V25.9) [facility] On 25-Feb-2011 16:26 to 16:28 Lab entry only - Lumbar back pain (724.2) [facility] On 21-Feb-2011 15:35 to 15:44 Medication Entry - Lumbar back pain (724.2) [facility] On 03-Jan-2011 16:18 to 16:22 Medication Entry - Lumbar back pain (724.2) [facility] On 02-Jan-2011 17:57 to 18:06 Office [...] from hip and put in knee. ).[facility] On 05-Dec-2010 14:52 to 16:15 Office [...] breast. The last menstrual period began 01-17-2010.[facility] On 05-Mar-2010 13:56 to 23:43 Office Visit Encounter Reason: Obesity - The patient's appetite is normal. The patient's dietary intake is normal. The patient has gained 30 pounds (has bought treadmill and walks qod-30 min). The symptoms have been associated with fatigue , while the symptoms have not been associated with amenorrhea or cold intolerance.[facility] On 18-Dec-2009 10:37 to 11:12 Office Visit [facility] On 04-Dec-2009 13:30 to 13:44 Insurance * Chrsity Elder ; a guarantor * [facility] Medical Assistance Prog * [facility]
--- OUTSIDE RECORDS SUMMARY | 2016-06-23 23:29 | XMS REPORT | Continuity of Care Document ---
Author Author [facility] Organization [facility] Address [address] [place] [address] Phone Care Team Providers Care Human Capital Consultant Name Role Phone Eric Montes MD PP [...] Start 16-Nov-2014 Active LYRICA, 75MG (Oral Capsule) two two times daily (75 MG) Active [...] * Quantity: 30 {Tablet} Refills: 6 Ordered:02-Dec-2014 Erci Montes MD* Start 02-Dec-2014 Active ABILIFY, 10MG [...] 28-Oct-2013 Inactive BENZTROPINE MESYLATE, 1MG (Oral Tablet) 1/2 tab two times daily (1 MG) Inactive CELEXA, 20MG (Oral Tablet) 1/2 (one half) Tablet 1/2 tab daily x6d, then 1 daily for 0 days * Quantity: 30 {Tablet} Refills: 12 Ordered: Sandy Benitez * Start End Inactive CELEXA, 40MG (Oral Tablet) 1 Tablet daily for 0 days * Quantity: 30 {Tablet} Refills: 3 Ordered: Anthony Susu * Start 08-Dec-2013 End Inactive CLOMID, 50MG [...] X-ray Exam of Lower Spine, 2 Views ([id number]) Completed:17-May-2014 Comments : outside order from Dr. Ricci How to access health information online Completed:07-Feb-2014 X-ray Exam of Lower Spine, 2 Views ([id number]) Completed:11-Jan-2014 Comments : outside order from Dr. Ricci Referral to Dermatology Ordered:16-Nov-2013 DISCONTINUED - URINALYSIS, AUTOMATED W/ MICRO ([facility]) ([id number]) Completed:Jun-2011 X-RAY EXAM LUMBAR SPINE, MIN 4 VIEWS ([id number]) Ordered:05-Dec-2010 MRI OF LUMBAR SPINE W/ W/O CONTRAST ([id number]) Ordered:05-Dec-2010 US EXAM, BREAST(S) ([id number]) Ordered:05-Mar-2010 Follow up in 3 months Ordered:18-Dec-2009 [...] Active Vital Signs Date Test Result Details 20-Feb-2015 16:12 Pulse 84 /min Comments: Pattern: [...] Date Description Value Details 07-Feb-2014 15:07 PROLACTIN ([id number]) Comments: Items in this order include: Draw Charge[i], CBC, Comprehensive Metabolic Panel, TSH, FSH, LH, PROLACTINTesting performed at: [facility], [address] [place] [address], [phone], Residence Leasing Agent: Lonny Middleton D.O., MPH.[facility] PROLACTIN 11.5 ng/mL (Normal) Comments: Reference Range.br Females.br Non- 3.0-30.0.br 10.0-209.0.br Postmenopausal 2.0-20.0.br .br .br 15:07 LH ([id number]) Comments: Items in this order include: Draw Charge[i] , CBC, Comprehensive Metabolic Panel, TSH, FSH, LH, PROLACTINTesting performed at: [facility], [address] [place] [address], [phone], Residence Leasing Agent: Lonny Middleton D.O., MPH.[facility] LH 9.3 m[iU]/mL (Normal) Comments: Reference Range.brFollicular Phase 1.9-12.5.brMid-Cycle Peak 8.7-76.3.brLuteal Phase 0.5- 16.9.brPostmenopausal 10.0-54.7 15:07 FSH ([id number]) Comments: Items in this order include: Draw Charge[i] , CBC, Comprehensive Metabolic Panel, TSH, FSH, LH, PROLACTINTesting performed at: [facility], [address] [place], [address], Residence Leasing Agent: Lonny Middleton D.O., MPH.[facility] FSH 4.4 m[iU]/mL (Normal) Comments: Reference Range.br .br Follicular Phase 2.5-10.2.br Mid-cycle Peak 3.1- 17.7.br Luteal Phase 1.5- 9.1.br Postmenopausal 23.0-116.3 .br 15:07 TSH (THYROID STIMULATING HORMONE) ([id number]) TSH 1.33 uIU/ml (Normal) Range: 0.34-5.60 15:07 CMP (62704) ALTI 96 U/L (Abnormal) Range: 12-78 AST [...] Range: 135-145 15:07 CBC-FEMALE- ORDER THIS ONE! (08135) manual diff Not Indicated (Normal) mpv 11.30 [...] 10*3/uL (Abnormal) Range: 4.50-10.50 15:07 Routine Venipuncture (84306) Draw Drawn (Normal) 15-Nov-2013 17:32 SED RATE ERYTHROCYTE ([id number]) Comments: Items in this order include: Draw Charge[i], Basic Metabolic Panel, C-Reactive Protein, CBC, Sed Rate ESR 4 mm/h (Normal) Range: 0-20 17:32 CBC-FEMALE- ORDER THIS ONE! ([id number]) manual diff Not Indicated (Normal) mpv 10.60 [...] 10*3/uL (Abnormal) Range: 4.50-10.50 17:32 C-REACTIVE PROTEIN ([id number]) CRP 1.82 mg/dL (Abnormal) Range: 0.00-0.30 17:32 [...] mmol/L (Normal) Range: 135-145 17:32 Routine Venipuncture (59599) Draw Drawn (Normal) 30-Sep-2013 14:25 URINALYSIS, AUTOMATED W/ MICRO ([facility]) ([id number]) Comments : Items in this order include: [...] Range: 135-145 14:25 CBC-FEMALE- ORDER THIS ONE! ([id number]) Comments: Results to [facility] Dr. Ricci .; Items in this order include : CBC, Basic Metabolic Panel, [id number].Results to [facility] Dr. Ricci Fax [...] 4.50-10.50 15:04 URINALYSIS, AUTOMATED W/ MICRO ([facility]) ([id number]) Comments : All lab needs to be faxed to [facility] at [phone]. Pre-op Dr. Won Ricci.; Items in this order include: Draw Charge[i], CBC, Basic Metabolic Panel, [id number]. Pre-op Dr. Won Ricci.All lab needs to [...] Range: 135-145 15:04 CBC-FEMALE- ORDER THIS ONE! ([id number]) Comments: Items in this order include: Draw [...] 10*3/uL (Normal) Range: 4.50-10.50 15:04 Routine Venipuncture (17612) Comments: Items in this order include : Draw Charge[i], CBC, Basic Metabolic Panel, Urinalysis Draw Drawn (Normal) 06-Mar-2011 11:27 [facility] Comments: Please fax all lab to Dr. Ricci at [phone] [facility] [phone]; Items in this order include: Draw Charge[i], CBC, Urinalysis, Basic Metabolic PanelChCameron [facility] at [phone] fax all lab to Dr. Ricci at [phone] and Via GLU 83 mg/dL (Normal) Range: [...] 135-145 11:27 URINALYSIS, AUTOMATED W/ MICRO ([facility]) ([id number]) Comments: Items in this order include: Draw [...] Range: Yellow 11:27 CBC-FEMALE- ORDER THIS ONE! ([id number]) Comments: Items in this order include: Draw [...] 10*3/uL (Normal) Range: 4.50-10.50 11:27 Routine Venipuncture (27080) Comments: Items in this order include : Draw Charge[i], CBC, Urinalysis, Basic Metabolic Panel Draw Drawn (Normal) Treatment Plan * URINALYSIS, AUTOMATED W/ MICRO ([facility]) ([id number]); Ordered: 02/20/2015 Advance Directives Encounters Nurse Visit (Non-billable) - Dysuria (788.1 | R30.0) [facility] On 20-Feb-2015 16:01 to 16:38 Nurse Visit (Non-billable) [facility] On 17-Jan-2015 11:29 to 11:31 [...] unhealthy food choices. The patient is sedentary. [facility] On 19-Dec-2014 16:15 to 20:43 Medication Entry [facility] On 28-Nov-2014 16:29 to 16:32 [...] (Stopped Celexa. Didn't think it was helping.). [facility] On 16-Nov-2014 14:05 to 14:59 Medication Entry - Lumbar back pain (724.2) [facility] On 20-Sep-2014 12:31 to 12:34 [...] Denies any pain at this time to area.[facility] On 14:43 to 17:01 Historical Summary [facility] On 11:48 to 11:52 Radiology Visit - Lumbar back pain (724.2) [facility] On 17-May-2014 16:35 to 16:37 Medication Entry [facility] On 03-May-2014 09:14 to 09:22 Medication Entry - Sore throat (462 | J02.9) [facility] On 25-Apr-2014 15:13 to 15:15 [...] Taking Seroquel for sx., sees Shama at [facility] also, [ADDITIONAL REASON] Amenorrhea, Primary - She is sexually active. For contraception she uses nothing. Symptoms include amenorrhea, while symptoms do not include pelvic pain , headache or visual disturbance. The patient describes this as unchanged. Associated symptoms include fatigue and hot flashes. Note for "Primry amenorrhea ": said she wants her hormones checked [facility] On 07-Feb-2014 14:16 to 15:30 Radiology Visit - Lumbar back pain (724.2) [facility] On 11-Jan-2014 16:20 to 16:23 [...] at times but is not painful or itchy.[facility] 15-Nov-2013 to 16-Nov-2013 Office Visit [...] rash but it has gotten worse since starting.[facility] On 05-Nov-2013 15:56 to 16:53 [...] activity level (has gradually improved since surgery.).[facility] On 28-Oct-2013 14:32 to 15:50 Historical Summary [facility] On 27-Oct-2013 10:06 to 10:10 Medication Entry - UTI (lower urinary tract infection) (599.0 | N39.0) [facility] On 08-Oct-2013 15:55 to 15:57 Lab entry only - Lumbar back pain (724.2) [facility] On 08:47 to 08:49 Medication Entry - Dysesthesia affecting both sides of body (782.0 | R20.8) [facility] On 21-May-2013 13:35 to 13:38 [...] Note for "Anxiety": Taking Seroquel for sx. [facility] On 12-Apr-2013 14:00 to 14:49 Office [...] plans to recover at home with family.[facility] On 15:23 to 22:32 Medication Entry - Anxiety (300.00) [facility] On 14:52 to 14:55 Office [...] not currently being treated for this problem.[facility] On 17:25 to 21:06 Lab entry only - Lumbar back pain (724.2) [facility] On 09-Jul-2011 09:57 to 10:02 [...] symptoms are relieved by laxatives (M[employer] and [employer]). The symptoms have been associated with abdominal distention, abdominal pain and hemorrhoids. [facility] On 01-Apr-2011 14:46 to 19:35 Medication Entry - Contraception (V25.9) [facility] On 25-Feb-2011 16:26 to 16:28 Lab entry only - Lumbar back pain (724.2) [facility] On 21-Feb-2011 15:35 to 15:44 Medication Entry - Lumbar back pain (724.2) [facility] On 03-Jan-2011 16:18 to 16:22 Medication Entry - Lumbar back pain (724.2) [facility] On 02-Jan-2011 17:57 to 18:06 [...] from hip and put in knee. ).[facility] On 05-Dec-2010 14:52 to 16:15 [...] breast. The last menstrual period began 01-17-2010.[facility] On 05-Mar-2010 13:56 to 23:43 Office Visit Encounter Reason: Obesity - The patient's appetite is normal. The patient's dietary intake is normal. The patient has gained 30 pounds (has bought treadmill and walks qod-30 min). The symptoms have been associated with fatigue , while the symptoms have not been associated with amenorrhea or cold intolerance.[facility] On 18-Dec-2009 10:37 to 11:12 Office Visit [facility] On 04-Dec-2009 13:30 to 13:44 Insurance * Christy Elder ; a guarantor * [facility] Medical Assistance Prog * [facility]
--- OUTSIDE RECORDS SUMMARY | 2016-06-23 23:31 | XMS REPORT | Continuity of Care Document ---
Author Author [facility] Organization [facility] Address [address] [place] [address] Phone Care Team Providers Care Gear Grinding Machine Operator Name Role Phone Eric Montes [...] X-ray Exam of Lower Spine, 2 Views ([id number]) Completed:17-May-2014 Comments : outside order from Dr. Ricci How to access health information online Completed:07-Feb-2014 X-ray Exam of Lower Spine, 2 Views ([id number]) Completed:11-Jan-2014 Comments : outside order from Dr. Ricci Referral to Dermatology Ordered:16-Nov-2013 DISCONTINUED - URINALYSIS, AUTOMATED W/ MICRO ([facility]) ([id number]) Completed:Jun-2011 X-RAY EXAM LUMBAR SPINE, MIN 4 VIEWS ([id number]) Ordered:05-Dec-2010 MRI OF LUMBAR SPINE W/ W/O CONTRAST ([id number]) Ordered:05-Dec-2010 US EXAM, BREAST(S) ([id number]) Ordered:05-Mar-2010 Follow up in 3 months Ordered:18-Dec-2009 [...] Active Vital Signs Date Test Result Details 15-May-2015 12:39 Pulse 96 /min Comments: Pattern: [...] Details 21-Apr-2015 21:47 SHAVE SKIN LESION SINGLE ([id number]) Comments: Informed consent obtained. Lesion prepped with Hibiclens. Anesthesia with xylocaine + epi+ NaHCO3. Lesion shaved off w/o complications. Hemostasis obtained with cautery. Wound dressed and care instructions given. Specimen sent for pathology. Diameter 1.1cm Final 20-Feb-2015 16:12 URINALYSIS, AUTOMATED W/ MICRO ([facility]) ([id number]) Comments: Items in this order include: UrinalysisAntibiotics? [...] Yellow (Normal) Range: Yellow -Jan-2014 15:07 PROLACTIN ([id number]) Comments: Items in this order include: Draw Charge[i], CBC, Comprehensive Metabolic Panel, TSH, FSH, LH, PROLACTINTesting performed at: [facility], [address] [place], [address], Public Address Systems Mechanic: Lonny Middleton D.O., MPH.[employer] PROLACTIN 11.5 ng/mL (Normal) Comments: Reference Range.br Females.br Non- 3.0-30.0.br 10.0-209.0.br Postmenopausal 2.0-20.0.br .br .br 15:07 LH ([id number]) Comments: Items in this order include: Draw Charge[i] , CBC, Comprehensive Metabolic Panel, TSH, FSH, LH, PROLACTINTesting performed at: [id number], [address] [place], [address], Public Address Systems Mechanic: Lonny Middleton D.O., MPH.[facility] LH 9.3 m[iU]/mL (Normal) Comments: Reference Range.brFollicular Phase 1.9-12.5.brMid-Cycle Peak 8.7-76.3.brLuteal Phase 0.5- 16.9.brPostmenopausal 10.0-54.7 15:07 FSH ([id number]) Comments: Items in this order include: Draw Charge[i] , CBC, Comprehensive Metabolic Panel, TSH, FSH, LH, PROLACTINTesting performed at: [facility], [address] [place], [address], Public Address Systems Mechanic: Lonny Middleton D.O., MPH.[facility] FSH 4.4 m[iU]/mL (Normal) Comments: Reference Range.br .br Follicular Phase 2.5-10.2.br Mid-cycle Peak 3.1- 17.7.br Luteal Phase 1.5- 9.1.br Postmenopausal 23.0-116.3 .br 15:07 TSH (THYROID STIMULATING HORMONE) ([id number]) TSH 1.33 uIU/ml (Normal) Range: 0.34-5.60 15:07 CMP (90072) ALTI 96 U/L (Abnormal) Range: 12-78 AST [...] Range: 135-145 15:07 CBC-FEMALE- ORDER THIS ONE! ([id number]) manual diff Not Indicated (Normal) mpv 11.30 [...] 10*3/uL (Abnormal) Range: 4.50-10.50 15:07 Routine Venipuncture (84024) Draw Drawn (Normal) 15-Nov-2013 17:32 SED RATE ERYTHROCYTE ([id number]) Comments: Items in this order include: Draw Charge[i], Basic Metabolic Panel, C-Reactive Protein, CBC, Sed Rate ESR 4 mm/h (Normal) Range: 0-20 17:32 CBC-FEMALE- ORDER THIS ONE! ([id number]) manual diff Not Indicated (Normal) mpv 10.60 [...] 10*3/uL (Abnormal) Range: 4.50-10.50 17:32 C-REACTIVE PROTEIN ([id number]) CRP 1.82 mg/dL (Abnormal) Range: 0.00-0.30 17:32 [...] mmol/L (Normal) Range: 135-145 17:32 Routine Venipuncture (18556) Draw Drawn (Normal) 30-Sep-2013 14:25 URINALYSIS, AUTOMATED W/ MICRO ([facility]) ([id number]) Comments : Items in this order include: [...] Range: 135-145 14:25 CBC-FEMALE- ORDER THIS ONE! ([id number]) Comments: Results to [facility] Dr. Ricci .; Items in this order include : CBC, Basic Metabolic Panel, [id number].Results to [facility] Dr. Ricci Fax manual diff Not Indicated [...] Range: 4.50-10.50 15:04 URINALYSIS, AUTOMATED W/ MICRO ([facility]) ([id number]) Comments : [facility] at [phone]. Pre-op Dr. Won Ricci.; Items in this order include: Draw Charge[i], CBC, Basic Metabolic Panel, [phone]. Pre-op Dr. Won Ricci.All lab needs to be faxed to [facility] at [facility] yeast Present - Rare [...] Range: 135-145 15:04 CBC-FEMALE- ORDER THIS ONE! ([id number]) Comments: Items in this order include: Draw [...] 10*3/uL (Normal) Range: 4.50-10.50 15:04 Routine Venipuncture (25276) Comments: Items in this order include : Draw Charge[i], CBC, Basic Metabolic Panel, Urinalysis Draw Drawn (Normal) 06-Mar-2011 11:27 [facility] Comments: Please fax all lab to Dr. Ricci at [phone] and [facility] at [phone]; Items in this order include: Draw Charge[i], CBC, Urinalysis, [facility] at [phone] fax all lab to Dr. Ricci at [phone] and [facility] GLU 83 mg/dL (Normal) Range: [...] Range: 135-145 11:27 URINALYSIS, AUTOMATED W/ MICRO ([facility]) ([id number]) Comments: Items in this order include: Draw [...] Range: Yellow 11:27 CBC-FEMALE- ORDER THIS ONE! ([id number]) Comments: Items in this order include: Draw [...] 10*3/uL (Normal) Range: 4.50-10.50 11:27 Routine Venipuncture (04451) Comments: Items in this order include : Draw Charge[i], CBC, Urinalysis, Basic Metabolic Panel Draw Drawn (Normal) Advance Directives Encounters Review [facility] On 15-May-2015 12:[address] [facility] On 15-May-2015 12:29 to 12:41 Medication Entry - Vaginal infection (616.10 | N76.0) [facility] On 25-Apr-2015 11:21 to 11:23 Office [...] patient describes this as worsening (now bleeding routinely).[facility] On 21-Apr-2015 08:54 to 21:[address] [facility] On 18-Apr-2015 12:22 to 12:43 Nurse Visit (Non-billable) [facility] On 20-Mar-2015 09:59 to 10:46 Office [...] abdominal distention, abdominal pain and hemorrhoids. [facility] On 13-Mar-2015 14:30 to 15:13 Medication Entry - UTI (lower urinary tract infection) (599.0 | N39.0) [facility] On 22-Feb-2015 10:04 to 10:06 Nurse Visit (Non-billable) - Dysuria (788.1 | R30.0) [facility] On 20-Feb-2015 16:01 to 16:38 Nurse Visit (Non-billable) [facility] On 17-Jan-2015 11:29 to 11:31 Office [...] unhealthy food choices. The patient is sedentary. [facility] On 19-Dec-2014 16:15 to 20:[address] [facility] On 28-Nov-2014 16:29 to 16:32 Office [...] (Stopped Celexa. Didn't think it was helping.). [facility] On 16-Nov-2014 14:05 to 14:59 Medication Entry - Lumbar back pain (724.2) [facility] On 20-Sep-2014 12:31 to 12:34 Office [...] any pain at this time to area.[facility] On 14:43 to 17:[address] [facility] On 11:48 to 11:52 Radiology Visit - Lumbar back pain (724.2) [facility] On 17-May-2014 16:35 to 16:[address] [facility] On 03-May-2014 09:14 to 09:22 Medication Entry - Sore throat (462 | J02.9) [facility] On 25-Apr-2014 15:13 to 15:15 Office [...] Seroquel for sx., sees Shama at [facility] also, [ADDITIONAL REASON] Amenorrhea, Primary - She is sexually active. For contraception she uses nothing. Symptoms include amenorrhea, while symptoms do not include pelvic pain , headache or visual disturbance. The patient describes this as unchanged. Associated symptoms include fatigue and hot flashes. Note for "Primry amenorrhea ": said she wants her hormones checked [facility] On 07-Feb-2014 14:16 to 15:30 Radiology Visit - Lumbar back pain (724.2) [facility] On 11-Jan-2014 16:20 to 16:23 Office [...] times but is not painful or itchy.[facility] 15-Nov-2013 to 16-Nov-2013 Office Visit - [...] but it has gotten worse since starting.[facility] On 05-Nov-2013 15:56 to 16:53 Office [...] activity level (has gradually improved since surgery.).[facility] On 28-Oct-2013 14:32 to 15:[address] [facility] On 27-Oct-2013 10:06 to 10:10 Medication Entry - UTI (lower urinary tract infection) (599.0 | N39.0) [facility] On 08-Oct-2013 15:55 to 15:57 Lab entry only - Lumbar back pain (724.2) [facility] On 08:47 to 08:49 Medication Entry - Dysesthesia affecting both sides of body (782.0 | R20.8) [facility] On 21-May-2013 13:35 to 13:38 Office [...] Note for "Anxiety": Taking Seroquel for sx. [facility] On 12-Apr-2013 14:00 to 14:49 Office Visit [...] plans to recover at home with family.[facility] On 15:23 to 22:32 Medication Entry - Anxiety (300.00) [facility] On 14:52 to 14:55 Office Visit [...] not currently being treated for this problem.[facility] On 17:25 to 21:06 Lab entry only - Lumbar back pain (724.2) [facility] On 09-Jul-2011 09:57 to 10:02 Office [...] symptoms are relieved by laxatives (MOM and [employer]). The symptoms have been associated with abdominal distention, abdominal pain and hemorrhoids. [facility] On 01-Apr-2011 14:46 to 19:35 Medication Entry - Contraception (V25.9) [facility] On 25-Feb-2011 16:26 to 16:28 Lab entry only - Lumbar back pain (724.2) [facility] On 21-Feb-2011 15:35 to 15:44 Medication Entry - Lumbar back pain (724.2) [facility] On 03-Jan-2011 16:18 to 16:22 Medication Entry - Lumbar back pain (724.2) [facility] On 02-Jan-2011 17:57 to 18:06 Office [...] from hip and put in knee. ).[facility] On 05-Dec-2010 14:52 to 16:15 Office [...] breast. The last menstrual period began 01-17-2010.[facility] On 05-Mar-2010 13:56 to 23:43 Office Visit Encounter Reason: Obesity - The patient's appetite is normal. The patient's dietary intake is normal. The patient has gained 30 pounds (has bought treadmill and walks qod-30 min). The symptoms have been associated with fatigue , while the symptoms have not been associated with amenorrhea or cold intolerance.[facility] On 18-Dec-2009 10:37 to 11:[address] [facility] On 04-Dec-2009 13:30 to 13:44 Insurance * Christy Elder ; a guarantor * [facility] Medical Assistance [employer]g * [facility]
--- OUTSIDE RECORDS SUMMARY | 2016-06-23 23:32 | XMS REPORT | Continuity of Care Document ---
Author Author [facility] Organization [facility] Address [address] [place] [address] Phone Care Team Providers Care Equal Opportunity Director Name Role Phone Eric Montes MD PP [...] W/ MICRO ([facility]) ([id number]) Completed:Jun-2011 X-RAY EXAM LUMBAR SPINE, MIN 4 VIEWS ([id number]) Ordered:05-Dec-2010 MRI OF LUMBAR SPINE W/ W/O CONTRAST ([id number]) Ordered:05-Dec-2010 US EXAM, BREAST(S) ([id number]) Ordered:05-Mar-2010 Follow up in 3 months Ordered:18-Dec-2009 [...] Value Details 15:04 URINALYSIS, AUTOMATED W/ MICRO ([facility]) ([id number]) Comments : All lab needs to be faxed to [facility] at [phone]. Pre-op Dr. Won Ricci.; Items in this order include: Draw Charge[i], CBC, Basic Metabolic Panel, [id number]. Pre-op Dr. Won Ricci.All lab needs to be faxed to [facility] at U yeast Present - Rare Range: [...] Range: 135-145=Normal 15:04 CBC-FEMALE- ORDER THIS ONE! ([id number]) Comments: Items in this order include: Draw [...] 9.41 K/uL Range: 4.50-10.50=Normal 15:04 Routine Venipuncture (69478) Comments: Items in this order include : Draw Charge[i], CBC, Basic Metabolic Panel, Urinalysis Draw Drawn Normal 06-Mar-2011 11:27 BMP Comments: Please fax all lab to Dr. Ricci at and [facility] at [phone]; Items in this order include: Draw Charge[i], CBC, Urinalysis, [facility] at [phone] fax all lab to Dr. Ricci at [phone] and [facility] 83 mg/dL Range: 70-110=Normal [...] W/ MICRO ([facility]) ([id number]) Comments: Items in this order include: Draw [...] Range: Yellow=Normal 11:27 CBC-FEMALE- ORDER THIS ONE! ([id number]) Comments: Items in this order include: Draw [...] 7.61 K/uL Range: 4.50-10.50=Normal 11:27 Routine Venipuncture (49356) Comments: Items in this order include : Draw Charge[i], CBC, Urinalysis, Basic Metabolic Panel Draw Drawn Normal Advance Directives No Advance Directives available. Encounters Medication Entry - Dysesthesia affecting both sides of body (782.0 | R20.8) [facility] On 21-May-2013 13:35 Office Visit - Dysesthesia [...] Note for "Anxiety": Taking Seroquel for sx. [facility] On 12-Apr-2013 14:00 Office Visit - [...] patient plans to recover at home with family.[facility] On 15:23 Medication Entry - Anxiety [facility] On 14:52 Office Visit - Anxiety Encounter [...] is not currently being treated for this problem.[facility] On 17:25 Lab entry only - Lumbar back pain [facility] On 09-Jul-2011 09:57 Office Visit - Lumbar [...] symptoms are relieved by laxatives (MOM and [employer]). The symptoms have been associated with abdominal distention, abdominal pain and hemorrhoids. [facility] On 01-Apr-2011 14:46 Medication Entry - Contraception [facility] On 25-Feb-2011 16:26 Lab entry only - Lumbar back pain [facility] On 21-Feb-2011 15:35 Medication Entry - Lumbar back pain [facility] On 03-Jan-2011 16:18 Medication Entry - Lumbar back pain [facility] On 02-Jan-2011 17:57 Office Visit - Lumbar [...] removed from hip and put in knee. ).[facility] On 05-Dec-2010 14:52 Office Visit - Breast [...] the breast. The last menstrual period began 01-17-2010.[facility] On 05-Mar-2010 13:56 Office Visit Encounter Reason: Obesity - The patient's appetite is normal. The patient's dietary intake is normal. The patient has gained 30 pounds (has bought treadmill and walks qod-30 min). The symptoms have been associated with fatigue , while the symptoms have not been associated with amenorrhea or cold intolerance.[facility] On 18-Dec-2009 10:37 Office Visit [facility] On 04-Dec-2009 13:30
--- OUTSIDE RECORDS SUMMARY | 2016-06-23 23:33 | XMS REPORT | Continuity of Care Document ---
Author Author [facility] Organization [facility] Address [address] [place] [address] Phone Care Team Providers Care Child Welfare Social Worker Name Role Phone Eric Montes MD PP Eric Montes MD Unavailable oWn Ricci CP Sandy Benitez Unavailable Unavailable Unavailable [...] Montes M.D. METHOCARBAMOL, 750MG (Oral Tablet) 1 (one) Tablet Tablet at bedtime for 0 days * Quantity: 100 {Tablet} Refills: 0 Ordered:21-Apr-2015 Sandy Benitez * Start 20-Sep-2014 End 21-Apr-2015 Inactive METHOCARBAMOL, 750MG (Oral Tablet) 1 every eight [...] X-ray Exam of Lower Spine, 2 Views ([id number]) Completed:17-May-2014 Comments : outside order from Dr. Ricci How to access health information online Completed:07-Feb-2014 X-ray Exam of Lower Spine, 2 Views ([id number]) Completed:11-Jan-2014 Comments : outside order from Dr. Ricci Referral to Dermatology Ordered:16-Nov-2013 DISCONTINUED - URINALYSIS, AUTOMATED W/ MICRO ([facility]) ([id number]) Completed:Jun-2011 X-RAY EXAM LUMBAR SPINE, MIN 4 VIEWS ([id number]) Ordered:05-Dec-2010 MRI OF LUMBAR SPINE W/ W/O CONTRAST ([id number]) Ordered:05-Dec-2010 US EXAM, BREAST(S) ([id number]) Ordered:05-Mar-2010 Follow up in 3 months Ordered:18-Dec-2009 Appendectomy Completed:1976 Bone cyst Completed:1998 Comments: Right. knee Carpal [...] Details 21-Apr-2015 21:47 SHAVE SKIN LESION SINGLE ([id number]) Comments: Informed consent obtained. Lesion prepped with Hibiclens. Anesthesia with xylocaine + epi+ NaHCO3. Lesion shaved off w/o complications. Hemostasis obtained with cautery. Wound dressed and care instructions given. Specimen sent for pathology. Diameter 1.1cm Final 20-Feb-2015 16:12 URINALYSIS, AUTOMATED W/ MICRO ([facility]) ([id number]) Comments: Items in this order include: UrinalysisAntibiotics? [...] Yellow (Normal) Range: Yellow 07-Feb-2014 15:07 PROLACTIN ([id number]) Comments: Items in this order include: Draw Charge[i], CBC, Comprehensive Metabolic Panel, TSH, FSH, LH, PROLACTINTesting performed at: [facility], [address] [place] [address], [phone], Animal Technician: Lonny Middleton D.O., MPH.[facility] PROLACTIN 11.5 ng/mL (Normal) Comments: Reference Range.br Females.br Non- 3.0-30.0.br 10.0-209.0.br Postmenopausal 2.0-20.0.br .br .br 15:07 LH ([id number]) Comments: Items in this order include: Draw Charge[i] , CBC, Comprehensive Metabolic Panel, TSH, FSH, LH, PROLACTINTesting performed at: [facility], [address] [place] [address], [phone], Animal Technician: Lonny Middleton D.O., MPH.[facility] LH 9.3 m[iU]/mL (Normal) Comments: Reference Range.brFollicular Phase 1.9-12.5.brMid-Cycle Peak 8.7-76.3.brLuteal Phase 0.5- 16.9.brPostmenopausal 10.0-54.7 15:07 FSH ([id number]) Comments: Items in this order include: Draw Charge[i] , CBC, Comprehensive Metabolic Panel, TSH, FSH, LH, PROLACTINTesting performed at: [facility], [address] [place], [phone], Animal Technician: Lonny Middleton D.O., MPH.[facility] FSH 4.4 m[iU]/mL (Normal) Comments: Reference Range.br .br Follicular Phase 2.5-10.2.br Mid-cycle Peak 3.1- 17.7.br Luteal Phase 1.5- 9.1.br Postmenopausal 23.0-116.3 .br 15:07 TSH (THYROID STIMULATING HORMONE) ([id number]) TSH 1.33 uIU/ml (Normal) Range: 0.34-5.60 15:07 CMP ([id number]) ALTI 96 U/L (Abnormal) Range: 12-78 AST [...] Range: 135-145 15:07 CBC-FEMALE- ORDER THIS ONE! ([id number]) manual diff Not Indicated (Normal) mpv 11.30 [...] 10*3/uL (Abnormal) Range: 4.50-10.50 15:07 Routine Venipuncture ([id number]) Draw Drawn (Normal) 15-Nov-2013 17:32 SED RATE ERYTHROCYTE ([id number]) Comments: Items in this order include: Draw Charge[i], Basic Metabolic Panel, C-Reactive Protein, CBC, Sed Rate ESR 4 mm/h (Normal) Range: 0-20 17:32 CBC-FEMALE- ORDER THIS ONE! ([id number]) manual diff Not Indicated (Normal) mpv 10.60 [...] 10*3/uL (Abnormal) Range: 4.50-10.50 17:32 C-REACTIVE PROTEIN ([id number]) CRP 1.82 mg/dL (Abnormal) Range: 0.00-0.30 17:32 [...] mmol/L (Normal) Range: 135-145 17:32 Routine Venipuncture (44438) Draw Drawn (Normal) 30-Sep-2013 14:25 URINALYSIS, AUTOMATED W/ MICRO ([facility]) ([id number]) Comments : Items in this order include: [...] Range: 135-145 14:25 CBC-FEMALE- ORDER THIS ONE! ([id number]) Comments: Results to [facility] Dr. Ricci .; Items in this order include : CBC, Basic Metabolic Panel, [phone].Results to [facility] Dr. Ricci Fax manual diff Not [...] Range: 4.50-10.50 15:04 URINALYSIS, AUTOMATED W/ MICRO ([facility]) ([id number]) Comments : All lab needs to be faxed to [facility] at [phone]. Pre-op Dr. Won Ricci.; Items in this order include: Draw Charge[i], CBC, Basic Metabolic Panel, [id number]. Pre-op Dr. Won Ricci.All lab needs to be faxed to [facility]av[facility] at U yeast Present - Rare (Abnormal) [...] Range: 135-145 15:04 CBC-FEMALE- ORDER THIS ONE! ([id number]) Comments: Items in this order include: Draw [...] 10*3/uL (Normal) Range: 4.50-10.50 15:04 Routine Venipuncture (14611) Comments: Items in this order include : Draw Charge[i], CBC, Basic Metabolic Panel, Urinalysis Draw Drawn (Normal) 06-Mar-2011 11:27 [facility] Comments: Please fax all lab to Dr. Ricci at [phone] and [address] [facility] Zavala at [phone]; Items in this order include: Draw Charge[i], CBC, Urinalysis, [facility] at [phone] fax all lab to Dr. Ricci at [phone] and [facility] GLU 83 mg/dL (Normal) Range: [...] Range: 135-145 11:27 URINALYSIS, AUTOMATED W/ MICRO ([facility]) ([id number]) Comments: Items in this order include: Draw [...] Range: Yellow 11:27 CBC-FEMALE- ORDER THIS ONE! (21776) Comments: Items in this order include: Draw [...] 10*3/uL (Normal) Range: 4.50-10.50 11:27 Routine Venipuncture (03178) Comments: Items in this order include : Draw Charge[i], CBC, Urinalysis, Basic Metabolic Panel Draw Drawn (Normal) Advance Directives Encounters Medication Entry - Vaginal infection (616.10 | N76.0) [facility] On 25-Apr-2015 11:21 to 11:23 Office Visit [...] patient describes this as worsening (now bleeding routinely).[facility] On 21-Apr-2015 08:54 to 21:47 Medication Entry [facility] On 18-Apr-2015 12:22 to 12:43 Nurse Visit (Non-billable) [facility] On 20-Mar-2015 09:59 to 10:46 Office Visit [...] abdominal distention, abdominal pain and hemorrhoids. [facility] On 13-Mar-2015 14:30 to 15:13 Medication Entry - UTI (lower urinary tract infection) (599.0 | N39.0) [facility] On 22-Feb-2015 10:04 to 10:06 Nurse Visit (Non-billable) - Dysuria (788.1 | R30.0) [facility] On 20-Feb-2015 16:01 to 16:38 Nurse Visit (Non-billable) [facility] On 17-Jan-2015 11:29 to 11:31 Office Visit [...] unhealthy food choices. The patient is sedentary. [facility] On 19-Dec-2014 16:15 to 20:43 Medication Entry [facility] On 28-Nov-2014 16:29 to 16:32 Office Visit [...] (Stopped Celexa. Didn't think it was helping.). [facility] On 16-Nov-2014 14:05 to 14:59 Medication Entry - Lumbar back pain (724.2) [facility] On 20-Sep-2014 12:31 to 12:34 Office Visit [...] Denies any pain at this time to area.[facility] On 14:43 to 17:01 Historical Summary [facility] On 11:48 to 11:52 Radiology Visit - Lumbar back pain (724.2) [facility] On 17-May-2014 16:35 to 16:37 Medication Entry [facility] On 03-May-2014 09:14 to 09:22 Medication Entry - Sore throat (462 | J02.9) [facility] On 25-Apr-2014 15:13 to 15:15 Office Visit [...] Taking Seroquel for sx., sees Shama at [facility] also, [ADDITIONAL REASON] Amenorrhea, Primary - She is sexually active. For contraception she uses nothing. Symptoms include amenorrhea, while symptoms do not include pelvic pain , headache or visual disturbance. The patient describes this as unchanged. Associated symptoms include fatigue and hot flashes. Note for "Primry amenorrhea ": said she wants her hormones checked [facility] On 07-Feb-2014 14:16 to 15:30 Radiology Visit - Lumbar back pain (724.2) [facility] On 11-Jan-2014 16:20 to 16:23 Office Visit [...] at times but is not painful or itchy.[facility] 15-Nov-2013 to 16-Nov-2013 Office Visit - Dermatitis [...] rash but it has gotten worse since starting.[facility] On 05-Nov-2013 15:56 to 16:53 Office Visit - Lumbar back pain (724.2) Encounter Reason: Post-Operative - Patient is 2 weeks (diskectomy) postop procedure. Patient's symptoms are improved compared to preoperative. Post operative pain has been moderate. Pain medications include: Hydrocodone and Ultram. Patient has been compliant with post operative instructions. Patient has shown improvement in their activity level (has gradually improved since surgery.).[facility] On 28-Oct-2013 14:32 to 15:50 Historical Summary [facility] On 27-Oct-2013 10:06 to 10:10 Medication Entry - UTI (lower urinary tract infection) (599.0 | N39.0) [facility] On 08-Oct-2013 15:55 to 15:57 Lab entry only - Lumbar back pain (724.2) [facility] On 08:47 to 08:49 Medication Entry - Dysesthesia affecting both sides of body (782.0 | R20.8) [facility] On 21-May-2013 13:35 to 13:38 Office Visit [...] for "Anxiety": Taking Seroquel for sx. [facility] On 12-Apr-2013 14:00 to 14:49 Office [...] patient plans to recover at home with family.[facility] On 15:23 to 22:32 Medication Entry - Anxiety (300.00) [facility] On 14:52 to 14:55 Office Visit - [...] is not currently being treated for this problem.[facility] On 17:25 to 21:06 Lab entry only - Lumbar back pain (724.2) [facility] On 09-Jul-2011 09:57 to 10:02 Office Visit [...] symptoms are relieved by laxatives (MOM and [employer]). The symptoms have been associated with abdominal distention, abdominal pain and hemorrhoids. [facility] On 01-Apr-2011 14:46 to 19:35 Medication Entry - Contraception (V25.9) [facility] On 25-Feb-2011 16:26 to 16:28 Lab entry only - Lumbar back pain (724.2) [facility] On 21-Feb-2011 15:35 to 15:44 Medication Entry - Lumbar back pain (724.2) [facility] On 03-Jan-2011 16:18 to 16:22 Medication Entry - Lumbar back pain (724.2) [facility] On 02-Jan-2011 17:57 to 18:06 Office Visit [...] removed from hip and put in knee. ).[facility] On 05-Dec-2010 14:52 to 16:15 Office Visit [...] the breast. The last menstrual period began 01-17-2010.[facility] On 05-Mar-2010 13:56 to 23:43 Office Visit Encounter Reason: Obesity - The patient's appetite is normal. The patient's dietary intake is normal. The patient has gained 30 pounds (has bought treadmill and walks qod-30 min). The symptoms have been associated with fatigue , while the symptoms have not been associated with amenorrhea or cold intolerance.[facility] On 18-Dec-2009 10:37 to 11:12 Office Visit [facility] On 04-Dec-2009 13:30 to 13:44 Insurance * Christy Elder ; a guarantor * [facility] Medical Assistance Prog * [facility] * [facility]
--- OUTSIDE RECORDS SUMMARY | 2016-06-23 23:35 | XMS REPORT | Continuity of Care Document ---
Author Author [facility] Organization [facility] Address [address] [place] [address] Phone Care Team Providers Care Industrial Electrical Engineer Name Role Phone Eric Montes MD PP [...] 100MCG/ML (Epidural Solution) (100 MCG/ML) Active CYMBALTA, 30MG (Oral Capsule Delayed Release Particles) 1 (one) Capsule DR Part daily x6d, then 60mg daily for 0 days Quantity: 30 {Capsule} Ordered:13-Mar-2015 Eric Montes MD* Start 13-Mar-2015 Active KLONOPIN, 1MG (Oral Tablet) [...] Start 19-Apr-2014 End Inactive Comments: new order 3-3-15 AMBIEN, 10MG (Oral Tablet) 1 at bedtime [...] X-ray Exam of Lower Spine, 2 Views ([id number]) Completed:17-May-2014 Comments : outside order from Dr. Ricci How to access health information online Completed:07-Feb-2014 X-ray Exam of Lower Spine, 2 Views ([id number]) Completed:11-Jan-2014 Comments : outside order from Dr. Ricci Referral to Dermatology Ordered:16-Nov-2013 DISCONTINUED - URINALYSIS, AUTOMATED W/ MICRO ([facility]) ([id number]) Completed:Jun-2011 X-RAY EXAM LUMBAR SPINE, MIN 4 VIEWS ([id number]) Ordered:05-Dec-2010 MRI OF LUMBAR SPINE W/ W/O CONTRAST ([id number]) Ordered:05-Dec-2010 US EXAM, BREAST(S) ([id number]) Ordered:05-Mar-2010 Follow up in 3 months Ordered:18-Dec-2009 [...] Details 20-Feb-2015 16:12 URINALYSIS, AUTOMATED W/ MICRO ([facility]) ([id number]) Comments: Items in this order include: UrinalysisAntibiotics? [...] Yellow (Normal) Range: Yellow 07-Feb-2014 15:07 PROLACTIN ([id number]) Comments: Items in this order include: Draw Charge[i], CBC, Comprehensive Metabolic Panel, TSH, FSH, LH, PROLACTINTesting performed at: [facility], [address] [place] [address], [phone], Barrel Raiser: Lonny Middleton D.O., MPH.[facility] PROLACTIN 11.5 ng/mL (Normal) Comments: Reference Range.br Females.br Non- 3.0-30.0.br 10.0-209.0.br Postmenopausal 2.0-20.0.br .br .br 15:07 LH ([id number]) Comments: Items in this order include: Draw Charge[i] , CBC, Comprehensive Metabolic Panel, TSH, FSH, LH, PROLACTINTesting performed at: [facility], [address] [place] [address], [phone], Barrel Raiser: Lonny Middleton D.O., MPH.[facility] LH 9.3 m[iU]/mL (Normal) Comments: Reference Range.brFollicular Phase 1.9-12.5.brMid-Cycle Peak 8.7-76.3.brLuteal Phase 0.5- 16.9.brPostmenopausal 10.0-54.7 15:07 FSH ([id number]) Comments: Items in this order include: Draw Charge[i] , CBC, Comprehensive Metabolic Panel, TSH, FSH, LH, PROLACTINTesting performed at: [facility], [address] [place] [address], [phone], Barrel Raiser: Lonny Middleton D.O., MPH.[facility] FSH 4.4 m[iU]/mL (Normal) Comments: Reference Range.br .br Follicular Phase 2.5-10.2.br Mid-cycle Peak 3.1- 17.7.br Luteal Phase 1.5- 9.1.br Postmenopausal 23.0-116.3 .br 15:07 TSH (THYROID STIMULATING HORMONE) (29031) TSH 1.33 uIU/ml (Normal) Range: 0.34-5.60 15:07 CMP (55569) ALTI 96 U/L (Abnormal) Range: 12-78 AST [...] Range: 135-145 15:07 CBC-FEMALE- ORDER THIS ONE! (51213) manual diff Not Indicated (Normal) mpv 11.30 [...] 10*3/uL (Abnormal) Range: 4.50-10.50 15:07 Routine Venipuncture (24099) Draw Drawn (Normal) 15-Nov-2013 17:32 SED RATE ERYTHROCYTE ([id number]) Comments: Items in this order include: Draw Charge[i], Basic Metabolic Panel, C-Reactive Protein, CBC, Sed Rate ESR 4 mm/h (Normal) Range: 0-20 17:32 CBC-FEMALE- ORDER THIS ONE! ([id number]) manual diff Not Indicated (Normal) mpv 10.60 [...] 10*3/uL (Abnormal) Range: 4.50-10.50 17:32 C-REACTIVE PROTEIN (81411) CRP 1.82 mg/dL (Abnormal) Range: 0.00-0.30 17:32 [...] mmol/L (Normal) Range: 135-145 17:32 Routine Venipuncture (57398) Draw Drawn (Normal) 30-Sep-2013 14:25 URINALYSIS, AUTOMATED W/ MICRO ([facility]) ([id number]) Comments : Items in this order include: [...] Range: 135-145 14:25 CBC-FEMALE- ORDER THIS ONE! (31422) Comments: Results to [facility] Dr. Ricci .; Items in this order include : CBC, Basic Metabolic Panel, [id number].Results to [facility] Dr. Ricci [...] W/ MICRO ([facility]) (80921) Comments : All lab needs to be faxed to [facility] at [phone]. Pre-op Dr. oWn Ricci.; Items in this order include: Draw Charge[i], CBC, Basic Metabolic Panel, [phone]. Pre-op Dr. Won Ricci.All lab needs to be faxed to [facility] Snell at yeast Present - Rare (Abnormal) Range: [...] Range: 135-145 15:04 CBC-FEMALE- ORDER THIS ONE! ([id number]) Comments: Items in this order include: Draw [...] 10*3/uL (Normal) Range: 4.50-10.50 15:04 Routine Venipuncture (99326) Comments: Items in this order include : Draw Charge[i], CBC, Basic Metabolic Panel, Urinalysis Draw Drawn (Normal) 06-Mar-2011 11:27 BMP Comments: Please fax all lab to Dr. Ricci at and [facility] at [phone]; Items in this order include: Draw Charge[i], CBC, Urinalysis, Basic Metabolic PanelChlouise Snell at [phone] fax all lab to Dr. Ricci at [phone] and [facility] GLU 83 mg/dL (Normal) Range: [...] W/ MICRO ([facility]) ([id number]) Comments: Items in this order include: Draw [...] Range: Yellow 11:27 CBC-FEMALE- ORDER THIS ONE! (85173) Comments: Items in this order include: Draw [...] 10*3/uL (Normal) Range: 4.50-10.50 11:27 Routine Venipuncture (19157) Comments: Items in this order include : Draw Charge[i], CBC, Urinalysis, Basic Metabolic Panel Draw Drawn (Normal) Advance Directives Encounters Review Encounter Reason: Skin Lesion, Facial - Symptoms include growing lesion. The condition involves a single lesion.[facility] On 21-Apr-2015 08:54 Medication Entry [facility] On 18-Apr-2015 12:22 to 12:43 Nurse Visit (Non-billable) [facility] On 20-Mar-2015 09:59 to 10:46 Office [...] abdominal distention, abdominal pain and hemorrhoids. [facility] On 13-Mar-2015 14:30 to 15:13 Medication Entry - UTI (lower urinary tract infection) (599.0 | N39.0) [facility] On 22-Feb-2015 10:04 to 10:06 Nurse Visit (Non-billable) - Dysuria (788.1 | R30.0) [facility] On 20-Feb-2015 16:01 to 16:38 Nurse Visit (Non-billable) [facility] On 17-Jan-2015 11:29 to 11:31 Office [...] food choices. The patient is sedentary. [facility] On 19-Dec-2014 16:15 to 20:43 Medication Entry [facility] On 28-Nov-2014 16:29 to 16:32 Office [...] (Stopped Celexa. Didn't think it was helping.). [facility] On 16-Nov-2014 14:05 to 14:59 Medication Entry - Lumbar back pain (724.2) [facility] On 20-Sep-2014 12:31 to 12:34 Office [...] Denies any pain at this time to area.[facility] On 14:43 to 17:01 Historical Summary [facility] On 11:48 to 11:52 Radiology Visit - Lumbar back pain (724.2) [facility] On 17-May-2014 16:35 to 16:37 Medication Entry [facility] On 03-May-2014 09:14 to 09:22 Medication Entry - Sore throat (462 | J02.9) [facility] On 25-Apr-2014 15:13 to 15:15 [...] Seroquel for sx., sees Shama at [facility] also, [ADDITIONAL REASON] Amenorrhea, Primary - She is sexually active. For contraception she uses nothing. Symptoms include amenorrhea, while symptoms do not include pelvic pain , headache or visual disturbance. The patient describes this as unchanged. Associated symptoms include fatigue and hot flashes. Note for "Primry amenorrhea ": said she wants her hormones checked [facility] On 07-Feb-2014 14:16 to 15:30 Radiology Visit - Lumbar back pain (724.2) [facility] On 11-Jan-2014 16:20 to 16:23 [...] at times but is not painful or itchy.[facility] 15-Nov-2013 to 16-Nov-2013 Office Visit [...] rash but it has gotten worse since starting.[facility] On 05-Nov-2013 15:56 to 16:53 [...] their activity level (has gradually improved since surgery.).[facility] On 28-Oct-2013 14:32 to 15:50 Historical Summary [facility] On 27-Oct-2013 10:06 to 10:10 Medication Entry - UTI (lower urinary tract infection) (599.0 | N39.0) [facility] On 08-Oct-2013 15:55 to 15:57 Lab entry only - Lumbar back pain (724.2) [facility] On 08:47 to 08:49 Medication Entry - Dysesthesia affecting both sides of body (782.0 | R20.8) [facility] On 21-May-2013 13:35 to 13:38 [...] for "Anxiety": Taking Seroquel for sx. [facility] On 12-Apr-2013 14:00 to 14:49 [...] patient plans to recover at home with family.[facility] On 15:23 to 22:32 Medication Entry - Anxiety (300.00) [facility] On 14:52 to 14:55 Office [...] is not currently being treated for this problem.[facility] On 17:25 to 21:06 Lab entry only - Lumbar back pain (724.2) [facility] On 09-Jul-2011 09:57 to 10:02 [...] symptoms are relieved by laxatives (MOM and [employer]). The symptoms have been associated with abdominal distention, abdominal pain and hemorrhoids. [facility] On 01-Apr-2011 14:46 to 19:35 Medication Entry - Contraception (V25.9) [facility] On 25-Feb-2011 16:26 to 16:28 Lab entry only - Lumbar back pain (724.2) [facility] On 21-Feb-2011 15:35 to 15:44 Medication Entry - Lumbar back pain (724.2) [facility] On 03-Jan-2011 16:18 to 16:22 Medication Entry - Lumbar back pain (724.2) [facility] On 02-Jan-2011 17:57 to 18:06 [...] removed from hip and put in knee. ).[facility] On 05-Dec-2010 14:52 to 16:15 [...] the breast. The last menstrual period began 01-17-2010.[facility] On 05-Mar-2010 13:56 to 23:43 Office Visit Encounter Reason: Obesity - The patient's appetite is normal. The patient's dietary intake is normal. The patient has gained 30 pounds (has bought treadmill and walks qod-30 min). The symptoms have been associated with fatigue , while the symptoms have not been associated with amenorrhea or cold intolerance.[facility] On 18-Dec-2009 10:37 to 11:12 Office Visit [facility] On 04-Dec-2009 13:30 to 13:44 Insurance * Christy Elder ; a guarantor * [facility] Medical Assistance Prog * [facility] * [facility]
--- OUTSIDE RECORDS SUMMARY | 2016-06-23 23:36 | XMS REPORT | Continuity of Care Document ---
Author Author [facility] Organization [facility] Address [address] [place] [address] Phone Care Team Providers Care Glass Sagger Name Role Phone Eric Montes MD PP [...] Quantity: 30 {Tablet} Refills: 6 Ordered: Eric Monets MD* Start Active Comments: approved by Dr. [...] daily (75 MG) Inactive Comments: new dose 15 MEDROL (TREY), 4MG (Oral Tablet) 1 (one) Tablet as directed for 6 days * Quantity: 21 {Tablet} Refills: 0 Ordered:05-Nov-2013 Nikki Devries* Start 05-Nov-2013 End 11-Nov-2013 Inactive Comments: approved by Eirc Montes M.D. METHOCARBAMOL, 750MG (Oral Tablet) 1 [...] X-ray Exam of Lower Spine, 2 Views ([id number]) Completed:17-May-2014 Comments : outside order from Dr. Ricci How to access health information online Completed:07-Feb-2014 X-ray Exam of Lower Spine, 2 Views ([id number]) Completed:11-Jan-2014 Comments : outside order from Dr. Ricci Referral to Dermatology Ordered:16-Nov-2013 DISCONTINUED - URINALYSIS, AUTOMATED W/ MICRO ([facility]) ([id number]) Completed:Jun-2011 X-RAY EXAM LUMBAR SPINE, MIN 4 VIEWS ([id number]) Ordered:05-Dec-2010 MRI OF LUMBAR SPINE W/ W/O CONTRAST ([id number]) Ordered:05-Dec-2010 US EXAM, BREAST(S) ([id number]) Ordered:05-Mar-2010 Follow up in 3 months Ordered:18-Dec-2009 [...] Details 21-Apr-2015 21:47 SHAVE SKIN LESION SINGLE ([id number]) Comments: Informed consent obtained. Lesion prepped with Hibiclens. Anesthesia with xylocaine + epi+ NaHCO3. Lesion shaved off w/o complications. Hemostasis obtained with cautery. Wound dressed and care instructions given. Specimen sent for pathology. Diameter 1.1cm Final 20-Feb-2015 16:12 URINALYSIS, AUTOMATED W/ MICRO ([facility]) ([id number]) Comments: Items in this order include: UrinalysisAntibiotics? [...] Yellow (Normal) Range: Yellow 07-Feb-2014 15:07 PROLACTIN ([id number]) Comments: Items in this order include: Draw Charge[i], CBC, Comprehensive Metabolic Panel, TSH, FSH, LH, PROLACTINTesting performed at: [facility], [address] [place] [address], [id number], Financial Processing Clerk: Lonny Middleton D.O., MPH.brQuest PROLACTIN 11.5 ng/mL (Normal) Comments: Reference Range.br Females.br Non- 3.0-30.0.br 10.0-209.0.br Postmenopausal 2.0-20.0.br .br .br 15:07 LH ([id number]) Comments: Items in this order include: Draw Charge[i] , CBC, Comprehensive Metabolic Panel, TSH, FSH, LH, PROLACTINTesting performed at: [facility], [address] [place] [address], [id number], Financial Processing Clerk: Lonny Middleton D.O., MPH.[facility] LH 9.3 m[iU]/mL (Normal) Comments: Reference Range.brFollicular Phase 1.9-12.5.brMid-Cycle Peak 8.7-76.3.brLuteal Phase 0.5- 16.9.brPostmenopausal 10.0-54.7 15:07 FSH ([id number]) Comments: Items in this order include: Draw Charge[i] , CBC, Comprehensive Metabolic Panel, TSH, FSH, LH, PROLACTINTesting performed at: [facility], [address] [place] [address], [id number], Financial Processing Clerk: Lonny Middleton D.O., MPH.[facility] FSH 4.4 m[iU]/mL (Normal) Comments: Reference Range.br .br Follicular Phase 2.5-10.2.br Mid-cycle Peak 3.1- 17.7.br Luteal Phase 1.5- 9.1.br Postmenopausal 23.0-116.3 .br 15:07 TSH (THYROID STIMULATING HORMONE) ([id number]) TSH 1.33 uIU/ml (Normal) Range: 0.34-5.60 15:07 CMP ([id number]) ALTI 96 U/L (Abnormal) Range: 12-78 AST [...] Range: 135-145 15:07 CBC-FEMALE- ORDER THIS ONE! ([id number]) manual diff Not Indicated (Normal) mpv 11.30 [...] 10*3/uL (Abnormal) Range: 4.50-10.50 15:07 Routine Venipuncture (45801) Draw Drawn (Normal) 15-Nov-2013 17:32 SED RATE ERYTHROCYTE ([id number]) Comments: Items in this order include: Draw Charge[i], Basic Metabolic Panel, C-Reactive Protein, CBC, Sed Rate ESR 4 mm/h (Normal) Range: 0-20 17:32 CBC-FEMALE- ORDER THIS ONE! ([id number]) manual diff Not Indicated (Normal) mpv 10.60 [...] 10*3/uL (Abnormal) Range: 4.50-10.50 17:32 C-REACTIVE PROTEIN ([id number]) CRP 1.82 mg/dL (Abnormal) Range: 0.00-0.30 17:32 [...] mmol/L (Normal) Range: 135-145 17:32 Routine Venipuncture ([id number]) Draw Drawn (Normal) 30-Sep-2013 14:25 URINALYSIS, AUTOMATED W/ MICRO ([facility]) ([id number]) Comments : Items in this order include: [...] Range: 135-145 14:25 CBC-FEMALE- ORDER THIS ONE! ([id number]) Comments: Results to [facility] Dr. Ricci .; Items in this order include : CBC, Basic Metabolic Panel, [phone].Results to [facility] Dr. Ricci [...] 0.00-7.00 LYM% 37.40 % (Normal) Range: 20.00-40.00 andrye% 55.30 % (Normal) Range: 55.00-75.00 Baso 0.020 10*3/uL (Normal) Range: 0.000-0.100 eos 0.330 10*3/uL (Normal) Range: 0.000-4.000 mono 0.34 10*3/uL (Normal) Range: 0.00-0.70 LYMPHS 3.56 10*3/uL (Normal) Range: 0.90-4.20 andrey 5.26 10*3/uL (Normal) Range: 2.50-7.80 wbc 9.51 10*3/uL (Normal) Range: 4.50-10.50 15:04 URINALYSIS, AUTOMATED W/ MICRO ([facility]) ([id number]) Comments : All lab needs to be faxed to [facility] at [phone]. Pre-op Dr. Won Ricci.; Items in this order include: Draw Charge[i], CBC, Basic Metabolic Panel, [phone]. Pre-op Dr. Won Ricci.All lab needs to be faxed to [facility] at U yeast Present - Rare [...] Range: 135-145 15:04 CBC-FEMALE- ORDER THIS ONE! ([id number]) Comments: Items in this order include: Draw [...] 10*3/uL (Normal) Range: 4.50-10.50 15:04 Routine Venipuncture (25562) Comments: Items in this order include : Draw Charge[i], CBC, Basic Metabolic Panel, Urinalysis Draw Drawn (Normal) 06-Mar-2011 11:27 [facility] Comments: Please fax all lab to Dr. Ricci at and [address] [facility] [facility] at [phone]; Items in this order include: Draw Charge[i], CBC, Urinalysis, Basic Met[facility]Chbay[facility] at [phone] fax all lab to Dr. Ricci at [phone] and [address] GLU 83 mg/dL (Normal) Range: [...] Range: 135-145 11:27 URINALYSIS, AUTOMATED W/ MICRO ([facility]) ([id number]) Comments: Items in this order include: Draw [...] Range: Yellow 11:27 CBC-FEMALE- ORDER THIS ONE! ([id number]) Comments: Items in this order include: Draw [...] 10*3/uL (Normal) Range: 4.50-10.50 11:27 Routine Venipuncture (46035) Comments: Items in this order include : Draw Charge[i], CBC, Urinalysis, Basic Metabolic Panel Draw Drawn (Normal) Advance Directives Encounters Medication Entry - Chronic lumbar pain (724.2 | M54.5) [facility] On 12:33 to 12:36 Nurse Visit (Non-billable) [facility] On 16-Jun-2015 15:04 to 16:32 Medication Entry [facility] On 15-May-2015 12:29 to 12:41 Medication Entry - Vaginal infection (616.10 | N76.0) [facility] On 25-Apr-2015 11:21 to 11:23 Office [...] patient describes this as worsening (now bleeding routinely).[facility] On 21-Apr-2015 08:54 to 21:47 Medication Entry [facility] On 18-Apr-2015 12:22 to 12:43 Nurse Visit (Non-billable) [facility] On 20-Mar-2015 09:59 to 10:46 [...] abdominal distention, abdominal pain and hemorrhoids. [facility] On 13-Mar-2015 14:30 to 15:13 Medication Entry - UTI (lower urinary tract infection) (599.0 | N39.0) [facility] On 22-Feb-2015 10:04 to 10:06 Nurse Visit (Non-billable) - Dysuria (788.1 | R30.0) [facility] On 20-Feb-2015 16:01 to 16:38 Nurse Visit (Non-billable) [facility] On 17-Jan-2015 11:29 to 11:31 [...] food choices. The patient is sedentary. [facility] On 19-Dec-2014 16:15 to 20:43 Medication Entry [facility] On 28-Nov-2014 16:29 to 16:32 [...] (Stopped Celexa. Didn't think it was helping.). [facility] On 16-Nov-2014 14:05 to 14:59 Medication Entry - Lumbar back pain (724.2) [facility] On 20-Sep-2014 12:31 to 12:34 [...] Denies any pain at this time to area.[facility] On 14:43 to 17:01 Historical Summary [facility] On 11:48 to 11:52 Radiology Visit - Lumbar back pain (724.2) [facility] On 17-May-2014 16:35 to 16:37 Medication Entry [facility] On 03-May-2014 09:14 to 09:22 Medication Entry - Sore throat (462 | J02.9) [facility] On 25-Apr-2014 15:13 to [...] said she wants her hormones checked [facility] On 07-Feb-2014 14:16 to 15:30 Radiology Visit - Lumbar back pain (724.2) [facility] On 11-Jan-2014 16:20 to [...] at times but is not painful or itchy.[facility] 15-Nov-2013 to 16-Nov-2013 Office [...] rash but it has gotten worse since starting.[facility] On 05-Nov-2013 15:56 to [...] their activity level (has gradually improved since surgery.).[facility] On 28-Oct-2013 14:32 to 15:50 Historical Summary [facility] On 27-Oct-2013 10:06 to 10:10 Medication Entry - UTI (lower urinary tract infection) (599.0 | N39.0) [facility] On 08-Oct-2013 15:55 to 15:57 Lab entry only - Lumbar back pain (724.2) [facility] On 08:47 to 08:49 Medication Entry - Dysesthesia affecting both sides of body (782.0 | R20.8) [facility] On 21-May-2013 13:35 to [...] for "Anxiety": Taking Seroquel for sx. [facility] On 12-Apr-2013 14:00 to 14:49 Office [...] patient plans to recover at home with family.[facility] On 15:23 to 22:32 Medication Entry - Anxiety (300.00) [facility] On 14:52 to 14:55 [...] is not currently being treated for this problem.[facility] On 17:25 to 21:06 Lab entry only - Lumbar back pain (724.2) [facility] On 09-Jul-2011 09:57 to [...] symptoms are relieved by laxatives (MOM and [employer]). The symptoms have been associated with abdominal distention, abdominal pain and hemorrhoids. [facility] On 01-Apr-2011 14:46 to 19:35 Medication Entry - Contraception (V25.9) [facility] On 25-Feb-2011 16:26 to 16:28 Lab entry only - Lumbar back pain (724.2) [facility] On 21-Feb-2011 15:35 to 15:44 Medication Entry - Lumbar back pain (724.2) [facility] On 03-Jan-2011 16:18 to 16:22 Medication Entry - Lumbar back pain (724.2) [facility] On 02-Jan-2011 17:57 to [...] removed from hip and put in knee. ).[facility] On 05-Dec-2010 14:52 to [...] the breast. The last menstrual period began 01-17-2010.[facility] On 05-Mar-2010 13:56 to 23:43 Office Visit Encounter Reason: Obesity - The patient's appetite is normal. The patient's dietary intake is normal. The patient has gained 30 pounds (has bought treadmill and walks qod-30 min). The symptoms have been associated with fatigue , while the symptoms have not been associated with amenorrhea or cold intolerance.[facility] On 18-Dec-2009 10:37 to 11:12 Office Visit [facility] On 04-Dec-2009 13:30 to 13:44 Insurance * Christy Elder ; a guarantor * Medicare WPS * [facility] Medical Assistance Prog * [facility] * [facility]
--- OUTSIDE RECORDS SUMMARY | 2016-06-23 23:37 | XMS REPORT | Continuity of Care Document ---
Author Author [facility] Organization [facility] Address [address] [place] [address] Phone Care Team Providers Care Appliance Repair Technician Name Role Phone Eric Montes MD [...] - Historical Medication 1 at bedtime Active BENZTROPINE MESYLATE, 1MG (Oral Tablet) - Historical Medication 1/2 tab two times daily Active CELEXA, 40MG (Oral Tablet) 1 Tablet daily for 0 days Quantity: 30 Ordered :01-Apr-2013 Eric Montes MD* Started 01-Apr-2013 ActiveLORAZEPAM, 1MG (Oral Tablet) 1 Tablet every 6 hrs as needed for 0 days * Quantity: 30 Refills: 1 Ordered :31-Jan-2012 Eric oMntes MD* Started 31-Jan-2012 Active Comments: Medication taken as needed. METHOCARBAMOL, 750MG (Oral Tablet) - Historical Medication 1 every eight hours ActiveNORCO, 10-325MG (Oral Tablet) - Historical Medication 1 4 to 6 hrs as needed Active Comments: Medication taken as needed. QUETIAPINE FUMARATE, 100MG (Oral Tablet) - Historical Medication ActiveSPIRONOLACTONE, 25MG (Oral Tablet) - Historical Medication 1 daily ActiveTRAMADOL HCL, 50MG (Oral Tablet) - Historical Medication 1or 2 every 4 to 6 hrs. as needed Active Comments: Medication taken as needed. CELEXA, 20MG (Oral Tablet) 1/2 (one half) [...] Details DISCONTINUED - URINALYSIS, AUTOMATED W/ MICRO ([facility]) ([id number]) Completed:Jun-2011 X-RAY EXAM LUMBAR SPINE, MIN 4 VIEWS ([id number]) Ordered:05-Dec-2010 MRI OF LUMBAR SPINE W/ W/O CONTRAST ([id number]) Ordered:05-Dec-2010 US EXAM, BREAST(S) ([id number]) Ordered:05-Mar-2010 Follow up in 3 months Ordered:18-Dec-2009 [...] Details 15:04 URINALYSIS, AUTOMATED W/ MICRO ([facility]) ([id number]) Comments : All lab needs to be faxed to [facility] at [phone]. Pre-op Dr. Won Ricci.; Items in this order include: Draw Charge[i], CBC, Basic Metabolic Panel, [phone]. Pre-op Dr. Won Ricci.All lab needs to [...] Range: 135-145=Normal 15:04 CBC-FEMALE- ORDER THIS ONE! ([id number]) Comments: Items in this order include: Draw [...] 9.41 K/uL Range: 4.50-10.50=Normal 15:04 Routine Venipuncture (16708) Comments: Items in this order include : Draw Charge[i], CBC, Basic Metabolic Panel, Urinalysis Draw Drawn Normal 06-Mar-2011 11:27 BMP Comments: Please fax all lab to Dr. Ricci at and [facility] at [phone]; Items in this order include: Draw Charge[i], CBC, Urinalysis, Basic Metabolic PanelChlouise Snell at [phone] fax all lab to Dr. Ricci at [phone] and [address] GLU 83 mg/dL Range: 70-110=Normal [...] Range: 135-145=Normal 11:27 URINALYSIS, AUTOMATED W/ MICRO ([facility]) ([id number]) Comments: Items in this order include: Draw [...] Range: Yellow=Normal 11:27 CBC-FEMALE- ORDER THIS ONE! ([id number]) Comments: Items in this order include: Draw [...] 7.61 K/uL Range: 4.50-10.50=Normal 11:27 Routine Venipuncture (74222) Comments: Items in this order include : Draw Charge[i], CBC, Urinalysis, Basic Metabolic Panel Draw Drawn Normal Advance Directives No Advance Directives available. Encounters Review [facility] On 12-Apr-2013 14:00 Office Visit - Lumbar back pain, Pre-op evaluation Encounter Reason: Pre-Op Visit - The procedure scheduled is a repeat micro- diskectomy on 7-17-12. The surgeon for the procedure will be Dr. Lawson. The chief complaint is lumbar back pain.. Recent symptoms do not include fever, chills, chest pain, cough, dyspnea, nausea, vomiting or diarrhea. Pertinent medical history does not include previous anesthesia reaction. Pertinent social history does not include tobacco use. After surgery the patient plans to recover at home with family.[facility] On 15:23 Medication Entry - Anxiety [facility] On 14:52 Office Visit [...] is not currently being treated for this problem.[facility] On 17:25 Lab entry only - Lumbar back pain [facility] On 09-Jul-2011 09:57 Office [...] symptoms are relieved by laxatives (MOM and [employer]). The symptoms have been associated with abdominal distention, abdominal pain and hemorrhoids. [facility] On 01-Apr-2011 14:46 Medication Entry - Contraception [facility] On 25-Feb-2011 16:26 Lab entry only - Lumbar back pain [facility] On 21-Feb-2011 15:35 Medication Entry - Lumbar back pain [facility] On 03-Jan-2011 16:18 Medication Entry - Lumbar back pain [facility] On 02-Jan-2011 17:57 Office [...] removed from hip and put in knee. ).[facility] On 05-Dec-2010 14:52 Office [...] the breast. The last menstrual period began 01-17-2010.[facility] On 05-Mar-2010 13:56 Office Visit Encounter Reason: Obesity - The patient's appetite is normal. The patient's dietary intake is normal. The patient has gained 30 pounds (has bought treadmill and walks qod-30 min). The symptoms have been associated with fatigue , while the symptoms have not been associated with amenorrhea or cold intolerance.[facility] On 18-Dec-2009 10:37 Office Visit [facility] On 04-Dec-2009 13:30
--- OUTSIDE RECORDS SUMMARY | 2016-06-23 23:38 | XMS REPORT | Continuity of Care Document ---
Author Author [facility] Organization [facility] Address [address] [place] [address] Phone Care Team Providers Care Partition Setter Name Role Phone Eric Montes MD PP [...] 24 Hour) 1 (one) Capsule ER 24HR daily x7d, then 75 daily for 0 days * Quantity: 30 {Capsule} Refills: 12 Ordered:16-Nov-2014 Eric Montes MD* Start 16-Nov-2014 Active LYRICA, 75MG (Oral Capsule) [...] Significant Medical History. Procedures Procedure Dates Details Back Pain Completed:16-Nov-2014 X-ray Exam of Lower Spine, 2 Views ([id number]) Completed:17-May-2014 Comments : outside order from Dr. Ricci How to access health information online Completed:07-Feb-2014 X-ray Exam of Lower Spine, 2 Views ([id number]) Completed:11-Jan-2014 Comments : outside order from Dr. Ricci Referral to Dermatology Ordered:16-Nov-2013 DISCONTINUED - URINALYSIS, AUTOMATED W/ MICRO ([facility] ([id number]) Completed:Jun-2011 X-RAY EXAM LUMBAR SPINE, MIN 4 VIEWS ([id number]) Ordered:05-Dec-2010 MRI OF LUMBAR SPINE W/ W/O CONTRAST ([id number]) Ordered:05-Dec-2010 US EXAM, BREAST(S) ([id number]) Ordered:05-Mar-2010 Follow up in 3 months Ordered:18-Dec-2009 [...] Date Description Value Details 07-Feb-2014 15:07 PROLACTIN ([id number]) Comments: Items in this order include: Draw Charge[i], CBC, Comprehensive Metabolic Panel, TSH, FSH, LH, PROLACTINTesting performed at: [facility], [address] [place] [address], [phone], Six Sigma Black Belt Engineer: Lonny Middleton D.O., MPH.[facility] PROLACTIN 11.5 ng/mL (Normal) Comments: Reference Range.br Females.br Non- 3.0-30.0.br 10.0-209.0.br Postmenopausal 2.0-20.0.br .br .br 15:07 LH ([id number]) Comments: Items in this order include: Draw Charge[i] , CBC, Comprehensive Metabolic Panel, TSH, FSH, LH, PROLACTINTesting performed at: [facility], [address] [place] [address], [phone], [employer] Black Belt Engineer: Lonny Middleton D.O., MPH.[facility] LH 9.3 m[iU]/mL (Normal) Comments: Reference Range.brFollicular Phase 1.9-12.5.brMid-Cycle Peak 8.7-76.3.brLuteal Phase 0.5- 16.9.brPostmenopausal 10.0-54.7 15:07 FSH ([id number]) Comments: Items in this order include: Draw Charge[i] , CBC, Comprehensive Metabolic Panel, TSH, FSH, LH, PROLACTINTesting performed at: [facility], [address] [place] [address], [phone], Six Sigma Black Belt Engineer: Lonny Middleton D.O., MPH.[facility] FSH 4.4 m[iU]/mL (Normal) Comments: Reference Range.br .br Follicular Phase 2.5-10.2.br Mid-cycle Peak 3.1- 17.7.br Luteal Phase 1.5- 9.1.br Postmenopausal 23.0-116.3 .br 15:07 TSH (THYROID STIMULATING HORMONE) (00296) TSH 1.33 uIU/ml (Normal) Range: 0.34-5.60 15:07 CMP ([id number]) ALTI 96 U/L (Abnormal) Range: 12-78 AST [...] Range: 135-145 15:07 CBC-FEMALE- ORDER THIS ONE! (02493) manual diff Not Indicated (Normal) mpv 11.30 [...] 10*3/uL (Abnormal) Range: 4.50-10.50 15:07 Routine Venipuncture (22915) Draw Drawn (Normal) 15-Nov-2013 17:32 SED RATE ERYTHROCYTE ([id number]) Comments: Items in this order include: Draw Charge[i], Basic Metabolic Panel, C-Reactive Protein, CBC, Sed Rate ESR 4 mm/h (Normal) Range: 0-20 17:32 CBC-FEMALE- ORDER THIS ONE! ([id number]) manual diff Not Indicated (Normal) mpv 10.60 [...] 10*3/uL (Abnormal) Range: 4.50-10.50 17:32 C-REACTIVE PROTEIN (17132) CRP 1.82 mg/dL (Abnormal) Range: 0.00-0.30 17:32 [...] mmol/L (Normal) Range: 135-145 17:32 Routine Venipuncture (08867) Draw Drawn (Normal) 30-Sep-2013 14:25 URINALYSIS, AUTOMATED W/ MICRO ([facility]) (04249) Comments : Items in this order include: [...] Range: 135-145 14:25 CBC-FEMALE- ORDER THIS ONE! ([id number]) Comments: Results to [facility] Dr. Ricci .; Items in this order include : CBC, Basic Metabolic Panel, [phone].Results to [facility] Dr. Ricci Fax manual diff Not [...] 4.50-10.50 15:04 URINALYSIS, AUTOMATED W/ MICRO ([facility] (31461) Comments : All lab needs to be faxed to [facility] at [phone]. Pre-op Dr. Won Ricci.; Items in this order include: Draw Charge[i], CBC, Basic Metabolic Panel, [phone]. Pre-op Dr. Won Ricci.All lab needs to be faxed to [facility] at U yeast Present [...] Range: 135-145 15:04 CBC-FEMALE- ORDER THIS ONE! ([id number]) Comments: Items in this order include: Draw [...] 10*3/uL (Normal) Range: 4.50-10.50 15:04 Routine Venipuncture (75056) Comments: Items in this order include : Draw Charge[i], CBC, Basic Metabolic Panel, Urinalysis Draw Drawn (Normal) 06-Mar-2011 11:27 [facility] Comments: Please fax all lab to Dr. Ricci at and [facility] at [phone]; Items in this order include: Draw Charge[i], CBC, Urinalysis, Basic Metabolic PanelBeebe Healthcaredayana Snell at [phone] fax all lab to Dr. Ricci at [phone] and [facility] 83 mg/dL (Normal) Range: [...] 135-145 11:27 URINALYSIS, AUTOMATED W/ MICRO ([facility]) ([id number]) Comments: Items in this order include: Draw [...] Range: Yellow 11:27 CBC-FEMALE- ORDER THIS ONE! ([id number]) Comments: Items in this order include: Draw [...] 10*3/uL (Normal) Range: 4.50-10.50 11:27 Routine Venipuncture (68074) Comments: Items in this order include : Draw Charge[i], CBC, Urinalysis, Basic Metabolic Panel Draw Drawn (Normal) Advance Directives Encounters Medication Entry [facility] On 28-Nov-2014 [...] Taking Seroquel for sx., sees Shama at [facility] also, [ADDITIONAL REASON] Amenorrhea, Primary - She is sexually active. For contraception she uses nothing. Symptoms include amenorrhea, while symptoms do not include pelvic pain , headache or visual disturbance. The patient describes this as unchanged. Associated symptoms include fatigue and hot flashes. Note for "Primry amenorrhea ": said she wants her hormones checked [facility] On 07-Feb-2014 14:16 to 15:30 [...] Note for "Anxiety": Taking Seroquel for sx. [facility] On 12-Apr-2013 14:00 to 14:49 [...] symptoms are relieved by laxatives (MOM and [employer]). The symptoms have been associated with [...] Elder ; a guarantor * [facility] Medical Assistance Prog * [facility]
--- OUTSIDE RECORDS SUMMARY | 2016-06-23 23:39 | XMS REPORT | Continuity of Care Document ---
Author Author [facility] Organization [facility] Address [address] [place] [address] Phone Care Team Providers Care Shop Tailor Name Role Phone Eric Montes MD PP [...] bedtime for 0 days Quantity: 30 {Tablet} Ordered:03-May-2014 Eric Montes MD* Start 03-May-2014 Active EFFEXOR XR, 37.5MG (Oral Capsule Extended [...] X-ray Exam of Lower Spine, 2 Views ([id number]) Completed:17-May-2014 Comments : outside order from Dr. Ricci How to access health information online Completed:07-Feb-2014 X-ray Exam of Lower Spine, 2 Views ([id number]) Completed:11-Jan-2014 Comments : outside order from Dr. Ricci Referral to Dermatology Ordered:16-Nov-2013 DISCONTINUED - URINALYSIS, AUTOMATED W/ MICRO [place] ([id number]) Completed:Jun-2011 X-RAY EXAM LUMBAR SPINE, MIN 4 VIEWS ([id number]) Ordered:05-Dec-2010 MRI OF LUMBAR SPINE W/ W/O CONTRAST ([id number]) Ordered:05-Dec-2010 US EXAM, BREAST(S) ([id number]) Ordered:05-Mar-2010 Follow up in 3 months Ordered:18-Dec-2009 [...] Date Description Value Details 07-Feb-2014 15:07 PROLACTIN ([id number]) Comments: Items in this order include: Draw Charge[i], CBC, Comprehensive Metabolic Panel, TSH, FSH, LH, PROLACTINTesting performed at: [facility], [address] [place] [address], [address], Resin Remover: Lonny Middleton D.O., MPH.[facility] PROLACTIN 11.5 ng/mL (Normal) Comments: Reference Range.br Females.br Non- 3.0-30.0.br 10.0-209.0.br Postmenopausal 2.0-20.0.br .br .br 15:07 LH ([id number]) Comments: Items in this order include: Draw Charge[i] , CBC, Comprehensive Metabolic Panel, TSH, FSH, LH, PROLACTINTesting performed at: [facility], [address] [place] [address], [address], Resin Remover: Lonny Middleton D.O., MPH.[facility] LH 9.3 m[iU]/mL (Normal) Comments: Reference Range.brFollicular Phase 1.9-12.5.brMid-Cycle Peak 8.7-76.3.brLuteal Phase 0.5- 16.9.brPostmenopausal 10.0-54.7 15:07 FSH ([id number]) Comments: Items in this order include: Draw Charge[i] , CBC, Comprehensive Metabolic Panel, TSH, FSH, LH, PROLACTINTesting performed at: [facility], [address] [place] [address], [address], Resin Remover: Lonny Middleton D.O., MPH.[facility] FSH 4.4 m[iU]/mL (Normal) Comments: Reference Range.br .br Follicular Phase 2.5-10.2.br Mid-cycle Peak 3.1- 17.7.br Luteal Phase 1.5- 9.1.br Postmenopausal 23.0-116.3 .br 15:07 TSH (THYROID STIMULATING HORMONE) ([id number]) TSH 1.33 uIU/ml (Normal) Range: 0.34-5.60 15:07 CMP ([id number]) ALTI 96 U/L (Abnormal) Range: 12-78 AST [...] Range: 135-145 15:07 CBC-FEMALE- ORDER THIS ONE! ([id number]) manual diff Not Indicated (Normal) mpv 11.30 [...] 10*3/uL (Abnormal) Range: 4.50-10.50 15:07 Routine Venipuncture (50803) Draw Drawn (Normal) 15-Nov-2013 17:32 SED RATE ERYTHROCYTE ([id number]) Comments: Items in this order include: Draw Charge[i], Basic Metabolic Panel, C-Reactive Protein, CBC, Sed Rate ESR 4 mm/h (Normal) Range: 0-20 17:32 CBC-FEMALE- ORDER THIS ONE! ([id number]) manual diff Not Indicated (Normal) mpv 10.60 [...] 10*3/uL (Abnormal) Range: 4.50-10.50 17:32 C-REACTIVE PROTEIN ([id number]) CRP 1.82 mg/dL (Abnormal) Range: 0.00-0.30 17:32 [...] mmol/L (Normal) Range: 135-145 17:32 Routine Venipuncture (87229) Draw Drawn (Normal) 30-Sep-2013 14:25 URINALYSIS, AUTOMATED W/ MICRO ([facility]) ([id number]) Comments : Items in this order include: [...] Range: 135-145 14:25 CBC-FEMALE- ORDER THIS ONE! ([id number]) Comments: Results to [facility] Dr. Ricci .; Items in this order include : CBC, Basic Metabolic Panel, [id number].Results to [facility] Dr. Ricci Fax manual diff Not [...] W/ MICRO ([facility] ([id number]) Comments : All lab needs to be faxed to [facility] [place] at [phone]. Pre-op Dr. Won Ricci.; Items in this order include: Draw Charge[i], CBC, Basic Metabolic Panel, [phone]. Pre-op Dr. Won Ricci.All lab needs to be faxed to [facility] at U yeast Present - [...] Range: 135-145 15:04 CBC-FEMALE- ORDER THIS ONE! ([id number]) Comments: Items in this order include: Draw [...] 10*3/uL (Normal) Range: 4.50-10.50 15:04 Routine Venipuncture (56456) Comments: Items in this order include : Draw Charge[i], CBC, Basic Metabolic Panel, Urinalysis Draw Drawn (Normal) 06-Mar-2011 11:27 [facility] Comments: Please fax all lab to Dr. Ricci at [phone] and [facility] at [phone]; Items in this order include: Draw Charge[i], CBC, Urinalysis, [facility] PanelB[facility] at [phone] fax all lab to Dr. Ricci at [phone] and [facility] GLU 83 mg/dL (Normal) Range: [...] W/ MICRO ([facility] ([id number]) Comments: Items in this order include: Draw [...] Range: Yellow 11:27 CBC-FEMALE- ORDER THIS ONE! ([id number]) Comments: Items in this order include: Draw [...] 10*3/uL (Normal) Range: 4.50-10.50 11:27 Routine Venipuncture ([id number]) Comments: Items in this order include : Draw Charge[i], CBC, Urinalysis, Basic Metabolic Panel Draw Drawn (Normal) Advance Directives Encounters Medication Entry [facility] On 28-Nov-2014 [...] Taking Seroquel for sx., sees Shama at also, [ADDITIONAL REASON] Amenorrhea, Primary - She [...] symptoms are relieved by laxatives (MOM and [employer]). The symptoms have been associated [...] * Christy Elder ; a guarantor * [facility] Medical Assistance [facility]g * [facility]
--- OUTSIDE RECORDS SUMMARY | 2016-06-23 23:41 | XMS REPORT | Continuity of Care Document ---
Author Author [facility] Organization [facility] Address [address] [place] [address] Phone Care Team Providers Care Manager Flight Name Role Phone Erci Montes MD PP Eric Montes MD Unavailable [...] X-ray Exam of Lower Spine, 2 Views ([id number]) Completed:17-May-2014 Comments : outside order from Dr. Ricci How to access health information online Completed:07-Feb-2014 X-ray Exam of Lower Spine, 2 Views ([id number]) Completed:11-Jan-2014 Comments : outside order from Dr. Ricci Referral to Dermatology Ordered:16-Nov-2013 DISCONTINUED - URINALYSIS, AUTOMATED W/ MICRO ([facility]) ([id number]) Completed:Jun-2011 X-RAY EXAM LUMBAR SPINE, MIN 4 VIEWS ([id number]) Ordered:05-Dec-2010 MRI OF LUMBAR SPINE W/ W/O CONTRAST ([id number]) Ordered:05-Dec-2010 US EXAM, BREAST(S) ([id number]) Ordered:05-Mar-2010 Follow up in 3 months Ordered:18-Dec-2009 [...] Active Vital Signs Date Test Result Details 20-Mar-2015 10:43 Pulse 74 /min Comments: Pattern: [...] Details 20-Feb-2015 16:12 URINALYSIS, AUTOMATED W/ MICRO [place] [place] ([id number]) Comments: Items in this order include: UrinalysisAntibiotics? [...] Yellow (Normal) Range: Yellow 07-Feb-2014 15:07 PROLACTIN ([id number]) Comments: Items in this order include: Draw Charge[i], CBC, Comprehensive Metabolic Panel, TSH, FSH, LH, PROLACTINTesting performed at: [facility], [address] [place] [address], [phone], Reactor Technician: Lonny Middleton D.O., MPH.[facility] PROLACTIN 11.5 ng/mL (Normal) Comments: Reference Range.br Females.br Non- 3.0-30.0.br 10.0-209.0.br Postmenopausal 2.0-20.0.br .br .br 15:07 LH ([id number]) Comments: Items in this order include: Draw Charge[i] , CBC, Comprehensive Metabolic Panel, TSH, FSH, LH, PROLACTINTesting performed at: [facility], [address] [place], [address], Reactor Technician: Lonny Middleton D.O., MPH.[facility] LH 9.3 m[iU]/mL (Normal) Comments: Reference Range.brFollicular Phase 1.9-12.5.brMid-Cycle Peak 8.7-76.3.brLuteal Phase 0.5- 16.9.brPostmenopausal 10.0-54.7 15:07 FSH ([id number]) Comments: Items in this order include: Draw Charge[i] , CBC, Comprehensive Metabolic Panel, TSH, FSH, LH, PROLACTINTesting performed at: [facility], [address] [place], [address], Reactor Technician: Lonny Middleton D.O., MPH.[facility] FSH 4.4 m[iU]/mL (Normal) Comments: Reference Range.br .br Follicular Phase 2.5-10.2.br Mid-cycle Peak 3.1- 17.7.br Luteal Phase 1.5- 9.1.br Postmenopausal 23.0-116.3 .br 15:07 TSH (THYROID STIMULATING HORMONE) ([id number]) TSH 1.33 uIU/ml (Normal) Range: 0.34-5.60 15:07 CMP ([id number]) ALTI 96 U/L (Abnormal) Range: 12-78 AST [...] Range: 135-145 15:07 CBC-FEMALE- ORDER THIS ONE! ([id number]) manual diff Not Indicated (Normal) mpv 11.30 [...] 10*3/uL (Abnormal) Range: 4.50-10.50 15:07 Routine Venipuncture (07799) Draw Drawn (Normal) 15-Nov-2013 17:32 SED RATE ERYTHROCYTE ([id number]) Comments: Items in this order include: Draw Charge[i], Basic Metabolic Panel, C-Reactive Protein, CBC, Sed Rate ESR 4 mm/h (Normal) Range: 0-20 17:32 CBC-FEMALE- ORDER THIS ONE! (76227) manual diff Not Indicated (Normal) mpv 10.60 [...] 10*3/uL (Abnormal) Range: 4.50-10.50 17:32 C-REACTIVE PROTEIN (41012) CRP 1.82 mg/dL (Abnormal) Range: 0.00-0.30 17:32 [...] mmol/L (Normal) Range: 135-145 17:32 Routine Venipuncture (43287) Draw Drawn (Normal) 30-Sep-2013 14:25 URINALYSIS, AUTOMATED W/ MICRO ([facility] ([id number]) Comments : Items in this order include: [...] Range: 135-145 14:25 CBC-FEMALE- ORDER THIS ONE! ([id number]) Comments: Results to [facility] Dr. Ricci .; Items in this order include : CBC, Basic Metabolic Panel, [id number].Results to [facility] Dr. Ricci Fax manual diff Not [...] Range: 4.50-10.50 15:04 URINALYSIS, AUTOMATED W/ MICRO ([facility] (05077) Comments : All lab needs to be faxed to [facility] at [phone]. Pre-op Dr. Won Ricci.; Items in this order include: Draw Charge[i], CBC, Basic Metabolic Panel, [phone]. Pre-op Dr. Won Ricci.All lab needs to be faxed to [facility] at U yeast Present - [...] Range: 135-145 15:04 CBC-FEMALE- ORDER THIS ONE! (05040) Comments: Items in this order include: Draw [...] 10*3/uL (Normal) Range: 4.50-10.50 15:04 Routine Venipuncture (56109) Comments: Items in this order include : Draw Charge[i], CBC, Basic Metabolic Panel, Urinalysis Draw Drawn (Normal) 06-Mar-2011 11:27 BMP Comments: Please fax all lab to Dr. Ricci at and [facility] at [phone]; Items in this order include: Draw Charge[i], CBC, Urinalysis, Basic Met[facility] PanelChbay[facility] [place] at [phone] fax all lab to Dr. Ricci at [phone] and [facility] 83 mg/dL (Normal) Range: [...] Range: 135-145 11:27 URINALYSIS, AUTOMATED W/ MICRO ([facility] (15413) Comments: Items in this order include: Draw [...] Range: Yellow 11:27 CBC-FEMALE- ORDER THIS ONE! ([id number]) Comments: Items in this order include: Draw [...] 10*3/uL (Normal) Range: 4.50-10.50 11:27 Routine Venipuncture (95500) Comments: Items in this order include : Draw Charge[i], CBC, Urinalysis, Basic Metabolic Panel Draw Drawn (Normal) Advance Directives Encounters Nurse Visit (Non-billable) [facility] On 20-Mar-2015 09:59 to 10:46 [...] with abdominal distention, abdominal pain and hemorrhoids. [facility] On 13-Mar-2015 14:30 to 15:13 Medication Entry - UTI (lower urinary tract infection) (599.0 | N39.0) [facility] On 22-Feb-2015 10:04 to 10:06 Nurse Visit (Non-billable) - Dysuria (788.1 | R30.0) [facility] On 20-Feb-2015 16:01 to 16:38 Nurse Visit (Non-billable) [facility] On 17-Jan-2015 11:29 to 11:31 [...] unhealthy food choices. The patient is sedentary. [facility] On 19-Dec-2014 16:15 to 20:43 Medication Entry [facility] On 28-Nov-2014 16:29 to 16:32 [...] (Stopped Celexa. Didn't think it was helping.). [facility] On 16-Nov-2014 14:05 to 14:59 Medication Entry - Lumbar back pain (724.2) [facility] On 20-Sep-2014 12:31 to 12:34 [...] Denies any pain at this time to area.[facility] On 14:43 to 17:01 Historical Summary [facility] On 11:48 to 11:52 Radiology Visit - Lumbar back pain (724.2) [facility] On 17-May-2014 16:35 to 16:37 Medication Entry [facility] On 03-May-2014 09:14 to 09:22 Medication Entry - Sore throat (462 | J02.9) [facility] On 25-Apr-2014 15:13 to 15:15 [...] Taking Seroquel for sx., sees Shama at [facility] also, [ADDITIONAL REASON] Amenorrhea, Primary - She is sexually active. For contraception she uses nothing. Symptoms include amenorrhea, while symptoms do not include pelvic pain , headache or visual disturbance. The patient describes this as unchanged. Associated symptoms include fatigue and hot flashes. Note for "Primry amenorrhea ": said she wants her hormones checked [facility] On 07-Feb-2014 14:16 to 15:30 Radiology Visit - Lumbar back pain (724.2) [facility] On 11-Jan-2014 16:20 to 16:23 [...] at times but is not painful or itchy.[facility] 15-Nov-2013 to 16-Nov-2013 Office Visit [...] rash but it has gotten worse since starting.[facility] On 05-Nov-2013 15:56 to 16:53 [...] their activity level (has gradually improved since surgery.).[facility] On 28-Oct-2013 14:32 to 15:50 Historical Summary [facility] On 27-Oct-2013 10:06 to 10:10 Medication Entry - UTI (lower urinary tract infection) (599.0 | N39.0) [facility] On 08-Oct-2013 15:55 to 15:57 Lab entry only - Lumbar back pain (724.2) [facility] On 08:47 to 08:49 Medication Entry - Dysesthesia affecting both sides of body (782.0 | R20.8) [facility] On 21-May-2013 13:35 to 13:38 [...] Note for "Anxiety": Taking Seroquel for sx. [facility] On 12-Apr-2013 14:00 to 14:49 Office [...] patient plans to recover at home with family.[facility] On 15:23 to 22:32 Medication Entry - Anxiety (300.00) [facility] On 14:52 to 14:55 Office [...] is not currently being treated for this problem.[facility] On 17:25 to 21:06 Lab entry only - Lumbar back pain (724.2) [facility] On 09-Jul-2011 09:57 to 10:02 [...] symptoms are relieved by laxatives (MOM and [employer]). The symptoms have been associated with abdominal distention, abdominal pain and hemorrhoids. [facility] On 01-Apr-2011 14:46 to 19:35 Medication Entry - Contraception (V25.9) [facility] On 25-Feb-2011 16:26 to 16:28 Lab entry only - Lumbar back pain (724.2) [facility] On 21-Feb-2011 15:35 to 15:44 Medication Entry - Lumbar back pain (724.2) [facility] On 03-Jan-2011 16:18 to 16:22 Medication Entry - Lumbar back pain (724.2) [facility] On 02-Jan-2011 17:57 to 18:06 [...] removed from hip and put in knee. ).[facility] On 05-Dec-2010 14:52 to 16:15 [...] the breast. The last menstrual period began 01-17-2010.[facility] On 05-Mar-2010 13:56 to 23:43 Office Visit Encounter Reason: Obesity - The patient's appetite is normal. The patient's dietary intake is normal. The patient has gained 30 pounds (has bought treadmill and walks qod-30 min). The symptoms have been associated with fatigue , while the symptoms have not been associated with amenorrhea or cold intolerance.[facility] On 18-Dec-2009 10:37 to 11:12 Office Visit [facility] On 04-Dec-2009 13:30 to 13:44 Insurance * Christy Elder ; a guarantor * [facility] Medical Assistance Prog * [facility]
--- OUTSIDE RECORDS SUMMARY | 2016-06-23 23:42 | XMS REPORT | Continuity of Care Document ---
Author Author [facility] [place] Organization [facility] [place] Address [address] [place] [address] Phone Care Team Providers Care Before School Name Role Phone Eric Montes MD PP [...] 6 Ordered: Eric Montes MD* Start Active CELEXA, 40MG (Oral Tablet) 1 Tablet daily for 0 days * Quantity: 30 {Tablet} Refills: 3 Ordered:08-Dec-2013 Eric Montes MD* Start 08-Dec-2013 Active KEFLEX, 500MG (Oral Capsule) 1 (one) Capsule three times daily for 0 days * Quantity: 30 {Capsule} Refills: 0 Ordered:25-Apr-2014 Sandy Benitez * Start 25-Apr-2014 Active LYRICA, 50MG (Oral Capsule) - Historical Medication 1 two times daily (50 MG) Active METHOCARBAMOL, 750MG (Oral Tablet) - [...] X-ray Exam of Lower Spine, 2 Views ([id number]) Completed:11-Jan-2014 Comments : outside order from Dr. Ricci Referral to Dermatology Ordered:16-Nov-2013 DISCONTINUED - URINALYSIS, AUTOMATED W/ MICRO ([facility]) ([id number]) Completed:Jun-2011 X-RAY EXAM LUMBAR SPINE, MIN 4 VIEWS ([id number]) Ordered:05-Dec-2010 MRI OF LUMBAR SPINE W/ W/O CONTRAST ([id number]) Ordered:05-Dec-2010 US EXAM, BREAST(S) ([id number]) Ordered:05-Mar-2010 Follow up in 3 months Ordered:18-Dec-2009 [...] Date Description Value Details 07-Feb-2014 15:07 PROLACTIN ([id number]) Comments: Items in this order include: Draw Charge[i], CBC, Comprehensive Metabolic Panel, TSH, FSH, LH, PROLACTINTesting performed at: [facility], [address] [place] [address], [phone], [employer] Supervisor: Lonny Middleton D.O., MPH.[employer] PROLACTIN 11.5 ng/mL (Normal) Comments: Reference Range.br Females.br Non- 3.0-30.0.br 10.0-209.0.br Postmenopausal 2.0-20.0.br .br .br 15:07 LH ([id number]) Comments: Items in this order include: Draw Charge[i] , CBC, Comprehensive Metabolic Panel, TSH, FSH, LH, PROLACTINTesting performed at: [facility], [address] [place] [address], [phone], [employer] Supervisor: Lonny Middleton D.O., MPH.[employer] LH 9.3 m[iU]/mL (Normal) Comments: Reference Range.brFollicular Phase 1.9-12.5.brMid-Cycle Peak 8.7-76.3.brLuteal Phase 0.5- 16.9.brPostmenopausal 10.0-54.7 15:07 FSH ([id number]) Comments: Items in this order include: Draw Charge[i] , CBC, Comprehensive Metabolic Panel, TSH, FSH, LH, PROLACTINTesting performed at: [facility], [address] [place] [address], [phone], [employer] Supervisor: Lonny Middleton D.O., MPH.[employer] FSH 4.4 m[iU]/mL (Normal) Comments: Reference Range.br .br Follicular Phase 2.5-10.2.br Mid-cycle Peak 3.1- 17.7.br Luteal Phase 1.5- 9.1.br Postmenopausal 23.0-116.3 .br 15:07 TSH (THYROID STIMULATING HORMONE) ([id number]) TSH 1.33 uIU/ml (Normal) Range: 0.34-5.60 15:07 CMP (48354) ALTI 96 U/L (Abnormal) Range: 12-78 AST [...] Range: 135-145 15:07 CBC-FEMALE- ORDER THIS ONE! ([id number]) manual diff Not Indicated (Normal) mpv 11.30 [...] 10*3/uL (Abnormal) Range: 4.50-10.50 15:07 Routine Venipuncture (25069) Draw Drawn (Normal) 15-Nov-2013 17:32 SED RATE ERYTHROCYTE ([id number]) Comments: Items in this order include: Draw Charge[i], Basic Metabolic Panel, C-Reactive Protein, CBC, Sed Rate ESR 4 mm/h (Normal) Range: 0-20 17:32 CBC-FEMALE- ORDER THIS ONE! (54869) manual diff Not Indicated (Normal) mpv 10.60 [...] 10*3/uL (Abnormal) Range: 4.50-10.50 17:32 C-REACTIVE PROTEIN (74581) CRP 1.82 mg/dL (Abnormal) Range: 0.00-0.30 17:32 [...] mmol/L (Normal) Range: 135-145 17:32 Routine Venipuncture (69439) Draw Drawn (Normal) 30-Sep-2013 14:25 URINALYSIS, AUTOMATED W/ MICRO ([facility]) ([id number]) Comments : Items in this order include: [...] Range: 135-145 14:25 CBC-FEMALE- ORDER THIS ONE! (84301) Comments: Results to [facility] Dr. Ricci .; Items in this order include : CBC, Basic Metabolic Panel, [phone].Results to [facility] Dr. Ricci [...] Range: 4.50-10.50 15:04 URINALYSIS, AUTOMATED W/ MICRO ([facility]) ([id number]) Comments : All lab needs to be faxed to [facility] at [phone]. Pre-op Dr. Won Ricci.; Items in this order include: Draw Charge[i], CBC, Basic Metabolic Panel, [phone]. Pre-op Dr. Won Ricci.All lab needs to be faxed to [facility] at U yeast Present - Rare (Abnormal) [...] Range: 135-145 15:04 CBC-FEMALE- ORDER THIS ONE! (71355) Comments: Items in this order include: Draw [...] 10*3/uL (Normal) Range: 4.50-10.50 15:04 Routine Venipuncture (62673) Comments: Items in this order include : Draw Charge[i], CBC, Basic Metabolic Panel, Urinalysis Draw Drawn (Normal) 06-Mar-2011 11:27 [facility] Comments: Please fax all lab to Dr. Ricci at [phone] and [facility] at [phone]; Items in this order include: Draw Charge[i], CBC, Urinalysis, Basic Metabolic PanelChkayenta health centerdayana Sn[facility] at [phone] fax all lab to Dr. Ricci at [phone] and Via GLU 83 mg/dL (Normal) Range: [...] Range: 135-145 11:27 URINALYSIS, AUTOMATED W/ MICRO ([facility]) ([id number]) Comments: Items in this order include: Draw [...] Range: Yellow 11:27 CBC-FEMALE- ORDER THIS ONE! (83087) Comments: Items in this order include: Draw [...] 10*3/uL (Normal) Range: 4.50-10.50 11:27 Routine Venipuncture (71455) Comments: Items in this order include : Draw Charge[i], CBC, Urinalysis, Basic Metabolic Panel Draw Drawn (Normal) Advance Directives Encounters Medication Entry [facility] [place] On 03-May-2014 09:14 to 09:22 Medication Entry - Sore throat (462 | J02.9) [facility] [place] On 25-Apr-2014 15:13 to 15:15 Office Visit [...] sees Shama at [facility] also, [ADDITIONAL REASON] Amenorrhea, Primary - She is sexually active. For contraception she uses nothing. Symptoms include amenorrhea, while symptoms do not include pelvic pain , headache or visual disturbance. The patient describes this as unchanged. Associated symptoms include fatigue and hot flashes. Note for "Primry amenorrhea ": said she wants her hormones checked [facility] On 07-Feb-2014 14:16 to 15:30 Radiology Visit - Lumbar back pain (724.2) [facility] [place] On 11-Jan-2014 16:20 to 16:23 Office Visit [...] or itchy.[facility] [place] 15-Nov-2013 to 16-Nov-2013 Office Visit - Dermatitis [...] [facility] [place] On 05-Nov-2013 15:56 to 16:53 Office Visit [...] [facility] [place] On 28-Oct-2013 14:32 to 15:50 Historical Summary [facility] [place] On 27-Oct-2013 10:06 to 10:10 Medication Entry - UTI (lower urinary tract infection) (599.0 | N39.0) [facility] [place] On 08-Oct-2013 15:55 to 15:57 Lab entry only - Lumbar back pain (724.2) [facility] [place] On 08:47 to 08:49 Medication Entry - Dysesthesia affecting both sides of body (782.0 | R20.8) [facility] [place] On 21-May-2013 13:35 to 13:38 Office Visit [...] for "Anxiety": Taking Seroquel for sx. [facility] On 12-Apr-2013 14:00 to 14:49 [...] [facility] [place] On 15:23 to 22:32 Medication Entry - Anxiety (300.00) [facility] [place] On 14:52 to 14:55 Office Visit - [...] [facility] [place] On 17:25 to 21:06 Lab entry only - Lumbar back pain (724.2) [facility] [place] On 09-Jul-2011 09:57 to 10:02 Office Visit [...] symptoms are relieved by laxatives (MOM and [employer] [place] [employer]). The symptoms have been associated with abdominal distention, abdominal pain and hemorrhoids. [facility] [place] On 01-Apr-2011 14:46 to 19:35 Medication Entry - Contraception (V25.9) [facility] [place] On 25-Feb-2011 16:26 to 16:28 Lab entry only - Lumbar back pain (724.2) [facility] [place] On 21-Feb-2011 15:35 to 15:44 Medication Entry - Lumbar back pain (724.2) [facility] [place] On 03-Jan-2011 16:18 to 16:22 Medication Entry - Lumbar back pain (724.2) [facility] [place] On 02-Jan-2011 17:57 to 18:06 Office Visit [...] [facility] [place] On 05-Dec-2010 14:52 to 16:15 Office Visit [...] [facility] [place] On 05-Mar-2010 13:56 to 23:43 Office Visit Encounter Reason: Obesity - The patient's appetite is normal. The patient's dietary intake is normal. The patient has gained 30 pounds (has bought treadmill and walks qod-30 min). The symptoms have been associated with fatigue , while the symptoms have not been associated with amenorrhea or cold intolerance.[facility] [place] On 18-Dec-2009 10:37 to 11:12 Office Visit [facility] [place] On 04-Dec-2009 13:30 to 13:44 Insurance * Christy Elder ; a guarantor * [facility] Medical Assistance Prog * [facility]
--- OUTSIDE RECORDS SUMMARY | 2016-06-23 23:43 | XMS REPORT | Continuity of Care Document ---
Author Author [facility] Organization [facility] Address [address] [place] [address] Phone Care Team Providers Care Primary [place] Name Role Phone Eric Montes MD PP Nikki Ahmadi Unavailable Sandy Benitez Unavailable Unavailable Eric Montes MD Unavailable Unavailable History of [...] DISCONTINUED - URINALYSIS, AUTOMATED W/ MICRO ([facility]) ([id number]) Completed:Jun-2011 X-RAY EXAM LUMBAR SPINE, MIN 4 VIEWS ([id number]) Ordered:05-Dec-2010 MRI OF LUMBAR SPINE W/ W/O CONTRAST (21786) Ordered:05-Dec-2010 US EXAM, BREAST(S) ([id number]) Ordered:05-Mar-2010 Follow up in 3 months Ordered:18-Dec-2009 [...] 33.37 kg/m2 Body Surface Area Calculated 2.18 28-Oct-2013 14:33 Temperature 97.5 f Comments: Method: [...] Details 30-Sep-2013 14:25 URINALYSIS, AUTOMATED W/ MICRO ([place]) ([id number]) Comments : Items in this order include: [...] Range: 135-145=Normal 14:25 CBC-FEMALE- ORDER THIS ONE! ([id number]) Comments: Results to [facility] Dr. Ricci .; Items in this order include : CBC, Basic Metabolic Panel, [id number].Results to [facility] Dr. Ricci Fax manual [...] Range: 4.50-10.50=Normal 15:04 URINALYSIS, AUTOMATED W/ MICRO ([place]) ([id number]) Comments : All lab needs to be faxed to [facility] at [phone]. Pre-op Dr. Won Ricci.; Items in this order include: Draw Charge[i], CBC, Basic Metabolic Panel, [id number]. Pre-op Dr. Won Ricci.All lab needs to be faxed to [facility] at U yeast Present - Rare Range: [...] Range: 135-145=Normal 15:04 CBC-FEMALE- ORDER THIS ONE! ([id number]) Comments: Items in this order include: Draw [...] 9.41 K/uL Range: 4.50-10.50=Normal 15:04 Routine Venipuncture (56361) Comments: Items in this order include : Draw Charge[i], CBC, Basic Metabolic Panel, Urinalysis Draw Drawn Normal 06-Mar-2011 11:27 BMP Comments: Please fax all lab to Dr. Ricci at [phone] and [facility] at [phone]; Items in this order include: Draw Charge[i], CBC, Urinalysis, Basic Metabolic PanelChUniversity of Missouri Health CareGar[facility] at [phone] fax all lab to Dr. Ricci at [phone] and Via GLU 83 mg/dL Range: 70-110=Normal CA 10.0 mg/dL Range: 8.4-10.2=Normal eGFR 69.1 mL/min/1.73m2 Range: >60.0=Normal CREAT 1.0 mg/dL Range: 0.6-1.3=Normal OSMO 279 Range: 275-295=Normal BUN 11 mg/dL Range: 7-18=Normal AGAP 11.50 mmol/L Range: 10.00-20.00=Normal CO2 31.3 mmol/L Range: 21.0-32.0=Normal CL 102 mmol/L Range: 98-107=Normal K 4.8 mmol/L Range: 3.5-5.0=Normal NA 140 mmol/L Range: 135-145=Normal 11:27 URINALYSIS, AUTOMATED W/ MICRO ([place]) ([id number]) Comments: Items in this order include: Draw [...] Range: Yellow=Normal 11:27 CBC-FEMALE- ORDER THIS ONE! ([id number]) Comments: Items in this order include: Draw [...] 7.61 K/uL Range: 4.50-10.50=Normal 11:27 Routine Venipuncture (74223) Comments: Items in this order include : Draw Charge[i], CBC, Urinalysis, Basic Metabolic Panel Draw Drawn Normal Advance Directives No Advance Directives available. Encounters Review Encounter Reason: Rash - Symptoms include skin bumps and skin redness, while symptoms do not include pain or pruritus. The skin rash is located on the [...] rash but it has gotten worse since starting.[facility] On 05-Nov-2013 15:56 Office Visit - Lumbar back pain Encounter Reason: Post-Operative - Patient is 2 weeks (diskectomy) postop procedure. Patient's symptoms are improved compared to preoperative. Post operative pain has been moderate. Pain medications include: Hydrocodone and Ultram. Patient has been compliant with post operative instructions. Patient has shown improvement in their activity level (has gradually improved since surgery.).[facility] On 28-Oct-2013 14:32 Historical Summary [facility] On 27-Oct-2013 10:06 Medication Entry - UTI (599.0 | N39.0) [facility] On 08-Oct-2013 15:55 Lab entry [...] symptoms are relieved by laxatives (MOM and [employer] [employer]). The symptoms have been associated with [...]
--- OUTSIDE RECORDS SUMMARY | 2016-06-23 23:44 | XMS REPORT | Continuity of Care Document ---
Author Author [facility] Organization [facility] Address [address] [place] [address] Phone Care Team Providers Care Child Health Associate Name Role Phone Eric Montes MD PP [...] X-ray Exam of Lower Spine, 2 Views ([id number]) Completed:17-May-2014 Comments : outside order from Dr. Ricci How to access health information online Completed:07-Feb-2014 X-ray Exam of Lower Spine, 2 Views ([id number]) Completed:11-Jan-2014 Comments : outside order from Dr. Ricci Referral to Dermatology Ordered:16-Nov-2013 DISCONTINUED - URINALYSIS, AUTOMATED W/ MICRO ([facility]) ([id number]) Completed:Jun-2011 X-RAY EXAM LUMBAR SPINE, MIN 4 VIEWS ([id number]) Ordered:05-Dec-2010 MRI OF LUMBAR SPINE W/ W/O CONTRAST ([id number]) Ordered:05-Dec-2010 US EXAM, BREAST(S) ([id number]) Ordered:05-Mar-2010 Follow up in 3 months Ordered:18-Dec-2009 [...] Active Vital Signs Date Test Result Details 18-Apr-2015 12:42 Pulse 84 /min Comments: Pattern: [...] Details 20-Feb-2015 16:12 URINALYSIS, AUTOMATED W/ MICRO [place] ([id number]) Comments: Items in this order include: UrinalysisAntibiotics? [...] Yellow (Normal) Range: Yellow 07-Feb-2014 15:07 PROLACTIN ([id number]) Comments: Items in this order include: Draw Charge[i], CBC, Comprehensive Metabolic Panel, TSH, FSH, LH, PROLACTINTesting performed at: [facility], [address] [place] [address], [phone], [employer] Operator: Lonny Middleton D.O., MPH.[employer] PROLACTIN 11.5 ng/mL (Normal) Comments: Reference Range.br Females.br Non- 3.0-30.0.br 10.0-209.0.br Postmenopausal 2.0-20.0.br .br .br 15:07 LH ([id number]) Comments: Items in this order include: Draw Charge[i] , CBC, Comprehensive Metabolic Panel, TSH, FSH, LH, PROLACTINTesting performed at: [facility], [address] [place], [phone], [employer] Operator: Lonny Middleton D.O., MPH.[facility] LH 9.3 m[iU]/mL (Normal) Comments: Reference Range.brFollicular Phase 1.9-12.5.brMid-Cycle Peak 8.7-76.3.brLuteal Phase 0.5- 16.9.brPostmenopausal 10.0-54.7 15:07 FSH ([id number]) Comments: Items in this order include: Draw Charge[i] , CBC, Comprehensive Metabolic Panel, TSH, FSH, LH, PROLACTINTesting performed at: [facility], [address] [place], [phone], [employer] Operator: Lonny Middleton D.O., MPH.[employer] FSH 4.4 m[iU]/mL (Normal) Comments: Reference Range.br .br Follicular Phase 2.5-10.2.br Mid-cycle Peak 3.1- 17.7.br Luteal Phase 1.5- 9.1.br Postmenopausal 23.0-116.3 .br 15:07 TSH (THYROID STIMULATING HORMONE) ([id number]) TSH 1.33 uIU/ml (Normal) Range: 0.34-5.60 15:07 CMP (81407) ALTI 96 U/L (Abnormal) Range: 12-78 AST [...] Range: 135-145 15:07 CBC-FEMALE- ORDER THIS ONE! ([id number]) manual diff Not Indicated (Normal) mpv 11.30 [...] 10*3/uL (Abnormal) Range: 4.50-10.50 15:07 Routine Venipuncture (09197) Draw Drawn (Normal) 15-Nov-2013 17:32 SED RATE ERYTHROCYTE ([id number]) Comments: Items in this order include: Draw Charge[i], Basic Metabolic Panel, C-Reactive Protein, CBC, Sed Rate ESR 4 mm/h (Normal) Range: 0-20 17:32 CBC-FEMALE- ORDER THIS ONE! (32054) manual diff Not Indicated (Normal) mpv 10.60 [...] 10*3/uL (Abnormal) Range: 4.50-10.50 17:32 C-REACTIVE PROTEIN (40127) CRP 1.82 mg/dL (Abnormal) Range: 0.00-0.30 17:32 [...] mmol/L (Normal) Range: 135-145 17:32 Routine Venipuncture (22888) Draw Drawn (Normal) 30-Sep-2013 14:25 URINALYSIS, AUTOMATED W/ MICRO ([facility] ([id number]) Comments : Items in this order include: [...] Range: 135-145 14:25 CBC-FEMALE- ORDER THIS ONE! ([id number]) Comments: Results to [facility] Dr. Ricci .; Items in this order include : CBC, Basic Metabolic Panel, [id number].Results to [facility] Dr. Ricci Fax manual diff Not Indicated [...] Range: 4.50-10.50 15:04 URINALYSIS, AUTOMATED W/ MICRO ([facility] ([id number]) Comments : All lab needs to be faxed to [facility] at [phone]. Pre-op Dr. Won Ricci.; Items in this order include: Draw Charge[i], CBC, Basic Metabolic Panel, [id number]. Pre-op Dr. Won Ricci.All lab needs to be faxed to [facility] at U yeast Present - [...] Range: 135-145 15:04 CBC-FEMALE- ORDER THIS ONE! ([id number]) Comments: Items in this order include: Draw [...] 10*3/uL (Normal) Range: 4.50-10.50 15:04 Routine Venipuncture (68439) Comments: Items in this order include : Draw Charge[i], CBC, Basic Metabolic Panel, Urinalysis Draw Drawn (Normal) 06-Mar-2011 11:27 [facility] Comments: Please fax all lab to Dr. Ricci at [phone] and [facility] at [phone]; Items in this order include: Draw Charge[i], CBC, Urinalysis, Basic Metabolic PanelChchristiana hospital [facility] at [phone] fax all lab to Dr. Ricci at [phone] and Via GLU 83 mg/dL (Normal) Range: [...] Range: 135-145 11:27 URINALYSIS, AUTOMATED W/ MICRO ([facility] (31562) Comments: Items in this order include: Draw [...] Range: Yellow 11:27 CBC-FEMALE- ORDER THIS ONE! (85486) Comments: Items in this order include: Draw [...] 10*3/uL (Normal) Range: 4.50-10.50 11:27 Routine Venipuncture (79979) Comments: Items in this order include : Draw Charge[i], CBC, Urinalysis, Basic Metabolic Panel Draw Drawn (Normal) Advance Directives Encounters Medication Entry [facility] On 18-Apr-2015 12:22 to 12:43 Nurse Visit (Non-billable) [facility] On 20-Mar-2015 09:59 to 10:46 [...] with abdominal distention, abdominal pain and hemorrhoids. [facility] On 13-Mar-2015 14:30 to 15:13 Medication Entry - UTI (lower urinary tract infection) (599.0 | N39.0) [facility] On 22-Feb-2015 10:04 to 10:06 Nurse Visit (Non-billable) - Dysuria (788.1 | R30.0) [facility] On 20-Feb-2015 16:01 to 16:38 Nurse Visit (Non-billable) [facility] On 17-Jan-2015 11:29 to 11:31 [...] unhealthy food choices. The patient is sedentary. [facility] On 19-Dec-2014 16:15 to 20:43 Medication Entry [facility] On 28-Nov-2014 16:29 to 16:32 [...] (Stopped Celexa. Didn't think it was helping.). [facility] On 16-Nov-2014 14:05 to 14:59 Medication Entry - Lumbar back pain (724.2) [facility] On 20-Sep-2014 12:31 to 12:34 [...] Denies any pain at this time to area.[facility] On 14:43 to 17:01 Historical Summary [facility] On 11:48 to 11:52 Radiology Visit - Lumbar back pain (724.2) [facility] On 17-May-2014 16:35 to 16:37 Medication Entry [facility] On 03-May-2014 09:14 to 09:22 Medication Entry - Sore throat (462 | J02.9) [facility] On 25-Apr-2014 15:13 to 15:15 [...] Taking Seroquel for sx., sees Shama at [facility] also, [ADDITIONAL REASON] Amenorrhea, Primary - She is sexually active. For contraception she uses nothing. Symptoms include amenorrhea, while symptoms do not include pelvic pain , headache or visual disturbance. The patient describes this as unchanged. Associated symptoms include fatigue and hot flashes. Note for "Primry amenorrhea ": said she wants her hormones checked [facility] On 07-Feb-2014 14:16 to 15:30 Radiology Visit - Lumbar back pain (724.2) [facility] On 11-Jan-2014 16:20 to 16:23 [...] at times but is not painful or itchy.[facility] 15-Nov-2013 to 16-Nov-2013 Office Visit [...] rash but it has gotten worse since starting.[facility] On 05-Nov-2013 15:56 to 16:53 [...] their activity level (has gradually improved since surgery.).[facility] On 28-Oct-2013 14:32 to 15:50 Historical Summary [facility] On 27-Oct-2013 10:06 to 10:10 Medication Entry - UTI (lower urinary tract infection) (599.0 | N39.0) [facility] On 08-Oct-2013 15:55 to 15:57 Lab entry only - Lumbar back pain (724.2) [facility] On 08:47 to 08:49 Medication Entry - Dysesthesia affecting both sides of body (782.0 | R20.8) [facility] On 21-May-2013 13:35 to 13:38 [...] Taking Seroquel for sx. [facility] On 12-Apr-2013 14:00 to 14:49 Office Visit [...] patient plans to recover at home with family.[facility] On 15:23 to 22:32 Medication Entry - Anxiety (300.00) [facility] On 14:52 to 14:55 Office [...] is not currently being treated for this problem.[facility] On 17:25 to 21:06 Lab entry only - Lumbar back pain (724.2) [facility] On 09-Jul-2011 09:57 to 10:02 [...] symptoms are relieved by laxatives (MOM and [employer] [employer]). The symptoms have been associated with abdominal distention, abdominal pain and hemorrhoids. [facility] On 01-Apr-2011 14:46 to 19:35 Medication Entry - Contraception (V25.9) [facility] On 25-Feb-2011 16:26 to 16:28 Lab entry only - Lumbar back pain (724.2) [facility] On 21-Feb-2011 15:35 to 15:44 Medication Entry - Lumbar back pain (724.2) [facility] On 03-Jan-2011 16:18 to 16:22 Medication Entry - Lumbar back pain (724.2) [facility] On 02-Jan-2011 17:57 to 18:06 [...] removed from hip and put in knee. ).[facility] On 05-Dec-2010 14:52 to 16:15 [...] the breast. The last menstrual period began 01-17-2010.[facility] On 05-Mar-2010 13:56 to 23:43 Office Visit Encounter Reason: Obesity - The patient's appetite is normal. The patient's dietary intake is normal. The patient has gained 30 pounds (has bought treadmill and walks qod-30 min). The symptoms have been associated with fatigue , while the symptoms have not been associated with amenorrhea or cold intolerance.[facility] On 18-Dec-2009 10:37 to 11:12 Office Visit [facility] On 04-Dec-2009 13:30 to 13:44 Insurance * Christy Elder ; a guarantor * [facility] Medical Assistance Prog * [facility]
--- OUTSIDE RECORDS SUMMARY | 2016-06-23 23:45 | XMS REPORT | Continuity of Care Document ---
Author Author [facility] Organization [facility] Address [address] [place] [address] Phone Care Team Providers Care Ergonomics Engineer Name Role Phone Eric Montes MD [...] Ordered:16-Nov-2014 Eric Montes MD* Start 16-Nov-2014 Active METHOCARBAMOL, 750MG (Oral Tablet) 1 (one) [...] * Quantity: 30 {Tablet} Refills: 3 Ordered: Alejandrina Cruza * Start 08-Dec-2013 End Inactive CLOMID, 50MG [...] X-ray Exam of Lower Spine, 2 Views ([id number]) Completed:17-May-2014 Comments : outside order from Dr. Ricci How to access health information online Completed:07-Feb-2014 X-ray Exam of Lower Spine, 2 Views ([id number]) Completed:11-Jan-2014 Comments : outside order from Dr. Ricci Referral to Dermatology Ordered:16-Nov-2013 DISCONTINUED - URINALYSIS, AUTOMATED W/ MICRO ([facility]) ([id number]) Completed:Jun-2011 X-RAY EXAM LUMBAR SPINE, MIN 4 VIEWS ([id number]) Ordered:05-Dec-2010 MRI OF LUMBAR SPINE W/ W/O CONTRAST ([id number]) Ordered:05-Dec-2010 US EXAM, BREAST(S) ([id number]) Ordered:05-Mar-2010 Follow up in 3 months Ordered:18-Dec-2009 [...] Date Description Value Details 07-Feb-2014 15:07 PROLACTIN ([id number]) Comments: Items in this order include: Draw Charge[i], CBC, Comprehensive Metabolic Panel, TSH, FSH, LH, PROLACTINTesting performed at: [facility], [address] [place] [address], [phone], Mop Machine Operator: Lonny Middleton D.O., MPH.brQuest PROLACTIN 11.5 ng/mL (Normal) Comments: Reference Range.br Females.br Non- 3.0-30.0.br 10.0-209.0.br Postmenopausal 2.0-20.0.br .br .br 15:07 LH ([id number]) Comments: Items in this order include: Draw Charge[i] , CBC, Comprehensive Metabolic Panel, TSH, FSH, LH, PROLACTINTesting performed at: [facility], [address] [place] [address], [phone], Mop Machine Operator: Lonny Middleton D.O., MPH.brQuest LH 9.3 m[iU]/mL (Normal) Comments: Reference Range.brFollicular Phase 1.9-12.5.brMid-Cycle Peak 8.7-76.3.brLuteal Phase 0.5- 16.9.brPostmenopausal 10.0-54.7 15:07 FSH ([id number]) Comments: Items in this order include: Draw Charge[i] , CBC, Comprehensive Metabolic Panel, TSH, FSH, LH, PROLACTINTesting performed at: [facility], [address] [place] [address], [phone], Mop Machine Operator: Lonny Middleton D.O., MPH.brQuest FSH 4.4 m[iU]/mL (Normal) Comments: Reference Range.br .br Follicular Phase 2.5-10.2.br Mid-cycle Peak 3.1- 17.7.br Luteal Phase 1.5- 9.1.br Postmenopausal 23.0-116.3 .br 15:07 TSH (THYROID STIMULATING HORMONE) ([id number]) TSH 1.33 uIU/ml (Normal) Range: 0.34-5.60 15:07 CMP ([id number]) ALTI 96 U/L (Abnormal) Range: 12-78 AST [...] Range: 135-145 15:07 CBC-FEMALE- ORDER THIS ONE! ([id number]) manual diff Not Indicated (Normal) mpv 11.30 [...] 10*3/uL (Abnormal) Range: 4.50-10.50 15:07 Routine Venipuncture (74268) Draw Drawn (Normal) 15-Nov-2013 17:32 SED RATE ERYTHROCYTE ([id number]) Comments: Items in this order include: Draw Charge[i], Basic Metabolic Panel, C-Reactive Protein, CBC, Sed Rate ESR 4 mm/h (Normal) Range: 0-20 17:32 CBC-FEMALE- ORDER THIS ONE! ([id number]) manual diff Not Indicated (Normal) mpv 10.60 [...] 10*3/uL (Abnormal) Range: 4.50-10.50 17:32 C-REACTIVE PROTEIN ([id number]) CRP 1.82 mg/dL (Abnormal) Range: 0.00-0.30 17:32 [...] mmol/L (Normal) Range: 135-145 17:32 Routine Venipuncture (93216) Draw Drawn (Normal) 30-Sep-2013 14:25 URINALYSIS, AUTOMATED W/ MICRO ([facility]) ([id number]) Comments : Items in this order include: [...] Range: 135-145 14:25 CBC-FEMALE- ORDER THIS ONE! ([id number]) Comments: Results to [facility] Dr. Ricci .; Items in this order include : CBC, Basic Metabolic Panel, [phone].Results to [facility] Dr. Ricci Fax manual [...] Range: 4.50-10.50 15:04 URINALYSIS, AUTOMATED W/ MICRO ([facility]) ([id number]) Comments : All lab needs to be faxed to [facility] at [phone]. Pre-op Dr. Won Ricci.; Items in this order include: Draw Charge[i], CBC, Basic Metabolic Panel, [phone]. Pre-op Dr. Won Ricci.All lab needs to be faxed to [facility] at U yeast Present - Rare [...] Range: 135-145 15:04 CBC-FEMALE- ORDER THIS ONE! ([id number]) Comments: Items in this order include: Draw [...] 10*3/uL (Normal) Range: 4.50-10.50 15:04 Routine Venipuncture (12307) Comments: Items in this order include : Draw Charge[i], CBC, Basic Metabolic Panel, Urinalysis Draw Drawn (Normal) 06-Mar-2011 11:27 [facility] Comments: Please fax all lab to Dr. Ricci at and [address] [facility] at [phone]; Items in this order include: Draw Charge[i], CBC, Urinalysis, [facility] at [phone] fax all lab to Dr. Ricci at [phone] and [address] [facility] 83 mg/dL (Normal) Range: [...] Range: 135-145 11:27 URINALYSIS, AUTOMATED W/ MICRO ([facility]) ([id number]) Comments: Items in this order include: Draw [...] Range: Yellow 11:27 CBC-FEMALE- ORDER THIS ONE! ([id number]) Comments: Items in this order include: Draw [...] 10*3/uL (Normal) Range: 4.50-10.50 11:27 Routine Venipuncture (02691) Comments: Items in this order include : Draw Charge[i], CBC, Urinalysis, Basic Metabolic Panel Draw Drawn (Normal) Advance Directives Encounters Office Visit - Chronic lumbar pain (724.2 [...] (Stopped Celexa. Didn't think it was helping.). [facility] On 16-Nov-2014 14:05 to 14:59 Medication Entry - Lumbar back pain (724.2) [facility] On 20-Sep-2014 12:31 to 12:34 Office [...] Denies any pain at this time to area.[facility] On 14:43 to 17:01 Historical Summary [facility] On 11:48 to 11:52 Radiology Visit - Lumbar back pain (724.2) [facility] On 17-May-2014 16:35 to 16:37 Medication Entry [facility] On 03-May-2014 09:14 to 09:22 Medication Entry - Sore throat (462 | J02.9) [facility] On 25-Apr-2014 15:13 to 15:15 Office [...] Taking Seroquel for sx., sees Shama at [facility] also, [ADDITIONAL REASON] Amenorrhea, Primary - She is sexually active. For contraception she uses nothing. Symptoms include amenorrhea, while symptoms do not include pelvic pain , headache or visual disturbance. The patient describes this as unchanged. Associated symptoms include fatigue and hot flashes. Note for "Primry amenorrhea ": said she wants her hormones checked [facility] On 07-Feb-2014 14:16 to 15:30 Radiology Visit - Lumbar back pain (724.2) [facility] On 11-Jan-2014 16:20 to 16:23 Office [...] at times but is not painful or itchy.[facility] 15-Nov-2013 to 16-Nov-2013 Office Visit - [...] rash but it has gotten worse since starting.[facility] On 05-Nov-2013 15:56 to 16:53 Office Visit - Lumbar back pain (724.2) Encounter Reason: Post-Operative - Patient is 2 weeks (diskectomy) postop procedure. Patient's symptoms are improved compared to preoperative. Post operative pain has been moderate. Pain medications include: Hydrocodone and Ultram. Patient has been compliant with post operative instructions. Patient has shown improvement in their activity level (has gradually improved since surgery.).[facility] On 28-Oct-2013 14:32 to 15:50 Historical Summary [facility] On 27-Oct-2013 10:06 to 10:10 Medication Entry - UTI (lower urinary tract infection) (599.0 | N39.0) [facility] On 08-Oct-2013 15:55 to 15:57 Lab entry only - Lumbar back pain (724.2) [facility] On 08:47 to 08:49 Medication Entry - Dysesthesia affecting both sides of body (782.0 | R20.8) [facility] On 21-May-2013 13:35 to 13:38 Office [...] Note for "Anxiety": Taking Seroquel for sx. [facility] On 12-Apr-2013 14:00 to 14:49 [...] patient plans to recover at home with family.[facility] On 15:23 to 22:32 Medication Entry - Anxiety (300.00) [facility] On 14:52 to 14:55 Office Visit [...] is not currently being treated for this problem.[facility] On 17:25 to 21:06 Lab entry only - Lumbar back pain (724.2) [facility] On 09-Jul-2011 09:57 to 10:02 Office [...] symptoms are relieved by laxatives (MOM and [employer]). The symptoms have been associated with abdominal distention, abdominal pain and hemorrhoids. [facility] On 01-Apr-2011 14:46 to 19:35 Medication Entry - Contraception (V25.9) [facility] On 25-Feb-2011 16:26 to 16:28 Lab entry only - Lumbar back pain (724.2) [facility] On 21-Feb-2011 15:35 to 15:44 Medication Entry - Lumbar back pain (724.2) [facility] On 03-Jan-2011 16:18 to 16:22 Medication Entry - Lumbar back pain (724.2) [facility] On 02-Jan-2011 17:57 to 18:06 Office [...] removed from hip and put in knee. ).[facility] On 05-Dec-2010 14:52 to 16:15 Office [...] the breast. The last menstrual period began 01-17-2010.[facility] On 05-Mar-2010 13:56 to 23:43 Office Visit Encounter Reason: Obesity - The patient's appetite is normal. The patient's dietary intake is normal. The patient has gained 30 pounds (has bought treadmill and walks qod-30 min). The symptoms have been associated with fatigue , while the symptoms have not been associated with amenorrhea or cold intolerance.[facility] On 18-Dec-2009 10:37 to 11:12 Office Visit [facility] On 04-Dec-2009 13:30 to 13:44 Insurance * Christy Elder ; a guarantor * [facility] Medical Assistance Prog * [facility]
--- OUTSIDE RECORDS SUMMARY | 2016-06-23 23:46 | XMS REPORT | Continuity of Care Document ---
Author Author [facility] Organization [facility] Address [address] [place] [address] Phone Care Team Providers Care Life Underwriter Name Role Phone Eric Montes MD PP [...] Ordered:16-Nov-2013 DISCONTINUED - URINALYSIS, AUTOMATED W/ MICRO ([facility] ([id number]) Completed:Jun-2011 X-RAY EXAM LUMBAR SPINE, MIN 4 VIEWS ([id number]) Ordered:05-Dec-2010 MRI OF LUMBAR SPINE W/ W/O CONTRAST ([id number]) Ordered:05-Dec-2010 US EXAM, BREAST(S) ([id number]) Ordered:05-Mar-2010 Follow up in 3 months Ordered:18-Dec-2009 [...] Value Details 15-Nov-2013 17:32 SED RATE ERYTHROCYTE ([id number]) Comments: Items in this order include: Draw Charge[i], Basic Metabolic Panel, C-Reactive Protein, CBC, Sed Rate ESR 4 mm/h (Normal) Range: 0-20 17:32 CBC-FEMALE- ORDER THIS ONE! ([id number]) manual diff Not Indicated (Normal) mpv 10.60 [...] 10*3/uL (Abnormal) Range: 4.50-10.50 17:32 C-REACTIVE PROTEIN ([id number]) CRP 1.82 mg/dL (Abnormal) Range: 0.00-0.30 17:32 [...] mmol/L (Normal) Range: 135-145 17:32 Routine Venipuncture (32036) Draw Drawn (Normal) 30-Sep-2013 14:25 URINALYSIS, AUTOMATED W/ MICRO ([facility]) ([id number]) Comments : Items in this order include: [...] Range: 135-145 14:25 CBC-FEMALE- ORDER THIS ONE! ([id number]) Comments: Results to [facility] Dr. Ricci .; Items in this order include : CBC, Basic Metabolic Panel, [phone].Results to [facility] Dr. Ricci [...] Range: 4.50-10.50 15:04 URINALYSIS, AUTOMATED W/ MICRO ([facility]) ([id number]) Comments : All lab needs to be faxed to [facility] at [phone]. Pre-op Dr. Won Ricci.; Items in this order include: Draw Charge[i], CBC, Basic Metabolic Panel, [phone]. Pre-op Dr. Won Ricci.All lab needs to be faxed to [facility] at U yeast Present - [...] Range: 135-145 15:04 CBC-FEMALE- ORDER THIS ONE! ([id number]) Comments: Items in this order include: Draw [...] 10*3/uL (Normal) Range: 4.50-10.50 15:04 Routine Venipuncture (35857) Comments: Items in this order include : Draw Charge[i], CBC, Basic Metabolic Panel, Urinalysis Draw Drawn (Normal) 06-Mar-2011 11:27 [facility] Comments: Please fax all lab to Dr. Ricci at [phone] and [facility] [phone]; Items in this order include: Draw Charge[i], CBC, Urinalysis, Basic Metabolic PanelChchristianacare [facility] at [phone] fax all lab to Dr. Ricci at [phone] and [address] [facility] 83 mg/dL (Normal) Range: [...] Range: 135-145 11:27 URINALYSIS, AUTOMATED W/ MICRO ([facility]) ([id number]) Comments: Items in this order include: Draw [...] Range: Yellow 11:27 CBC-FEMALE- ORDER THIS ONE! ([id number]) Comments: Items in this order include: Draw [...] 10*3/uL (Normal) Range: 4.50-10.50 11:27 Routine Venipuncture (27221) Comments: Items in this order include : [...] at times but is not painful or itchy.[facility] On 15-Nov-2013 16:43 Office Visit - [...] rash but it has gotten worse since starting.[facility] On 05-Nov-2013 15:56 Office Visit - Lumbar back pain (724.2) Encounter Reason: Post-Operative - Patient is 2 weeks (diskectomy) postop procedure. Patient's symptoms are improved compared to preoperative. Post operative pain has been moderate. Pain medications include: Hydrocodone and Ultram. Patient has been compliant with post operative instructions. Patient has shown improvement in their activity level (has gradually improved since surgery.).[facility] On 28-Oct-2013 14:32 Historical Summary [facility] On 27-Oct-2013 10:06 Medication Entry - UTI (lower urinary tract infection) (599.0 | N39.0) [facility] On 08-Oct-2013 15:55 Lab entry only - Lumbar back pain (724.2) [facility] On 08:47 Medication Entry - Dysesthesia affecting both sides of body (782.0 | R20.8) [facility] On 21-May-2013 13:35 Office Visit - [...] [facility] On 12-Apr-2013 14:00 Office Visit - [...] patient plans to recover at home with family.[facility] On 15:23 Medication Entry - Anxiety (300.00) [facility] On 14:52 Office Visit - Anxiety [...] is not currently being treated for this problem.[facility] On 17:25 Lab entry only - Lumbar back pain (724.2) [facility] On 09-Jul-2011 09:57 Office Visit - [...] symptoms are relieved by laxatives (MOM and [employer]). The symptoms have been associated with abdominal distention, abdominal pain and hemorrhoids. [facility] On 01-Apr-2011 14:46 Medication Entry - Contraception (V25.9) [facility] On 25-Feb-2011 16:26 Lab entry only - Lumbar back pain (724.2) [facility] On 21-Feb-2011 15:35 Medication Entry - Lumbar back pain (724.2) [facility] On 03-Jan-2011 16:18 Medication Entry - Lumbar back pain (724.2) [facility] On 02-Jan-2011 17:57 Office Visit - [...] removed from hip and put in knee. ).[facility] On 05-Dec-2010 14:52 Office Visit - [...] the breast. The last menstrual period began 01-17-2010.[facility] On 05-Mar-2010 13:56 Office Visit Encounter Reason: Obesity - The patient's appetite is normal. The patient's dietary intake is normal. The patient has gained 30 pounds (has bought treadmill and walks qod-30 min). The symptoms have been associated with fatigue , while the symptoms have not been associated with amenorrhea or cold intolerance.[facility] On 18-Dec-2009 10:37 Office Visit [facility] On 04-Dec-2009 13:30 Insurance * Christy Elder ; usha guarantor * [facility] Medical Assistance Prog * [facility]
--- OUTSIDE RECORDS SUMMARY | 2016-06-23 23:47 | XMS REPORT | Continuity of Care Document ---
Author Author [facility] Organization [facility] Address [address] [place] [address] Phone Care Team Providers Care Sausage Meat Trimmer Name Role Phone Eric Montes MD PP [...] times daily for 0 days Quantity: 20 {Tablet} Ordered:22-Feb-2015 Sandy Benitez * Start 22-Feb-2015 Active BENZTROPINE MESYLATE, 1MG (Oral Tablet) 1 Tablet [...] Tablet) 1 at bedtime (10 MG) Inactive BENZTROPINE MESYLATE, 1MG (Oral Tablet) 1/2 [...] X-ray Exam of Lower Spine, 2 Views ([id number]) Completed:17-May-2014 Comments : outside order from Dr. Ricci How to access health information online Completed:07-Feb-2014 X-ray Exam of Lower Spine, 2 Views ([id number]) Completed:11-Jan-2014 Comments : outside order from Dr. Ricci Referral to Dermatology Ordered:16-Nov-2013 DISCONTINUED - URINALYSIS, AUTOMATED W/ MICRO ([facility] [place]) ([id number]) Completed:Jun-2011 X-RAY EXAM LUMBAR SPINE, MIN 4 VIEWS ([id number]) Ordered:05-Dec-2010 MRI OF LUMBAR SPINE W/ W/O CONTRAST ([id number]) Ordered:05-Dec-2010 US EXAM, BREAST(S) ([id number]) Ordered:05-Mar-2010 Follow up in 3 months Ordered:18-Dec-2009 [...] 20-Feb-2015 16:12 URINALYSIS, AUTOMATED W/ MICRO ([facility] [place]) ([id number]) Comments: Items in this order include: UrinalysisAntibiotics? [...] Yellow (Normal) Range: Yellow 07-Feb-2014 15:07 PROLACTIN ([id number]) Comments: Items in this order include: Draw Charge[i], CBC, Comprehensive Metabolic Panel, TSH, FSH, LH, PROLACTINTesting performed at: [facility], [address] [place] [address], [id number], [place]: Lonny Middleton D.O., MPH.brQuest PROLACTIN 11.5 ng/mL (Normal) Comments: Reference Range.br Females.br Non- 3.0-30.0.br 10.0-209.0.br Postmenopausal 2.0-20.0.br .br .br 15:07 LH ([id number]) Comments: Items in this order include: Draw Charge[i] , CBC, Comprehensive Metabolic Panel, TSH, FSH, LH, PROLACTINTesting performed at: [facility], [address] [place] [address], [phone], [place]: Lonny Middleton D.O., MPH.[facility] LH 9.3 m[iU]/mL (Normal) Comments: Reference Range.brFollicular Phase 1.9-12.5.brMid-Cycle Peak 8.7-76.3.brLuteal Phase 0.5- 16.9.brPostmenopausal 10.0-54.7 15:07 FSH ([id number]) Comments: Items in this order include: Draw Charge[i] , CBC, Comprehensive Metabolic Panel, TSH, FSH, LH, PROLACTINTesting performed at: [facility], [address] [place] [address], [phone], [place]: Lonny Middleton D.O., MPH.[facility] FSH 4.4 m[iU]/mL (Normal) Comments: Reference Range.br .br Follicular Phase 2.5-10.2.br Mid-cycle Peak 3.1- 17.7.br Luteal Phase 1.5- 9.1.br Postmenopausal 23.0-116.3 .br 15:07 TSH (THYROID STIMULATING HORMONE) ([id number]) TSH 1.33 uIU/ml (Normal) Range: 0.34-5.60 15:07 CMP (50949) ALTI 96 U/L (Abnormal) Range: 12-78 AST [...] Range: 135-145 15:07 CBC-FEMALE- ORDER THIS ONE! ([id number]) manual diff Not Indicated (Normal) mpv 11.30 [...] 10*3/uL (Abnormal) Range: 4.50-10.50 15:07 Routine Venipuncture (85855) Draw Drawn (Normal) 15-Nov-2013 17:32 SED RATE ERYTHROCYTE ([id number]) Comments: Items in this order include: Draw Charge[i], Basic Metabolic Panel, C-Reactive Protein, CBC, Sed Rate ESR 4 mm/h (Normal) Range: 0-20 17:32 CBC-FEMALE- ORDER THIS ONE! ([id number]) manual diff Not Indicated (Normal) mpv 10.60 [...] 10*3/uL (Abnormal) Range: 4.50-10.50 17:32 C-REACTIVE PROTEIN (15221) CRP 1.82 mg/dL (Abnormal) Range: 0.00-0.30 17:32 [...] mmol/L (Normal) Range: 135-145 17:32 Routine Venipuncture (91647) Draw Drawn (Normal) 30-Sep-2013 14:25 URINALYSIS, AUTOMATED W/ MICRO ([facility] [place]) ([id number]) Comments : Items in this order include: [...] Range: 135-145 14:25 CBC-FEMALE- ORDER THIS ONE! (40938) Comments: Results to [facility] Dr. Ricci .; Items in this order include : CBC, Basic Metabolic Panel, [id number].Results to [facility] Dr. Ricci [...] ([facility] [place] [place]) ([id number]) Comments : All lab needs to be faxed to [facility] at [phone]. Pre-op Dr. Won Ricci.; Items in this order include: Draw Charge[i], CBC, Basic Metabolic Panel, [id number]. Pre-op Dr. Won Ricci.All lab needs to [...] Range: 135-145 15:04 CBC-FEMALE- ORDER THIS ONE! ([id number]) Comments: Items in this order include: Draw [...] 10*3/uL (Normal) Range: 4.50-10.50 15:04 Routine Venipuncture (01696) Comments: Items in this order include : Draw Charge[i], CBC, Basic Metabolic Panel, Urinalysis Draw Drawn (Normal) 06-Mar-2011 11:27 [facility] Comments: Please fax all lab to Dr. Ricci at and [facility] at [phone]; Items in this order include: Draw Charge[i], CBC, Urinalysis, Basic Metabolic PanelChlouise Snell at [phone] fax all lab to Dr. Ricci at [phone] and [facility] 83 mg/dL (Normal) Range: [...] ([facility] [place]) (11313) Comments: Items in this order include: Draw [...] Range: Yellow 11:27 CBC-FEMALE- ORDER THIS ONE! (70663) Comments: Items in this order include: Draw [...] 10*3/uL (Normal) Range: 4.50-10.50 11:27 Routine Venipuncture (74270) Comments: Items in this order include : Draw Charge[i], CBC, Urinalysis, Basic Metabolic Panel Draw Drawn (Normal) Advance Directives Encounters Medication Entry - UTI (lower urinary tract infection) (599.0 | N39.0) [facility] On 22-Feb-2015 10:04 to 10:06 Nurse Visit (Non-billable) - Dysuria (788.1 | R30.0) [facility] On 20-Feb-2015 16:01 to 16:38 Nurse Visit (Non-billable) [facility] On 17-Jan-2015 11:29 to 11:31 Office [...] food choices. The patient is sedentary. [facility] On 19-Dec-2014 16:15 to 20:43 Medication Entry [facility] On 28-Nov-2014 16:29 to 16:32 Office [...] (Stopped Celexa. Didn't think it was helping.). [facility] On 16-Nov-2014 14:05 to 14:59 Medication Entry - Lumbar back pain (724.2) [facility] On 20-Sep-2014 12:31 to 12:34 Office [...] any pain at this time to area.[facility] On 14:43 to 17:01 Historical Summary [facility] On 11:48 to 11:52 Radiology Visit - Lumbar back pain (724.2) [facility] On 17-May-2014 16:35 to 16:37 Medication Entry [facility] On 03-May-2014 09:14 to 09:22 Medication Entry - Sore throat (462 | J02.9) [facility] On 25-Apr-2014 15:13 to 15:15 Office [...] Taking Seroquel for sx., sees Shama at [facility] also, [ADDITIONAL REASON] Amenorrhea, Primary - She is sexually active. For contraception she uses nothing. Symptoms include amenorrhea, while symptoms do not include pelvic pain , headache or visual disturbance. The patient describes this as unchanged. Associated symptoms include fatigue and hot flashes. Note for "Primry amenorrhea ": said she wants her hormones checked [facility] On 07-Feb-2014 14:16 to 15:30 Radiology Visit - Lumbar back pain (724.2) [facility] On 11-Jan-2014 16:20 to 16:23 Office [...] times but is not painful or itchy.[facility] 15-Nov-2013 to 16-Nov-2013 Office Visit - [...] but it has gotten worse since starting.[facility] On 05-Nov-2013 15:56 to 16:53 Office [...] activity level (has gradually improved since surgery.).[facility] On 28-Oct-2013 14:32 to 15:50 Historical Summary [facility] On 27-Oct-2013 10:06 to 10:10 Medication Entry - UTI (lower urinary tract infection) (599.0 | N39.0) [facility] On 08-Oct-2013 15:55 to 15:57 Lab entry only - Lumbar back pain (724.2) [facility] On 08:47 to 08:49 Medication Entry - Dysesthesia affecting both sides of body (782.0 | R20.8) [facility] On 21-May-2013 13:35 to 13:38 Office [...] for "Anxiety": Taking Seroquel for sx. [facility] On 12-Apr-2013 14:00 to 14:49 Office Visit - Lumbar back pain (724.2), Pre-op evaluation (V72.84) Encounter Reason: Pre-Op Visit - The procedure scheduled is a repeat micro- diskectomy on 09-03-11. The surgeon for the procedure will be Dr. Laswon. The chief complaint is lumbar back pain.. Recent symptoms do not include fever, chills, chest pain, cough, dyspnea, nausea, vomiting or diarrhea. Pertinent medical history does not include previous anesthesia reaction. Pertinent social history does not include tobacco use. After surgery the patient plans to recover at home with family.[facility] On 15:23 to 22:32 Medication Entry - Anxiety (300.00) [facility] On 14:52 to 14:55 Office Visit [...] not currently being treated for this problem.[facility] On 17:25 to 21:06 Lab entry only - Lumbar back pain (724.2) [facility] On 09-Jul-2011 09:57 to 10:02 Office [...] symptoms are relieved by laxatives (MOM and [employer]). The symptoms have been associated with abdominal distention, abdominal pain and hemorrhoids. [facility] On 01-Apr-2011 14:46 to 19:35 Medication Entry - Contraception (V25.9) [facility] On 25-Feb-2011 16:26 to 16:28 Lab entry only - Lumbar back pain (724.2) [facility] On 21-Feb-2011 15:35 to 15:44 Medication Entry - Lumbar back pain (724.2) [facility] On 03-Jan-2011 16:18 to 16:22 Medication Entry - Lumbar back pain (724.2) [facility] On 02-Jan-2011 17:57 to 18:06 Office [...] from hip and put in knee. ).[facility] On 05-Dec-2010 14:52 to 16:15 Office [...] breast. The last menstrual period began 01-17-2010.[facility] On 05-Mar-2010 13:56 to 23:43 Office Visit Encounter Reason: Obesity - The patient's appetite is normal. The patient's dietary intake is normal. The patient has gained 30 pounds (has bought treadmill and walks qod-30 min). The symptoms have been associated with fatigue , while the symptoms have not been associated with amenorrhea or cold intolerance.[facility] On 18-Dec-2009 10:37 to 11:12 Office Visit [facility] On 04-Dec-2009 13:30 to 13:44 Insurance * Christy Elder ; a guarantor * [facility] Medical Assistance Prog * [facility]
--- OUTSIDE RECORDS SUMMARY | 2016-06-23 23:48 | XMS REPORT | Continuity of Care Document ---
Author Author [facility] Organization [facility] Address [address] [place] [address] Phone Care Team Providers Care Agricultural Economics Teacher Name Role Phone Eric Montes MD [...] Details DISCONTINUED - URINALYSIS, AUTOMATED W/ MICRO ([facility] [place]) ([id number]) Completed:Jun-2011 X-RAY EXAM LUMBAR SPINE, MIN 4 VIEWS ([id number]) Ordered:05-Dec-2010 MRI OF LUMBAR SPINE W/ W/O CONTRAST ([id number]) Ordered:05-Dec-2010 US EXAM, BREAST(S) ([id number]) Ordered:05-Mar-2010 Follow up in 3 months Ordered:18-Dec-2009 [...] Details 30-Sep-2013 14:25 URINALYSIS, AUTOMATED W/ MICRO ([facility] [place]) ([id number]) Comments : Items in this order include: [...] Range: 135-145=Normal 14:25 CBC-FEMALE- ORDER THIS ONE! ([id number]) Comments: Results to [facility] Dr. Ricci .; Items in this order include : CBC, Basic Metabolic Panel, [phone].Results to [facility] Dr. Ricci Fax manual diff Not [...] Range: 4.50-10.50=Normal 15:04 URINALYSIS, AUTOMATED W/ MICRO ([facility] [place]) ([id number]) Comments : [facility] at [phone]. Pre-op Dr. Won Ricci.; Items in this order include: Draw Charge[i], CBC, Basic Metabolic Panel, [id number]. Pre-op Dr. Won Ricci.All lab needs to [facility] yeast Present - Rare Range: [...] Range: 135-145=Normal 15:04 CBC-FEMALE- ORDER THIS ONE! (09799) Comments: Items in this order include: Draw [...] 9.41 K/uL Range: 4.50-10.50=Normal 15:04 Routine Venipuncture (67555) Comments: Items in this order include : Draw Charge[i], CBC, Basic Metabolic Panel, Urinalysis Draw Drawn Normal 06-Mar-2011 11:27 BMP Comments: Please fax all lab to Dr. Ricci at [phone] and [facility] at [phone]; Items in this order include: Draw Charge[i], CBC, Urinalysis, Basic Metabolic PanelChristi St. [facility] at [phone] fax all lab to Dr. Ricci at [phone] and [facility] 83 mg/dL Range: 70-110=Normal CA 10.0 mg/dL Range: 8.4-10.2=Normal eGFR 69.1 mL/min/1.73m2 Range: >60.0=Normal CREAT 1.0 mg/dL Range: 0.6-1.3=Normal OSMO 279 Range: 275-295=Normal BUN 11 mg/dL Range: 7-18=Normal AGAP 11.50 mmol/L Range: 10.00-20.00=Normal CO2 31.3 mmol/L Range: 21.0-32.0=Normal CL 102 mmol/L Range: 98-107=Normal K 4.8 mmol/L Range: 3.5-5.0=Normal NA 140 mmol/L Range: 135-145=Normal 11:27 URINALYSIS, AUTOMATED W/ MICRO ([facility] [place]) ([id number]) Comments: Items in this order include: Draw [...] Range: Yellow=Normal 11:27 CBC-FEMALE- ORDER THIS ONE! ([id number]) Comments: Items in this order include: Draw [...] 7.61 K/uL Range: 4.50-10.50=Normal 11:27 Routine Venipuncture (37108) Comments: Items in this order include : Draw Charge[i], CBC, Urinalysis, Basic Metabolic Panel Draw Drawn Normal Advance Directives No Advance Directives available. Encounters Medication Entry - UTI (599.0 | N39.0) [facility] On 08-Oct-2013 15:55 Lab entry only - Lumbar back pain [facility] On 08:47 Medication Entry - Dysesthesia affecting both sides of body (782.0 | R20.8) [facility] On 21-May-2013 13:35 Office [...] [facility] On 12-Apr-2013 14:00 Office Visit - [...] patient plans to recover at home with family.[facility] On 15:23 Medication Entry - Anxiety [facility] On 14:52 Office Visit [...] is not currently being treated for this problem.[facility] On 17:25 Lab entry only - Lumbar back pain [facility] On 09-Jul-2011 09:57 Office [...] symptoms are relieved by laxatives (MOM and [employer]). The symptoms have been associated with abdominal distention, abdominal pain and hemorrhoids. [facility] On 01-Apr-2011 14:46 Medication Entry - Contraception [facility] On 25-Feb-2011 16:26 Lab entry only - Lumbar back pain [facility] On 21-Feb-2011 15:35 Medication Entry - Lumbar back pain [facility] On 03-Jan-2011 16:18 Medication Entry - Lumbar back pain [facility] On 02-Jan-2011 17:57 Office [...] removed from hip and put in knee. ).[facility] On 05-Dec-2010 14:52 Office [...] the breast. The last menstrual period began 01-17-2010.[facility] On 05-Mar-2010 13:56 Office Visit Encounter Reason: Obesity - The patient's appetite is normal. The patient's dietary intake is normal. The patient has gained 30 pounds (has bought treadmill and walks qod-30 min). The symptoms have been associated with fatigue , while the symptoms have not been associated with amenorrhea or cold intolerance.[facility] On 18-Dec-2009 10:37 Office Visit [facility] On 04-Dec-2009 13:30
--- OUTSIDE RECORDS SUMMARY | 2016-06-23 23:49 | XMS REPORT | Continuity of Care Document ---
Author Author [facility] Organization [facility] Address [address] [place] [address] Phone Care Team Providers Care Saw Maker Name Role Phone Eric Montes MD PP [...] X-ray Exam of Lower Spine, 2 Views ([id number]) Completed:17-May-2014 Comments : outside order from Dr. Ricci How to access health information online Completed:07-Feb-2014 X-ray Exam of Lower Spine, 2 Views ([id number]) Completed:11-Jan-2014 Comments : outside order from Dr. Ricci Referral to Dermatology Ordered:16-Nov-2013 DISCONTINUED - [place]AL[place], [place] W[place] ([id number]) Completed:Jun-2011 X-RAY EXAM LUMBAR SPINE, MIN 4 VIEWS ([id number]) Ordered:05-Dec-2010 MRI OF LUMBAR SPINE W/ W/O CONTRAST ([id number]) Ordered:05-Dec-2010 US EXAM, BREAST(S) ([id number]) Ordered:05-Mar-2010 Follow up in 3 months Ordered:18-Dec-2009 [...] Date Description Value Details 07-Feb-2014 15:07 PROLACTIN ([id number]) Comments: Items in this order include: Draw Charge[i], CBC, Comprehensive Metabolic Panel, TSH, FSH, LH, PROLACTINTesting performed at: [facility], [address] [place] [address], [phone], Costume Maker: Lonny Middleton D.O., MPH.[employer] PROLACTIN 11.5 ng/mL (Normal) Comments: Reference Range.br Females.br Non- 3.0-30.0.br 10.0-209.0.br Postmenopausal 2.0-20.0.br .br .br 15:07 LH ([id number]) Comments: Items in this order include: Draw Charge[i] , CBC, Comprehensive Metabolic Panel, TSH, FSH, LH, PROLACTINTesting performed at: [facility], [address] [place] [address], [phone], Costume Maker: Lonny Middleton D.O., MPH.brQuest LH 9.3 m[iU]/mL (Normal) Comments: Reference Range.brFollicular Phase 1.9-12.5.brMid-Cycle Peak 8.7-76.3.brLuteal Phase 0.5- 16.9.brPostmenopausal 10.0-54.7 15:07 FSH ([id number]) Comments: Items in this order include: Draw Charge[i] , CBC, Comprehensive Metabolic Panel, TSH, FSH, LH, PROLACTINTesting performed at: [facility], [address] [place] [address], [phone], Costume Maker: Lonny Middleton D.O., MPH.brQuest FSH 4.4 m[iU]/mL (Normal) Comments: Reference Range.br .br Follicular Phase 2.5-10.2.br Mid-cycle Peak 3.1- 17.7.br Luteal Phase 1.5- 9.1.br Postmenopausal 23.0-116.3 .br 15:07 TSH (THYROID STIMULATING HORMONE) ([id number]) TSH 1.33 uIU/ml (Normal) Range: 0.34-5.60 15:07 CMP ([id number]) ALTI 96 U/L (Abnormal) Range: 12-78 AST [...] Range: 135-145 15:07 CBC-FEMALE- ORDER THIS ONE! ([id number]) manual diff Not Indicated (Normal) mpv 11.30 [...] 10*3/uL (Abnormal) Range: 4.50-10.50 15:07 Routine Venipuncture (64148) Draw Drawn (Normal) 15-Nov-2013 17:32 SED RATE ERYTHROCYTE ([id number]) Comments: Items in this order include: Draw Charge[i], Basic Metabolic Panel, C-Reactive Protein, CBC, Sed Rate ESR 4 mm/h (Normal) Range: 0-20 17:32 CBC-FEMALE- ORDER THIS ONE! ([id number]) manual diff Not Indicated (Normal) mpv 10.60 [...] 10*3/uL (Abnormal) Range: 4.50-10.50 17:32 C-REACTIVE PROTEIN ([id number]) CRP 1.82 mg/dL (Abnormal) Range: 0.00-0.30 17:32 [...] mmol/L (Normal) Range: 135-145 17:32 Routine Venipuncture ([id number]) Draw Drawn (Normal) 30-Sep-2013 14:25 URINALYSIS, [place]OMATED W/ MICRO [place] ([id number]) Comments : Items in this order include: [...] Range: 135-145 14:25 CBC-FEMALE- ORDER THIS ONE! ([id number]) Comments: Results to [facility] Dr. Ricic .; Items in this order include : CBC, Basic Metabolic Panel, [phone].Results to [facility] Dr. Ricci [...] Range: 4.50-10.50 15:04 URINALYSIS, AUTOMATED W/ MICRO ([facility] ([id number]) Comments : All lab needs to be faxed to [facility] at [phone]. Pre-op Dr. Won Ricci.; Items in this order include: Draw Charge[i], CBC, Basic Metabolic Panel, [phone]. Pre-op Dr. Won Ricci.All lab needs [facility] yeast Present - Rare (Abnormal) [...] Range: 135-145 15:04 CBC-FEMALE- ORDER THIS ONE! ([id number]) Comments: Items in this order include: Draw [...] 10*3/uL (Normal) Range: 4.50-10.50 15:04 Routine Venipuncture (25729) Comments: Items in this order include : Draw Charge[i], CBC, Basic Metabolic Panel, Urinalysis Draw Drawn (Normal) 06-Mar-2011 11:27 BMP Comments: Please fax all lab to Dr. Ricci at and [facility] at [phone]; Items in this order include: Draw Charge[i], CBC, Urinalysis, [facility] Met[facility] PanelCh[facility] at [phone] fax all lab to Dr. Ricci at [phone] and Via GLU 83 mg/dL (Normal) Range: [...] Range: 135-145 11:27 URINALYSIS, AUTOMATED W/ MICRO [place] ([id number]) Comments: Items in this order include: Draw [...] Range: Yellow 11:27 CBC-FEMALE- ORDER THIS ONE! ([id number]) Comments: Items in this order include: Draw [...] 10*3/uL (Normal) Range: 4.50-10.50 11:27 Routine Venipuncture (76347) Comments: Items in this order include : Draw Charge[i], CBC, Urinalysis, Basic Metabolic Panel Draw Drawn (Normal) Advance Directives Encounters Medication Entry [facility] On 28-Nov-2014 16:29 to [...] (Stopped Celexa. Didn't think it was helping.). [facility] On 16-Nov-2014 14:05 to 14:59 Medication Entry - Lumbar back pain (724.2) [facility] On 20-Sep-2014 12:31 to [...] Denies any pain at this time to area.[facility] On 14:43 to 17:01 Historical Summary [facility] On 11:48 to 11:52 Radiology Visit - Lumbar back pain (724.2) [facility] On 17-May-2014 16:35 to 16:37 Medication Entry [facility] On 03-May-2014 09:14 to 09:22 Medication Entry - Sore throat (462 | J02.9) [facility] On 25-Apr-2014 15:13 to [...] Taking Seroquel for sx., sees Shama at [facility] also, [ADDITIONAL REASON] Amenorrhea, Primary - She is sexually active. For contraception she uses nothing. Symptoms include amenorrhea, while symptoms do not include pelvic pain , headache or visual disturbance. The patient describes this as unchanged. Associated symptoms include fatigue and hot flashes. Note for "Primry amenorrhea ": said she wants her hormones checked [facility] On 07-Feb-2014 14:16 to 15:30 Radiology Visit - Lumbar back pain (724.2) [facility] On 11-Jan-2014 16:20 to [...] at times but is not painful or itchy.[facility] 15-Nov-2013 to 16-Nov-2013 Office [...] rash but it has gotten worse since starting.[facility] On 05-Nov-2013 15:56 to [...] their activity level (has gradually improved since surgery.).[facility] On 28-Oct-2013 14:32 to 15:50 Historical Summary [facility] On 27-Oct-2013 10:06 to 10:10 Medication Entry - UTI (lower urinary tract infection) (599.0 | N39.0) [facility] On 08-Oct-2013 15:55 to 15:57 Lab entry only - Lumbar back pain (724.2) [facility] On 08:47 to 08:49 Medication Entry - Dysesthesia affecting both sides of body (782.0 | R20.8) [facility] On 21-May-2013 13:35 to [...] Seroquel for sx. [facility] On 12-Apr-2013 14:00 to 14:49 Office Visit [...] patient plans to recover at home with family.[facility] On 15:23 to 22:32 Medication Entry - Anxiety (300.00) [facility] On 14:52 to 14:55 [...] is not currently being treated for this problem.[facility] On 17:25 to 21:06 Lab entry only - Lumbar back pain (724.2) [facility] On 09-Jul-2011 09:57 to [...] symptoms are relieved by laxatives (MOM and [employer]). The symptoms have been associated with abdominal distention, abdominal pain and hemorrhoids. [facility] On 01-Apr-2011 14:46 to 19:35 Medication Entry - Contraception (V25.9) [facility] On 25-Feb-2011 16:26 to 16:28 Lab entry only - Lumbar back pain (724.2) [facility] On 21-Feb-2011 15:35 to 15:44 Medication Entry - Lumbar back pain (724.2) [facility] On 03-Jan-2011 16:18 to 16:22 Medication Entry - Lumbar back pain (724.2) [facility] On 02-Jan-2011 17:57 to [...] removed from hip and put in knee. ).[facility] On 05-Dec-2010 14:52 to [...] the breast. The last menstrual period began 01-17-2010.[facility] On 05-Mar-2010 13:56 to 23:43 Office Visit Encounter Reason: Obesity - The patient's appetite is normal. The patient's dietary intake is normal. The patient has gained 30 pounds (has bought treadmill and walks qod-30 min). The symptoms have been associated with fatigue , while the symptoms have not been associated with amenorrhea or cold intolerance.[facility] On 18-Dec-2009 10:37 to 11:12 Office Visit [facility] On 04-Dec-2009 13:30 to 13:44 Insurance * Christy Elder ; a guarantor * [facility] Medical Assistance Prog * [facility]
--- OUTSIDE RECORDS SUMMARY | 2016-06-23 23:50 | XMS REPORT | Continuity of Care Document ---
Author Author [facility] Organization [facility] Address [address] [place] [address] Phone Care Team Providers Care Ear Specialist Name Role Phone Eric Montes MD [...] X-ray Exam of Lower Spine, 2 Views ([id number]) Completed:17-May-2014 Comments : outside order from Dr. Ricci How to access health information online Completed:07-Feb-2014 X-ray Exam of Lower Spine, 2 Views ([id number]) Completed:11-Jan-2014 Comments : outside order from Dr. Ricci Referral to Dermatology Ordered:16-Nov-2013 DISCONTINUED - URINALYSIS, AUTOMATED W/ MICRO ([facility] ([id number]) Completed:Jun-2011 X-RAY EXAM LUMBAR SPINE, MIN 4 VIEWS ([id number]) Ordered:05-Dec-2010 MRI OF LUMBAR SPINE W/ W/O CONTRAST ([id number]) Ordered:05-Dec-2010 US EXAM, BREAST(S) ([id number]) Ordered:05-Mar-2010 Follow up in 3 months Ordered:18-Dec-2009 [...] Active Vital Signs Date Test Result Details 17-Jan-2015 11:30 Pulse 84 /min Comments: Pattern: [...] Date Description Value Details 07-Feb-2014 15:07 PROLACTIN ([id number]) Comments: Items in this order include: Draw Charge[i], CBC, Comprehensive Metabolic Panel, TSH, FSH, LH, PROLACTINTesting performed at: [facility], [address] [place] [address], [phone], Steam Hand: Lonny Middleton D.O., MPH.[employer] PROLACTIN 11.5 ng/mL (Normal) Comments: Reference Range.br Females.br Non- 3.0-30.0.br 10.0-209.0.br Postmenopausal 2.0-20.0.br .br .br 15:07 LH ([id number]) Comments: Items in this order include: Draw Charge[i] , CBC, Comprehensive Metabolic Panel, TSH, FSH, LH, PROLACTINTesting performed at: [facility], [address] [place] [address], [phone], Steam Hand: Lonny Middleton D.O., MPH.brQuest LH 9.3 m[iU]/mL (Normal) Comments: Reference Range.brFollicular Phase 1.9-12.5.brMid-Cycle Peak 8.7-76.3.brLuteal Phase 0.5- 16.9.brPostmenopausal 10.0-54.7 15:07 FSH ([id number]) Comments: Items in this order include: Draw Charge[i] , CBC, Comprehensive Metabolic Panel, TSH, FSH, LH, PROLACTINTesting performed at: [facility], [address] [place], [address], Steam Hand: Lonny Middleton D.O., MPH.[facility] FSH 4.4 m[iU]/mL (Normal) Comments: Reference Range.br .br Follicular Phase 2.5-10.2.br Mid-cycle Peak 3.1- 17.7.br Luteal Phase 1.5- 9.1.br Postmenopausal 23.0-116.3 .br 15:07 TSH (THYROID STIMULATING HORMONE) ([id number]) TSH 1.33 uIU/ml (Normal) Range: 0.34-5.60 15:07 CMP ([id number]) ALTI 96 U/L (Abnormal) Range: 12-78 AST [...] Range: 135-145 15:07 CBC-FEMALE- ORDER THIS ONE! (31360) manual diff Not Indicated (Normal) mpv 11.30 [...] 10*3/uL (Abnormal) Range: 4.50-10.50 15:07 Routine Venipuncture (36420) Draw Drawn (Normal) 15-Nov-2013 17:32 SED RATE ERYTHROCYTE ([id number]) Comments: Items in this order include: Draw Charge[i], Basic Metabolic Panel, C-Reactive Protein, CBC, Sed Rate ESR 4 mm/h (Normal) Range: 0-20 17:32 CBC-FEMALE- ORDER THIS ONE! ([id number]) manual diff Not Indicated (Normal) mpv 10.60 [...] 10*3/uL (Abnormal) Range: 4.50-10.50 17:32 C-REACTIVE PROTEIN ([id number]) CRP 1.82 mg/dL (Abnormal) Range: 0.00-0.30 17:32 [...] mmol/L (Normal) Range: 135-145 17:32 Routine Venipuncture (46637) Draw Drawn (Normal) 30-Sep-2013 14:25 URINALYSIS, AUTOMATED W/ MICRO ([facility] ([id number]) Comments : Items in this order include: [...] Range: 135-145 14:25 CBC-FEMALE- ORDER THIS ONE! ([id number]) Comments: Results to [facility] Dr. Ricci .; Items in this order include : CBC, Basic Metabolic Panel, [phone].Results to [facility] Dr. Ricci Fax manual diff Not Indicated [...] 15:04 URINALYSIS, AUTOMATED W/ MICRO ([facility] ([id number]) Comments : All lab needs to be faxed to [facility] at [phone]. Pre-op Dr. Won Ricci.; Items in this order include: Draw Charge[i], CBC, Basic Metabolic Panel, [phone]. Pre-op Dr. Won Ricci.All lab needs to be faxed to [facility] at U yeast Present - [...] Range: 135-145 15:04 CBC-FEMALE- ORDER THIS ONE! ([id number]) Comments: Items in this order include: Draw [...] 10*3/uL (Normal) Range: 4.50-10.50 15:04 Routine Venipuncture (86018) Comments: Items in this order include : Draw Charge[i], CBC, Basic Metabolic Panel, Urinalysis Draw Drawn (Normal) 06-Mar-2011 11:27 BMP Comments: Please fax all lab to Dr. Ricci at and [facility] at [phone]; Items in this order include: Draw Charge[i], CBC, Urinalysis, [facility] at [phone] fax all lab to Dr. Ricci at [phone] and [facility] GLU 83 mg/dL (Normal) Range: [...] 11:27 URINALYSIS, AUTOMATED W/ MICRO ([facility] ([id number]) Comments: Items in this order include: Draw [...] Range: Yellow 11:27 CBC-FEMALE- ORDER THIS ONE! ([id number]) Comments: Items in this order include: Draw [...] 10*3/uL (Normal) Range: 4.50-10.50 11:27 Routine Venipuncture ([id number]) Comments: Items in this order include : Draw Charge[i], CBC, Urinalysis, Basic Metabolic Panel Draw Drawn (Normal) Advance Directives Encounters Nurse Visit (Non-billable) [facility] [...] unhealthy food choices. The patient is sedentary. [facility] On 19-Dec-2014 16:15 to 20:43 Medication Entry [...] ": said she wants her hormones checked [facility] On 07-Feb-2014 14:16 to 15:30 Radiology Visit [...] Note for "Anxiety": Taking Seroquel for sx. [facility] On 12-Apr-2013 14:00 to 14:49 Office Visit [...] symptoms are relieved by laxatives (MOM and [employer]). The symptoms have been associated with [...] * Christy Elder ; a guarantor * [facility] Medical Assistance Prog * [facility]
--- OUTSIDE RECORDS SUMMARY | 2016-06-23 23:51 | XMS REPORT | Continuity of Care Document ---
Author Author [facility] Organization [facility] Address [address] [place] [address] Phone Care Team Providers Care Watershed Coordinator Name Role Phone Eric Montes MD PP [...] Details DISCONTINUED - [place]INALYSIS, [place]OM[place] W/ [place] ([id number]) Completed:Jun-2011 X-RAY EXAM LUMBAR SPINE, MIN 4 VIEWS ([id number]) Ordered:05-Dec-2010 MRI OF LUMBAR SPINE W/ W/O CONTRAST ([id number]) Ordered:05-Dec-2010 US EXAM, BREAST(S) ([id number]) Ordered:05-Mar-2010 Follow up in 3 months Ordered:18-Dec-2009 [...] Details 30-Sep-2013 14:25 URINALYSIS, AUTOMATED W/ MICRO ([facility] ([id number]) Comments : Items in this order include: [...] Range: 135-145=Normal 14:25 CBC-FEMALE- ORDER THIS ONE! ([id number]) Comments: Results to [facility] Dr. Ricci .; Items in this order include : CBC, Basic Metabolic Panel, [phone].Results to [facility] Dr. Ricci Fax manual diff Not Indicated [...] Range: 4.50-10.50=Normal 15:04 URINALYSIS, AUTOMATED W/ MICRO ([facility] ([id number]) Comments : All lab needs to be faxed to [facility] at [phone]. Pre-op Dr. Won Ricci.; Items in this order include: Draw Charge[i], CBC, Basic Metabolic Panel, [phone]. Pre-op Dr. Won Ricci.All lab needs to be faxed to [facility] at U yeast Present - Rare Range: [...] Range: 135-145=Normal 15:04 CBC-FEMALE- ORDER THIS ONE! ([id number]) Comments: Items in this order include: Draw [...] 9.41 K/uL Range: 4.50-10.50=Normal 15:04 Routine Venipuncture (17190) Comments: Items in this order include : Draw Charge[i], CBC, Basic Metabolic Panel, Urinalysis Draw Drawn Normal 06-Mar-2011 11:27 BMP Comments: Please fax all lab to Dr. Ricci at and [facility] at [phone]; Items in this order include: Draw Charge[i], CBC, Urinalysis, Basic Met[facility]Chnem[facility] at [phone] fax all lab to Dr. Ricci at [phone] and [facility] 83 mg/dL Range: 70-110=Normal CA 10.0 mg/dL Range: 8.4-10.2=Normal eGFR 69.1 mL/min/1.73m2 Range: >60.0=Normal CREAT 1.0 mg/dL Range: 0.6-1.3=Normal OSMO 279 Range: 275-295=Normal BUN 11 mg/dL Range: 7-18=Normal AGAP 11.50 mmol/L Range: 10.00-20.00=Normal CO2 31.3 mmol/L Range: 21.0-32.0=Normal CL 102 mmol/L Range: 98-107=Normal K 4.8 mmol/L Range: 3.5-5.0=Normal NA 140 mmol/L Range: 135-145=Normal 11:27 URINALYSIS, AUTOMATED W/ MICRO ([facility] ([id number]) Comments: Items in this order include: Draw [...] Range: Yellow=Normal 11:27 CBC-FEMALE- ORDER THIS ONE! ([id number]) Comments: Items in this order include: Draw [...] 7.61 K/uL Range: 4.50-10.50=Normal 11:27 Routine Venipuncture (60854) Comments: Items in this order include : Draw Charge[i], CBC, Urinalysis, Basic Metabolic Panel Draw Drawn Normal Advance Directives No Advance Directives available. Encounters Review Encounter Reason: Post-Operative - Patient's symptoms are improved compared to preoperative.[facility] On 28-Oct-2013 14:[address] [facility] On 27-Oct-2013 10:06 Medication Entry - UTI (599.0 | N39.0) [facility] On 08-Oct-2013 15:55 Lab entry only - Lumbar back pain [facility] On 08:47 Medication Entry - Dysesthesia affecting both sides of body (782.0 | R20.8) [facility] On 21-May-2013 13:35 Office Visit - [...] Note for "Anxiety": Taking Seroquel for sx. [facility] On 12-Apr-2013 14:00 Office Visit - [...] family.[facility] On 15:23 Medication Entry - Anxiety [facility] On 14:52 Office Visit - Anxiety [...] problem.[facility] On 17:25 Lab entry only - Lumbar back pain [facility] On 09-Jul-2011 09:57 Office Visit - [...] symptoms are relieved by laxatives (MOM and [employer]). The symptoms have been associated with abdominal distention, abdominal pain and hemorrhoids. [facility] On 01-Apr-2011 14:46 Medication Entry - Contraception [facility] On 25-Feb-2011 16:26 Lab entry only - Lumbar back pain [facility] On 21-Feb-2011 15:35 Medication Entry - Lumbar back pain [facility] On 03-Jan-2011 16:18 Medication Entry - Lumbar back pain [facility] On 02-Jan-2011 17:57 Office Visit - [...] [facility] On 05-Dec-2010 14:52 Office Visit - [...] [facility] On 05-Mar-2010 13:56 Office Visit Encounter Reason: Obesity - The patient's appetite is normal. The patient's dietary intake is normal. The patient has gained 30 pounds (has bought treadmill and walks qod-30 min). The symptoms have been associated with fatigue , while the symptoms have not been associated with amenorrhea or cold intolerance.[facility] On 18-Dec-2009 10:[address] [facility] On 04-Dec-2009 13:30
--- OUTSIDE RECORDS SUMMARY | 2016-06-23 23:52 | XMS REPORT | Continuity of Care Document ---
Author Author [facility] Organization [facility] Address [address] [place] [address] Phone Care Team Providers Care Steel Melter Name Role Phone Eric Montes MD PP [...] Details DISCONTINUED - URINALYSIS, AUTOMATED W/ MICRO ([facility]) ([id number]) Completed:Jun-2011 X-RAY EXAM LUMBAR SPINE, MIN 4 VIEWS ([id number]) Ordered:05-Dec-2010 MRI OF LUMBAR SPINE W/ W/O CONTRAST ([id number]) Ordered:05-Dec-2010 US EXAM, BREAST(S) ([id number]) Ordered:05-Mar-2010 Follow up in 3 months Ordered:18-Dec-2009 [...] Value Details 15:04 URINALYSIS, AUTOMATED W/ MICRO ([facility]) ([id number]) Comments : All lab needs to be faxed to Via [facility] at [phone]. Pre-op Dr. Won Ricci.; Items in this order include: Draw Charge[i], CBC, Basic Metabolic Panel, [phone]. Pre-op Dr. Won Ricci.All lab needs to [...] Range: 135-145=Normal 15:04 CBC-FEMALE- ORDER THIS ONE! ([id number]) Comments: Items in this order include: Draw [...] 9.41 K/uL Range: 4.50-10.50=Normal 15:04 Routine Venipuncture ([id number]) Comments: Items in this order include : Draw Charge[i], CBC, Basic Metabolic Panel, Urinalysis Draw Drawn Normal 06-Mar-2011 11:27 BMP Comments: Please fax all lab to Dr. Ricci at and Via [facility] at [phone]; Items in this order include: Draw Charge[i], CBC, Urinalysis, Basic Metabolic PanelChlouise Snell at [phone] fax all lab to Dr. Ricci at [phone] and Via GLU 83 mg/dL Range: 70-110=Normal CA 10.0 mg/dL Range: 8.4-10.2=Normal eGFR 69.1 mL/min/1.73m2 Range: >60.0=Normal CREAT 1.0 mg/dL Range: 0.6-1.3=Normal OSMO 279 Range: 275-295=Normal BUN 11 mg/dL Range: 7-18=Normal AGAP 11.50 mmol/L Range: 10.00-20.00=Normal CO2 31.3 mmol/L Range: 21.0-32.0=Normal CL 102 mmol/L Range: 98-107=Normal K 4.8 mmol/L Range: 3.5-5.0=Normal NA 140 mmol/L Range: 135-145=Normal 11:27 URINALYSIS, AUTOMATED W/ MICRO ([facility]) ([id number]) Comments: Items in this order include: Draw [...] Range: Yellow=Normal 11:27 CBC-FEMALE- ORDER THIS ONE! ([id number]) Comments: Items in this order include: Draw [...] 7.61 K/uL Range: 4.50-10.50=Normal 11:27 Routine Venipuncture ([id number]) Comments: Items in this order include : Draw Charge[i], CBC, Urinalysis, Basic Metabolic Panel Draw Drawn Normal Advance Directives No Advance Directives available. Encounters Medication Entry - Dysesthesia affecting both sides of body (782.0 | R20.8) [facility] On 21-May-2013 13:35 Office Visit [...] Note for "Anxiety": Taking Seroquel for sx. [facility] On 12-Apr-2013 14:00 Office Visit [...] patient plans to recover at home with family.[facility] On 15:23 Medication Entry - Anxiety [facility] On 14:52 Office Visit - [...] is not currently being treated for this problem.[facility] On 17:25 Lab entry only - Lumbar back pain [facility] On 09-Jul-2011 09:57 Office Visit [...] symptoms are relieved by laxatives (MOM and [employer]). The symptoms have been associated with abdominal distention, abdominal pain and hemorrhoids. [facility] On 01-Apr-2011 14:46 Medication Entry - Contraception [facility] On 25-Feb-2011 16:26 Lab entry only - Lumbar back pain [facility] On 21-Feb-2011 15:35 Medication Entry - Lumbar back pain [facility] On 03-Jan-2011 16:18 Medication Entry - Lumbar back pain [facility] On 02-Jan-2011 17:57 Office Visit [...] removed from hip and put in knee. ).[facility] On 05-Dec-2010 14:52 Office Visit [...] the breast. The last menstrual period began 01-17-2010.[facility] On 05-Mar-2010 13:56 Office Visit Encounter Reason: Obesity - The patient's appetite is normal. The patient's dietary intake is normal. The patient has gained 30 pounds (has bought treadmill and walks qod-30 min). The symptoms have been associated with fatigue , while the symptoms have not been associated with amenorrhea or cold intolerance.[facility] On 18-Dec-2009 10:37 Office Visit [facility] On 04-Dec-2009 13:30
--- OUTSIDE RECORDS SUMMARY | 2016-06-23 23:53 | XMS REPORT | Continuity of Care Document ---
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 Ricci How to access health information online Completed:07-Feb-2014 X-ray Exam of Lower Spine, 2 Views ([id number]) Completed:11-Jan-2014 Comments : outside order from Dr. Ricci Referral to Dermatology Ordered:16-Nov-2013 DISCONTINUED - URINALYSIS, [place]OMATED W/ MICRO [place] ([id number]) Completed:Jun-2011 X-RAY EXAM LUMBAR SPINE, MIN 4 VIEWS ([id number]) Ordered:05-Dec-2010 MRI OF LUMBAR SPINE W/ W/O CONTRAST ([id number]) Ordered:05-Dec-2010 US EXAM, BREAST(S) ([id number]) Ordered:05-Mar-2010 Follow up in 3 months Ordered:18-Dec-2009 [...] kg/m2 Body Surface Area Calculated 2.09 m2 1-Mar-2016 12:42 Pulse 84 /min Comments: Pattern: Regular [...] Details 21-Apr-2015 21:47 SHAVE SKIN LESION SINGLE ([id number]) Comments: Informed consent obtained. Lesion prepped with Hibiclens. Anesthesia with xylocaine + epi+ NaHCO3. Lesion shaved off w/o complications. Hemostasis obtained with cautery. Wound dressed and care instructions given. Specimen sent for pathology. Diameter 1.1cm Final 20-Feb-2015 16:12 URINALYSIS, AUTOMATED W/ MICRO ([facility] ([id number]) Comments: Items in this order include: UrinalysisAntibiotics? [...] Yellow (Normal) Range: Yellow 07-Feb-2014 15:07 PROLACTIN ([id number]) Comments: Items in this order include: Draw Charge[i], CBC, Comprehensive Metabolic Panel, TSH, FSH, LH, PROLACTINTesting performed at: [facility], [address] [place] [address], [phone], Web Editor: Lonny Middleton D.O., MPH.[facility]Quest PROLACTIN 11.5 ng/mL (Normal) Comments: Reference Range.br Females.br Non- 3.0-30.0.br 10.0-209.0.br Postmenopausal 2.0-20.0.br .br .br 15:07 LH ([id number]) Comments: Items in this order include: Draw Charge[i] , CBC, Comprehensive Metabolic Panel, TSH, FSH, LH, PROLACTINTesting performed at: [facility], [address] [place] [address], [phone], Web Editor: Lonny Middleton D.O., MPH.[employer] LH 9.3 m[iU]/mL (Normal) Comments: Reference Range.brFollicular Phase 1.9-12.5.brMid-Cycle Peak 8.7-76.3.brLuteal Phase 0.5- 16.9.brPostmenopausal 10.0-54.7 15:07 FSH ([id number]) Comments: Items in this order include: Draw Charge[i] , CBC, Comprehensive Metabolic Panel, TSH, FSH, LH, PROLACTINTesting performed at: [facility], [address] [place] [address], [phone], Web Editor: Lonny Middleton D.O., MPH.[facility] FSH 4.4 m[iU]/mL (Normal) Comments: Reference Range.br .br Follicular Phase 2.5-10.2.br Mid-cycle Peak 3.1- 17.7.br Luteal Phase 1.5- 9.1.br Postmenopausal 23.0-116.3 .br 15:07 TSH (THYROID STIMULATING HORMONE) ([id number]) TSH 1.33 uIU/ml (Normal) Range: 0.34-5.60 15:07 CMP ([id number]) ALTI 96 U/L (Abnormal) Range: 12-78 AST [...] Range: 135-145 15:07 CBC-FEMALE- ORDER THIS ONE! ([id number]) manual diff Not Indicated (Normal) mpv 11.30 [...] 10*3/uL (Abnormal) Range: 4.50-10.50 15:07 Routine Venipuncture (97189) Draw Drawn (Normal) 15-Nov-2013 17:32 SED RATE ERYTHROCYTE ([id number]) Comments: Items in this order include: Draw Charge[i], Basic Metabolic Panel, C-Reactive Protein, CBC, Sed Rate ESR 4 mm/h (Normal) Range: 0-20 17:32 CBC-FEMALE- ORDER THIS ONE! ([id number]) manual diff Not Indicated (Normal) mpv 10.60 [...] 10*3/uL (Abnormal) Range: 4.50-10.50 17:32 C-REACTIVE PROTEIN ([id number]) CRP 1.82 mg/dL (Abnormal) Range: 0.00-0.30 17:32 [...] mmol/L (Normal) Range: 135-145 17:32 Routine Venipuncture (97762) Draw Drawn (Normal) 30-Sep-2013 14:25 URINALYSIS, AUTOMATED W/ MICRO ([facility] ([id number]) Comments : Items in this order include: [...] Range: 135-145 14:25 CBC-FEMALE- ORDER THIS ONE! ([id number]) Comments: Results to [facility] Dr. Ricci .; Items in this order include : CBC, Basic Metabolic Panel, [phone].Results to [facility] Dr. Ricci Fax [...] Range: 4.50-10.50 15:04 URINALYSIS, AUTOMATED W/ MICRO ([facility] ([id number]) Comments : All lab needs to be faxed to [facility] at [phone]. Pre-op Dr. Won Ricci.; Items in this order include: Draw Charge[i], CBC, Basic Metabolic Panel, [phone]. Pre-op Dr. Won Ricci.[facility] Present - Rare (Abnormal) Range: [...] Range: 135-145 15:04 CBC-FEMALE- ORDER THIS ONE! ([id number]) Comments: Items in this order include: Draw [...] 10*3/uL (Normal) Range: 4.50-10.50 15:04 Routine Venipuncture (70279) Comments: Items in this order include : Draw Charge[i], CBC, Basic Metabolic Panel, Urinalysis Draw Drawn (Normal) 06-Mar-2011 11:27 BMP Comments: Please fax all lab to Dr. Ricci at [phone] and [facility] at [phone]; Items in this order include: Draw Charge[i], CBC, Urinalysis, Basic Metabolic PanelChristi St. Rm at [phone] fax all lab to Dr. Ricci at [phone] and Via GL[facility] 83 mg/dL (Normal) Range: [...] Range: 135-145 11:27 URINALYSIS, AUTOMATED W/ MICRO ([facility] ([id number]) Comments: Items in this order include: Draw [...] Range: Yellow 11:27 CBC-FEMALE- ORDER THIS ONE! ([id number]) Comments: Items in this order include: Draw [...] 10*3/uL (Normal) Range: 4.50-10.50 11:27 Routine Venipuncture (38256) Comments: Items in this order include : Draw Charge[i], CBC, Urinalysis, Basic Metabolic Panel Draw Drawn (Normal) Advance Directives Encounters Medication Entry - Chronic lumbar pain (724.2 | M54.5) [facility] On 18-Oct-2015 13:03 to 13:10 Medication Entry - Chronic lumbar pain (724.2 | M54.5) [facility] On 12:33 to 12:36 Nurse Visit (Non-billable) [facility] On 16-Jun-2015 15:04 to 16:32 Medication Entry [facility] On 15-May-2015 12:29 to 12:41 Medication Entry - Vaginal infection (616.10 | N76.0) [facility] On 25-Apr-2015 11:21 to 11:23 Office Visit [...] patient describes this as worsening (now bleeding routinely).[facility] On 21-Apr-2015 08:54 to 21:47 Medication Entry [facility] On 18-Apr-2015 12:22 to 12:43 Nurse Visit (Non-billable) [facility] On 20-Mar-2015 09:59 to 10:46 Office Visit [...] with abdominal distention, abdominal pain and hemorrhoids. [facility] On 13-Mar-2015 14:30 to 15:13 Medication Entry - UTI (lower urinary tract infection) (599.0 | N39.0) [facility] On 22-Feb-2015 10:04 to 10:06 Nurse Visit (Non-billable) - Dysuria (788.1 | R30.0) [facility] On 20-Feb-2015 16:01 to 16:38 Nurse Visit (Non-billable) [facility] On 17-Jan-2015 11:29 to 11:31 Office Visit [...] increased still having pain in her legs daniol at night, [ADDITIONAL REASON] Obesity - The [...] On 19-Dec-2014 16:15 to 20:43 Medication Entry [facility] On 28-Nov-2014 16:29 to 16:32 Office Visit [...] (Stopped Celexa. Didn't think it was helping.). [facility] On 16-Nov-2014 14:05 to 14:59 Medication Entry - Lumbar back pain (724.2) [facility] On 20-Sep-2014 12:31 to 12:34 Office Visit [...] Denies any pain at this time to area.[facility] On 14:43 to 17:01 Historical Summary [facility] On 11:48 to 11:52 Radiology Visit - Lumbar back pain (724.2) [facility] On 17-May-2014 16:35 to 16:37 Medication Entry [facility] On 03-May-2014 09:14 to 09:22 Medication Entry - Sore throat (462 | J02.9) [facility] On 25-Apr-2014 15:13 to 15:15 Office Visit [...] Taking Seroquel for sx., sees Shama at [facility] also, [ADDITIONAL REASON] Amenorrhea, Primary - [...] Radiology Visit - Lumbar back pain (724.2) [facility] On 11-Jan-2014 16:20 to 16:23 Office Visit [...] at times but is not painful or itchy.[facility] 15-Nov-2013 to 16-Nov-2013 Office Visit - Dermatitis [...] rash but it has gotten worse since starting.[facility] On 05-Nov-2013 15:56 to 16:53 Office Visit - Lumbar back pain (724.2) Encounter Reason: Post-Operative - Patient is 2 weeks (diskectomy) postop procedure. Patient's symptoms are improved compared to preoperative. Post operative pain has been moderate. Pain medications include: Hydrocodone and Ultram. Patient has been compliant with post operative instructions. Patient has shown improvement in their activity level (has gradually improved since surgery.).[facility] On 28-Oct-2013 14:32 to 15:50 Historical Summary [facility] On 27-Oct-2013 10:06 to 10:10 Medication Entry - UTI (lower urinary tract infection) (599.0 | N39.0) [facility] On 08-Oct-2013 15:55 to 15:57 Lab entry only - Lumbar back pain (724.2) [facility] On 08:47 to 08:49 Medication Entry - Dysesthesia affecting both sides of body (782.0 | R20.8) [facility] On 21-May-2013 13:35 to 13:38 Office Visit [...] patient plans to recover at home with family.[facility] On 15:23 to 22:32 Medication Entry - Anxiety (300.00) [facility] On 14:52 to 14:55 Office Visit - [...] is not currently being treated for this problem.[facility] On 17:25 to 21:06 Lab entry only - Lumbar back pain (724.2) [facility] On 09-Jul-2011 09:57 to 10:02 Office Visit [...] symptoms are relieved by laxatives (MOM and [employer]). The symptoms have been associated with abdominal distention, abdominal pain and hemorrhoids. [facility] On 01-Apr-2011 14:46 to 19:35 Medication Entry - Contraception (V25.9) [facility] On 25-Feb-2011 16:26 to 16:28 Lab entry only - Lumbar back pain (724.2) [facility] On 21-Feb-2011 15:35 to 15:44 Medication Entry - Lumbar back pain (724.2) [facility] On 03-Jan-2011 16:18 to 16:22 Medication Entry - Lumbar back pain (724.2) [facility] On 02-Jan-2011 17:57 to 18:06 Office Visit [...] removed from hip and put in knee. ).[facility] On 05-Dec-2010 14:52 to 16:15 Office Visit [...] the breast. The last menstrual period began 01-17-2010.[facility] On 05-Mar-2010 13:56 to 23:43 Office Visit Encounter Reason: Obesity - The patient's appetite is normal. The patient's dietary intake is normal. The patient has gained 30 pounds (has bought treadmill and walks qod-30 min). The symptoms have been associated with fatigue , while the symptoms have not been associated with amenorrhea or cold intolerance.[facility] On 18-Dec-2009 10:37 to 11:12 Office Visit [facility] On 04-Dec-2009 13:30 to 13:44 Insurance * Christy Elder ; usha guarantor * Medicare WPS * [facility] Medical Assistance Prog * [facility] * [facility]
--- OUTSIDE RECORDS SUMMARY | 2016-06-23 23:55 | XMS REPORT | Continuity of Care Document ---
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 Ricci How to access health information online Completed:07-Feb-2014 X-ray Exam of Lower Spine, 2 Views ([id number]) Completed:11-Jan-2014 Comments : outside order from Dr. Ricci Referral to Dermatology Ordered:16-Nov-2013 DISCONTINUED - URINALYSIS, AUTOMATED W/ MICRO ([facility]) ([id number]) Completed:Jun-2011 X-RAY EXAM LUMBAR SPINE, MIN 4 VIEWS ([id number]) Ordered:05-Dec-2010 MRI OF LUMBAR SPINE W/ W/O CONTRAST ([id number]) Ordered:05-Dec-2010 US EXAM, BREAST(S) ([id number]) Ordered:05-Mar-2010 Follow up in 3 months Ordered:18-Dec-2009 [...] Details 21-Apr-2015 21:47 SHAVE SKIN LESION SINGLE ([id number]) Comments: Informed consent obtained. Lesion prepped with Hibiclens. Anesthesia with xylocaine + epi+ NaHCO3. Lesion shaved off w/o complications. Hemostasis obtained with cautery. Wound dressed and care instructions given. Specimen sent for pathology. Diameter 1.1cm Final 20-Feb-2015 16:12 URINALYSIS, AUTOMATED W/ MICRO ([facility]) ([id number]) Comments: Items in this order include: UrinalysisAntibiotics? [...] Yellow (Normal) Range: Yellow 07-Feb-2014 15:07 PROLACTIN ([id number]) Comments: Items in this order include: Draw Charge[i], CBC, Comprehensive Metabolic Panel, TSH, FSH, LH, PROLACTINTesting performed at: [facility], [address] [place] [address], [phone], Citizen Participation Specialist: oLnny Middleton D.O., MPH.brQuest PROLACTIN 11.5 ng/mL (Normal) Comments: Reference Range.br Females.br Non- 3.0-30.0.br 10.0-209.0.br Postmenopausal 2.0-20.0.br .br .br 15:07 LH ([id number]) Comments: Items in this order include: Draw Charge[i] , CBC, Comprehensive Metabolic Panel, TSH, FSH, LH, PROLACTINTesting performed at: [facility], [address] [place], [phone], Citizen Participation Specialist: Lonny Middleton D.O., MPH.brQuest LH 9.3 m[iU]/mL (Normal) Comments: Reference Range.brFollicular Phase 1.9-12.5.brMid-Cycle Peak 8.7-76.3.brLuteal Phase 0.5- 16.9.brPostmenopausal 10.0-54.7 15:07 FSH ([id number]) Comments: Items in this order include: Draw Charge[i] , CBC, Comprehensive Metabolic Panel, TSH, FSH, LH, PROLACTINTesting performed at: [facility], [address] [place], [address], Citizen Participation Specialist: Lonny Middleton D.O., MPH.brQuest FSH 4.4 m[iU]/mL (Normal) Comments: Reference Range.br .br Follicular Phase 2.5-10.2.br Mid-cycle Peak 3.1- 17.7.br Luteal Phase 1.5- 9.1.br Postmenopausal 23.0-116.3 .br 15:07 TSH (THYROID STIMULATING HORMONE) ([id number]) TSH 1.33 uIU/ml (Normal) Range: 0.34-5.60 15:07 CMP ([id number]) ALTI 96 U/L (Abnormal) Range: 12-78 AST [...] Range: 135-145 15:07 CBC-FEMALE- ORDER THIS ONE! ([id number]) manual diff Not Indicated (Normal) mpv 11.30 [...] 10*3/uL (Abnormal) Range: 4.50-10.50 15:07 Routine Venipuncture (01656) Draw Drawn (Normal) 15-Nov-2013 17:32 SED RATE ERYTHROCYTE ([id number]) Comments: Items in this order include: Draw Charge[i], Basic Metabolic Panel, C-Reactive Protein, CBC, Sed Rate ESR 4 mm/h (Normal) Range: 0-20 17:32 CBC-FEMALE- ORDER THIS ONE! ([id number]) manual diff Not Indicated (Normal) mpv 10.60 [...] 10*3/uL (Abnormal) Range: 4.50-10.50 17:32 C-REACTIVE PROTEIN ([id number]) CRP 1.82 mg/dL (Abnormal) Range: 0.00-0.30 17:32 [...] mmol/L (Normal) Range: 135-145 17:32 Routine Venipuncture (78559) Draw Drawn (Normal) 30-Sep-2013 14:25 URINALYSIS, AUTOMATED W/ MICRO ([facility]) ([id number]) Comments : Items in this order include: [...] Range: 135-145 14:25 CBC-FEMALE- ORDER THIS ONE! ([id number]) Comments: Results to [facility] Dr. Ricci .; Items in this order include : CBC, Basic Metabolic Panel, [phone].Results to [facility] Dr. Ricci Fax manual diff [...] Range: 4.50-10.50 15:04 URINALYSIS, AUTOMATED W/ MICRO ([facility]) ([id number]) Comments : All lab needs to be faxed to [facility] at [phone]. Pre-op Dr. Won Ricci.; Items in this order include: Draw Charge[i], CBC, Basic Metabolic Panel, [phone]. Pre-op Dr. Won Ricci.All lab needs to be faxed to Via [facility] at U yeast Present - Rare [...] Range: 135-145 15:04 CBC-FEMALE- ORDER THIS ONE! ([id number]) Comments: Items in this order include: Draw [...] 10*3/uL (Normal) Range: 4.50-10.50 15:04 Routine Venipuncture (73623) Comments: Items in this order include : Draw Charge[i], CBC, Basic Metabolic Panel, Urinalysis Draw Drawn (Normal) 06-Mar-2011 11:27 [facility] Comments: Please fax all lab to Dr. Ricci at and Via [facility] [place] at [phone]; Items in this order include: Draw Charge[i], CBC, Urinalysis, Basic Metabolic PanelChbeebe [facility] [place] at [phone] fax all lab to Dr. Ricci at [phone] and Via GLU 83 mg/dL (Normal) Range: [...] Range: 135-145 11:27 URINALYSIS, AUTOMATED W/ MICRO ([facility]) ([id number]) Comments: Items in this order include: Draw [...] Range: Yellow 11:27 CBC-FEMALE- ORDER THIS ONE! ([id number]) Comments: Items in this order include: Draw [...] 10*3/uL (Normal) Range: 4.50-10.50 11:27 Routine Venipuncture (27089) Comments: Items in this order include : Draw Charge[i], CBC, Urinalysis, Basic Metabolic Panel Draw Drawn (Normal) Advance Directives Encounters Medication Entry [facility] On 15-May-2015 12:29 to 12:41 Medication Entry - Vaginal infection (616.10 | N76.0) [facility] On 25-Apr-2015 11:21 to 11:23 Office [...] patient describes this as worsening (now bleeding routinely).[facility] On 21-Apr-2015 08:54 to 21:47 Medication Entry [facility] On 18-Apr-2015 12:22 to 12:43 Nurse Visit (Non-billable) [facility] On 20-Mar-2015 09:59 to 10:46 Office [...] with abdominal distention, abdominal pain and hemorrhoids. [facility] On 13-Mar-2015 14:30 to 15:13 Medication Entry - UTI (lower urinary tract infection) (599.0 | N39.0) [facility] On 22-Feb-2015 10:04 to 10:06 Nurse Visit (Non-billable) - Dysuria (788.1 | R30.0) [facility] On 20-Feb-2015 16:01 to 16:38 Nurse Visit (Non-billable) [facility] On 17-Jan-2015 11:29 to 11:31 Office [...] On 19-Dec-2014 16:15 to 20:43 Medication Entry [facility] On 28-Nov-2014 16:29 to 16:32 Office [...] (Stopped Celexa. Didn't think it was helping.). [facility] On 16-Nov-2014 14:05 to 14:59 Medication Entry - Lumbar back pain (724.2) [facility] On 20-Sep-2014 12:31 to 12:34 Office [...] Denies any pain at this time to area.[facility] On 14:43 to 17:01 Historical Summary [facility] On 11:48 to 11:52 Radiology Visit - Lumbar back pain (724.2) [facility] On 17-May-2014 16:35 to 16:37 Medication Entry [facility] On 03-May-2014 09:14 to 09:22 Medication Entry - Sore throat (462 | J02.9) [facility] On 25-Apr-2014 15:13 to 15:15 Office [...] Radiology Visit - Lumbar back pain (724.2) [facility] On 11-Jan-2014 16:20 to 16:23 Office [...] at times but is not painful or itchy.[facility] 15-Nov-2013 to 16-Nov-2013 Office Visit - [...] rash but it has gotten worse since starting.[facility] On 05-Nov-2013 15:56 to 16:53 Office Visit - Lumbar back pain (724.2) Encounter Reason: Post-Operative - Patient is 2 weeks (diskectomy) postop procedure. Patient's symptoms are improved compared to preoperative. Post operative pain has been moderate. Pain medications include: Hydrocodone and Ultram. Patient has been compliant with post operative instructions. Patient has shown improvement in their activity level (has gradually improved since surgery.).[facility] On 28-Oct-2013 14:32 to 15:50 Historical Summary [facility] On 27-Oct-2013 10:06 to 10:10 Medication Entry - UTI (lower urinary tract infection) (599.0 | N39.0) [facility] On 08-Oct-2013 15:55 to 15:57 Lab entry only - Lumbar back pain (724.2) [facility] On 08:47 to 08:49 Medication Entry - Dysesthesia affecting both sides of body (782.0 | R20.8) [facility] On 21-May-2013 13:35 to 13:38 Office [...] patient plans to recover at home with family.[facility] On 15:23 to 22:32 Medication Entry - Anxiety (300.00) [facility] On 14:52 to 14:55 Office Visit [...] is not currently being treated for this problem.[facility] On 17:25 to 21:06 Lab entry only - Lumbar back pain (724.2) [facility] On 09-Jul-2011 09:57 to 10:02 Office [...] symptoms are relieved by laxatives (MOM and [employer]). The symptoms have been associated with abdominal distention, abdominal pain and hemorrhoids. [facility] On 01-Apr-2011 14:46 to 19:35 Medication Entry - Contraception (V25.9) [facility] On 25-Feb-2011 16:26 to 16:28 Lab entry only - Lumbar back pain (724.2) [facility] On 21-Feb-2011 15:35 to 15:44 Medication Entry - Lumbar back pain (724.2) [facility] On 03-Jan-2011 16:18 to 16:22 Medication Entry - Lumbar back pain (724.2) [facility] On 02-Jan-2011 17:57 to 18:06 Office [...] removed from hip and put in knee. ).[facility] On 05-Dec-2010 14:52 to 16:15 Office [...] the breast. The last menstrual period began 01-17-2010.[facility] On 05-Mar-2010 13:56 to 23:43 Office Visit Encounter Reason: Obesity - The patient's appetite is normal. The patient's dietary intake is normal. The patient has gained 30 pounds (has bought treadmill and walks qod-30 min). The symptoms have been associated with fatigue , while the symptoms have not been associated with amenorrhea or cold intolerance.[facility] On 18-Dec-2009 10:37 to 11:12 Office Visit [facility] On 04-Dec-2009 13:30 to 13:44 Insurance * Christy Elder ; a guarantor * [facility] Medical Assistance Prog * [facility] * [facility]
--- OUTSIDE RECORDS SUMMARY | 2016-06-23 23:56 | XMS REPORT | Continuity of Care Document ---
Author Author [facility] Organization [facility] Address [address] [place] [address] Phone Care Team Providers Care Donkey Ride Operator Name Role Phone Eric Montes MD [...] X-ray Exam of Lower Spine, 2 Views ([id number]) Completed:11-Jan-2014 Comments : outside order from Dr. Ricci Referral to Dermatology Ordered:16-Nov-2013 DISCONTINUED - URINALYSIS, AUTOMATED W/ MICRO ([facility]) ([id number]) Completed:Jun-2011 X-RAY EXAM LUMBAR SPINE, MIN 4 VIEWS ([id number]) Ordered:05-Dec-2010 MRI OF LUMBAR SPINE W/ W/O CONTRAST ([id number]) Ordered:05-Dec-2010 US EXAM, BREAST(S) ([id number]) Ordered:05-Mar-2010 Follow up in 3 months Ordered:18-Dec-2009 [...] Date Description Value Details 07-Feb-2014 15:07 PROLACTIN ([id number]) Comments: Items in this order include: Draw Charge[i], CBC, Comprehensive Metabolic Panel, TSH, FSH, LH, PROLACTINTesting performed at: [facility], [address] [place] [address], [phone], Satellite Communications Operator: Lonny Middleton D.O., MPH.brQuest PROLACTIN 11.5 ng/mL (Normal) Comments: Reference Range.br Females.br Non- 3.0-30.0.br 10.0-209.0.br Postmenopausal 2.0-20.0.br .br .br 15:07 LH ([id number]) Comments: Items in this order include: Draw Charge[i] , CBC, Comprehensive Metabolic Panel, TSH, FSH, LH, PROLACTINTesting performed at: [facility], [address] [place] [address], [phone], Satellite [employer] Operator: Lonny Middletno D.O., MPH.brQuest LH 9.3 m[iU]/mL (Normal) Comments: Reference Range.brFollicular Phase 1.9-12.5.brMid-Cycle Peak 8.7-76.3.brLuteal Phase 0.5- 16.9.brPostmenopausal 10.0-54.7 15:07 FSH ([id number]) Comments: Items in this order include: Draw Charge[i] , CBC, Comprehensive Metabolic Panel, TSH, FSH, LH, PROLACTINTesting performed at: [facility], [address] [place] [address], [phone], Satellite [employer] Operator: Lonny Middleton D.O., MPH.brQuest FSH 4.4 m[iU]/mL (Normal) Comments: Reference Range.br .br Follicular Phase 2.5-10.2.br Mid-cycle Peak 3.1- 17.7.br Luteal Phase 1.5- 9.1.br Postmenopausal 23.0-116.3 .br 15:07 TSH (THYROID STIMULATING HORMONE) ([id number]) TSH 1.33 uIU/ml (Normal) Range: 0.34-5.60 15:07 CMP (88280) ALTI 96 U/L (Abnormal) Range: 12-78 AST [...] Range: 135-145 15:07 CBC-FEMALE- ORDER THIS ONE! (30953) manual diff Not Indicated (Normal) mpv 11.30 [...] 10*3/uL (Abnormal) Range: 4.50-10.50 15:07 Routine Venipuncture (23671) Draw Drawn (Normal) 15-Nov-2013 17:32 SED RATE ERYTHROCYTE ([id number]) Comments: Items in this order include: Draw Charge[i], Basic Metabolic Panel, C-Reactive Protein, CBC, Sed Rate ESR 4 mm/h (Normal) Range: 0-20 17:32 CBC-FEMALE- ORDER THIS ONE! (67752) manual diff Not Indicated (Normal) mpv 10.60 [...] 10*3/uL (Abnormal) Range: 4.50-10.50 17:32 C-REACTIVE PROTEIN (51475) CRP 1.82 mg/dL (Abnormal) Range: 0.00-0.30 17:32 [...] mmol/L (Normal) Range: 135-145 17:32 Routine Venipuncture (72038) Draw Drawn (Normal) 30-Sep-2013 14:25 URINALYSIS, AUTOMATED W/ MICRO ([facility]) ([id number]) Comments : Items in this order include: [...] Range: 135-145 14:25 CBC-FEMALE- ORDER THIS ONE! ([id number]) Comments: Results to [facility] Dr. Ricci .; Items in this order include : CBC, Basic Metabolic Panel, [phone].Results to [facility] Dr. Ricci [...] Range: 4.50-10.50 15:04 URINALYSIS, AUTOMATED W/ MICRO ([facility]) ([id number]) Comments : All lab needs to be faxed to [facility] [place] at [phone]. Pre-op Dr. Won Ricci.; Items in this order include: Draw Charge[i], CBC, Basic Metabolic Panel, [phone]. Pre-op Dr. Won Ricci.All lab needs to be faxed to [facility] [place] at U yeast Present - Rare (Abnormal) [...] Range: 135-145 15:04 CBC-FEMALE- ORDER THIS ONE! (07759) Comments: Items in this order include: Draw [...] 10*3/uL (Normal) Range: 4.50-10.50 15:04 Routine Venipuncture (67023) Comments: Items in this order include : Draw Charge[i], CBC, Basic Metabolic Panel, Urinalysis Draw Drawn (Normal) 06-Mar-2011 11:27 [facility] Comments: Please fax all lab to Dr. Ricci at [phone] and [address] [facility] at [phone]; Items in this order include: Draw Charge[i], CBC, Urinalysis, Basic Metabolic PanelChalbuquerque indian dental clinicdayana [place] at [phone] fax all lab to Dr. Ricci at [phone] and Via GLU 83 mg/dL (Normal) Range: [...] Range: 135-145 11:27 URINALYSIS, AUTOMATED W/ MICRO ([facility]) ([id number]) Comments: Items in this order include: Draw [...] Range: Yellow 11:27 CBC-FEMALE- ORDER THIS ONE! ([id number]) Comments: Items in this order include: Draw [...] 10*3/uL (Normal) Range: 4.50-10.50 11:27 Routine Venipuncture (68779) Comments: Items in this order include : Draw Charge[i], CBC, Urinalysis, Basic Metabolic Panel Draw Drawn (Normal) Advance Directives Encounters Medication Entry [facility] On 03-May-2014 09:14 to 09:22 Medication Entry - Sore throat (462 | J02.9) [facility] On 25-Apr-2014 15:13 to 15:15 Office Visit [...] said she wants her hormones checked [facility] On 07-Feb-2014 14:16 to 15:30 Radiology Visit - Lumbar back pain (724.2) [facility] On 11-Jan-2014 16:20 to 16:23 Office Visit [...] at times but is not painful or itchy.[facility] 15-Nov-2013 to 16-Nov-2013 Office Visit - Dermatitis [...] rash but it has gotten worse since starting.[facility] On 05-Nov-2013 15:56 to 16:53 Office Visit - Lumbar back pain (724.2) Encounter Reason: Post-Operative - Patient is 2 weeks (diskectomy) postop procedure. Patient's symptoms are improved compared to preoperative. Post operative pain has been moderate. Pain medications include: Hydrocodone and Ultram. Patient has been compliant with post operative instructions. Patient has shown improvement in their activity level (has gradually improved since surgery.).[facility] On 28-Oct-2013 14:32 to 15:50 Historical Summary [facility] On 27-Oct-2013 10:06 to 10:10 Medication Entry - UTI (lower urinary tract infection) (599.0 | N39.0) [facility] On 08-Oct-2013 15:55 to 15:57 Lab entry only - Lumbar back pain (724.2) [facility] On 08:47 to 08:49 Medication Entry - Dysesthesia affecting both sides of body (782.0 | R20.8) [facility] On 21-May-2013 13:35 to 13:38 Office Visit [...] for "Anxiety": Taking Seroquel for sx. [facility] On 12-Apr-2013 14:00 to 14:49 Office [...] patient plans to recover at home with family.[facility] On 15:23 to 22:32 Medication Entry - Anxiety (300.00) [facility] On 14:52 to 14:55 Office Visit - [...] is not currently being treated for this problem.[facility] On 17:25 to 21:06 Lab entry only - Lumbar back pain (724.2) [facility] On 09-Jul-2011 09:57 to 10:02 Office Visit [...] symptoms are relieved by laxatives (MOM and [employer]). The symptoms have been associated with abdominal distention, abdominal pain and hemorrhoids. [facility] On 01-Apr-2011 14:46 to 19:35 Medication Entry - Contraception (V25.9) [facility] On 25-Feb-2011 16:26 to 16:28 Lab entry only - Lumbar back pain (724.2) [facility] On 21-Feb-2011 15:35 to 15:44 Medication Entry - Lumbar back pain (724.2) [facility] On 03-Jan-2011 16:18 to 16:22 Medication Entry - Lumbar back pain (724.2) [facility] On 02-Jan-2011 17:57 to 18:06 Office Visit [...] removed from hip and put in knee. ).[facility] On 05-Dec-2010 14:52 to 16:15 Office Visit [...] the breast. The last menstrual period began 01-17-2010.[facility] On 05-Mar-2010 13:56 to 23:43 Office Visit Encounter Reason: Obesity - The patient's appetite is normal. The patient's dietary intake is normal. The patient has gained 30 pounds (has bought treadmill and walks qod-30 min). The symptoms have been associated with fatigue , while the symptoms have not been associated with amenorrhea or cold intolerance.[facility] On 18-Dec-2009 10:37 to 11:12 Office Visit [facility] On 04-Dec-2009 13:30 to 13:44 Insurance * Christy Elder ; a guarantor * [facility] Medical Assistance Prog * [facility]
--- OUTSIDE RECORDS SUMMARY | 2016-06-23 23:57 | XMS REPORT | Continuity of Care Document ---
Author Author [facility] Organization [facility] Address [address] [place] [address] Phone Care Team Providers Care Air Filler Name Role Phone Eric Montes MD PP [...] daily for 0 days Quantity: 30 Ordered :11-Jun-2013 Eric Montes MD* Started 11-Jun-2013 ActiveCELEXA, 40MG (Oral Tablet) 1 Tablet daily for 0 days * Quantity: 30 Refills: 3 Ordered :01-Apr-2013 Eric Montes MD* Started 01-Apr-2013 [...] W/ MICRO ([facility]) ([id number]) Completed:Jun-2011 X-RAY EXAM LUMBAR SPINE, MIN 4 VIEWS ([id number]) Ordered:05-Dec-2010 MRI OF LUMBAR SPINE W/ W/O CONTRAST ([id number]) Ordered:05-Dec-2010 US EXAM, BREAST(S) ([id number]) Ordered:05-Mar-2010 Follow up in 3 months Ordered:18-Dec-2009 [...] W/ MICRO ([facility]) ([id number]) Comments : All lab needs to be faxed to [facility] at [phone]. Pre-op Dr. Won Ricci.; Items in this order include: Draw Charge[i], CBC, Basic Metabolic Panel, [id number]. Pre-op Dr. Won Ricci.All lab needs to be faxed to [facility] at U yeast Present - Rare Range: [...] Range: 135-145=Normal 15:04 CBC-FEMALE- ORDER THIS ONE! ([id number]) Comments: Items in this order include: Draw [...] 9.41 K/uL Range: 4.50-10.50=Normal 15:04 Routine Venipuncture (94555) Comments: Items in this order include : Draw Charge[i], CBC, Basic Metabolic Panel, Urinalysis Draw Drawn Normal 06-Mar-2011 11:27 BMP Comments: Please fax all lab to Dr. Ricci at and Via [facility] at [phone]; Items in this order include: Draw Charge[i], CBC, Urinalysis, Basic Metabolic PanelChSt. John of God [facility] at [phone] fax all lab to Dr. Ricci at [phone] and Via GLU 83 mg/dL Range: 70-110=Normal [...] Range: 135-145=Normal 11:27 URINALYSIS, AUTOMATED W/ MICRO ([facility]) ([id number]) Comments: Items in this order include: Draw [...] Range: Yellow=Normal 11:27 CBC-FEMALE- ORDER THIS ONE! ([id number]) Comments: Items in this order include: Draw [...] 7.61 K/uL Range: 4.50-10.50=Normal 11:27 Routine Venipuncture (00602) Comments: Items in this order include : Draw Charge[i], CBC, Urinalysis, Basic Metabolic Panel Draw Drawn Normal Advance Directives No Advance Directives available. Encounters Medication Entry - Dysesthesia affecting both sides of body (782.0 | R20.8) [facility] On 21-May-2013 13:35 Office Visit [...] patient plans to recover at home with family.[facility] On 15:23 Medication Entry - Anxiety [facility] On 14:52 Office Visit - [...] is not currently being treated for this problem.[facility] On 17:25 Lab entry only - Lumbar back pain [facility] On 09-Jul-2011 09:57 Office Visit [...] symptoms are relieved by laxatives (MOM and [employer]). The symptoms have been associated with abdominal distention, abdominal pain and hemorrhoids. [facility] On 01-Apr-2011 14:46 Medication Entry - Contraception [facility] On 25-Feb-2011 16:26 Lab entry only - Lumbar back pain [facility] On 21-Feb-2011 15:35 Medication Entry - Lumbar back pain [facility] On 03-Jan-2011 16:18 Medication Entry - Lumbar back pain [facility] On 02-Jan-2011 17:57 Office Visit [...] removed from hip and put in knee. ).[facility] On 05-Dec-2010 14:52 Office Visit [...] the breast. The last menstrual period began 01-17-2010.[facility] On 05-Mar-2010 13:56 Office Visit Encounter Reason: Obesity - The patient's appetite is normal. The patient's dietary intake is normal. The patient has gained 30 pounds (has bought treadmill and walks qod-30 min). The symptoms have been associated with fatigue , while the symptoms have not been associated with amenorrhea or cold intolerance.[facility] On 18-Dec-2009 10:37 Office Visit [facility] On 04-Dec-2009 13:30
--- OUTSIDE RECORDS SUMMARY | 2016-06-23 23:58 | XMS REPORT | Continuity of Care Document ---
Author Author [facility] Organization [facility] Address [address] [place] [address] Phone Care Team Providers Care Note Keeper Name Role Phone Eric Montes MD PP [...] Ordered:08-Dec-2013 Eric Montes MD* Start 08-Dec-2013 Active GABAPENTIN, 300MG (Oral Capsule) - Historical Medication 1 q 6hrs (300 MG) Active KEFLEX, 500MG (Oral Capsule) 1 (one) Capsule three times daily for 0 days * Quantity: 30 {Capsule} Refills: 0 Ordered:25-Apr-2014 Sandy Benitez * Start 25-Apr-2014 Active METHOCARBAMOL, 750MG (Oral Tablet) - Historical [...] X-ray Exam of Lower Spine, 2 Views ([id number]) Completed:11-Jan-2014 Comments : outside order from Dr. Ricci Referral to Dermatology Ordered:16-Nov-2013 DISCONTINUED - URINALYSIS, AUTOMATED W/ MICRO ([facility]) ([id number]) Completed:Jun-2011 X-RAY EXAM LUMBAR SPINE, MIN 4 VIEWS ([id number]) Ordered:05-Dec-2010 MRI OF LUMBAR SPINE W/ W/O CONTRAST ([id number]) Ordered:05-Dec-2010 US EXAM, BREAST(S) ([id number]) Ordered:05-Mar-2010 Follow up in 3 months Ordered:18-Dec-2009 [...] Date Description Value Details 07-Feb-2014 15:07 PROLACTIN ([id number]) Comments: Items in this order include: Draw Charge[i], CBC, Comprehensive Metabolic Panel, TSH, FSH, LH, PROLACTINTesting performed at: [facility], [address] [place] [address], [phone], Chocolate Maker: Lonny Middleton D.O., MPH.brQuest PROLACTIN 11.5 ng/mL (Normal) Comments: Reference Range.br Females.br Non- 3.0-30.0.br 10.0-209.0.br Postmenopausal 2.0-20.0.br .br .br 15:07 LH ([id number]) Comments: Items in this order include: Draw Charge[i] , CBC, Comprehensive Metabolic Panel, TSH, FSH, LH, PROLACTINTesting performed at: [facility], [address] [place] [address], [phone], Chocolate Maker: Lonny Middleton D.O., MPH.brQuest LH 9.3 m[iU]/mL (Normal) Comments: Reference Range.brFollicular Phase 1.9-12.5.brMid-Cycle Peak 8.7-76.3.brLuteal Phase 0.5- 16.9.brPostmenopausal 10.0-54.7 15:07 FSH ([id number]) Comments: Items in this order include: Draw Charge[i] , CBC, Comprehensive Metabolic Panel, TSH, FSH, LH, PROLACTINTesting performed at: [facility], [address] [place] [address], [phone], Chocolate Maker: Lonny Middleton D.O., MPH.brQuest FSH 4.4 m[iU]/mL (Normal) Comments: Reference Range.br .br Follicular Phase 2.5-10.2.br Mid-cycle Peak 3.1- 17.7.br Luteal Phase 1.5- 9.1.br Postmenopausal 23.0-116.3 .br 15:07 TSH (THYROID STIMULATING HORMONE) ([id number]) TSH 1.33 uIU/ml (Normal) Range: 0.34-5.60 15:07 CMP ([id number]) ALTI 96 U/L (Abnormal) Range: 12-78 AST [...] Range: 135-145 15:07 CBC-FEMALE- ORDER THIS ONE! ([id number]) manual diff Not Indicated (Normal) mpv 11.30 [...] 10*3/uL (Abnormal) Range: 4.50-10.50 15:07 Routine Venipuncture (87381) Draw Drawn (Normal) 15-Nov-2013 17:32 SED RATE ERYTHROCYTE ([id number]) Comments: Items in this order include: Draw Charge[i], Basic Metabolic Panel, C-Reactive Protein, CBC, Sed Rate ESR 4 mm/h (Normal) Range: 0-20 17:32 CBC-FEMALE- ORDER THIS ONE! (50072) manual diff Not Indicated (Normal) mpv 10.60 [...] 10*3/uL (Abnormal) Range: 4.50-10.50 17:32 C-REACTIVE PROTEIN (38103) CRP 1.82 mg/dL (Abnormal) Range: 0.00-0.30 17:32 [...] mmol/L (Normal) Range: 135-145 17:32 Routine Venipuncture (50327) Draw Drawn (Normal) 30-Sep-2013 14:25 URINALYSIS, AUTOMATED W/ MICRO ([facility]) ([id number]) Comments : Items in this order include: [...] Range: 135-145 14:25 CBC-FEMALE- ORDER THIS ONE! ([id number]) Comments: Results to [facility] Dr. Ricci .; Items in this order include : CBC, Basic Metabolic Panel, [id number].Results to [facility] Dr. Ricci Fax manual diff [...] Range: 4.50-10.50 15:04 URINALYSIS, AUTOMATED W/ MICRO ([facility]) ([id number]) Comments : All lab needs to be faxed to [facility] at [phone]. Pre-op Dr. Won Ricci.; Items in this order include: Draw Charge[i], CBC, Basic Metabolic Panel, [id number]. Pre-op Dr. Won Ricci.All lab needs to be faxed to [facility] at U yeast Present - [...] Range: 135-145 15:04 CBC-FEMALE- ORDER THIS ONE! ([id number]) Comments: Items in this order include: Draw [...] 10*3/uL (Normal) Range: 4.50-10.50 15:04 Routine Venipuncture ([id number]) Comments: Items in this order include : Draw Charge[i], CBC, Basic Metabolic Panel, Urinalysis Draw Drawn (Normal) 06-Mar-2011 11:27 [facility] Comments: Please fax all lab to Dr. Ricci at and [facility] at [phone]; Items in this order include: Draw Charge[i], CBC, Urinalysis, Basic Metabolic PanelChcarlsbad medical centerdayana [facility] at [phone] fax all lab to Dr. Ricci at [phone] and Via GLU 83 mg/dL (Normal) Range: [...] Range: 135-145 11:27 URINALYSIS, AUTOMATED W/ MICRO ([facility]) ([id number]) Comments: Items in this order include: Draw [...] Range: Yellow 11:27 CBC-FEMALE- ORDER THIS ONE! (60047) Comments: Items in this order include: Draw [...] 10*3/uL (Normal) Range: 4.50-10.50 11:27 Routine Venipuncture (76782) Comments: Items in this order include : Draw Charge[i], CBC, Urinalysis, Basic Metabolic Panel Draw Drawn (Normal) Advance Directives Encounters Medication Entry - Sore throat (462 | J02.9) [facility] On 25-Apr-2014 15:13 to 15:15 Office Visit [...] Taking Seroquel for sx., sees Shama at [facility] also, [ADDITIONAL REASON] Amenorrhea, Primary - She is sexually active. For contraception she uses nothing. Symptoms include amenorrhea, while symptoms do not include pelvic pain , headache or visual disturbance. The patient describes this as unchanged. Associated symptoms include fatigue and hot flashes. Note for "Primry amenorrhea ": said she wants her hormones checked [facility] On 07-Feb-2014 14:16 to 15:30 Radiology Visit - Lumbar back pain (724.2) [facility] On 11-Jan-2014 16:20 to 16:23 Office Visit [...] at times but is not painful or itchy.[facility] 15-Nov-2013 to 16-Nov-2013 Office Visit - Dermatitis [...] rash but it has gotten worse since starting.[facility] On 05-Nov-2013 15:56 to 16:53 Office Visit - Lumbar back pain (724.2) Encounter Reason: Post-Operative - Patient is 2 weeks (diskectomy) postop procedure. Patient's symptoms are improved compared to preoperative. Post operative pain has been moderate. Pain medications include: Hydrocodone and Ultram. Patient has been compliant with post operative instructions. Patient has shown improvement in their activity level (has gradually improved since surgery.).[facility] On 28-Oct-2013 14:32 to 15:50 Historical Summary [facility] On 27-Oct-2013 10:06 to 10:10 Medication Entry - UTI (lower urinary tract infection) (599.0 | N39.0) [facility] On 08-Oct-2013 15:55 to 15:57 Lab entry only - Lumbar back pain (724.2) [facility] On 08:47 to 08:49 Medication Entry - Dysesthesia affecting both sides of body (782.0 | R20.8) [facility] On 21-May-2013 13:35 to 13:38 Office Visit [...] Note for "Anxiety": Taking Sero[facility] for sx. [facility] On 12-Apr-2013 14:00 to 14:49 Office [...] patient plans to recover at home with family.[facility] On 15:23 to 22:32 Medication Entry - Anxiety (300.00) [facility] On 14:52 to 14:55 Office Visit - [...] is not currently being treated for this problem.[facility] On 17:25 to 21:06 Lab entry only - Lumbar back pain (724.2) [facility] On 09-Jul-2011 09:57 to 10:02 Office Visit [...] symptoms are relieved by laxatives (MOM and [employer]). The symptoms have been associated with abdominal distention, abdominal pain and hemorrhoids. [facility] On 01-Apr-2011 14:46 to 19:35 Medication Entry - Contraception (V25.9) [facility] On 25-Feb-2011 16:26 to 16:28 Lab entry only - Lumbar back pain (724.2) [facility] On 21-Feb-2011 15:35 to 15:44 Medication Entry - Lumbar back pain (724.2) [facility] On 03-Jan-2011 16:18 to 16:22 Medication Entry - Lumbar back pain (724.2) [facility] On 02-Jan-2011 17:57 to 18:06 Office Visit [...] removed from hip and put in knee. ).[facility] On 05-Dec-2010 14:52 to 16:15 Office Visit [...] the breast. The last menstrual period began 01-17-2010.[facility] On 05-Mar-2010 13:56 to 23:43 Office Visit Encounter Reason: Obesity - The patient's appetite is normal. The patient's dietary intake is normal. The patient has gained 30 pounds (has bought treadmill and walks qod-30 min). The symptoms have been associated with fatigue , while the symptoms have not been associated with amenorrhea or cold intolerance.[facility] On 18-Dec-2009 10:37 to 11:12 Office Visit [facility] On 04-Dec-2009 13:30 to 13:44 Insurance * Christy Elder ; a guarantor * [facility] [employer] * [facility]
--- OUTSIDE RECORDS SUMMARY | 2016-06-23 23:58 | XMS REPORT | Continuity of Care Document ---
Author Author [facility] Organization [facility] Address [address] [place] [address] Phone Care Team Providers Care Refrigeration Tech Name Role Phone Eric Montes MD PP [...] (Renamed from CN) (564.00, K59.00) Status: Active Dermatitis (692.9, L30.9) [...] 21 Refills: 0 Ordered :05-Nov-2013 Nikki Devries NEHA* Started 05-Nov-2013 Active Comments: approved by Eric [...] DISCONTINUED - URINALYSIS, AUTOMATED W/ MICRO ([facility]) ([id number]) Completed:Jun-2011 X-RAY EXAM LUMBAR SPINE, MIN 4 VIEWS ([id number]) Ordered:05-Dec-2010 MRI OF LUMBAR SPINE W/ W/O CONTRAST ([id number]) Ordered:05-Dec-2010 US EXAM, BREAST(S) ([id number]) Ordered:05-Mar-2010 Follow up in 3 months Ordered:18-Dec-2009 [...] Details 30-Sep-2013 14:25 URINALYSIS, AUTOMATED W/ MICRO ([facility]) ([id number]) Comments : Items in this order include: [...] Range: 135-145=Normal 14:25 CBC-FEMALE- ORDER THIS ONE! ([id number]) Comments: Results to [facility] Dr. Ricci .; Items in this order include : CBC, Basic Metabolic Panel, [id number].Results to [facility] Dr. Ricci Fax manual diff Not [...] Range: 4.50-10.50=Normal 15:04 URINALYSIS, AUTOMATED W/ MICRO ([facility]) (78132) Comments : All lab needs to be faxed to [facility] [place] at [phone]. Pre-op Dr. Won Ricci.; Items in this order include: Draw Charge[i], CBC, Basic Metabolic Panel, [id number]. Pre-op Dr. Won Ricci.All lab needs to be faxed to [facility] [place] at U yeast Present - Rare Range: [...] Range: 135-145=Normal 15:04 CBC-FEMALE- ORDER THIS ONE! ([id number]) Comments: Items in this order include: Draw [...] 9.41 K/uL Range: 4.50-10.50=Normal 15:04 Routine Venipuncture (25308) Comments: Items in this order include : Draw Charge[i], CBC, Basic Metabolic Panel, Urinalysis Draw Drawn Normal 06-Mar-2011 11:27 BMP Comments: Please fax all lab to Dr. Ricci at and [facility] at [phone]; Items in this order include: Draw Charge[i], CBC, Urinalysis, Basic Metabolic PanelChdelaware psychiatric center [facility] at [phone] fax all lab to Dr. Ricci at [phone] and Via GLU 83 mg/dL Range: 70-110=Normal [...] MICRO ([facility]) ([id number]) Comments: Items in this order include: Draw [...] Range: Yellow=Normal 11:27 CBC-FEMALE- ORDER THIS ONE! ([id number]) Comments: Items in this order include: Draw [...] 7.61 K/uL Range: 4.50-10.50=Normal 11:27 Routine Venipuncture (25546) Comments: Items in this order include : [...] since starting.[facility] On 05-Nov-2013 15:56 Office Visit - [...] since surgery.).[facility] On 28-Oct-2013 14:32 Historical Summary [facility] On 27-Oct-2013 10:06 Medication Entry - UTI (599.0 | N39.0) [facility] On 08-Oct-2013 15:55 Lab entry only - Lumbar back pain [facility] On 08:47 Medication Entry - Dysesthesia affecting both sides of body (782.0 | R20.8) [facility] On 21-May-2013 13:35 Office Visit - [...] sx. [facility] On 12-Apr-2013 14:00 Office Visit - [...] home with family.[facility] On 15:23 Medication Entry - Anxiety [facility] On 14:52 Office Visit - Anxiety [...] for this problem.[facility] On 17:25 Lab entry only - Lumbar back pain [facility] On 09-Jul-2011 09:57 Office Visit - [...] symptoms are relieved by laxatives (MOM and [employer]). The symptoms have been associated with abdominal distention, abdominal pain and hemorrhoids. [facility] On 01-Apr-2011 14:46 Medication Entry - Contraception [facility] On 25-Feb-2011 16:26 Lab entry only - Lumbar back pain [facility] On 21-Feb-2011 15:35 Medication Entry - Lumbar back pain [facility] On 03-Jan-2011 16:18 Medication Entry - Lumbar back pain [facility] On 02-Jan-2011 17:57 Office Visit - [...] knee. ).[facility] On 05-Dec-2010 14:52 Office Visit - [...] began 01-17-2010.[facility] On 05-Mar-2010 13:56 Office Visit Encounter Reason: Obesity - The patient's appetite is normal. The patient's dietary intake is normal. The patient has gained 30 pounds (has bought treadmill and walks qod-30 min). The symptoms have been associated with fatigue , while the symptoms have not been associated with amenorrhea or cold intolerance.[facility] On 18-Dec-2009 10:37 Office Visit [facility] On 04-Dec-2009 13:30
--- OUTSIDE RECORDS SUMMARY | 2016-06-23 23:59 | XMS REPORT | Continuity of Care Document ---
Author Author [facility] Organization [facility] Address [address] [place] [address] Phone Care Team Providers Care Mailroom Manager Name Role Phone Eric Montes MD [...] DISCONTINUED - URINALYSIS, AUTOMATED W/ MICRO ([facility]) ([id number]) Completed:Jun-2011 X-RAY EXAM LUMBAR SPINE, MIN 4 VIEWS ([id number]) Ordered:05-Dec-2010 MRI OF LUMBAR SPINE W/ W/O CONTRAST ([id number]) Ordered:05-Dec-2010 US EXAM, BREAST(S) ([id number]) Ordered:05-Mar-2010 Follow up in 3 months Ordered:18-Dec-2009 [...] 30-Sep-2013 14:25 URINALYSIS, AUTOMATED W/ MICRO ([facility]) ([id number]) Comments : Items in this order include: [...] Range: 135-145=Normal 14:25 CBC-FEMALE- ORDER THIS ONE! ([id number]) Comments: Results to [facility] Dr. Ricci .; Items in this order include : CBC, Basic Metabolic Panel, [id number].Results to [facility] Dr. Ricci Fax manual diff Not [...] 4.50-10.50=Normal 15:04 URINALYSIS, AUTOMATED W/ MICRO ([facility]) ([id number]) Comments : All lab needs to be faxed to [facility] [place] at [phone]. Pre-op Dr. Won Ricci.; Items in this order include: Draw Charge[i], CBC, Basic Metabolic Panel, [id number]. Pre-op Dr. Won Ricci.All lab needs to be faxed to [facility] at U yeast Present - [...] Range: 135-145=Normal 15:04 CBC-FEMALE- ORDER THIS ONE! ([id number]) Comments: Items in this order include: Draw [...] 9.41 K/uL Range: 4.50-10.50=Normal 15:04 Routine Venipuncture (43193) Comments: Items in this order include : Draw Charge[i], CBC, Basic Metabolic Panel, Urinalysis Draw Drawn Normal 06-Mar-2011 11:27 BMP Comments: Please fax all lab to Dr. Ricci at [phone] and [address] [facility] at [phone]; Items in this order include: Draw Charge[i], CBC, Urinalysis, Basic Metabolic PanelChristi [facility] at [phone] fax all lab to Dr. Ricci at [phone] and Via GLU 83 mg/dL Range: 70-110=Normal CA 10.0 mg/dL Range: 8.4-10.2=Normal eGFR 69.1 mL/min/1.73m2 Range: >60.0=Normal CREAT 1.0 mg/dL Range: 0.6-1.3=Normal OSMO 279 Range: 275-295=Normal BUN 11 mg/dL Range: 7-18=Normal AGAP 11.50 mmol/L Range: 10.00-20.00=Normal CO2 31.3 mmol/L Range: 21.0-32.0=Normal CL 102 mmol/L Range: 98-107=Normal K 4.8 mmol/L Range: 3.5-5.0=Normal NA 140 mmol/L Range: 135-145=Normal 11:27 URINALYSIS, AUTOMATED W/ MICRO ([facility]) ([id number]) Comments: Items in this order include: Draw [...] Range: Yellow=Normal 11:27 CBC-FEMALE- ORDER THIS ONE! ([id number]) Comments: Items in this order include: Draw [...] 7.61 K/uL Range: 4.50-10.50=Normal 11:27 Routine Venipuncture (78130) Comments: Items in this order include : Draw Charge[i], CBC, Urinalysis, Basic Metabolic Panel Draw Drawn Normal Advance Directives No Advance Directives available. Encounters Historical Summary [facility] [...] symptoms are relieved by laxatives (MOM and [employer]). The symptoms have been associated with [...]
--- OUTSIDE RECORDS SUMMARY | 2016-06-24 00:01 | XMS REPORT | Continuity of Care Document ---
Author Author [facility] Organization [facility] Address [address] [place] [address] Phone Care Team Providers Care Regional Production Manager Name Role Phone Eric Montes MD PP Eric Montes MD Unavailable Unavailable Problems Name [...] Status: Active Rash (782.1, R21) Status: Active Stillbirth Onset:1999 Status: Active UTI [...] Medication 1 q 6hrs (300 MG) Active METHOCARBAMOL, 750MG (Oral Tablet) - [...] Quantity: 21 {Tablet} Refills: 0 Ordered:05-Nov-2013 Nikki Devries UNA* Start 05-Nov-2013 End 11-Nov-2013 Inactive Comments: approved [...] X-ray Exam of Lower Spine, 2 Views ([id number]) Completed:11-Jan-2014 Comments : outside order from Dr. Ricci Referral to Dermatology Ordered:16-Nov-2013 DISCONTINUED - URINALYSIS, AUTOMATED W/ MICRO ([facility]) ([id number]) Completed:Jun-2011 X-RAY EXAM LUMBAR SPINE, MIN 4 VIEWS ([id number]) Ordered:05-Dec-2010 MRI OF LUMBAR SPINE W/ W/O CONTRAST ([id number]) Ordered:05-Dec-2010 US EXAM, BREAST(S) ([id number]) Ordered:05-Mar-2010 Follow up in 3 months Ordered:18-Dec-2009 [...] Date Description Value Details 07-Feb-2014 15:07 PROLACTIN ([id number]) Comments: Items in this order include: Draw Charge[i], CBC, Comprehensive Metabolic Panel, TSH, FSH, LH, PROLACTINTesting performed at: [facility], [address] [place], [address], Water Manager: Lonny Middleton D.O., MPH.brQuest PROLACTIN 11.5 ng/mL (Normal) Comments: Reference Range.br Females.br Non- 3.0-30.0.br 10.0-209.0.br Postmenopausal 2.0-20.0.br .br .br 15:07 LH ([id number]) Comments: Items in this order include: Draw Charge[i] , CBC, Comprehensive Metabolic Panel, TSH, FSH, LH, PROLACTINTesting performed at: [facility], [address] [place], [address], Water Manager: Lonny Middleton D.O., MPH.[employer] LH 9.3 m[iU]/mL (Normal) Comments: Reference Range.brFollicular Phase 1.9-12.5.brMid-Cycle Peak 8.7-76.3.brLuteal Phase 0.5- 16.9.brPostmenopausal 10.0-54.7 15:07 FSH ([id number]) Comments: Items in this order include: Draw Charge[i] , CBC, Comprehensive Metabolic Panel, TSH, FSH, LH, PROLACTINTesting performed at: [facility], [address] [place], [address], Water Manager: Lonny Middleton D.O., MPH.brQuest FSH 4.4 m[iU]/mL (Normal) Comments: Reference Range.br .br Follicular Phase 2.5-10.2.br Mid-cycle Peak 3.1- 17.7.br Luteal Phase 1.5- 9.1.br Postmenopausal 23.0-116.3 .br 15:07 TSH (THYROID STIMULATING HORMONE) ([id number]) TSH 1.33 uIU/ml (Normal) Range: 0.34-5.60 15:07 CMP ([id number]) ALTI 96 U/L (Abnormal) Range: 12-78 AST [...] Range: 135-145 15:07 CBC-FEMALE- ORDER THIS ONE! ([id number]) manual diff Not Indicated (Normal) mpv 11.30 [...] 10*3/uL (Abnormal) Range: 4.50-10.50 15:07 Routine Venipuncture (70442) Draw Drawn (Normal) 15-Nov-2013 17:32 SED RATE ERYTHROCYTE ([id number]) Comments: Items in this order include: Draw Charge[i], Basic Metabolic Panel, C-Reactive Protein, CBC, Sed Rate ESR 4 mm/h (Normal) Range: 0-20 17:32 CBC-FEMALE- ORDER THIS ONE! ([id number]) manual diff Not Indicated (Normal) mpv 10.60 [...] 10*3/uL (Abnormal) Range: 4.50-10.50 17:32 C-REACTIVE PROTEIN ([id number]) CRP 1.82 mg/dL (Abnormal) Range: 0.00-0.30 17:32 [...] mmol/L (Normal) Range: 135-145 17:32 Routine Venipuncture (65632) Draw Drawn (Normal) 30-Sep-2013 14:25 URINALYSIS, AUTOMATED W/ MICRO ([facility]) ([id number]) Comments : Items in this order include: [...] Range: 135-145 14:25 CBC-FEMALE- ORDER THIS ONE! (80802) Comments: Results to [facility] Dr. Ricci .; Items in this order include : CBC, Basic Metabolic Panel, [id number].Results to [facility] Dr. Ricci Fax manual diff Not [...] Range: 4.50-10.50 15:04 URINALYSIS, AUTOMATED W/ MICRO ([facility]) ([id number]) Comments : All lab needs to be faxed to [facility] at [phone]. Pre-op Dr. Won Ricci.; Items in this order include: Draw Charge[i], CBC, Basic Metabolic Panel, [phone]. Pre-op Dr. Won Ricci.All lab needs to be faxed to [facility] at U yeast Present - [...] Range: 135-145 15:04 CBC-FEMALE- ORDER THIS ONE! ([id number]) Comments: Items in this order include: Draw [...] 10*3/uL (Normal) Range: 4.50-10.50 15:04 Routine Venipuncture (52430) Comments: Items in this order include : Draw Charge[i], CBC, Basic Metabolic Panel, Urinalysis Draw Drawn (Normal) 06-Mar-2011 11:27 [facility] Comments: Please fax all lab to Dr. Ricci at [phone] and [facility] at [phone]; Items in this order include: Draw Charge[i], CBC, Urinalysis, [facility] at [phone] fax all lab to Dr. Ricci at [phone] and Via GLU 83 mg/dL (Normal) Range: [...] Range: 135-145 11:27 URINALYSIS, AUTOMATED W/ MICRO ([facility]) ([id number]) Comments: Items in this order include: Draw [...] Range: Yellow 11:27 CBC-FEMALE- ORDER THIS ONE! (09247) Comments: Items in this order include: Draw [...] 10*3/uL (Normal) Range: 4.50-10.50 11:27 Routine Venipuncture (62840) Comments: Items in this order include : Draw Charge[i], CBC, Urinalysis, Basic Metabolic Panel Draw Drawn (Normal) Advance Directives Encounters Office Visit - Health education/counseling (V65.40 [...] - Lumbar back pain (724.2) [facility] On 11-Jan-2014 16:20 to 16:23 Office Visit [...] but is not painful or itchy.[facility] 15-Nov-2013 to 16-Nov-2013 Office Visit - Dermatitis [...] it has gotten worse since starting.[facility] On 05-Nov-2013 15:56 to 16:53 Office Visit [...] level (has gradually improved since surgery.).[facility] On 28-Oct-2013 14:32 to 15:50 Historical Summary [facility] On 27-Oct-2013 10:06 to 10:10 Medication Entry - UTI (lower urinary tract infection) (599.0 | N39.0) [facility] On 08-Oct-2013 15:55 to 15:57 Lab entry only - Lumbar back pain (724.2) [facility] On 08:47 to 08:49 Medication Entry - Dysesthesia affecting both sides of body (782.0 | R20.8) [facility] On 21-May-2013 13:35 to 13:38 Office Visit [...] to recover at home with family.[facility] On 15:23 to 22:32 Medication Entry - Anxiety (300.00) [facility] On 14:52 to 14:55 Office Visit - [...] currently being treated for this problem.[facility] On 17:25 to 21:06 Lab entry only - Lumbar back pain (724.2) [facility] On 09-Jul-2011 09:57 to 10:02 Office Visit [...] symptoms are relieved by laxatives (MOM and [employer]). The symptoms have been associated with abdominal distention, abdominal pain and hemorrhoids. [facility] On 01-Apr-2011 14:46 to 19:35 Medication Entry - Contraception (V25.9) [facility] On 25-Feb-2011 16:26 to 16:28 Lab entry only - Lumbar back pain (724.2) [facility] On 21-Feb-2011 15:35 to 15:44 Medication Entry - Lumbar back pain (724.2) [facility] On 03-Jan-2011 16:18 to 16:22 Medication Entry - Lumbar back pain (724.2) [facility] On 02-Jan-2011 17:57 to 18:06 Office Visit [...] hip and put in knee. ).[facility] On 05-Dec-2010 14:52 to 16:15 Office Visit [...] The last menstrual period began 01-17-2010.[facility] On 05-Mar-2010 13:56 to 23:43 Office Visit Encounter Reason: Obesity - The patient's appetite is normal. The patient's dietary intake is normal. The patient has gained 30 pounds (has bought treadmill and walks qod-30 min). The symptoms have been associated with fatigue , while the symptoms have not been associated with amenorrhea or cold intolerance.[facility] On 18-Dec-2009 10:37 to 11:12 Office Visit [facility] On 04-Dec-2009 13:30 to 13:44 Insurance * Christy kerr guarantor * [facility] Medical Assistance Prog * [facility]
--- OUTSIDE RECORDS SUMMARY | 2016-06-24 00:01 | XMS REPORT | Continuity of Care Document ---
Author Author [facility] Organization [facility] Address [address] [place] [address] Phone Care Team Providers Care Machinist Linotype Name Role Phone Eric Montes MD PP [...] X-ray Exam of Lower Spine, 2 Views ([id number]) Completed:17-May-2014 Comments : outside order from Dr. Ricci How to access health information online Completed:07-Feb-2014 X-ray Exam of Lower Spine, 2 Views ([id number]) Completed:11-Jan-2014 Comments : outside order from Dr. Ricci Referral to Dermatology Ordered:16-Nov-2013 DISCONTINUED - URINALYSIS, AUTOMATED W/ MICRO ([facility]) ([id number]) Completed:Jun-2011 X-RAY EXAM LUMBAR SPINE, MIN 4 VIEWS ([id number]) Ordered:05-Dec-2010 MRI OF LUMBAR SPINE W/ W/O CONTRAST ([id number]) Ordered:05-Dec-2010 US EXAM, BREAST(S) ([id number]) Ordered:05-Mar-2010 Follow up in 3 months Ordered:18-Dec-2009 [...] Date Description Value Details 07-Feb-2014 15:07 PROLACTIN ([id number]) Comments: Items in this order include: Draw Charge[i], CBC, Comprehensive Metabolic Panel, TSH, FSH, LH, PROLACTINTesting performed at: [facility], [address] [place] [address], [phone], Air/Ocean Export Clerk: Lonny Middleton D.O., MPH.[employer]Quest PROLACTIN 11.5 ng/mL (Normal) Comments: Reference Range.br Females.br Non- 3.0-30.0.br 10.0-209.0.br Postmenopausal 2.0-20.0.br .br .br 15:07 LH ([id number]) Comments: Items in this order include: Draw Charge[i] , CBC, Comprehensive Metabolic Panel, TSH, FSH, LH, PROLACTINTesting performed at: [facility], [address] [place] [address], [phone], Air/Ocean Export Clerk: Lonny Middleton D.O., MPH.[employer] LH 9.3 m[iU]/mL (Normal) Comments: Reference Range.brFollicular Phase 1.9-12.5.brMid-Cycle Peak 8.7-76.3.brLuteal Phase 0.5- 16.9.brPostmenopausal 10.0-54.7 15:07 FSH ([id number]) Comments: Items in this order include: Draw Charge[i] , CBC, Comprehensive Metabolic Panel, TSH, FSH, LH, PROLACTINTesting performed at: [email or web address], [address] [facility], [place], [address], Air/Ocean Export Clerk: Lonny Middleton D.O., MPH.[facility] FSH 4.4 m[iU]/mL (Normal) Comments: Reference Range.br .br Follicular Phase 2.5-10.2.br Mid-cycle Peak 3.1- 17.7.br Luteal Phase 1.5- 9.1.br Postmenopausal 23.0-116.3 .br 15:07 TSH (THYROID STIMULATING HORMONE) ([id number]) TSH 1.33 uIU/ml (Normal) Range: 0.34-5.60 15:07 CMP (13609) ALTI 96 U/L (Abnormal) Range: 12-78 AST [...] Range: 135-145 15:07 CBC-FEMALE- ORDER THIS ONE! (26048) manual diff Not Indicated (Normal) mpv 11.30 [...] 10*3/uL (Abnormal) Range: 4.50-10.50 15:07 Routine Venipuncture (11004) Draw Drawn (Normal) 15-Nov-2013 17:32 SED RATE ERYTHROCYTE (06103) Comments: Items in this order include: Draw Charge[i], Basic Metabolic Panel, C-Reactive Protein, CBC, Sed Rate ESR 4 mm/h (Normal) Range: 0-20 17:32 CBC-FEMALE- ORDER THIS ONE! ([id number]) manual diff Not Indicated (Normal) mpv 10.60 [...] 10*3/uL (Abnormal) Range: 4.50-10.50 17:32 C-REACTIVE PROTEIN ([id number]) CRP 1.82 mg/dL (Abnormal) Range: 0.00-0.30 17:32 [...] mmol/L (Normal) Range: 135-145 17:32 Routine Venipuncture (36806) Draw Drawn (Normal) 30-Sep-2013 14:25 URINALYSIS, AUTOMATED W/ MICRO ([facility]) (68484) Comments : Items in this order include: [...] Range: 135-145 14:25 CBC-FEMALE- ORDER THIS ONE! ([id number]) Comments: Results to [facility] Dr. Ricci .; Items in this order include : CBC, Basic Metabolic Panel, [id number].Results to [facility] Dr. Ricci Fax manual diff Not Indicated [...] 4.50-10.50 15:04 URINALYSIS, AUTOMATED W/ MICRO ([facility]) ([id number]) Comments : All lab needs to be faxed to [facility] at [phone]. Pre-op Dr. Won Ricci.; Items in this order include: Draw Charge[i], CBC, Basic Metabolic Panel, [id number]. Pre-op Dr. Won Ricci.All lab needs to [...] Range: 135-145 15:04 CBC-FEMALE- ORDER THIS ONE! ([id number]) Comments: Items in this order include: Draw [...] 10*3/uL (Normal) Range: 4.50-10.50 15:04 Routine Venipuncture (50855) Comments: Items in this order include : Draw Charge[i], CBC, Basic Metabolic Panel, Urinalysis Draw Drawn (Normal) 06-Mar-2011 11:27 BMP Comments: Please fax all lab to Dr. Ricci at [phone] and [facility] at [phone]; Items in this order include: Draw Charge[i], CBC, Urinalysis, [facility] [place] at [phone] fax all lab to Dr. Ricci at [phone] and Via GLU 83 mg/dL (Normal) Range: [...] 135-145 11:27 URINALYSIS, AUTOMATED W/ MICRO ([facility]) ([id number]) Comments: Items in this order include: Draw [...] Range: Yellow 11:27 CBC-FEMALE- ORDER THIS ONE! ([id number]) Comments: Items in this order include: Draw [...] 10*3/uL (Normal) Range: 4.50-10.50 11:27 Routine Venipuncture (02698) Comments: Items in this order include : Draw Charge[i], CBC, Urinalysis, Basic Metabolic Panel Draw Drawn (Normal) Advance Directives Encounters Historical Summary [facility] On 11:48 to 11:52 Radiology Visit - Lumbar back pain (724.2) [facility] On 17-May-2014 16:35 to 16:37 Medication Entry [facility] On 03-May-2014 09:14 to 09:22 Medication Entry - Sore throat (462 | J02.9) [facility] On 25-Apr-2014 15:13 to 15:15 Office Visit [...] Taking Seroquel for sx., sees Shama at [facility] also, [ADDITIONAL REASON] Amenorrhea, Primary - She is sexually active. For contraception she uses nothing. Symptoms include amenorrhea, while symptoms do not include pelvic pain , headache or visual disturbance. The patient describes this as unchanged. Associated symptoms include fatigue and hot flashes. Note for "Primry amenorrhea ": said she wants her hormones checked [facility] On 07-Feb-2014 14:16 to 15:30 Radiology Visit - Lumbar back pain (724.2) [facility] On 11-Jan-2014 16:20 to 16:23 Office Visit [...] at times but is not painful or itchy.[facility] 15-Nov-2013 to 16-Nov-2013 Office Visit - Dermatitis [...] rash but it has gotten worse since starting.[facility] On 05-Nov-2013 15:56 to 16:53 Office Visit - Lumbar back pain (724.2) Encounter Reason: Post-Operative - Patient is 2 weeks (diskectomy) postop procedure. Patient's symptoms are improved compared to preoperative. Post operative pain has been moderate. Pain medications include: Hydrocodone and Ultram. Patient has been compliant with post operative instructions. Patient has shown improvement in their activity level (has gradually improved since surgery.).[facility] On 28-Oct-2013 14:32 to 15:50 Historical Summary [facility] On 27-Oct-2013 10:06 to 10:10 Medication Entry - UTI (lower urinary tract infection) (599.0 | N39.0) [facility] On 08-Oct-2013 15:55 to 15:57 Lab entry only - Lumbar back pain (724.2) [facility] On 08:47 to 08:49 Medication Entry - Dysesthesia affecting both sides of body (782.0 | R20.8) [facility] On 21-May-2013 13:35 to 13:38 Office Visit [...] Note for "Anxiety": Taking Seroquel for sx. [facility] On 12-Apr-2013 14:00 to 14:49 Office [...] patient plans to recover at home with family.[facility] On 15:23 to 22:32 Medication Entry - Anxiety (300.00) [facility] On 14:52 to 14:55 Office Visit - [...] is not currently being treated for this problem.[facility] On 17:25 to 21:06 Lab entry only - Lumbar back pain (724.2) [facility] On 09-Jul-2011 09:57 to 10:02 Office Visit [...] symptoms are relieved by laxatives (MOM and [employer]). The symptoms have been associated with abdominal distention, abdominal pain and hemorrhoids. [facility] On 01-Apr-2011 14:46 to 19:35 Medication Entry - Contraception (V25.9) [facility] On 25-Feb-2011 16:26 to 16:28 Lab entry only - Lumbar back pain (724.2) [facility] On 21-Feb-2011 15:35 to 15:44 Medication Entry - Lumbar back pain (724.2) [facility] On 03-Jan-2011 16:18 to 16:22 Medication Entry - Lumbar back pain (724.2) [facility] On 02-Jan-2011 17:57 to 18:06 Office Visit [...] removed from hip and put in knee. ).[facility] On 05-Dec-2010 14:52 to 16:15 Office Visit [...] the breast. The last menstrual period began 01-17-2010.[facility] On 05-Mar-2010 13:56 to 23:43 Office Visit Encounter Reason: Obesity - The patient's appetite is normal. The patient's dietary intake is normal. The patient has gained 30 pounds (has bought treadmill and walks qod-30 min). The symptoms have been associated with fatigue , while the symptoms have not been associated with amenorrhea or cold intolerance.[facility] On 18-Dec-2009 10:37 to 11:12 Office Visit [facility] On 04-Dec-2009 13:30 to 13:44 Insurance * Christy Elder ; a guarantor * [facility] Medical Assistance Prog * [facility]
== END | disposition left against medical advice (07) ==
LOC: EDUNIT# 17:41 → ER 17:44
DX: M54.2 Cervicalgia (principal); Z53.21 Procedure and treatment not carried out due to patient leaving prior to being seen by health care provider
CPT/HCPCS: 99281

== ENCOUNTER → 2016-05-24 | Outpatient (CLI) | payer MEDICARE, MEDICAID ==
--- NOTE | 2016-05-24 16:28 | Diagnostic Imaging Report ---
INDICATION: Neck pain. Recent cervical spine surgery. Possible injury. COMPARISON: None. FINDINGS: CT cervical spine: Postsurgical changes of previous anterior fusion at the C5-C6 level are identified. Anterior fusion plate appears well opposed to the underlying [place] vertebral bodies. Interpedicular screws are well seated. There is no evidence of hardware fracture or failure. Intervertebral disc spacer material is also present and appears appropriately positioned. Evaluation of the static alignment of the cervical spine demonstrates straightening with slight reversal of normal lordotic curvature, also epicentered at the C5-C6 level. There is no significant anteroretrolisthesis. There is no evidence of jumped facets. Vertebral body heights are maintained. There is no evidence of acute fracture. No bony fragments are seen within the spinal canal. There are degenerative changes consisting of intervertebral disc height loss with anterior and posterior disc osteophyte complex formations. Pre-and paravertebral soft tissue structures are unremarkable. Included views of the lung apices are clear. CT thoracic spine: Static alignment of the thoracic spine is maintained. There is no significant anteroretrolisthesis. There is no evidence of jumped facets. Vertebral body heights are maintained. There is no evidence acute fracture. No bony fragments are seen within the spinal canal. There are multilevel degenerative changes consisting of intervertebral disc height loss with anterior and posterior disc osteophyte complex formations. These changes are somewhat greater than expected given the patient's age. Pre-and paravertebral soft tissue structures are unremarkable. Included portions of the lungs are clear. IMPRESSION: 1. No CT evidence of acute fracture or dislocation of the cervical or thoracic spine. 2. Postsurgical changes of previous anterior fusion at C5-C6 level. No evidence of hardware fracture or failure. 3. Multilevel degenerative changes of the thoracic spine, somewhat greater than expected given the patient's age. Dictated by: Dictated on workstation # [id number]
== END ==
LOC: RAD 15:21
PROVIDERS: ATTEND Nurse Practitioner Family
DX: M47.814 Spondylosis without myelopathy or radiculopathy, thoracic region (principal); M54.2 Cervicalgia
CPT/HCPCS: 72125; 72128

== ENCOUNTER 2017-01-08 21:53 | Inpatient (IN) | payer MEDICARE, MEDICAID ==
[~2017-01-08] VITALS: Ht 172.7 cm; Wt 95.5 kg
[2017-01-08] MEDS ORDERED: LACTATED RINGERS 1,000 ML IV ONE (22:07)
[2017-01-08] MEDS ORDERED: CEFEPIME INJECTION 2,000 MG in NS (IVPB) 50 ML IV ONE (22:15)
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
[2017-01-08] MEDS ORDERED: HALOPERIDOL 5 MG/ML (HALDOL) AMP IV ONE (22:30)
[2017-01-08] MEDS ORDERED: LORazepam INJ 2 MG/ML (ATIVAN) VIAL IVP ONE (22:30)
[2017-01-08 22:35] LABS: BASOPHILS # (AUTO) 0.1 10^3/uL (0.0-0.1); BASOPHILS % (AUTO) 1 % (0-10); EOSINOPHILS # (AUTO) 0.4 10^3/uL (0.0-0.3); EOSINOPHILS % (AUTO) 4 % (0-10); LYMPHOCYTES # (AUTO) 2.6 X 10^3 (1.0-4.0); LYMPHOCYTES % (AUTO) 29 % (12-44); MEAN CORPUSCULAR HEMOGLOBIN 30 PG (25-34); MEAN CORPUSCULAR HGB CONC 33 G/DL (32-36); MEAN CORPUSCULAR VOLUME 90 FL (80-99); MEAN PLATELET VOLUME 10.5 FL (7.4-10.4); MONOCYTES # (AUTO) 0.5 X 10^3 (0.0-1.0); MONOCYTES % (AUTO) 6 % (0-12); NEUTROPHILS # (AUTO) 5.4 X 10^3 (1.8-7.8); NEUTROPHILS % (AUTO) 60 % (42-75); PLATELET COUNT 236 10^3/uL (130-400); RED BLOOD COUNT 4.15 10^6/uL (4.35-5.85); RED CELL DISTRIBUTION WIDTH 13.7 % (10.0-14.5)
[2017-01-08 22:47] LABS: INR 0.9 (0.8-1.4); PROTHROMBIN TIME PATIENT 12.5 SEC (12.2-14.7)
[2017-01-08 22:56] LABS: ALANINE AMINOTRANSFERASE 28 U/L (0-55); ALBUMIN 4.1 GM/DL (3.2-4.5); ALCOHOL < 10 MG/DL (<10); ANION GAP 9 MMOL/L (5-14); ASPARTATE AMINO TRANSFERASE 29 U/L (5-34); BILIRUBIN,TOTAL 0.3 MG/DL (0.1-1.0); BLOOD UREA NITROGEN 16 MG/DL (7-18); BUN/CREATININE RATIO 16; CALCIUM 9.2 MG/DL (8.5-10.1); CARBON DIOXIDE 27 MMOL/L (21-32); CHLORIDE 108 MMOL/L (98-107); CREATININE SERUM 0.98 MG/DL (0.60-1.30); GFR ESTIMATED > 60; GLUCOSE 93 MG/DL (70-105); POTASSIUM 3.5 MMOL/L (3.6-5.0); SALICYLATE < 5.0 MG/DL (5.0-20.0); SODIUM 144 MMOL/L (135-145); TOTAL PROTEIN 6.8 GM/DL (6.4-8.2)
[2017-01-08 23:03] LABS: TROPONIN I < 0.30 NG/ML (<0.30)
[2017-01-08 23:06] LABS: BILIRUBIN,URINE NEGATIVE (NEGATIVE); KETONES,URINE NEGATIVE (NEGATIVE); LEUKOCYTE ESTERASE ,URINE 3+ (NEGATIVE); NITRITE,URINE POSITIVE (NEGATIVE); PH,URINE 6 (5-9); PROTEIN,URINE 1+ (NEGATIVE); UROBILINOGEN,URINE NORMAL (NORMAL)
[2017-01-08 23:08] LABS: ACETAMINOPHEN < 10 UG/ML (10-30)
[2017-01-08 23:14] LABS: WBC,URINE TNTC /HPF
[2017-01-08] MEDS ORDERED: D5 1/2 NS W/KCL 20 MEQ/L 1,000 ML IV ONE (23:15)
[2017-01-09] VITALS (18 sets, daily range): BP systolic 99–142; BP diastolic 59–94
[2017-01-09] MEDS ORDERED: ONDANSETRON 4 MG/2 ML (SDV) Z0FRAN IV PRN (02:00)
[2017-01-09] MEDS ORDERED: IBUPROFEN 800 MG (MOTRIN) TAB PO PRN (02:00)
[2017-01-09] MEDS ORDERED: ACETAMINOPHEN 500 MG TAB (TYLENOL) PO PRN (02:00)
[2017-01-09] MEDS: LORazepam INJ 2 MG/ML (ATIVAN) VIAL IM/IV PRN ×4 (02:49→23:54)
[2017-01-09 05:15] LABS: BASOPHILS # (AUTO) 0.1 10^3/uL (0.0-0.1); BASOPHILS % (AUTO) 1 % (0-10); EOSINOPHILS # (AUTO) 0.5 10^3/uL (0.0-0.3); EOSINOPHILS % (AUTO) 5 % (0-10); LYMPHOCYTES # (AUTO) 3.5 X 10^3 (1.0-4.0); LYMPHOCYTES % (AUTO) 35 % (12-44); MEAN CORPUSCULAR HEMOGLOBIN 30 PG (25-34); MEAN CORPUSCULAR HGB CONC 33 G/DL (32-36); MEAN CORPUSCULAR VOLUME 90 FL (80-99); MEAN PLATELET VOLUME 10.8 FL (7.4-10.4); MONOCYTES # (AUTO) 0.8 X 10^3 (0.0-1.0); MONOCYTES % (AUTO) 8 % (0-12); NEUTROPHILS # (AUTO) 5.3 X 10^3 (1.8-7.8); NEUTROPHILS % (AUTO) 53 % (42-75); PLATELET COUNT 233 10^3/uL (130-400); RED BLOOD COUNT 4.41 10^6/uL (4.35-5.85); RED CELL DISTRIBUTION WIDTH 13.8 % (10.0-14.5); WHITE BLOOD COUNT 10.1 10^3/uL (4.3-11.0)
[2017-01-09 05:32] LABS: ANION GAP 9 MMOL/L (5-14); BLOOD UREA NITROGEN 11 MG/DL (7-18); BUN/CREATININE RATIO 14; CALCIUM 8.6 MG/DL (8.5-10.1); CARBON DIOXIDE 24 MMOL/L (21-32); CHLORIDE 109 MMOL/L (98-107); CREATININE SERUM 0.81 MG/DL (0.60-1.30); GFR ESTIMATED > 60; GLUCOSE 102 MG/DL (70-105); MAGNESIUM 2.2 MG/DL (1.8-2.4); PHOSPHORUS 3.3 MG/DL (2.3-4.7); SODIUM 142 MMOL/L (135-145)
[2017-01-09] MEDS ORDERED: POTASSIUM CL 10MEQ/50ML IVPB 50 ML IV SCH (06:00)
[2017-01-09] MEDS ORDERED: KCL 20 MEQ TAB (K-DUR) PO SCH (06:00)
[2017-01-09] MEDS ORDERED: MAGNESIUM 1 GM/100 ML IVPB 100 ML IV SCH (06:00)
--- NOTE | 2017-01-09 06:18 | Diagnostic Imaging Report ---
PROCEDURE: CT head without contrast. TECHNIQUE: Multiple contiguous axial images were obtained through the brain without the use of intravenous contrast. INDICATION: Altered mental status. No prior examinations are available for comparison. FINDINGS: The ventricles and sulci are within normal limits. There is no hydrocephalus or cerebral edema. There is no midline shift or mass effect. There is no intracranial mass, hemorrhage, or extra-axial fluid collection. The visualized paranasal sinuses and mastoid air cells are clear. There are no regional areas of decreased attenuation appreciated to suggest an acute CVA. IMPRESSION: No acute intracranial abnormality. Dictated by: Dictated on workstation # [id number]
[2017-01-09] MEDS: D5 1/2 NS W/KCL 20 MEQ/L 1,000 ML IV SCH ×4 (06:21→23:15)
[2017-01-09] MEDS ORDERED: CATHETER FLUSH 10 ML SYR IV PRN (07:15)
--- NOTE | 2017-01-09 07:19 | Diagnostic Imaging Report ---
CHEST 1 VIEW, AP/PA ONLY Indication: Dyspnea Comparison: 01/08/2017 Findings: No focal airspace disease in the visualized lungs. Please note that the posterior lower lobes are poorly evaluated by portable radiography. No pleural effusion or pneumothorax. Normal cardiomediastinal silhouette. Impression: No acute cardiopulmonary process by portable radiography. Dictated by: Dictated on workstation # [id number]
--- NOTE | 2017-01-09 07:50 | Diagnostic Imaging Report ---
INDICATION: Dyspnea. EXAMINATION: Chest 01/08/2017. COMPARISON: 03/25/2012 FINDINGS: The cardiomediastinal silhouette is unremarkable. The pulmonary vasculature is within normal limits. The lungs and pleural spaces are clear. IMPRESSION: No evidence of an acute cardiopulmonary process. Dictated by: Dictated on workstation # [id number]
[2017-01-09] MEDS: HALOPERIDOL 5 MG/ML (HALDOL) AMP IM/IV PRN ×2 (07:52→15:14)
[2017-01-09] MEDS: CEFEPIME 2 GM/NS 50 ML IVPB IV SCH ×4 (09:25→22:43)
[2017-01-09] MEDS ORDERED: CEFEPIME INJECTION 1,000 MG in NS (IVPB) 50 ML IV SCH (10:30)
--- NOTE | 2017-01-09 12:23 | History & Physicial (CHS) ---
HPI History of Present Illness: 36yo woman with a long history of substance abuse and severe persistent mental illness was brought by police to ER for disorganized, combative behavior. In ER , patient continued to have a word salad type conversation and was psychotic. The patient was found to have a simple cystitis as well as methamphetamine overdose. SHe was admitted for her UTI as well as the drug-induced psychosis. When I examined patient the following morning, she had received several doses of haldol as well as ativan and was sedated to adam extent that she could not maintain a conversation with me. Source: patient, RN/MD Exam Limitations: clinical condition Date seen by provider: Jan 09, 2017 Time Seen by Provider: 12:00 Attending Physician Artie Pablo MD PCP Huma Mcguire DO Consult Date of Admission Jan 08, 2017 at 11:30 pm Home Medications Home Medications Reviewed patient Home Medication Reconciliation Form Allergies Coded Allergies: Penicillins (Unverified Adverse Reaction, Unknown, 05/23/16) ketorolac (Unverified Adverse Reaction, Unknown, 05/23/16) morphine (Unverified Adverse Reaction, Unknown, 05/23/16) DSA-Limvgz-Ahuvyc Hx Patient Social History Alcohol Use: Denies Use Smoking Status: Current Everyday Smoker Type Used: Cigarettes Recent Foreign Travel: No Contact w/other who traveled: No Recent Hopitalizations: No Recent Infectious Disease Expo: No Immunizations Up To Date Tetanus Booster (TDap): Unknown Review of Systems (CHC) Constitutional: no symptoms reported All Other Systems Reviewed Negative Unless Noted: Yes Reviewed Test Results Reviewed Test Results Lab Laboratory Tests Test 01/08/17 22:25 01/08/17 22:52 01/09/17 04:45 01/10/17 05:20 Range/Units White Blood Count 9.0 10.1 7.4 4.3-11.0 10^3/uL Red Blood Count 4.15 L 4.41 4.77 4.35-5.85 10^6/uL Hemoglobin 12.3 13.0 14.1 11.5-16.0 G/DL Hematocrit 37 40 43 35-52 % Mean Corpuscular Volume 90 90 90 80-99 FL Mean Corpuscular Hemoglobin 30 30 30 25-34 PG Mean Corpuscular Hemoglobin Concent 33 33 33 32-36 G/DL Red Cell Distribution Width 13.7 13.8 13.8 10.0-14.5 % Platelet Count 236 233 249 130-400 10^3/uL Mean Platelet Volume 10.5 H 10.8 H 10.8 H 7.4-10.4 FL Neutrophils (%) (Auto) 60 53 55 42-75 % Lymphocytes (%) (Auto) 29 35 32 12-44 % Monocytes (%) (Auto) 6 8 7 0-12 % Eosinophils (%) (Auto) 4 5 6 0-10 % Basophils (%) (Auto) 1 1 1 0-10 % Neutrophils # (Auto) 5.4 5.3 4.1 1.8-7.8 X 10^3 Lymphocytes # (Auto) 2.6 3.5 2.3 1.0-4.0 X 10^3 Monocytes # (Auto) 0.5 0.8 0.5 0.0-1.0 X 10^3 Eosinophils # (Auto) 0.4 H 0.5 H 0.5 H 0.0-0.3 10^3/uL Basophils # (Auto) 0.1 0.1 0.0 0.0-0.1 10^3/uL Prothrombin Time 12.5 12.2-14.7 SEC INR Comment 0.9 0.8-1.4 Activated Partial Thromboplast Time 28 24-35 SEC Sodium Level 144 142 138 135-145 MMOL/L Potassium Level 3.5 L 4.0 4.3 3.6-5.0 MMOL/L Chloride Level 108 H 109 H 107 98-107 MMOL/L Carbon Dioxide Level 27 24 23 21-32 MMOL/L Anion Gap 9 9 8 5-14 MMOL/L Blood Urea Nitrogen 16 11 5 L 7-18 MG/DL Creatinine 0.98 0.81 0.73 0.60-1.30 MG/DL Estimat Glomerular Filtration Rate > 60 > 60 > 60 BUN/Creatinine Ratio 16 14 7 Glucose Level 93 102 102 70-105 MG/DL Lactic Acid Level 0.73 0.50-2.00 MMOL/L Calcium Level 9.2 8.6 8.7 8.5-10.1 MG/DL Magnesium Level 2.3 2.2 1.8-2.4 MG/DL Total Bilirubin 0.3 0.1-1.0 MG/DL Aspartate Amino Transf (AST/SGOT) 29 5-34 U/L Alanine Aminotransferase (ALT/SGPT) 28 0-55 U/L Alkaline Phosphatase 83 40-136 U/L Troponin I < 0.30 <0.30 NG/ML Total Protein 6.8 6.4-8.2 GM/DL Albumin 4.1 3.2-4.5 GM/DL Salicylates Level < 5.0 L 5.0-20.0 MG/DL Acetaminophen Level < 10 L 10-30 UG/ML Serum Alcohol < 10 <10 MG/DL Urine Color VIANEY H Urine Clarity SLIGHTLY CLOUDY Urine pH 6 5-9 Urine Specific [place] 1.020 1.016-1.022 Urine Protein 1+ H NEGATIVE Urine Glucose (UA) NEGATIVE NEGATIVE Urine Ketones NEGATIVE NEGATIVE Urine Nitrite POSITIVE H NEGATIVE Urine Bilirubin NEGATIVE NEGATIVE Urine Urobilinogen NORMAL NORMAL MG/DL Urine Leukocyte Esterase 3+ H NEGATIVE Urine RBC (Auto) 1+ H NEGATIVE Urine RBC RARE /HPF Urine WBC TNTC H /HPF Urine Squamous Epithelial Cells 2-5 /HPF Urine Crystals NONE /LPF Urine Bacteria LARGE H /HPF Urine Casts NONE /LPF Urine Mucus NEGATIVE /LPF Urine Culture Indicated YES Urine Opiates Screen NEGATIVE NEGATIVE Urine Oxycodone Screen NEGATIVE NEGATIVE Urine Methadone Screen NEGATIVE NEGATIVE Urine Propoxyphene Screen NEGATIVE NEGATIVE Urine Barbiturates Screen NEGATIVE NEGATIVE Ur Tricyclic Antidepressants Screen NEGATIVE NEGATIVE Urine Phencyclidine Screen NEGATIVE NEGATIVE Urine Amphetamines Screen POSITIVE H NEGATIVE Urine Methamphetamines Screen NEGATIVE NEGATIVE Urine Benzodiazepines Screen POSITIVE H NEGATIVE Urine Cocaine Screen NEGATIVE NEGATIVE Urine Cannabinoids Screen POSITIVE H NEGATIVE Phosphorus Level 3.3 2.3-4.7 MG/DL Physical Exam-([facility]C) Physical Exam Vital Signs VS - Last 72 Hours, by Label 01/08/17 01/08/17 01/08/17 01/09/17 22:00 22:00 23:52 00:04 Temp 97.8 97.8 97.8 Pulse 115 115 95 80 Resp 20 20 19 B/P (MAP) 135/96 135/96 Pulse Ox 97 97 97 O2 Delivery Room Air Room Air Room Air 01/09/17 01/09/17 01/09/17 01/09/17 00:06 00:08 00:15 00:30 Temp 98.2 Pulse 115 93 96 Resp 22 22 18 B/P (MAP) 122/86 110/79 117/67 Pulse Ox 95 95 94 94 O2 Delivery Room Air Room Air Room Air Room Air 01/09/17 01/09/17 01/09/17 01/09/17 00:45 01:00 01:00 02:00 Pulse 105 104 97 122 Resp 17 23 B/P (MAP) 121/70 114/75 99/80 Pulse Ox 93 91 92 O2 Delivery Room Air Room Air Room Air 01/09/17 01/09/17 01/09/17 01/09/17 03:00 04:00 04:00 05:00 Temp 97.7 Pulse 92 96 87 Resp 17 B/P (MAP) 121/93 129/83 129/84 Pulse Ox 100 92 98 O2 Delivery Room Air Nasal Cannula Room Air Nasal Cannula O2 Flow Rate 2.00 2.00 01/09/17 01/09/17 01/09/17 01/09/17 06:00 07:00 07:00 07:00 Temp 97.8 Pulse 89 87 84 Resp 13 19 16 B/P (MAP) 131/92 125/92 131/92 Pulse Ox 91 99 100 O2 Delivery Nasal Cannula Nasal Cannula Nasal Cannula O2 Flow Rate 2.00 2.00 2.00 01/09/17 01/09/17 01/09/17 01/09/17 08:00 08:00 09:00 10:00 Temp 97.6 Pulse 90 90 90 Resp 16 18 16 B/P (MAP) 125/93 128/94 142/75 Pulse Ox 96 96 100 96 O2 Delivery Room Air Room Air Nasal Cannula Room Air O2 Flow Rate 2.00 2.00 01/09/17 01/09/17 01/09/17 01/09/17 11:00 13:00 13:00 13:00 Temp 97.6 98.3 Pulse 90 86 86 85 Resp 16 16 B/P (MAP) 142/75 135/86 Pulse Ox 96 98 O2 Delivery Room Air Room Air O2 Flow Rate 2.00 2.00 01/09/17 01/09/17 01/09/17 01/10/17 14:00 16:00 19:00 00:10 Temp 98.3 98.2 98.0 Pulse 86 91 96 85 Resp 16 18 18 B/P (MAP) 135/86 116/59 122/65 Pulse Ox 98 97 96 O2 Delivery Room Air Room Air Nasal Cannula O2 Flow Rate 2.00 2.00 2.00 01/10/17 01/10/17 01/10/17 01/10/17 01:00 04:54 07:00 08:00 Temp 98.2 98.5 Pulse 87 88 93 102 Resp 18 16 B/P (MAP) 125/64 129/63 Pulse Ox 97 97 O2 Delivery Nasal Cannula Nasal Cannula O2 Flow Rate 2.00 2.00 01/10/17 01/10/17 01/10/17 12:00 13:00 14:26 Temp 98.0 Pulse 97 93 Resp 18 B/P (MAP) 110/66 Pulse Ox 97 O2 Delivery Nasal Cannula O2 Flow Rate 2.00 Capillary Refill : Less Than 3 Seconds General Appearance: obese, other (sedated, sonorous respirations, arouses to stimuli) HEENT: PERRL/EOMI, pharynx normal Neck: non-tender, full range of motion, supple, normal inspection Respiratory: chest non-tender, lungs clear, normal breath sounds, no respiratory distress, no accessory muscle use Cardiovascular: regular rate, rhythm, no edema, no gallop, no JVD, no murmur Gastrointestinal: normal bowel sounds, non tender, soft, no organomegaly, no pulsatile mass Back: normal inspection Extremities: normal inspection, no pedal edema, no calf tenderness, normal capillary refill Neurologic/Psychiatric: other (unable to assess d/t recent sedative administration) Skin: normal color, warm/dry Clinical Quality Measures DVT/VTE Risk/Contraindication: Risk Factor Score Per Nursin RFS Level Per Nursing on Admit: 1=Low/No VTE PPX Copy Copies To 1: EDWIN DYER CHILD DAY CARE TEACHER Assessment/Plan Assessment/Plan Admission Dx SEE BELOW Plan SIMPLE CYSTITIS ADM: Patient has previously reported an allergy to PCN, so we changed to cefepime. WBC count has normalized. COntinue for now. WE are also giving fluids to rehydrate her. ACUTE PSYCHOSIS, DRUG INDUCED SEVERE MAJOR DEPRESSIVE DISORDER, RECURRENT ADM: Patient has been getting PRN doses of haldol and ativan due to her combative behavior. WE will try to hold of on these for now and allow her to wake up. She will likely need a mental health consult, which we will arrange tomorrow. DVT PROPH: ARTIE Bello MD Jan 09, 2017 12:22 pm
--- OUTSIDE RECORDS SUMMARY | 2017-01-09 14:11 | XMS REPORT ---
Author Author KASEY SCHMIDT [facility] Address [address] [place] [address] Care Team Providers Care Director Of Corporate Sponsorships Name Role Phone KASEY SCHMIDT Unavailable PROBLEMS Type Condition ICD9-CM Code [id number] Code Onset Dates Condition Status SNOMED Code Problem Obesity (BMI 30-39.9) E66.9 Active 517443008 Problem Chronic post-traumatic stress disorder F43.12 Active 889949409 Problem Adjustment disorder with anxiety F43.22 Active 40612709 Problem Bipolar 1 disorder F31.9 Active 834821508 Problem Anxiety F41.9 Active 91022584 Problem Leukocytosis, unspecified type D72.829 Active 670782065 Problem Generalized anxiety disorder F41.1 Active 61490847 Problem Methamphetamine use disorder, severe, in early remission, dependence F15.21 Active 010428502 Problem Moderate episode of recurrent major depressive disorder F33.1 Active 900888358 Problem Severe recurrent major depressive disorder with psychotic symptoms F33.3 Active 40711562 Problem Cannabis use disorder, severe, in early remission F12.21 Active 97993625 Problem Adjustment disorder with mixed anxiety and depressed mood F43.23 Active 90181915 ALLERGIES No Information SOCIAL HISTORY Never Assessed PLAN OF CARE Activity Details Follow Up 1 Week Reason:Anxiety, Bipolar I VITAL SIGNS MEDICATIONS Unknown Medications RESULTS No Results PROCEDURES Procedure Date Ordered Result Body Site Psychotherapy, patient &/family, 30 minutes, established patient June 27, 2016 IMMUNIZATIONS No Known Immunizations MEDICAL (GENERAL) HISTORY Type Description Date Medical History degenerative disease lumbosacral spine Medical History neuropathy Medical History spinal stenosis Medical History Severe Manic Bipolar I Disorder with psychotic features Medical History cancer of the appendix, 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14 Medical History Anxiety Disorder NOS Medical History Sleep Disorder Medical History Tobacco User Medical History Marijuana Use Medical History Polysubstance Use Medical History history of bone tumor and history of cysts Surgical History appendectomy Surgical History cervical fusion/laminectomy Surgical History cyst removal Surgical History bone graft Surgical History lumbar discectomy Surgical History pilonidal cyst excision Surgical History tonsillectomy and adenoidectomy Surgical History Carpal Tunnel Release Hospitalization History Surgery Hospitalization History Child Hospitalization History [facility] x2 2007 Hospitalization History [facility] 2014 Hospitalization History [facility] 2016
--- OUTSIDE RECORDS SUMMARY | 2017-01-09 14:15 | XMS REPORT ---
Author Author SAPPHIRE Alvares [facility] Address [address] [place] [address] Care Team Providers Care Barbering Instructor Name Role Phone SAPPHIRE Alvares Unavailable PROBLEMS Type Condition ICD9-CM Code [id number] Code Onset Dates Condition Status SNOMED Code Problem Obesity (BMI 30-39.9) E66.9 Active 438104145 Problem Chronic post-traumatic stress disorder F43.12 Active 027119852 Problem Adjustment disorder with anxiety F43.22 Active 01397457 Problem Bipolar 1 disorder F31.9 Active 538780567 Problem Anxiety F41.9 Active 90181294 Problem Leukocytosis, unspecified type D72.829 Active 611924306 Problem Generalized anxiety disorder F41.1 Active 60850324 Problem Methamphetamine use disorder, severe, in early remission, dependence F15.21 Active 129577893 Problem Moderate episode of recurrent major depressive disorder F33.1 Active 207861205 Problem Severe recurrent major depressive disorder with psychotic symptoms F33.3 Active 09577424 Problem Cannabis use disorder, severe, in early remission F12.21 Active 37162687 Problem Adjustment disorder with mixed anxiety and depressed mood F43.23 Active 98598330 ALLERGIES Substance Reaction Event Type Date Status Penicillin V Potassium rash Drug Allergy June, Active Morphine Sulfate anaphylaxis Drug Allergy June, Active Ketorolac Tromethamine irritability Drug Allergy June, Active SOCIAL HISTORY Never Assessed PLAN OF CARE Activity Details Follow Up 4 Weeks Reason: VITAL SIGNS Height 68 in 2016-07-01 Weight 243.8 lbs 2016-07-01 Heart Rate 120 bpm 2016-07-01 Respiratory Rate 22 2016-07-01 BMI 37.07 kg/m2 2016-07-01 Blood pressure systolic 126 mmHg 2016-07-01 Blood pressure diastolic 86 mmHg 2016-07-01 MEDICATIONS Medication Instructions Dosage Frequency Start Date End Date Duration Status Latuda 60 MG Orally Once a day 1 tablet with food 24h 30 days Active Mirtazapine 30 MG Orally Once a day 1 tablet at bedtime 24h 30 days Active RESULTS No Results PROCEDURES Procedure Date Ordered Result Body Site [facility] VISIT ESTABLISHED PATIENT July 01, 2016 IMMUNIZATIONS No Known Immunizations MEDICAL (GENERAL) [...] History Surgery Hospitalization History Child Hospitalization History [facility] x2 2007 Hospitalization History [facility] 2014 Hospitalization History [facility] 2016
--- OUTSIDE RECORDS SUMMARY | 2017-01-09 14:17 | XMS REPORT ---
Author Author SAPPHIRE Alvares [facility] Address [address] [place] [address] Care Team Providers Care Ceramic Sprayer Name Role Phone SAPPHIRE Alvares Unavailable PROBLEMS Type Condition ICD9-CM Code [id number] Code Onset Dates Condition Status SNOMED Code Problem Obesity (BMI 30-39.9) E66.9 Active 366510977 Problem Chronic post-traumatic stress disorder F43.12 Active 032287766 Problem Adjustment disorder with anxiety F43.22 Active 09735863 Problem Bipolar 1 disorder F31.9 Active 297401244 Problem Anxiety F41.9 Active 44788340 Problem Leukocytosis, unspecified type D72.829 Active 523119852 Problem Generalized anxiety disorder F41.1 Active 90907569 Problem Methamphetamine use disorder, severe, in early remission, dependence F15.21 Active 027617085 Problem Moderate episode of recurrent major depressive disorder F33.1 Active 060823867 Problem Severe recurrent major depressive disorder with psychotic symptoms F33.3 Active 72359580 Problem Cannabis use disorder, severe, in early remission F12.21 Active 48460968 Problem Adjustment disorder with mixed anxiety and depressed mood F43.23 Active 22981277 ALLERGIES Substance Reaction Event Type Date Status Penicillin V Potassium rash Drug Allergy Jul, Active Morphine Sulfate anaphylaxis Drug Allergy Jul, Active Ketorolac Tromethamine irritability Drug Allergy Jul, Active SOCIAL HISTORY Never Assessed PLAN OF CARE Activity Details Follow Up 4 Weeks Reason: VITAL SIGNS Height 68 in 2016-07-19 Weight 244.4 lbs 2016-07-19 Heart Rate 98 bpm 2016-07-19 Respiratory Rate 22 2016-07-19 BMI 37.16 kg/m2 2016-07-19 Blood pressure systolic 132 mmHg 2016-07-19 Blood pressure diastolic 78 mmHg 2016-07-19 MEDICATIONS Medication Instructions Dosage Frequency Start Date End Date Duration Status Mirtazapine 30 MG Orally Once a day 1 tablet at bedtime 24h 30 days Active Unisom 25 MG Orally at bedtime 1 tablet at bedtime as needed Active Seroquel 50 MG Orally Once a day 1 tablet 24h Jul, 30 day(s) Active Latuda 60 MG Orally Once a day 1 tablet with food 24h 30 days Active RESULTS No Results PROCEDURES Procedure Date Ordered Result Body Site [facility] VISIT ESTABLISHED PATIENT July 19, 2016 IMMUNIZATIONS No Known Immunizations MEDICAL (GENERAL) [...] History Surgery Hospitalization History Child Hospitalization History [facility] x2 2007 Hospitalization History [facility] 2014 Hospitalization History [facility] 2016
--- OUTSIDE RECORDS SUMMARY | 2017-01-09 14:17 | XMS REPORT ---
Author Author DYEREDWIN Souza Organization [facility] Address [address] [place] [address] Care Team Providers Care Director Of Player Personnel Name Role Phone DYERQUINTON SouzaELE Unavailable PROBLEMS Type Condition ICD9-CM Code VCF53-ZA Code Onset Dates Condition Status SNOMED Code Problem Obesity (BMI 30-39.9) E66.9 Active 651589356 Problem Chronic post-traumatic stress disorder F43.12 Active 981064953 Problem Adjustment disorder with anxiety F43.22 Active 16979430 Problem Bipolar 1 disorder F31.9 Active 003564490 Problem Anxiety F41.9 Active 08282961 Problem Leukocytosis, unspecified type D72.829 Active 775778624 Problem Generalized anxiety disorder F41.1 Active 81840972 Problem Methamphetamine use disorder, severe, in early remission, dependence F15.21 Active 669383605 Problem Moderate episode of recurrent major depressive disorder F33.1 Active 588280892 Problem Severe recurrent major depressive disorder with psychotic symptoms F33.3 Active 17087911 Problem Cannabis use disorder, severe, in early remission F12.21 Active 87401568 Problem Adjustment disorder with mixed anxiety and depressed mood F43.23 Active 37776959 ALLERGIES No Information SOCIAL HISTORY Never Assessed PLAN OF CARE VITAL SIGNS MEDICATIONS Unknown Medications RESULTS Name Result Date Reference Range THYROID ANALYZER 2016-07-19 TSH 0.808 0.450-4.500 CBC 2016-07-19 WBC 10.9 3.4-10.8 RBC 4.87 3.77-5.28 Hemoglobin 14.4 11.1-15.9 Hematocrit 43.6 34.0-46.6 MCV 90 79-97 MCH 29.6 26.6-33.0 MCHC 33.0 31.5-35.7 RDW 14.9 12.3-15.4 Platelets 338 150-379 Neutrophils 63 Lymphs 29 Monocytes 5 Eos 3 Basos 0 Neutrophils (Absolute) 6.9 1.4-7.0 Lymphs (Absolute) 3.1 0.7-3.1 Monocytes(Absolute) 0.5 0.1-0.9 Eos (Absolute) 0.3 0.0-0.4 Baso (Absolute) 0.0 0.0-0.2 Immature Granulocytes 0 Immature Grans (Abs) 0.0 0.0-0.1 LIPID PANEL 2016-07-19 Cholesterol, Total 221 100-199 Triglycerides 133 0-149 HDL Cholesterol 65 >39 VLDL Cholesterol Josr 27 5-40 LDL Cholesterol Calc 129 0-99 CMP 2016-07-19 Glucose, Serum 84 65-99 BUN 17 6-20 Creatinine, Serum 0.90 0.57-1.00 eGFR If NonAfricn Am 83 >59 eGFR If Africn Am 96 >59 BUN/Creatinine Ratio 19 9-23 Sodium, Serum 140 134-144 Potassium, Serum 5.0 3.5-5.2 Chloride, Serum 98 96-106 Carbon Dioxide, Total 24 18-29 Calcium, Serum 10.3 8.7-10.2 Protein, Total, Serum 7.8 6.0-8.5 Albumin, Serum 5.4 3.5-5.5 Globulin, Total 2.4 1.5-4.5 A/G Ratio 2.3 1.2-2.2 Bilirubin, Total 0.2 0.0-1.2 Alkaline Phosphatase, S 99 39-117 AST (SGOT) 17 0-40 ALT (SGPT) 28 0-32 A1C 2016-07-19 Hemoglobin A1c 6.0 4.8-5.6 PROCEDURES Procedure Date Ordered Result Body Site [facility], 2016 GLYCATED HEMOGLOBIN TEST July 19, 2016 VENIPUNCT, ROUTINE* July 19, 2016 IMMUNIZATIONS No Known Immunizations [...] History Surgery Hospitalization History Child Hospitalization History [facility] x[facility] 2007 Hospitalization History [facility] [address] [facility] 2016
--- OUTSIDE RECORDS SUMMARY | 2017-01-09 14:34 | XMS REPORT ---
Author Author SAPPHIRE Alvares [facility] Address [address] [place] [address] Care Team Providers Care Scientific Linguist Name Role Phone SAPPHIRE Alvares Unavailable PROBLEMS Type Condition ICD9-CM Code LUT04-RB Code Onset Dates Condition Status SNOMED Code Problem Obesity (BMI 30-39.9) E66.9 Active 998389420 Problem Chronic post-traumatic stress disorder F43.12 Active 352631179 Problem Adjustment disorder with anxiety F43.22 Active 70027555 Problem Bipolar 1 disorder F31.9 Active 491173341 Problem Anxiety F41.9 Active 80135236 Problem Leukocytosis, unspecified type D72.829 Active 544593974 Problem Generalized anxiety disorder F41.1 Active 72098307 Problem Methamphetamine use disorder, severe, in early remission, dependence F15.21 Active 967854933 Problem Moderate episode of recurrent major depressive disorder F33.1 Active 425962030 Problem Severe recurrent major depressive disorder with psychotic symptoms F33.3 Active 17799305 Problem Cannabis use disorder, severe, in early remission F12.21 Active 91227046 Problem Adjustment disorder with mixed anxiety and depressed mood F43.23 Active 20182266 ALLERGIES No Information SOCIAL HISTORY Never Assessed PLAN OF CARE VITAL SIGNS MEDICATIONS Unknown Medications RESULTS No Results PROCEDURES No Known procedures IMMUNIZATIONS No Known Immunizations MEDICAL (GENERAL) HISTORY [...] History Surgery Hospitalization History Child Hospitalization History [facility] x2 2007 Hospitalization History [facility] 2014 Hospitalization History [facility] 2016
--- OUTSIDE RECORDS SUMMARY | 2017-01-09 14:35 | XMS REPORT | Continuity of Care Document ---
Author Author [facility] Organization [facility] Address Unknown Phone Unavailable Allergies Active [...] Status Pt. Type Provider Facility Loc./Unit Complaint [id number] 01/19/2013 13:43:00 2012 23:59:59 CLS Emergency Other Doctor, [facility] on [address] ROBERTSON
--- OUTSIDE RECORDS SUMMARY | 2017-01-09 15:05 | XMS REPORT | Continuity of Care Document ---
Author Author [facility] Organization [facility] Address Unknown Phone Unavailable Allergies Active Description [...] Status Pt. Type Provider Facility Loc./Unit Complaint [id number] 01/19/2013 13:43:00 2012 23:59:59 CLS Emergency Other Doctor, [facility] on [address]o [address]ERT[address]
[2017-01-10 00:10] VITALS: BP 122/65
[2017-01-10] MEDS: D5 1/2 NS W/KCL 20 MEQ/L 1,000 ML IV SCH ×2 (03:02→11:57)
[2017-01-10 04:54] VITALS: BP 125/64
[2017-01-10 05:38] LABS: BASOPHILS % (AUTO) 1 % (0-10); EOSINOPHILS # (AUTO) 0.5 10^3/uL (0.0-0.3); EOSINOPHILS % (AUTO) 6 % (0-10); LYMPHOCYTES # (AUTO) 2.3 X 10^3 (1.0-4.0); LYMPHOCYTES % (AUTO) 32 % (12-44); MEAN CORPUSCULAR HEMOGLOBIN 30 PG (25-34); MEAN CORPUSCULAR HGB CONC 33 G/DL (32-36); MEAN CORPUSCULAR VOLUME 90 FL (80-99); MEAN PLATELET VOLUME 10.8 FL (7.4-10.4); MONOCYTES # (AUTO) 0.5 X 10^3 (0.0-1.0); MONOCYTES % (AUTO) 7 % (0-12); NEUTROPHILS # (AUTO) 4.1 X 10^3 (1.8-7.8); NEUTROPHILS % (AUTO) 55 % (42-75); PLATELET COUNT 249 10^3/uL (130-400); RED BLOOD COUNT 4.77 10^6/uL (4.35-5.85); RED CELL DISTRIBUTION WIDTH 13.8 % (10.0-14.5); WHITE BLOOD COUNT 7.4 10^3/uL (4.3-11.0)
[2017-01-10 05:58] LABS: ANION GAP 8 MMOL/L (5-14); BLOOD UREA NITROGEN 5 MG/DL (7-18); BUN/CREATININE RATIO 7; CALCIUM 8.7 MG/DL (8.5-10.1); CARBON DIOXIDE 23 MMOL/L (21-32); CHLORIDE 107 MMOL/L (98-107); CREATININE SERUM 0.73 MG/DL (0.60-1.30); GFR ESTIMATED > 60; GLUCOSE 102 MG/DL (70-105); POTASSIUM 4.3 MMOL/L (3.6-5.0); SODIUM 138 MMOL/L (135-145)
[2017-01-10 08:00] VITALS: BP 129/63
[2017-01-10] MEDS ORDERED: TRAZ100T92 PO (10:20)
[2017-01-10] MEDS: CEFEPIME 2 GM/NS 50 ML IVPB IV SCH ×2 (11:58)
[2017-01-10 12:00] VITALS: BP 110/66
--- NOTE | 2017-01-10 13:47 | Discharge Instructions ---
Discharge [facility] Discharge Medications New, Converted or Re-Newed RX: Transmitted to Pharmacy Continued Medications: Trazodone HCl (Trazodone HCl) 100 Mg Tablet 300 MG PO HS, TAB TAKES 3 (100 MG) TABLETS / LAST FILLED 11/05/16 #90 Patient Instructions Goal/Follow Up Appt: [facility] [place] WITH AN APPOINTMENT ON FRIDAY. Patient Instructions: [facility] WILL CHECK ON YOU THIS WEEKEND. DO NOT USE DRUGS OR ANY SUBSTANCES NOT PRESCRIBED TO YOU. [facility] AN ADDICTION TREATMENT SERVICE THAT CAN HELP YOU IN ADDITION TO A PSYCHIATRIST. Return to The Hospital For: CONFUSION, INTENSE CRAVINGS FOR DRUGS Activity & Diet Discharge Diet: No Restrictions Activity as Tolerated: Yes Copy Copies To 1: ARTIE BENNETT MD, JULIE A MD Jan 10, 2017 1:41 pm
[2017-01-10] MEDS ORDERED: CIPR500T4 PO (14:19)
--- NOTE | 2017-01-11 11:56 | Discharge Summary ---
Diagnosis/Chief Complaint Date of Admission Jan 08, 2017 at 11:30 pm Date of Discharge Jan 10, 2017 at 2:35 pm Admission Diagnosis Admission Diagnosis SEE BELOW Discharge Diagnosis SIMPLE CYSTITIS ADM: Patient has previously reported an allergy to PCN, so we changed to cefepime. WBC count has normalized. COntinue for now. WE are also giving fluids to rehydrate her. DIS: Culture showed CONS resistant to oxacillin and all beta lactams. WIll dc on macrobid 7 day course. ACUTE PSYCHOSIS, DRUG INDUCED SEVERE MAJOR DEPRESSIVE DISORDER, RECURRENT ADM: Patient has been getting PRN doses of haldol and ativan due to her combative behavior. WE will try to hold of on these for now and allow her to wake up. She will likely need a mental health consult, which we will arrange tomorrow. DIS: [facility] came and evaluated patient. SHe was not agreeable to going for psychiatric hospitalization. THey will do a welfare check on her the night of discharge and the following morning. In addition, I will arrange for her to be seen at our ATS program. Christy repeatedly denied that she wanted to harm herself or others while I was in the room with her. Chief Complaint/HPI Chief Complaint/HPI 36yo woman with a long history of substance abuse and severe persistent mental illness was brought by police to ER for disorganized, combative behavior. In ER , patient continued to have a word salad type conversation and was psychotic. The patient was found to have a simple cystitis as well as methamphetamine overdose. SHe was admitted for her UTI as well as the drug-induced psychosis. When I examined patient the following morning, she had received several doses of haldol as well as ativan and was sedated to adam extent that she could not maintain a conversation with me. Discharge Summary-Simple/Stand Consultations Discharge Physical Examination Allergies: Coded Allergies: Penicillins (Unverified Adverse Reaction, Unknown, 05/23/16) ketorolac (Unverified Adverse Reaction, Unknown, 05/23/16) morphine (Unverified Adverse Reaction, Unknown, 05/23/16) Vitals & I&Os Vital Sign - Last 12Hours Date Time Temp Pulse Resp B/P (MAP) Pulse Ox O2 Delivery O2 Flow Rate FiO2 01/10/17 14:26 01/10/17 13:00 93 01/10/17 12:00 98.0 18 97 Nasal Cannula 2.00 General Appearance: Alert, Oriented X3, Cooperative, No Acute Distress Respiratory: Clear to Auscultation, Normal Air Movement Cardiovascular: Regular Rate, Normal S1, Normal S2, No Murmurs, Gallops, Rubs Abdominal: Normal Bowel Sounds, Soft, No Tenderness, No Hepatosplenomegaly, No Masses Extremities: No Clubbing, No Cyanosis, No Edema Skin: No Rashes, No Breakdown, No Significant Lesion Neuro: Normal Speech, Normal Tone Psych/Mental Status: Mental Status NL, Mood NL Hospital Course See final discharge diagnosis. Discharge Instructions to patient/family Please see electronic discharge instructions given to patient. Discharge Medications Reviewed and agree with Discharge Medication list on patient's Discharge Instruction sheet Clinical Quality Measures DVT/VTE Risk/Contraindication: Risk Factor Score Per Nursin RFS Level Per Nursing on Admit: 1=Low/No VTE PPX Copy Copies To 1: ARTIE ALONZO APRN, MD Jan 11, 2017 11:56 am
== END 2017-01-10 14:35 | disposition home or self-care (01) | DRG 690 ==
LOC: EDUNIT# 21:53 → ER 21:54 → ICU 23:30 → 4TH 01-09 10:10
PROVIDERS: ADMIT Pediatrics; ATTEND Pediatrics
DX: N30.90 Cystitis, unspecified without hematuria (principal); F12.259 Cannabis dependence with psychotic disorder, unspecified; F15.259 Other stimulant dependence with stimulant-induced psychotic disorder, unspecified; F33.9 Major depressive disorder, recurrent, unspecified; F17.210 Nicotine dependence, cigarettes, uncomplicated; Z88.0 Allergy status to penicillin
CPT/HCPCS: 36415; 70450; 71010; 80048; 80053; 80306; 80320; 80329; 81000; 83605; 83735; 84100; 84484; 84703; 85025; 85610; 85730; 87040; 87077; 87081; 87088; 87186

== ENCOUNTER 2017-10-17 15:05 | Emergency (ER) | payer MEDICARE, MEDICAID ==
[~2017-10-17] VITALS: Ht 167.6 cm; Wt 86.2 kg
[~2017-10-17 15:05] MED LIST: CIPR500T4 PO; TRAZ-190 PO
[2017-10-17] MEDS: LORazepam 0.5 MG (ATIVAN) TABLET ONE (16:00)
[2017-10-17] MEDS: LIDOCAINE 1% INJ 20 ML 20 ML VIAL ONE (16:04)
[2017-10-17] MEDS: TETANUS,DIPTH,PERTUSS P/F (BOOSTRIX) 0.5 ML VIAL IM ONE (16:04)
--- NOTE | 2017-10-17 17:06 | ED General ---
General Chief Complaint: Laceration Stated Complaint: FINGER LACERATION Nursing Triage Note: PT AMBULATED TO ROOM 8 PT CO OF LAC TO FIRST FINGER L HAND Nursing Sepsis Screen: No Definite Risk Source of Information: Patient Exam Limitations: No Limitations History of Present Illness Date Seen by Provider: Oct 17, 2017 Time Seen by Provider: 15:46 Initial Comments Patient presents to the emergency room with a laceration to the palmar aspect of the right index finger. She was being playful with her significant other who took a butter knife away from her. The blade passed across her finger causing the laceration. She denies any other injury. Capillary refill and sensation are intact. Patient has uncontrolled dystonic movements and twitching indicative of influence of methamphetamines. She does admit to use of methamphetamines but denies use within the past several days. Allergies and Home Medications Allergies Coded Allergies: Penicillins (Unverified Adverse Reaction, Unknown, 05/23/16) ketorolac (Unverified Adverse Reaction, Unknown, 05/23/16) morphine (Unverified Adverse Reaction, Unknown, 05/23/16) Home Medications Ciprofloxacin HCl 500 Mg Tablet, 500 MG PO BID Prescribed by: ARTIE BENNETT on 01/10/17 1419 Trazodone HCl 100 Mg Tablet, 300 MG PO HS, (Reported) TAKES 3 (100 MG) TABLETS / LAST FILLED 11/05/16 #90 Patient Home Medication List Home Medication List Reviewed: Yes Review of Systems Review of Systems Constitutional: no symptoms reported EENTM: no symptoms reported Respiratory: no symptoms reported Cardiovascular: no symptoms reported Gastrointestinal: no symptoms reported Genitourinary: no symptoms reported : No Musculoskeletal: see HPI Skin: see HPI Psychiatric/Neurological: See HPI Hematologic/Lymphatic: No Symptoms Reported Immunological/Allergic: no symptoms reported Past Imnslxk-Fnkvjr-Skyqyk Hx Patient Social History Alcohol Use: Denies Use Recreational Drug Use: Yes Drug of Choice: Methamphetamines Smoking Status: Current Everyday Smoker Type Used: Cigarettes Recent Foreign Travel: No Contact w/Someone Who Travel: No Recent Infectious Disease Expo: No Recent Hopitalizations: No Physical Abuse: No Sexual Abuse: No Immunizations Up To Date Tetanus Booster (TDap): Less than 5yrs Seasonal Allergies Seasonal Allergies: No Past Medical History Surgeries: No Respiratory: No Cardiac: No Neurological: No Genitourinary: No Gastrointestinal: No Musculoskeletal: No Endocrine: No HEENT: No Cancer: No Psychosocial: Yes (Methamphetamine abuse) Nursing Suicide Risk Score: 0 Integumentary: No Physical Exam Vital Signs Capillary Refill : Less Than 3 Seconds Height, Weight, BMI Height: 5'6.00" Weight: 190lbs. 8.0oz. 86.454604yy; 32.1 BMI Method:Stated General Appearance: No Apparent Distress, WD/WN HEENT: PERRL/EOMI, Normal ENT Inspection Respiratory: Lungs Clear, Normal Breath Sounds, No Accessory Muscle Use Cardiovascular: Regular Rate, Rhythm, No Edema, No Murmur Extremity: Other (2 cm laceration on the proximal palmar surface of the right index finger. Distal sensation and capillary refill are intact. Range of motion of the finger intact.) Neurologic/Psychiatric: Alert, Oriented x3, No Motor/Sensory Deficits, Normal Mood/Affect, x ray inspector II-XII Norm as Tested Skin: Normal Color, Warm/Dry Procedures/Interventions Wound Location: Upper Extremities Other Wound Location Right index finger Wound Length (cm): 2 Wound's Depth, Shape: linear, sub Q Wound Explored: clean Irrigated w/ Saline (ccs): 400 Betadine Prep?: Yes Anesthesia: 1% Lidocaine Volume Anesthetic (ccs): 3 Suture: Prolene Suture Size: 4-0 Number of Sutures: 5 Sterile Dressing Applied?: Yes Progress Skin was cleaned with alcohol. Surface of laceration was sprayed with lidocaine. Wound was then injected for local anesthesia. Wound was irrigated with 400 mL normal saline. Betadine was then applied. Wound was approximated with 4-0 Prolene suture. Repair was performed by Dario Jean Baptiste MS3, underwent direct supervision. Progress/Results/Core Measures Suspected Sepsis Recent Fever Within 48 Hours: No Infection Criteria Present: None New/Unexplained Altered Menta: No Sepsis Screen: No Definite Risk SIRS Temperature:97.5 Pulse: 88 Respiratory Rate: 18 Blood Pressure 133 /72 Mean: 92 Results/Orders My Orders Medications Given in ED Vital Signs/I&O Capillary Refill : Less Than 3 Seconds Blood Pressure Mean: 92 Departure Impression Primary Impression: Laceration of finger Qualified Codes: S61.210A - Laceration without foreign body of right index finger without damage to nail, initial encounter Disposition: 01 HOME, SELF-CARE Condition: Improved Departure-Patient Inst. Decision time for Depature: 16:40 Referrals: SHELLY BORRERO DO (PCP) Primary Care Physician EDWIN DYER APRN (Family) Primary Care Physician Patient Instructions: Laceration Repair With Stitches (DC) Add. Discharge Instructions: Keep the wound clean and dry except for normal handwashing and showering. Do not submerge until sutures are removed. Monitor for signs of infection such as increasing swelling, increasing redness, fever, puslike drainage, or increasing pain. Return to care promptly. Notice these symptoms. You may take Tylenol and/or ibuprofen for pain. You may keep the wound open to air when awake at rest. Cover when active or in dirty environments. Return in 10 days to have sutures removed. All discharge instructions reviewed with patient and/or family. Voiced understanding. ARIANNA DUMONT MD Oct 17, 2017 17:06
[2017-10-17 17:09] VITALS: BP 133/72
== END 2017-10-17 17:22 | disposition home or self-care (01) ==
LOC: EDUNIT# 15:05 → ER 15:06
DX: S61.210A Laceration without foreign body of right index finger without damage to nail, initial encounter (principal); F17.210 Nicotine dependence, cigarettes, uncomplicated; Z23 Encounter for immunization; Z88.0 Allergy status to penicillin; Z88.4 Allergy status to anesthetic agent; Z88.5 Allergy status to narcotic agent; X58.XXXA Exposure to other specified factors, initial encounter
CPT/HCPCS: 12041; 90471; 90715